=== PATIENT | female | born 2000 | race Caucasian/White ===

== ENCOUNTER 2024-09-11 13:36 | Inpatient (IN) | payer BC, SELFPAY ==
[2024-09-11] VITALS (9 sets, daily range): BP systolic 112–144; BP diastolic 58–81; PULSE 74–96; RESP 15–18; TEMP 36.4–36.9; O2SAT 92–100; BMI 39.4
--- OUTSIDE RECORDS SUMMARY | 2024-09-11 07:13 | XMS RPT_ITS | CCD ---
Author Organization [facility] Care Team Providers Care Sterile Processing Technologist Name Role Phone COLEMAN, FARA L Unavailable Unavailable REFERRED, SELF Unavailable Unavailable COLEMAN, FARA L Unavailable Unavailable COLEMAN, FARA L Unavailable Unavailable REFERRED, SELF Unavailable Unavailable COLEMAN, FARA L Unavailable Unavailable YADAV, IRIS K Unavailable Unavailable REFERRED, SELF Unavailable Unavailable COLEMAN, FARA L Unavailable Unavailable None, No PCP Unavailable Unavailable Unavailable Unavailable Required, No Pcp Unavailable Unavailable Isabel Arroyo Unavailable Unavailable Liliam Brantley Unavailable Unavailable Primary Care Provider Unavailabl e Hudec, Candy Unavailable Unavailable Unavailable Primary Care Provider Unavailabl e HUDEC, CANDY PHUONG Attending Unavailable Unavailable Primary Care Provider Unavailabl e HAURY, DEBO Referring Unavailable MONIKA JOEL Attending Unavailable ADELITA, JAYLON L Attending Unavailable WISWELL, ABILIO Attending Unavailable HAURY, DEBO Attending Unavailable TIZZANO, MINGO P Attending Unavailable WISWELL, ABILIO Attending Unavailable TARI BOGGS Attending Unavailable HAURY, DEBO Referring Unavailable HAURY, DEBO Attending Unavailable HAURY, DEBO Attending Unavailable HAURY, DEBO Referring Unavailable AMBROSETARI GARCIA Attending Unavailable ADELITA, JAYLON L Attending Unavailable HAURY, DEBO Referring Unavailable ADELITA, JAYLON L Attending Unavailable WISWELL, ABILIO Attending Unavailable ADELITA, JAYLON L Referring Unavailable TIZZANO, MINGO P Referring Unavailable MONIKA JOEL Attending Unavailable NAZ KERN Attending Unavailable SHAYYWELL, ABILIO Attending Unavailable Allergies Allergy Classification Reported Allergen(s) Allergy Type Date of Onset Reaction(s) Facility (1 source) ALLERGIES NOT ON FILE; Translations: [ALLERGIES NOT ON FILE] Propensity to adverse reactions (disorder) [facility] Medications Current Medications Medication Drug Class(es) Dates Sig (Normalized) Sig (Original) [id number] 200 actuat albuterol 0.09 mg/actuat metered dose inhaler (20 sources) beta2-Adrenergic Agonist Start: 02-24-2024 take 2 puff(s) by inhalation every six hours as needed for wheezing albuterol HFA (PROVENTIL HFA, VENTOLIN HFA) 90 mcg/actuation inhaler Indications: acute asthma attack Inhale 2 Puffs as instructed every 6 hours as needed for wheezing/shortnes s of breath. 18 g 1 02/24/2024 Active Comment on above: Inhale 2 Puffs as in structed every 6 hours as needed for wheezing/shortness of breath. aspirin 81 mg oral tablet (17 sources) Platelet Aggregation Inhibitor, Nonsteroidal Anti-inflammatory Drug take 1 capsule by mouth once daily aspirin 81 mg cap Take 81 mg by mouth once daily. Active Loratadine (20 sources) loratadine (CLARITIN ORAL) Take 1 tablet by mouth as needed (allergic to her cats). Active loratadine (CLAR ITIN ORAL) Take 1 tablet by mouth as needed (allergic to her cats). 0 Active take 1 tablet by mouth once chicho y Claritin 10 mg oral tablet ; 1 tab(s) orally once a day Quantity: 0 Refills: 0 Ordered: 07-Mar-2021 Mikala Abraham Generic Substitution Allowed loratadine (CLAR ITIN ORAL) Take by mouth. 0 Active Claritin TABS Qu antity: 0 Refills: 0 Ordered: 25-Jan-2021 DO Active Comment on above: Take by mouth. Take 1 tablet by minnie th as needed (allergic to her cats). PNV no.95/ferrous fum/folic ac ( ORAL) (20 sources) PNV no.95/ferrou s fum/folic ac ( ORAL) Take by mouth. Active PNV no.95/ferrou s fum/folic ac ( ORAL) Take by mouth. 0 Active Comment on above: Take by mouth. Completed/Discontinued Medications Medication Drug Class(es) Dates Sig (Normalized) Sig (Original) ibuprofen 800 mg oral tablet (2 sources) Nonsteroidal Anti-inflammatory Drug Start: 11-02-2022 take 1 tablet by mouth three times daily at mealtime ibuprofen 800 mg oral tablet ; 1 tab(s) orally 3 times a day Quantity: 20 Refills: 0 Ordered: 02-Nov-2022 Candy Villa Start: 02-Nov-2022 Generic Substitution Allowed Comments: Do not take this drug if you are .It is very important that you take or use this exactly as directed. Do not skip doses or discontinue unless directed by your doctor.May cause drowsiness or dizziness.Obtain medical advice before taking any non-prescription drugs as some may affect the action of this medication.Take with food or milk. Start: 06-09-2021 take 1 tablet by minnie th every six hours IBU 600 mg oral tablet ; 1 tab(s) orally every 6 hours as needed for cramping Quantity: 40 Refills: 0 Ordered: 16-Jun-2021 DavidEloina chance Start: 09-Jun-2021 Generic Substitution Allowed Comments: Do not take this drug if you are .It is very important that you take or use this exactly as directed. Do not skip doses or discontinue unless directed by your doctor.May cause drowsiness or dizziness.Obtain medical advice before taking any non-prescription drugs as some may affect the action of this medication.Take with food or milk. Comment on above: Do not take this tristian g if you are .It is very important that you take or use this exactly as directed. Do not skip doses or discontinue unless directed by your doctor.May cause drowsiness or dizziness.Obtain medical advice before taking any non-prescription drugs as some may affect the action of this medication.Take with food or milk. magnesium oxide 400 mg oral tablet (9 sources) Start: End: take 1 tablet by mouth once daily magnesium oxide (MAG-OX) 400 mg (241.3 mg magnesium) tablet Indications: 16 weeks gestation of , Encounter for supervision of other normal in first trimester , Migraine headaches Take 1 tablet by mouth once daily. 60 tablet 03/23/2024 07/13/2024 Discontinued (Course of therapy completed) metoclopramide 5 mg oral tablet (3 sources) Dopamine-2 Receptor Antagonist Start: End: take 1 tablet by mouth four times daily metoclopramide HCl (REGLAN) 5 mg tablet Take 1 tablet by mouth four times daily. 30 tablet 0 03/19/2024 04/20/2024 Discontinued PNV Plus Multivitamin TABS (3 sources) PNV Plu s Multivitamin TABS Quantity: 0 Refills: 0 Ordered: 25-Jan-2021 DO Active NEGATED: Highlighted row has not occurred!No Current Medications (1 source) No Current Medications Problems Active Problems Problem Classification Problem Date Documented Date Episodic/Chronic Bacterial infection; unspecified site (6 sources) Bacteria present; Translations: [Streptococcus, group B, as the cause of diseases classified elsewhere] Onset: 08-12-2024 08-12-2024 Episodic Cardiac and circulatory congenital anomalies (1 source) Uterine arteriovenous malformation; Translations: [Anomalies of other specified sites of peripheral vascular system] 06-09-2021 Chronic Headache; including migraine (2 sources) Tension-type headache; Translations: [Tension-type headache, unspecified, not intractable] 03-19-2024 Chronic Headache; including migraine (2 sources) Headache; including migraine; Translations: [Headache, unspecified] Onset: 11-02-2022 Hemorrhage during ; abruptio placenta; placenta previa (1 source) Antepartum hemorrhage; Translations: [Hemorrhage in early , unspecified] Episodic Immunizations and screening for infectious disease (5 sources) Patient encounter status; Translations: [Encounter for screening for infections with a predominantly sexual mode of transmission] Onset: 11-02-2022 Episodic Menstrual disorders (3 sources) Amenorrhea; Translations: [Absence of menstruation] Chronic Other aftercare (3 sources) Surgical follow-up; Translations: [Follow-up examination, following surgery, unspecified] Episodic Other complications of (20 sources) Maternal obesity complicating , childbirth and the puerperium, antepartum; Translations: [Obesity complicating , first trimester] Onset: 01-27-2024 01-27-2024 Chronic Other complications of (1 source) Obesity complicating , second trimester; Translations: [Obesity affecting in second trimester, unspecified obesity type] Onset: 04-20-2024 Chronic Other complications of (3 sources) Blighted ovum; Translations: [Other abnormal products of conception] Episodic Other complications of (20 sources) High risk ; Translations: [Supervision of high risk , unspecified, second trimester] Onset: 01-27-2024 04-20-2024 Episodic Other female genital disorders (2 sources) History of with abortive outcome; Translations: [Recurrent loss] Episodic Other female genital disorders (1 source) 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 ; Translations: [Recurrent loss] Episodic Residual codes; unclassified (3 sources) H/O: miscarriage; Translations: [Personal history of other genital system and obstetric disorders] Episodic Comment on above: 06/2019; Residual codes; unclassified (1 source) Influenza-like symptoms; Translations: [Other general symptoms] 11-02-2022 Episodic Residual codes; unclassified (1 source) Gestation period, 8 weeks; Translations: [8 weeks gestation of ] 01-27-2024 Episodic Residual codes; unclassified (2 sources) Gestation period, 12 weeks; Translations: [12 weeks gestation of ] 02-24-2024 Episodic Residual codes; unclassified (1 source) Gestation period, 16 weeks; Translations: [16 weeks gestation of ] 03-23-2024 Episodic Residual codes; unclassified (2 sources) Gestation period, 20 weeks; Translations: [20 weeks gestation of ] 04-20-2024 Episodic Residual codes; unclassified (1 source) Gestation period, 24 weeks; Translations: [24 weeks gestation of ] 05-18-2024 Episodic Residual codes; unclassified (1 source) Gestation period, 26 weeks; Translations: [26 weeks gestation of ] 06-04-2024 Episodic Residual codes; unclassified (1 source) Gestation period, 28 weeks; Translations: [28 weeks gestation of ] 06-15-2024 Episodic Residual codes; unclassified (1 source) Gestation period, 30 weeks; Translations: [30 weeks gestation of ] 06-29-2024 Episodic Residual codes; unclassified (1 source) Gestation period, 32 weeks; Translations: [32 weeks gestation of ] 07-13-2024 Episodic Residual codes; unclassified (1 source) Gestation period, 34 weeks; Translations: [34 weeks gestation of ] 07-27-2024 Episodic Residual codes; unclassified (1 source) Gestation period, 36 weeks; Translations: [36 weeks gestation of ] 08-10-2024 Episodic Residual codes; unclassified (1 source) Gestation period, 37 weeks; Translations: [37 weeks gestation of ] 08-17-2024 Episodic Residual codes; unclassified (1 source) Gestation period, 38 weeks; Translations: [38 weeks gestation of ] 08-24-2024 Episodic Residual codes; unclassified (1 source) Gestation period, 39 weeks; Translations: [39 weeks gestation of ] 08-31-2024 Episodic Residual codes; unclassified (1 source) Gestation period, 40 weeks; Translations: [40 weeks gestation of ] 09-07-2024 Episodic Residual codes; unclassified (1 source) 24 weeks gestation of ; Translations: [24 weeks gestation of ] Onset: 06-15-2024 Episodic Unclassified (2 sources) 06-09-2021 Comment on above: Unclassified (1 source) Arteriovenous malformation of uterus 06-09-2021 Unclassified (2 sources) BODY ACHES 11-02-2022 Comment on above: BODY ACHES Unclassified (1 source) Flu-like symptoms 11-02-2022 Unclassified (1 source) Contact with and (suspected) exposure to COVID-19; Translations: [Contact with and (suspected) exposure to COVID-19] Onset: 11-02-2022 Unclassified (18 sources) [facility] Education - COMMON Onset: 01-27-2024 01-27-2024 Unclassified (18 sources) Education - [place] Onset: 01-27-2024 01-27-2024 Past or Other Problems Problem Classification Problem Date Documented Da te Episodic/Chronic Nonspecific chest pain (2 sources) Other chest pain; Translations: [Other chest pain] Onset: 11-02-2022 Episodic Other complications of (12 sources) Nausea and vomiting; Translations: [Vomiting of , unspecified] Onset: 01-27-2024 01-27-2024 Episodic Other complications of (12 sources) Vomiting of , unspecified; Translations: [Unspecified vomiting of , unspecified as to episode of care or not applicable] Onset: 01-27-2024 01-27-2024 Episodic Other complications of (1 source) Supervision of high risk , unspecified, second trimester; Translations: [Supervision of high risk in second trimester] Onset: 04-20-2024 Episodic Other female genital disorders (20 sources) Recurrent miscarriage; Translations: [Recurrent loss] Onset: 01-27-2024 01-27-2024 Episodic Other and delivery including normal (16 sources) test positive; Translations: [Encounter for test, result positive] Onset: 01-07-2024 Episodic Other screening for suspected conditions (not mental disorders or infectious disease) (9 sources) Karyotype evaluation abnormal; Translations: [Nonspecific abnormal findings on chromosomal analysis] Onset: 02-24-2024 Episodic Residual codes; unclassified (2 sources) Pain, unspecified; Translations: [Pain, unspecified] Onset: 11-02-2022 Episodic Residual codes; unclassified (20 sources) Electronic cigarette user; Translations: [Other problems related to lifestyle] Onset: 01-27-2024 01-27-2024 Episodic Residual codes; unclassified (1 source) 8 weeks gestation of ; Translations: [8 weeks gestation of ] Onset: 03-23-2024 Episodic Residual codes; unclassified (1 source) 16 weeks gestation of ; Translations: [16 weeks gestation of ] Onset: 03-23-2024 Episodic Residual codes; unclassified (1 source) 12 weeks gestation of ; Translations: [12 weeks gestation of ] Onset: 02-24-2024 Episodic Screening and history of mental health and substance abuse codes (20 sources) H/O: anxiety state; Translations: [Personal history of other mental and behavioral disorders] Onset: 01-27-2024 01-27-2024 Episodic Unclassified (3 sources) Finding of menstrual bleeding; Translations: [Menstruation] Comment on above: AGE 10; Results Test Name Value Interpretation Reference Range Facil ity URINE OB DIP B/Oon 4 Glucose Ql (U) Negative Neg mg/dL [facility] Interpretation and review of laboratory results Normal [facility] Protein.monoclonal (U) [Mass/Vol] Negative Neg mg/dL [facility] URINE OB DIP B/Oon 4 Glucose Ql (U) Negative Neg mg/dL [facility] Interpretation and review of laboratory results Normal [facility] Protein.monoclonal (U) [Mass/Vol] Negative Neg mg/dL [facility] URINE OB DIP B/OOrdered By: Yen Richards on 08-17-2024 Glucose Ql (U) Negative Neg mg/dL [facility] Interpretation and review of laboratory results Normal [facility] Protein.monoclonal (U) [Mass/Vol] Negative Neg mg/dL [facility] ROUTINE, GROUP B ST REP PCRon 08-10-2024 ROUTINE, GROUP B STREP PCR GROUP B STREP PCR: Positive for Group B Streptococcus by PCR. Abnormal [facility] Comment on above: Performed By: #### G BPCR ####[facility] LABCLIA [id number] [facility] [place] [address] [place] CBC W Auto Differential pane l (Bld)on 06-15-2024 Basophils (Bld) [#/Vol] 0.04 10*3/uL Normal <0.11 [facility] Comment on above: Order Comment: Speci men Type: BLOOD SPECIMENOrdering Facility: [facility] Address: [address] [place] [address] Performed By: #### 5 7021-8 ####[facility] [id number] [place] [address] [place] Basophils/100 WBC (Bld) 0.4 % Normal [facility] Comment on above: Order Comment: Speci men Type: BLOOD SPECIMENOrdering Facility: [facility] Address: [address] [place] [address] Performed By: #### 5 7021-8 ####[facility] [id number] [place] [address] [place] Differential cell count method Nom (Bld) Auto Normal [facility] Comment on above: Order Comment: Speci men Type: BLOOD SPECIMENOrdering Facility: [facility] Address: [address] [place] [address] Performed By: #### 5 7021-8 ####[facility] [id number] [place] [address] [place] Eosinophils (Bld) [#/Vol] 0.13 10*3/uL Normal <0.46 [facility] Comment on above: Order Comment: Speci men Type: BLOOD SPECIMENOrdering Facility: [facility] Address: [address] [place] [address] Performed By: #### 5 7021-8 ####[facility] MADDYPeterNCLIA [id number] [place] [address] [place] Eosinophils/100 WBC (Bld) 1.5 % Normal [facility] Comment on above: Order Comment: Speci men Type: BLOOD SPECIMENOrdering Facility: [facility] Address: [address] [place] [address] Performed By: #### 5 7021-8 ####[facility] [id number] [place] [address] [place] Erythrocyte distribution width (RBC) [Ratio] 13.0 % Normal 11.5-15.0 [facility] Comment on above: Order Comment: Speci men Type: BLOOD SPECIMENOrdering Facility: [facility] Address: [address] [place] [address] Performed By: #### 5 7021-8 ####[facility] [id number] [place] [address] [place] Hematocrit (Bld) [Volume fraction] 32.1 % Low 36.0-46.0 [facility] Comment on above: Order Comment: Speci men Type: BLOOD SPECIMENOrdering Facility: [facility] Address: [address] [place] [address] Performed By: #### 5 7021-8 ####[facility]CL[facility] [id number] [place] [address] [place] Hemoglobin (Bld) [Mass/Vol] 11.0 g/dL Low 11.5-15.5 [facility] Comment on above: Order Comment: Speci men Type: BLOOD SPECIMENOrdering Facility: [facility] Address: [address] [place] [address] Performed By: #### 5 7021-8 ####[facility]ITAL[facility]CL[facility] [id number] [place] [address] [place] Immature granulocytes (Bld) [#/Vol] 0.06 10*3/uL Normal <0.10 [facility] Comment on above: Order Comment: Speci men Type: BLOOD SPECIMENOrdering Facility: [facility] Address: [address] [place] [address] Performed By: #### 5 7021-8 ####[facility] [id number] [place] [address] [place] Immature granulocytes/100 WBC (Bld) 0.7 % Normal [facility] Comment on above: Order Comment: Speci men Type: BLOOD SPECIMENOrdering Facility: [facility] Address: [address] [place] [address] Performed By: #### 5 7021-8 ####[facility] [id number] [place] [address] [place] Lymphocytes (Bld) [#/Vol] 1.42 10*3/uL Normal 1.00-4.00 [facility] Comment on above: Order Comment: Speci men Type: BLOOD SPECIMENOrdering Facility: [facility] Address: [address] [place] [address] Performed By: #### 5 7021-8 ####[facility] [id number] [place] [address] [place] Lymphocytes/100 WBC (Bld) 16.0 % Normal [facility] Comment on above: Order Comment: Speci men Type: BLOOD SPECIMENOrdering Facility: [facility] Address: [address] [place] [address] Performed By: #### 5 7021-8 ####[facility] [id number] [place] [address] [place] MCH (RBC) [Entitic mass] 31.9 pg Normal 26.0-34.0 [facility] Comment on above: Order Comment: Speci men Type: BLOOD SPECIMENOrdering Facility: [facility] Address: [address] [place] [address] Performed By: #### 5 7021-8 ####[facility]ITALMADELINE [id number] [place] [address] [place] MCHC (RBC) [Mass/Vol] 34.3 g/dL Normal 30.5-36.0 [facility] Comment on above: Order Comment: Speci men Type: BLOOD SPECIMENOrdering Facility: [facility] Address: [address] [place] [address] Performed By: #### 5 7021-8 ####[facility] [id number] [place] [address] [place] MCV (RBC) [Entitic vol] 93.0 fL Normal 80.0-100.0 [facility] Comment on above: Order Comment: Speci men Type: BLOOD SPECIMENOrdering Facility: [facility] Address: [address] [place] [address] Performed By: #### 5 7021-8 ####[facility] [id number] [place] [address] [place] Monocytes (Bld) [#/Vol] 0.53 10*3/uL Normal <0.87 [facility] Comment on above: Order Comment: Speci men Type: BLOOD SPECIMENOrdering Facility: [facility] Address: [address] [place] [address] Performed By: #### 5 7021-8 ####[facility] [id number] [address] [place] Monocytes/100 WBC (Bld) 6.0 % Normal [facility] Comment on above: Order Comment: Speci men Type: BLOOD SPECIMENOrdering Facility: [facility] Address: [address] [place], [place] [address] Performed By: #### 5 7021-8 ####[facility] MILLTOWNCLIA [id number] [place] [address] [place] Neutrophils (Bld) [#/Vol] 6.72 10*3/uL Normal 1.45-7.50 [facility] Comment on above: Order Comment: Speci men Type: BLOOD SPECIMENOrdering Facility: [facility] Address: [address] [place] [address] Performed By: #### 5 7021-8 ####[facility]ITALWNCLIA [id number] [place] [address] [place] Neutrophils/100 WBC (Bld) 75.4 % Normal [facility] Comment on above: Order Comment: Speci men Type: BLOOD SPECIMENOrdering Facility: [facility] Address: [address] [place] [address] Performed By: #### 5 7021-8 ####[facility]PITALL[facility] [id number] [place] [address] [place] Nucleated RBC (Bld) [#/Vol] 10*3/uL Normal <0.01 [facility] Comment on above: Order Comment: Speci men Type: BLOOD SPECIMENOrdering Facility: [facility] Address: [address] [place] [address] Performed By: #### 5 7021-8 ####[facility] MILLWNCLIA [id number] [place] [address] [place] Nucleated RBC/100 WBC (Bld) [Ratio] 0.0 /100 WBC Normal [facility] Comment on above: Order Comment: Speci men Type: BLOOD SPECIMENOrdering Facility: [facility] Address: [address] [place] [address] Performed By: #### 5 7021-8 ####[facility] MILLDOVERNCLIA [id number] [place] [address] [place] Platelet mean volume (Bld) [Entitic vol] 10.1 fL Normal 9.0-12.7 [facility] Comment on above: Order Comment: Speci men Type: BLOOD SPECIMENOrdering Facility: [facility] Address: [address] [place] [address] Performed By: #### 5 7021-8 ####[facility]ITALELIEZERMIHIR [id number] [place] [address] [place] Platelets (Bld) [#/Vol] 236 10*3/uL Normal 150-400 [facility] Comment on above: Order Comment: Speci men Type: BLOOD SPECIMENOrdering Facility: [facility] Address: [address] [place] [address] Performed By: #### 5 7021-8 ####[facility]ITALNCLIA [id number] [place] [address] [place] RBC (Bld) [#/Vol] 3.45 10*6/uL Low 3.90-5.20 [facility] Comment on above: Order Comment: Speci men Type: BLOOD SPECIMENOrdering Facility: [facility] Address: [address] [place] [address] Performed By: #### 5 7021-8 ####[facility]ITALNCLIA [id number] [place] [address] [place] WBC (Bld) [#/Vol] 8.90 10*3/uL Normal 3.70-11.00 [facility] Comment on above: Order Comment: Speci men Type: BLOOD SPECIMENOrdering Facility: [facility] Address: [address] [place] [address] Performed By: #### 5 7021-8 ####[facility]ITALNCLIA [id number] [place] [address] [place] GESTATIONAL GLUCOSE SCREEN, 1-HOUR, 50 GRAM, NON-FASTINGon 06-15-2024 Glucose [Mass/Vol] 130 mg/dL Normal 74-134 [facility] Comment on above: Order Comment: Speci men Type: BLOOD SPECIMENOrdering Facility: [facility] Address: [address] [place] [address] Result Comment: [facility] Congress of Obstetricians and Gynecologists (Jameson/Germán) guidelines state a gestational diabetes mellitus positive screen is made, in women not previously diagnosed with overt diabetes, when the 1 hr plasma glucose level is equal to or above 140 mg/dL. The [facility] Cmm Programmer and [facility] [place] recommends a 135 mg/dL cutoff. Performed By: #### G LTGST ####[facility] [id number] [place] [address] [place] Reagin and Treponema pallidu m IgG and IgM [Interp]on 06-15-2024 T. pallidum IgG+IgM IA Ql (S) Non-Reactive Normal Nonreactive [facility] Comment on above: Order Comment: Speci men Type: BLOOD SPECIMENOrdering Facility: [facility] Address: [address] [place] [address] Performed By: #### 7 3752-8 ####[facility] LABCLIA [id number] [place] [id number] [place] Reagin+T pallidum IgG+IgM Se rPl-Impon 06-15-2024 Reagin and Treponema pallidum IgG and IgM [Interp] Cannot exclude recent Treponemal infection if specimen collected within 7-10 days after appearance of suspect lesions or 2-3 weeks after an exposure. Clinical correlation is required. Normal [facility] Comment on above: Order Comment: Speci men Type: BLOOD SPECIMENOrdering Facility: [facility] Address: [address] [place], [place] [address] Performed By: #### 7 3752-8 ####[facility] LABCLIA [id number] [place] [address] [place] CNPNon 06-01-2024 CNPN Telephone (OBGYWM) ----- TISH MILLER ([id number]) 2000 F Date Time Provider Department 06/01/24 IMELDA RICKETTS OBGYWM During your visit today, we recorded the following information about you: Azalia Melgar, SHELL 06/01/2024 9:57 AM Signed Breast pump received from [employer]. Given to to sign. Azalia Melgar RN Tari Toledo RN 06/02/2024 3:04 PM Signed Faxed Allergies As of Date: 06/01/2024 (No Known Allergies) Date Reviewed: 04/20/2024 Reviewed by: Debo Alicea APRN.PROTOTYPE MODEL MAKER - Fully Assessed Reason for Visit: Breast pump [Other] Prescriptions as of 06/02/2024 - aspirin 81 mg cap Take 81 mg by mouth once daily. - magnesium oxide (MAG-OX) 400 mg (241.3 mg magnesium) tablet Take 1 tablet by mouth once daily. - albuterol HFA (PROVENTIL HFA, VENTOLIN HFA) 90 mcg/actuation inhaler Inhale 2 Puffs as instructed every 6 hours as needed for wheezing/shortness of breath. - PNV no.95/ferrous fum/folic ac ( ORAL) Take by mouth. - loratadine (CLARITIN ORAL) Take 1 tablet by mouth as needed (allergic to her cats). 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 Single, live, intrauterine . 2. biometry is consistent with the established gestational age. 3. Unremarkable anatomic survey. No markers for aneuploidy are noted. 4. Amniotic fluid normal amount. 5. The placenta is anterior, fundal. 6. Normal transabdominal cervical length without evidence of funneling or dynamic changes. Recommendations Follow up as clinically indicated. Maternal Assessment Height 157 cm Height (ft) 5 ft Height (in) 2 in Physical Exam Initial weight (lb) 174 lb Initial BMI 31.83 kg/m Maternal assessment other: 4 Para 0 Method Transabdominal ultrasound examination. View: Suboptimal view: limited by position Jay . Number of fetuses: 1 Dating LMP on: 11/29/2023 GA by LMP 20 w + 3 d MIKE by LMP: 09/04/2024 GA by prior assessment 20 w + 3 d MIKE by prior assessment: 09/04/2024 Ultrasound examination on: 04/20/2024 GA by U/S based upon: AC, BPD, Femur, HC GA by U/S 20 w + 4 d MIKE by U/S: 09/03/2024 Assigned: based on stated MIKE, selected on 04/20/2024 Assigned GA 20 w + 3 d Assigned MIKE: 09/04/2024 General Evaluation Cardiac activity present. FHR 149 bpm. movements: present. Presentation: transverse head left Placenta: Placental site: anterior, fundal Umbilical cord: normal insertion, 3 vessel cord Amniotic fluid: Amount of AF: normal amount. MVP 3.9 cm Growth Overview Exam date GA BPD (mm) HC (mm) AC (mm) FL (mm) HL (mm) EFW (g) 04/20/2024 20w 3d 48.3 57% 178.8 46% 160.4 68% 32.4 52% 32.4 68% 365 54% Biometry Standard BPD 48.3 mm 20w 4d 57% Hadlock OFD 63.4 mm 20w 2d 66% Nicolaides HC 178.8 mm 20w 2d 46% Meliza Cerebellum tr 20.2 mm 19w 3d 33% Hill Nuchal fold 3.4 mm AC 160.4 mm 21w 1d 68% Hadlock Femur 32.4 mm 20w 2d 52% Meliza Humerus 32.4 mm 20w 6d 68% Meliza EFW 365 g 20w 4d 54% Hadlock EFW (lb) 0 lb EFW (oz) 13 oz EFW by: Hadlock (HC-AC-FL) Extended Glass Furnace Operator 6.4 mm CM 4.8 mm 41% Nicolaides Extremities / Bony Struc FL / HC 0.18 19% Hadlock Other Structures FHR 149 bpm Anatomy Cranium: normal Lateral ventricles: normal Choroid plexus: normal Midline falx: normal Cavum septi pellucidi: normal Cerebellum: normal Cisterna magna: normal Head / Neck Vermis: normal Neck: normal Nuchal fold: normal Lips: normal Profile: normal Nose: normal Face Maxilla: normal Mandible: normal Orbits: normal Lens: normal 4-chamber view: normal RVOT view: normal LVOT view: normal 3-vessel view: normal 5-[id number]-[id number] view: normal Heart / Thorax Situs: situs solitus (normal) Aortic arch view: normal Ductal arch view: normal SVC: normal IVC: normal Cardiac axis: normal Rt lung: normal Lt lung: normal Diaphragm: normal Cord insertion: normal Stomach: normal Kidneys: normal Bladder: normal Genitals: normal Abdomen Abdom. wall: normal Cervical spine: normal Thoracic spine: normal Lumbar spine: normal Sacral spine: normal Arms: normal Legs: normal Rt upper arm: normal Rt forearm: normal Rt hand: normal Rt fingers: normal Lt upper arm: normal Lt forearm: normal Lt hand: normal Lt fingers: normal Rt upper leg: normal Rt lower leg: normal Rt foot: normal Lt upper leg: normal Lt lower leg: normal Lt foot: normal sex: male Wants to know sex: yes Maternal Structures Uterus / Cervix Uterus: Visualized Cervix: Visualized Approach: Transabdominal Cervical length 33.5 mm Ovaries / Tubes / Adnexa Rt ovary: Not visualized Lt ovary: Visualized Performed By: Claudia Velazquez RDMS, RVT Read By: Skylar Raza M.D. MATERNAL MEDICINE [facility] Radiology Study observation (narrative) [facility] CBC panel Auto (Bld)on 03-23 Erythrocyte distribution width (RBC) [Ratio] 12.3 % Normal 11.5-15.0 [facility] Comment on above: Order Comment: Speci men Type: BLOOD SPECIMENOrdering Facility: [facility] Address: [address] [place] [address] Performed By: #### 5 8410-2 ####[facility] [id number] [place] [address] [place] Hematocrit (Bld) [Volume fraction] 35.2 % Low 36.0-46.0 [facility] Comment on above: Order Comment: Speci men Type: BLOOD SPECIMENOrdering Facility: [facility] Address: [address] [place] [address] Performed By: #### 5 8410-2 ####[facility] [id number] [place] [address] [place] Hemoglobin (Bld) [Mass/Vol] 12.1 g/dL Normal 11.5-15.5 [facility] Comment on above: Order Comment: Speci men Type: BLOOD SPECIMENOrdering Facility: [facility] Address: [address] [place] [address] Performed By: #### 5 8410-2 ####[facility] [id number] [place] [address] [place] MCH (RBC) [Entitic mass] 31.1 pg Normal 26.0-34.0 [facility] Comment on above: Order Comment: Speci men Type: BLOOD SPECIMENOrdering Facility: [facility] Address: [address] [place] [address] Performed By: #### 5 8410-2 ####[facility] [id number] [place] [address] [place] MCHC (RBC) [Mass/Vol] 34.4 g/dL Normal 30.5-36.0 [facility] Comment on above: Order Comment: Speci men Type: BLOOD SPECIMENOrdering Facility: [facility] Address: [address] [place] [address] Performed By: #### 5 8410-2 ####[facility] [id number] [address] MCV (RBC) [Entitic vol] 90.5 fL Normal 80.0-100.0 [facility] Comment on above: Order Comment: Speci men Type: BLOOD SPECIMENOrdering Facility: [facility] Address: [address] [place] [address] Performed By: #### 5 8410-2 ####[facility]ITALELIEZERAshwini [id number] [place] [address] [place] Nucleated RBC (Bld) [#/Vol] 10*3/uL Normal <0.01 [facility] Comment on above: Order Comment: Speci men Type: BLOOD SPECIMENOrdering Facility: [facility] Address: [address] [place] [address] Performed By: #### 5 8410-2 ####[facility]ITALNCGEMMAA [id number] [place] [address] [place] Platelet mean volume (Bld) [Entitic vol] 10.1 fL Normal 9.0-12.7 [facility] Comment on above: Order Comment: Speci men Type: BLOOD SPECIMENOrdering Facility: [facility] Address: [address] [place] [address] Performed By: #### 5 8410-2 ####[facility]NCL[facility] [id number] [place] [address] [place] Platelets (Bld) [#/Vol] 244 10*3/uL Normal 150-400 [facility] Comment on above: Order Comment: Speci men Type: BLOOD SPECIMENOrdering Facility: [facility] Address: [address] [place] [address] Performed By: #### 5 8410-2 ####[facility] HOSPITALNCA [id number] [place] [address] [place] RBC (Bld) [#/Vol] 3.89 10*6/uL Low 3.90-5.20 [facility] Comment on above: Order Comment: Speci men Type: BLOOD SPECIMENOrdering Facility: [facility] Address: [address] [place] [address] Performed By: #### 5 8410-2 ####[facility] [id number] [place] [address] [place] WBC (Bld) [#/Vol] 7.50 10*3/uL Normal 3.70-11.00 [facility] Comment on above: Order Comment: Speci men Type: BLOOD SPECIMENOrdering Facility: [facility] Address: [address] [place] [address] Performed By: #### 5 8410-2 ####[facility]ITAL[facility] [id number] [place] [address] [place] HBV surface Ag Ser Qlon - HBV surface Ag Ql (S) Negative Normal Negative [facility] Comment on above: Order Comment: Speci men Type: BLOOD SPECIMENOrdering Facility: [facility] Address: [address] [place] [address] Performed By: #### 7 3752-8, 5195-3, 39000-2 ####[facility] LABCLIA [id number] [place] [address] [place] HCV Ab Ser Qlon 03-23-2024 HCV Ab Ql (S) Negative Normal Negative [facility] Comment on above: Order Comment: Speci men Type: BLOOD SPECIMENOrdering Facility: [facility] Address: [address] [place] [address] Result Comment: The result suggests no evidence of active infection with Hepatitis C virus. Should recent infection be suspected, repeat testing may be considered 4-6 weeks after this draw. Performed By: #### 1 6128-1 ####[facility] LABCLIA [id number] [place] [address] [place] HIV 1+2 Ab IA Qlon 4 HIV 1 and 2 Ab IA.rapid Nom (S/P/Bld) Normal [facility] Comment on above: Order Comment: Speci men Type: BLOOD SPECIMENOrdering Facility: [facility] Address: [address] [place] [address] Result Comment: Test not indicated. Performed By: #### 7 3752-8, 5195-3, 24917-9 ####[facility] LABIA [id number] [address] [place] HIV 1+2 Ab+HIV1 p24 Ag IA Ql Non-Reactive Normal Nonreactive [facility] Comment on above: Order Comment: Speci men Type: BLOOD SPECIMENOrdering Facility: [facility] Address: [address] [place] [address] Performed By: #### 7 3752-8, 5195-3, 91040-1 ####[facility] LABIA [id number] [address] [place] HIV immunoassay testing algorithm interpretation (S/P/Bld) [Interp] Normal [facility] Comment on above: Order Comment: Speci men Type: BLOOD SPECIMENOrdering Facility: [facility] Address: [address] [place] [address] Result Comment: No e vidence of HIV-1 or HIV-2 infection. Should recent infection be suspected, repeat testing may be considered 2-3 weeks after this draw. [place] Rev. Code 3701.243(E): This information has been disclosed to you from confidential records protected from disclosure by state law. ???You shall make no further disclosure of this information without the specific, written, and informed release of the individual to whom it pertains or as otherwise permitted by state law. A general authorization for the release of medical or other information is not sufficient for the purpose of the release of HIV test results or diagnoses. Performed By: #### 7 3752-8, 5195-3, 88999-2 ####[facility] LABCLIA [id number] [address] OF [facility] HbA1c (Bld)on 03-23-2024 Average glucose Estimated from glycated hemoglobin (Bld) [Mass/Vol] 91 mg/dL Normal [facility] Comment on above: Order Comment: Speci men Type: BLOOD SPECIMENOrdering Facility: [facility] Address: [address] [place] [address] Result Comment: eAG: (Estimated average glucose) is a calculated value from HgbA1c and is insurance verification representative of the average blood glucose level in the last 2-3 month period. Performed By: #### 5 5454-3 ####[facility] LABIA [id number] [address] STATES OF [facility] HbA1c (Bld) [Mass fraction] 4.8 % Normal 4.3-5.6 [facility] Comment on above: Order Comment: [facility]i [facility] Type: BLOOD SPECIMENOrdering Facility: [facility] Address: [address] [place] [address] Result Comment: Amer [place] Diabetes Association guidelines indicate that patients with HgbA1c in the range 5.7-6.4% are at increased risk for development of diabetes, and intervention by lifestyle modification may be beneficial. HgbA1c greater or equal to 6.5% is considered diagnostic of diabetes. Performed By: #### 5 5454-3 ####[facility] LABIA [id number] [address] OF [place] RUBELLA IGG ANTIBODYon 03-23 RUBELLA IGG AB, QUAL Positive Normal Positive [facility] Comment on above: Order Comment: Speci men Type: BLOOD SPECIMENOrdering Facility: [facility] Address: [address] [place] [address] Result Comment: The result suggests recent or past exposure to Rubella virus or history of Rubella vaccination. Positive result may also be seen due to presence of passively-transferred antibodies. Please correlate with patient's history. Performed By: #### R UBIGG ####[facility] LABCLIA [id number] [place] [address] [place] Reagin and Treponema pallidu m IgG and IgM [Interp]on 03-23-2024 T. pallidum IgG+IgM IA Ql (S) Non-Reactive Normal Nonreactive [facility] Comment on above: Order Comment: Speci men Type: BLOOD SPECIMENOrdering Facility: [facility] Address: [address] [place] [address] Performed By: #### 7 3752-8, 5195-3, 25863-9 ####[facility] LABCLIA [id number] [place] [address] [place] Reagin+T pallidum IgG+IgM Se rPl-Impon 03-23-2024 Reagin and Treponema pallidum IgG and IgM [Interp] Cannot exclude recent Treponemal infection if specimen collected within 7-10 days after appearance of suspect lesions or 2-3 weeks after an exposure. Clinical correlation is required. Normal [facility] Comment on above: Order Comment: Speci men Type: BLOOD SPECIMENOrdering Facility: [facility] Address: [address] [place] [address] Performed By: #### 7 3752-8, 5195-3, 01616-8 ####[facility] LABCLIA [id number] [place] [address] [place] SEQUENTIAL SCN SECOND TRIMon 03-23-2024 AFP [Mass/Vol] 45.4 ng/mL Normal [facility] Comment on above: Order Comment: Speci men Type: BLOOD SPECIMENOrdering Facility: [facility] Address: [address] [place] [address] Performed By: #### S EQ2 ####[facility] LABCLIA [id number] [facility] [place] [address] AFP adjusted [MoM] 1.47 Normal [facility] Comment on above: Order Comment: Speci men Type: BLOOD SPECIMENOrdering Facility: [facility] Address: [address] [place] [address] Performed By: #### S EQ2 ####[facility] LABCLIA [id number] [place] [address] [age] Normal [facility] Comment on above: Order Comment: Speci men Type: BLOOD SPECIMENOrdering Facility: [facility] Address: [address] [place] [address] Performed By: #### S EQ2 ####[facility] LABCLIA [id number] [place] [address] Collection date (Specimen) Date: Normal [facility] Comment on above: Order Comment: Speci men Type: BLOOD SPECIMENOrdering Facility: [facility] Address: [address] [place] [address] Result Comment: 04/2024 Performed By: #### S EQ2 ####[facility] LABCLIA [id number] [place] [address] E3.unconjugated [Mass/Vol] 0.98 ng/mL Normal [facility] Comment on above: Order Comment: Speci men Type: BLOOD SPECIMENOrdering Facility: [facility] Address: [address] [place] [address] Performed By: #### S EQ2 ####[facility] LABCLIA [id number] [place] [address] E3.unconjugated adjusted [MoM] 0.95 Normal [facility] Comment on above: Order Comment: Speci men Type: BLOOD SPECIMENOrdering Facility: [facility] Address: [address] [place] [address] Performed By: #### S EQ2 ####[facility] LABCLIA [id number] [place] [address] Halfway Rump length US 63.4 mm Normal [facility] Comment on above: Order Comment: Speci men Type: BLOOD SPECIMENOrdering Facility: [facility] Address: [address] [place] [address] Performed By: #### S EQ2 ####[facility] LABCLIA [id number] [place] [address] Nuchal fold [Multiple of the median] Thickness US 1.39 Normal [facility] Comment on above: Order Comment: Speci men Type: BLOOD SPECIMENOrdering Facility: [facility] Address: [address] [place] [address] Performed By: #### S EQ2 ####[facility] LABCLIA [id number] [place] [address] Nuchal fold Thickness US 2.0 mm Normal [facility] Comment on above: Order Comment: Speci men Type: BLOOD SPECIMENOrdering Facility: [facility] Address: [address] [place] [address] Performed By: #### S EQ2 ####[facility] LABCLIA [id number] [place] [address] First and Second trimester integrated maternal screen [Interp] Comment Normal [facility] Comment on above: Order Comment: Speci men Type: BLOOD SPECIMENOrdering Facility: [facility] Address: [address] [place] [address] Result Comment: Scre en Negative for Open Spina Bifida. Comment Screen Negative for Down syndrome Comment Screen Negative for Trisomy 18 Performed By: #### S EQ2 ####[facility] LABCLIA [id number] [place] [address] FIRST TRIMESTER SAMPLE Comment Normal [facility] Comment on above: Order Comment: Speci men Type: BLOOD SPECIMENOrdering Facility: [facility] Address: [address] [place] [address] Performed By: #### S EQ2 ####[facility] LABCLIA [id number] [place] [address] Gestational age 16.6 weeks Normal [facility] Comment on above: Order Comment: Speci men Type: BLOOD SPECIMENOrdering Facility: [facility] Address: [address] [place] [address] Performed By: #### S EQ2 ####[facility] LABCLIA [id number] [place] [address] HCG adjusted [MoM] 1.03 Normal [facility] Comment on above: Order Comment: Speci men Type: BLOOD SPECIMENOrdering Facility: [facility] Address: [address] [place] [address] Performed By: #### S EQ2 ####[facility] LABCLIA [id number] [place] [address] HCG Qn 31.1 IU/mL Normal [facility] Comment on above: Order Comment: Speci men Type: BLOOD SPECIMENOrdering Facility: [facility] Address: [address] [place] [address] Performed By: #### S EQ2 ####[facility] LABCLIA [id number] [place] [address] Inhibin A [Mass/Vol] 152.6 pg/mL Normal [facility] Comment on above: Order Comment: Speci men Type: BLOOD SPECIMENOrdering Facility: [facility] Address: [address] [place] [address] Performed By: #### S EQ2 ####[facility] LABCLIA [id number] [place] [address] Inhibin A adjusted [MoM] 1.09 Normal [facility] Comment on above: Order Comment: Speci men Type: BLOOD SPECIMENOrdering Facility: [facility] Address: [address] [place] [address] Performed By: #### S EQ2 ####[facility] LABCLIA [id number] [place] [address] Insulin dependent diabetes mellitus Ql No Normal [facility] Comment on above: Order Comment: Speci men Type: BLOOD SPECIMENOrdering Facility: [facility] Address: [address] [place] [address] Performed By: #### S EQ2 ####[facility] LABCLIA [id number] [place] [address] Laboratory comment Frantz (Report) Comment Normal [facility] Comment on above: Order Comment: Speci men Type: BLOOD SPECIMENOrdering Facility: [facility] Address: [address] [place] [address] Result Comment: The [place] [employer] recommends that all women be counseled regarding the differences between screening and invasive diagnostic testing. Performed By: #### S EQ2 ####[facility] LABCLIA [id number] [place] [address] Mother's race Normal [facility] Comment on above: Order Comment: Speci men Type: BLOOD SPECIMENOrdering Facility: [facility] Address: [address] [place] [address] Performed By: #### S EQ2 ####[facility] LABCLIA [id number] [place] [address] Neural tube defect risk Qn (fetus) Screening Risk: Normal [facility] Comment on above: Order Comment: Speci men Type: BLOOD SPECIMENOrdering Facility: [facility] Address: [address] [place] [address] Result Comment: 1 in 3100 Performed By: #### S EQ2 ####[facility] LABCLIA [id number] [place] [address] NOTE: Comment Normal [facility] Comment on above: Order Comment: Speci men Type: BLOOD SPECIMENOrdering Facility: [facility] Address: [address] [place] [address] Result Comment: Pauline diaz verify all clinical data used in this risk assessment and call [phone] with any corrections. Candi Arnold, Ph.D., [facility] Director References: Available upon request Open Spina Bifida (OSB) MoM Cutoffs Jay 2.5 Black 2.8 IDD 2.0 Twins 4.5 Risk Cutoffs Down Syndrome (DS) cutoff 1:270 Trisomy 18 (T18) cutoff 1:100 For further inquiries contact [employer] Customer Service at [phone]. This test was developed and its performance characteristics determined by [employer]. It has not been cleared or approved by the Food and Drug Administration. Performed By: #### S EQ2 ####[facility] LABCLIA [id number] [place] [address] Number of fetuses by US 1 Normal [facility] Comment on above: Order Comment: Speci men Type: BLOOD SPECIMENOrdering Facility: [facility] Address: [address] [place] [address] Performed By: #### S EQ2 ####[facility] LABCLIA [id number] [place] [address] associated plasma protein A [Mass/Vol] 814.7 ng/mL Normal [facility] Comment on above: Order Comment: Speci men Type: BLOOD SPECIMENOrdering Facility: [facility] Address: [address] [place] [address] Performed By: #### S EQ2 ####[facility] LABCLIA [id number] [place] [address] associated plasma protein A adjusted [MoM] 0.95 Normal [facility] Comment on above: Order Comment: Speci men Type: BLOOD SPECIMENOrdering Facility: [facility] Address: [address] [place] [address] Performed By: #### S EQ2 ####[facility] LABCLIA [id number] [place] [address] RESULTS Report Normal [facility] Comment on above: Order Comment: Speci men Type: BLOOD SPECIMENOrdering Facility: [facility] Address: [address] [place] [address] Performed By: #### S EQ2 ####[facility] LABCLIA [id number] [place] [address] SECOND TRIMESTER SAMPLE Comment Normal [facility] Comment on above: Order Comment: Speci men Type: BLOOD SPECIMENOrdering Facility: [facility] Address: [address] [place] [address] Performed By: #### S EQ2 ####[facility] LABCLIA [id number] [place] [address] Manager Transmission [Identifier] [id number] Normal [facility] Comment on above: Order Comment: Speci men Type: BLOOD SPECIMENOrdering Facility: [facility] Address: [address] [place] [address] Performed By: #### S EQ2 ####[facility] LABCLIA [id number] [place] [address] Trisomy 18 risk Based on maternal age Qn (fetus) Age Risk: Normal [facility] Comment on above: Order Comment: Speci men Type: BLOOD SPECIMENOrdering Facility: [facility] Address: [address] [place] [address] Result Comment: in 4043 Performed By: #### S EQ2 ####[facility] LABCLIA [id number] [place] [address] Trisomy 18 risk Qn (fetus) Screening Risk: Normal [facility] Comment on above: Order Comment: Speci men Type: BLOOD SPECIMENOrdering Facility: [facility] Address: [address] [place] [address] Result Comment: <1 i n [id number] Performed By: #### S EQ2 ####[facility] LABCLIA [id number] [place] [address] Trisomy 21 risk Based on maternal age Qn (fetus) Age Risk: Normal [facility] Comment on above: Order Comment: Speci men Type: BLOOD SPECIMENOrdering Facility: [facility] Address: [address] [place] [address] Result Comment: 1 in 1037 Performed By: #### S EQ2 ####[facility] LABCLIA [id number] [place] [address] Trisomy 21 risk Qn (fetus) Screening Risk: Normal [facility] Comment on above: Order Comment: Speci men Type: BLOOD SPECIMENOrdering Facility: [facility] Address: [address] [place] [address] Result Comment: <1 i n 11189 Performed By: #### S EQ2 ####[facility] LABCLIA [id number] [place] [address] Ultrasound date Date: Normal [facility] Comment on above: Order Comment: Speci men Type: BLOOD SPECIMENOrdering Facility: [facility] Address: [address] [place] [address] Result Comment: 06/2024 Performed By: #### S EQ2 ####[facility] LABCLIA [id number] [place] [address] TYPE + SCREEN PRENATALon ABO A Normal [facility] Comment on above: Order Comment: Speci men Type: BLOOD SPECIMEN [facility] Address: [address] [place] [address] Performed By: #### T SPN #### [facility] CLIA [id number] [address] [place] [address] [place] HISTORICAL AB SCR STATUS Negative Normal [facility] Comment on above: Order Comment: Speci men Type: BLOOD SPECIMEN [facility]: [facility] Address: [address] [place] [address] Performed By: #### T SPN #### [facility] CLIA [id number] [address] [place] [address] [place] Rh Nom (Bld) Positive Normal [facility] Comment on above: Order Comment: Speci men Type: BLOOD SPECIMEN [facility] Address: [address] [place] [address] Performed By: #### T SPN #### [facility] CLIA [id number] [address] [place] [address] [place] TYPE AND SCREEN EXPIRATION 03/26/2024 23:59 Normal [facility] Comment on above: Order Comment: Speci men Type: BLOOD SPECIMEN [facility]: [facility] Address: [address] [place] [address] Performed By: #### T SPN #### [facility] CLIA [id number] [id number] [facility] Allan 03-19-2024 CNPN Telephone (OBGYWM) ----- TISH MILLER ([id number]) 2000 F Date Time Provider Department 03/19/24 TARI BOGGS During your visit today, we recorded the following information about you: Tari Toledo RN 03/19/2024 9:21 AM Signed 15w6d Patient called with c/o HOYOS for 3 days without relief from Tylenol. Pain rate of 7-8 out of 10. Today, she vomited 4 times and she thinks it's from the HOYOS. Denies vision changes or hx of migraines. Encouraged to push fluids. Trying to drink water, but vomited the Tylenol shortly after taking this morning. Encouraged to try drinks with electrolytes if plain water isn't agreeing with her today. Normally drinks a cup of a coffee a day. Has not had any coffee this morning. Please advise. SHELL Robles Jennifer, MD 03/19/2024 1:29 PM Signed Try taking benadryl for both the nausea and headache. I will also send reglan to the pharmacy for the headache Mulu Mcleod RN 03/19/2024 1:50 PM Signed Patient notified. Mulu Mcleod RN Allergies As of Date: 03/19/2024 (No Known Allergies) Date Reviewed: 02/24/2024 Reviewed by: Jaylon Ureña MD - Fully Assessed Reason for Visit: OB HOYOS [Other] Primary Visit Diagnosis:Tension headache [G44.209] Order(s):metoclopramide HCl (REGLAN) 5 mg tabletTake 1 tablet by mouth four times daily.Disp: 30 tabletRfl: 0 Prescriptions as of 03/19/2024 - metoclopramide HCl (REGLAN) 5 mg tablet Take 1 tablet by mouth four times daily. - albuterol HFA (PROVENTIL HFA, VENTOLIN HFA) 90 mcg/actuation inhaler Inhale 2 Puffs as instructed every 6 hours as needed for wheezing/shortness of breath. - PNV no.95/ferrous fum/folic ac ( ORAL) Take by mouth. - loratadine (CLARITIN ORAL) Take 1 tablet by mouth as needed (allergic to her cats). 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 Encounter Status:Closed by MULU MCLEOD on 03/19/24 Normal [facility] CARRIER SCREEN, STANDARDon 0 02-24-2024 CARRIER SCREEN RESULTS View results in Scanned Documents link when available. Normal [facility] Comment on above: Order Comment: Speci men Type: BLOOD SPECIMENOrdering Facility: [facility] Address: [address] [place] [address] Performed By: #### C RRSCN ####[facility] [id number] [place] [address] nuchal translucency me asured by USon 02-24-2024 [facility] HGB ELECTROPHORESIS FOR EVAL (LAB ORDER)on 02-24-2024 Hemoglobin A (Bld) [Mass fraction] 97.2 % Normal 96.2-98.0 [facility] Comment on above: Order Comment: Speci men Type: BLOOD SPECIMENOrdering Facility: [facility] Address: [address] [place] [address] Performed By: #### H GBELEV ####[facility] LABCLIA [id number] [place] [address] [place] Hemoglobin A2 (Bld) [Mass fraction] 2.8 % Normal 2.0-3.1 [facility] Comment on above: Order Comment: Speci men Type: BLOOD SPECIMENOrdering Facility: [facility] Address: [address] [place] [address] Performed By: #### H GBELEV ####[facility] LABIA [id number] [place] [address] [place] Hemoglobin Unsp Elph (Bld) [Mass fraction] No abnormal hemoglobin identified. Normal No abnormal hemoglobin identified. [facility] Comment on above: Order Comment: Speci men Type: BLOOD SPECIMENOrdering Facility: [facility] Address: [address] [place] [address] Performed By: #### H GBELEV ####[facility] [id number] [place] [address] [place] RBC PARAMETERS FOR HB IDon 0 02-24-2024 Erythrocyte distribution width (RBC) [Ratio] 12.6 % Normal 11.5-15.0 [facility] Comment on above: Order Comment: Speci men Type: BLOOD SPECIMENOrdering Facility: [facility] Address: [address] [place] [address] Performed By: #### L [id number] ####[facility] LABIA [id number] [place] [address] [place] Hematocrit (Bld) [Volume fraction] 36.7 % Normal 36.0-46.0 [facility] Comment on above: Order Comment: Speci men Type: BLOOD SPECIMENOrdering Facility: [facility] Address: [address] [place] [address] Performed By: #### L [id number] ####[facility] LABIA [id number] [place] [address] [place] Hemoglobin (Bld) [Mass/Vol] 12.6 g/dL Normal 11.5-15.5 [facility] Comment on above: Order Comment: Speci men Type: BLOOD SPECIMENOrdering Facility: [facility] Address: [address] [place] [address] Performed By: #### L [id number] ####[facility] LABCLIA [id number] [place] [address] [place] MCH (RBC) [Entitic mass] 31.5 pg Normal 26.0-34.0 [facility] Comment on above: Order Comment: Speci men Type: BLOOD SPECIMENOrdering Facility: [facility] Address: [address] [place] [address] Performed By: #### L [id number] ####[facility] LABCLIA [id number] [place] [address] [place] MCHC (RBC) [Mass/Vol] 34.3 g/dL Normal 30.5-36.0 [facility] Comment on above: Order Comment: Speci men Type: BLOOD SPECIMENOrdering Facility: [facility] Address: [address] [place] [address] Performed By: #### L [id number] ####[facility] LABCLIA [id number] [place] [address] [place] MCV (RBC) [Entitic vol] 91.8 fL Normal 80.0-100.0 [facility] Comment on above: Order Comment: Speci men Type: BLOOD SPECIMENOrdering Facility: [facility] Address: [address] [place] [address] Performed By: #### L [id number] ####[facility] LABCLIA [id number] [place] [address] [place] RBC (Bld) [#/Vol] 4.00 10*6/uL Normal 3.90-5.20 [facility] Comment on above: Order Comment: Speci men Type: BLOOD SPECIMENOrdering Facility: [facility] Address: [address] [place] [address] Performed By: #### L [id number] ####[facility] LABCLIA [id number] [place] [address] [address] [place] SEQUENTIAL SCN FIRST TRIMEST Luan [birth year]24 [age] Normal [facility] Comment on above: Order Comment: Speci men Type: BLOOD SPECIMENOrdering Facility: [facility] Address: [address] [place] [address] Performed By: #### S EQ1 ####[facility] LABCLIA [id number] [place] [address] Halfway Rump length US 63.4 mm Normal [facility] Comment on above: Order Comment: Speci men Type: BLOOD SPECIMENOrdering Facility: [facility] Address: [address] [place] [address] Performed By: #### S EQ1 ####[facility] LABCLIA [id number] [facility] [address] Nuchal fold [Multiple of the median] Thickness US 1.39 Normal [facility] Comment on above: Order Comment: Speci men Type: BLOOD SPECIMENOrdering Facility: [facility] Address: [address] [place] [address] Performed By: #### S EQ1 ####[facility] LABCLIA [id number] [facility] [address] Nuchal fold Thickness US 2.0 mm Normal [facility] Comment on above: Order Comment: Speci men Type: BLOOD SPECIMENOrdering Facility: [facility] Address: [address] [place] [address] Performed By: #### S EQ1 ####[facility] LABCLIA [id number] [facility] [address] First and Second trimester integrated maternal screen [Interp] Comment Normal [facility] Comment on above: Order Comment: Speci men Type: BLOOD SPECIMENOrdering Facility: [facility] Address: [address] [place] [address] Result Comment: The risk for Down syndrome is less than the 1:45 cutoff. Comment The risk for trisomy 18 is less than the 1:100 cutoff. Performed By: #### S EQ1 ####[facility] LABCLIA [id number] [place] [address] Gestational age 12.6 weeks Normal [facility] Comment on above: Order Comment: Speci men Type: BLOOD SPECIMENOrdering Facility: [facility] Address: [address] [place] [address] Performed By: #### S EQ1 ####[facility] LABCLIA [id number] [place] [address] HCG adjusted [MoM] 0.81 Normal [facility] Comment on above: Order Comment: Speci men Type: BLOOD SPECIMENOrdering Facility: [facility] Address: [address] [place] [address] Performed By: #### S EQ1 ####[facility] LABCLIA [id number] [place] [address] HCG Qn 67.4 IU/mL Normal [facility] Comment on above: Order Comment: Speci men Type: BLOOD SPECIMENOrdering Facility: [facility] Address: [address] [place] [address] Performed By: #### S EQ1 ####[facility] LABCLIA [id number] [place] [address] Laboratory comment Frantz (Report) Comment Normal [facility] Comment on above: Order Comment: Speci men Type: BLOOD SPECIMENOrdering Facility: [facility] Address: [address] [place] [address] Result Comment: Pauline diaz submit a second trimester sample between 15.0 - 21.9 weeks gestation to complete risk assessment for Down syndrome, trisomy 18 and open spina bifida. The [employer] recommends that all women be counseled regarding the differences between screening and invasive diagnostic testing. Performed By: #### S EQ1 ####[facility] LABCLIA [id number] [place] [address] Mother's race Normal [facility] Comment on above: Order Comment: Speci men Type: BLOOD SPECIMENOrdering Facility: [facility] Address: [address] [place] [address] Performed By: #### S EQ1 ####[facility] LABCLIA [id number] [place] [address] NOTE: Comment Normal [facility] Comment on above: Order Comment: Speci men Type: BLOOD SPECIMENOrdering Facility: [facility] Address: [address] [place] [address] Result Comment: Pauline diaz verify all clinical data used in this risk assessment and call [phone] with any corrections. Candi Arnold, Ph.D., [facility] Director References: Available upon request Open Spina Bifida (OSB) MoM Cutoffs Jay 2.5 Black 2.8 IDD 2.0 Twins 4.5 Risk Cutoffs Down Syndrome (DS) cutoff 1:270 Trisomy 18 (T18) cutoff 1:100 For further inquiries contact [employer] Customer Service at [phone]. This test was developed and its performance characteristics determined by [employer]. It has not been cleared or approved by the Food and Drug Administration. Performed By: #### S EQ1 ####[facility] LABCLIA [id number] [place] [address] Number of fetuses by US 1 Normal [facility] Comment on above: Order Comment: Speci men Type: BLOOD SPECIMENOrdering Facility: [facility] Address: [address] [place] [address] Performed By: #### S EQ1 ####[facility] LABCLIA [id number] [place] [address] associated plasma protein A [Mass/Vol] 814.7 ng/mL Normal [facility] Comment on above: Order Comment: Speci men Type: BLOOD SPECIMENOrdering Facility: [facility] Address: [address] [place] [address] Performed By: #### S EQ1 ####[facility] LABCLIA [id number] [place] [address] associated plasma protein A adjusted [MoM] 0.95 Normal [facility] Comment on above: Order Comment: Speci men Type: BLOOD SPECIMENOrdering Facility: [facility] Address: [address] [place] [address] Performed By: #### S EQ1 ####[facility] LABCLIA [id number] [place] [address] RESULTS Report Normal [facility] Comment on above: Order Comment: Speci men Type: BLOOD SPECIMENOrdering Facility: [facility] Address: [address] [place] [address] Performed By: #### S EQ1 ####[facility] LABCLIA [id number] [place] [address] Manager Transmission [Identifier] [id number] Normal [facility] Comment on above: Order Comment: Speci men Type: BLOOD SPECIMENOrdering Facility: [facility] Address: [address] [place] [address] Performed By: #### S EQ1 ####[facility] LABCLIA [id number] [place] [address] SUBMIT PART 2 SAMPLE USING Date: Normal [facility] Comment on above: Order Comment: Speci men Type: BLOOD SPECIMENOrdering Facility: [facility] Address: [address] [place] [address] Result Comment: Sequ ential 2 Test Code [id number] Based on gest age provided, draw sample after: 03/12/2024 Performed By: #### S EQ1 ####[facility] LABCLIA [id number] [place] [address] Trisomy 18 risk Based on maternal age Qn (fetus) Age Risk: Normal [facility] Comment on above: Order Comment: Speci men Type: BLOOD SPECIMENOrdering Facility: [facility] Address: [address] [place] [address] Result Comment: 4043 Performed By: #### S EQ1 ####[facility] LABCLIA [id number] [place] [address] Trisomy 18 risk Qn (fetus) Screening Risk: Normal [facility] Comment on above: Order Comment: Speci men Type: BLOOD SPECIMENOrdering Facility: [facility] Address: [address] [place] [address] Result Comment: <1 i n [id number] Performed By: #### S EQ1 ####[facility] LABCLIA [id number] [place] [address] Trisomy 21 risk Based on maternal age Qn (fetus) Age Risk: Normal [facility] Comment on above: Order Comment: Speci men Type: BLOOD SPECIMENOrdering Facility: [facility] Address: [address] [place] [address] Result Comment: 1 in 1037 Performed By: #### S EQ1 ####[facility] LABCLIA [id number] [place] [id number] Trisomy 21 risk Qn (fetus) Screening Risk: Normal [facility] Comment on above: Order Comment: Speci men Type: BLOOD SPECIMENOrdering Facility: [facility] Address: [address] [place] [address] Result Comment: 1 in 7199 Performed By: #### S EQ1 ####[facility] LABCLIA [id number] [place] [address] Ultrasound date Date: Normal [facility] Comment on above: Order Comment: Speci men Type: BLOOD SPECIMENOrdering Facility: [facility] Address: [address] [place] [address] Result Comment: 06/2024 Performed By: #### S EQ1 ####[facility] LABCLIA [id number] [place] [address] Bacteria Ur Culton 4 Bacteria identified Cx Nom (U) CULTURE, URINE: No growth (<1,000 CFU/ml) Normal [facility] Comment on above: Performed By: #### 6 30-4 ####[facility] LABCLIA [id number] [place] [address] [place] C. trachomatis+N. gonorrhoea e DNA CATA+probe Ql (Unsp spec)on 01-27-2024 C. trachomatis rRNA CATA+probe Ql (Unsp spec) Negative Normal Negative for Chlamydia trachomatis by amplificaton [facility] Comment on above: Order Comment: Speci men Type: SWABOrdering Facility: [facility] Address: [address] [place] [address] Performed By: #### 3 6902-5 ####[facility] LABCLIA [id number] [place] [address] [place] N. gonorrhoeae rRNA CATA+probe Ql (Unsp spec) Negative Normal Negative for Neisseria gonorrhoeae by amplification [facility] Comment on above: Order Comment: Speci men Type: SWABOrdering Facility: [facility] Address: [address] [place] [address] Performed By: #### 3 6902-5 ####[facility] LABCLIA [id number] [place] [address] [place] No Panel Informationon 01-26 [facility] Choriogonadotropin.beta subu niton 01-09-2024 [place] [address] m[IU]/mL High <5 [facility] Comment on above: Order Comment: Total HCG measurement is performed using the [employer] [place] Access Immunoassay which detects intact HCG and free beta HCG subunit. This test is not indicated for use as a tumor marker. HCG testing is performed using a different test methodology at [facility] than other legacy [facility]. Direct result comparison should only be made within the same method. Result Comment: Low- level positive HCG results can be seen in early , in janene- or post-menopausal females due to normal pituitary HCG production, or with analytic interference. Repeat testing in 48-72 hours can aid in assessing for as results should double in this time period. FSH measurement is recommended in janene- or post-menopausal females as concurrent elevation of FSH can support pituitary production as the source of the HCG elevation. Performed By: #### 2 1198-7 #### ARNULFO CHRISTENSEN ([id number]) [facility] ([facility]) [address] [place], [place] [id number] Choriogonadotropin.beta khurramu ritulouann 01-07-2024 [place] [address] m[IU]/mL High <5 [facility] Comment on above: Order Comment: Total HCG measurement is performed using the [employer] [place] Access Immunoassay which detects intact HCG and free beta HCG subunit. This test is not indicated for use as a tumor marker. HCG testing is performed using a different test methodology at [facility] than other [facility]. Direct result comparison should only be made within the same method. Result Comment: Low- level positive HCG results can be seen in early , in janene- or post-menopausal females due to normal pituitary HCG production, or with analytic interference. Repeat testing in 48-72 hours can aid in assessing for as results should double in this time period. FSH measurement is recommended in janene- or post-menopausal females as concurrent elevation of FSH can support pituitary production as the source of the HCG elevation. Performed By: #### 2 [id number] #### ARREDONDO FERMIN ([id number]) [facility] ([facility]) [facility] [place] [address] Allan 01-06-2024 KEISHAN Telephone (OBGYWM) ----- TISH MILLER ([id number]) 2000 F Date Time Provider Department 01/06/24 ABILIO OJHNSON OBERICWKyle During your visit today, we recorded the following information about you: Sophia Perez LPN 01/06/2024 10:32 AM Addendum Patient is . Lmp was 11/29/2023 and has new ob appointment on 01/27/2024. Patient has a h/o of 3 previous miscarriages and would like to have hcg quants drawn at in [place]. Patient is not having any vaginal bleeding or cramping currently. If ok, patient will need a lab order to faxed to outpatient lab in [place] Abilio Johnson MD 01/06/2024 11:39 AM Signed Ok for serial HCG quants Tari Toledo RN 01/06/2024 11:53 AM Signed Order form to to sign. Will then fax and notify patient. SHELL Robles Jennifer, RN 01/06/2024 5:03 PM Signed Patient notified. Order faxed to [facility]. Please leave open for 01/07 and 01/09 hCG quants. SHELL Robles Jennifer, RN 01/09/2024 9:37 AM Signed 01/07 HCG, Beta-Quantitative <5 mIU/mL 14,274 High Leave open for 01/09 hCG result Mulu Mcleod RN 01/10/2024 9:17 AM Signed 01/07/2024 HCG, Beta-Quantitative <5 mIU/mL 14,274 High 01/09/2024 HCG, Beta-Quantitative <5 mIU/mL 21,790 High Please review. SHELL Menchaca Sara, MD 01/10/2024 10:57 AM Signed Quant increasing Give miscarriage and ectopic precautions Keep nob appointment Mulu Mcleod RN 01/10/2024 11:38 AM Signed Patient notified. Mulu Mcleod RN Allergies As of Date: 01/06/2024 (No Known Allergies) Date Reviewed: 09/11/2022 Reviewed by: Carmen Avalos Ma - Fully Assessed Reason for Visit: Care [86] Prescriptions as of 01/10/2024 - PNV no.95/ferrous fum/folic ac ( ORAL) Take by mouth. - loratadine (CLARITIN ORAL) Take by mouth. Problem List As Of Date: 01/06/2024 (None) Encounter Status:Closed by MULU MCLEOD on 01/10/24 Normal [facility] T-SPOT TBon 05-17-2023 NIL[NEG]CONTROL SPOT COUNT Passed Normal [facility] Comment on above: Performed By: #### T SPOT #### [facility] [address] [place] [address] PANEL A SPOT COUNT 1 Normal [facility] Comment on above: Performed By: #### T SPOT #### [facility] [address] [place] [address] PANEL B SPOT COUNT 2 Normal [facility] Comment on above: Performed By: #### T SPOT #### [facility] [address] [place] [address] POS CONTROL SPOT COUNT Passed Normal [facility] Comment on above: Performed By: #### T SPOT #### [facility] [address] [place] [address] T-SPOT.TB INTERP Negative Normal Normal Valu e: Negative [facility] Comment on above: Result Comment: A ne gative test result does not exclude the possibility of exposure to or infection with Mycobacterium tuberculosis (M. tuberculosis). Patients with recent exposure to TB infected individuals exhibiting a negative T-SPOT.TB result should be considered for retesting within 6 weeks or if other relevant clinical symptoms indicate. Results from T-SPOT.TB testing must be used in conjunction with each individual's epidemiological history, current medical status, and results of other diagnostic evaluations. The T-SPOT.TB test is qualitative and results are reported as positive, borderline or negative, given that the test controls perform as expected. In line with the Centers for Disease Control and Prevention's 2010 recommendation to report quantitative measurements alongside the qualitative result, the laboratory provides spot counts for informational purposes only. The T-SPOT.TB test should not be interpreted as a quantitative test. Performed By: #### T SPOT #### [facility] [address] [place] [address] CHEST 2 VIEW PA AND LATon CHEST 2 VIEW PA AND LAT STUDY: Chest Radiographs; 11/01/2022 11:29PM INDICATION: Chest pain, unspecified. COMPARISON: None available ACCESSION NUMBER(S): [id number] ORDERING CLINICIAN: CANDY VILLA MD TECHNIQUE: Frontal and lateral chest. FINDINGS: CARDIOMEDIASTINAL SILHOUETTE: Cardiomediastinal silhouette is normal in size and configuration. LUNGS: Lungs are clear. ABDOMEN: No remarkable upper abdominal findings. BONES: No acute osseous changes. IMPRESSION: No acute thoracic findings. Signed by Liliam Torres II, MD Electronically signed by: LILIAM TORRES MD, PHD [facility] Covid 19 Resultson 2 SARS-CoV-2 (COVID-19) RNA CATA+probe Ql (Unsp spec) NEGATIVE COVID-19 Test Coronaviruses are common world-wide and are the cause of many common colds. SARS-COV2 is a new coronavirus that began circulating worldwide in 2019 so we are calling it COVID-19. It has been estimated that four out of five patients with COVID-19 will recover at home without the need for medical attention. Symptoms of COVID-19 may include cough, fever, shortness of breath, loss of taste or smell and other flu-like symptoms including chills, sore muscles, sore throat, and headache. Severe illness is more common in older people and people with other health problems such as high blood pressure, obesity, and immune system problems. If the test is positive, you have COVID-19. You will be contacted by the ordering physicians office and instructed to remain on home isolation, in accordance with CDC guidelines. You may also be contacted by the [facility] to see if any of your close contacts may have been exposed to the virus and need to quarantine. If the test is negative, you likely do not have COVID-19 at this time, but you still may have a different illness that can spread to other people (like Influenza, or the Flu) and could still be at risk for getting COVID-19. We recommend that you stay away from other people to limit the spread of illness until your symptoms are improving and you are fever-free for 24 hours without the use of fever lowering medications such as acetaminophen or ibuprofen. No test is 100% accurate so if you are still concerned you may have COVID-19, talk to your doctor about the need to continue to stay away from others. Medicines Unless your provider told you not to use the following: Acetaminophen (Tylenol and others) is generally safe. Anti-inflammatory medications, such as Ibuprofen (Advil or Motrin) or Naproxen (Aleve) can also be used. Injv-imf-cxiyier cough and cold medicines can be used according to the instructions on the package. Some nnsb-dyr-iszyijt medicines also contain acetaminophen. Make sure you are not taking more than your recommended dose. For those not hospitalized, there is no specific treatment available for this illness. Antibiotics do not treat Coronaviruses. Follow-Up Follow up with your doctor by scheduling a virtual visit or consider follow-up at one of our urgent care fever clinics. If you are having difficulty breathing, or are very weak and having difficulty standing, this is a medical emergency. Call 911 or have someone take you to the nearest emergency room immediately. If possible, wear a facemask. Additional guidance from the CDC for patients who tested POSITIVE for COVID-19 How to isolate: Isolate yourself in a specific room at home and limit your contact with others. Use a separate bathroom from other members of the household, when possible. Leave home only to get essential medical care. Do not go to work, school or public areas. Avoid using public transportation, ride-sharing, or taxis. Restrict contact with pets and other animals. If you must care for your pet or be around animals while you are sick, wash your hands before and after your interaction and wear a facemask. Make sure that shared spaces in the home have good airflow, such as by an air conditioner or an opened window, weather permitting. Personal Hygiene Procedures: Wear a face mask when in the same room as other people or pets. If a face mask interferes with your breathing, others should wear a mask when sharing space with you. Frequent hand-washing: wash your hands with soap and water for at least 20 seconds. If soap and water are not available, use alcohol-based hand financial operations clerk. Avoid touching your eyes, nose, and mouth with unwashed hands. Household Hygiene Procedures: Avoid sharing personal household items such as dishes, glassware, cups, eating utensils, towels or bedding with other people or pets in your home. After use, these items should be washed with soap and hot water. Disinfect all high-touch surfaces every day with antibacterial cleaning solutions such as Lysol wipes, bleach, cleansers, etc. High-touch surfaces include tabletops, doorknobs, bathroom fixtures, toilets, phones, keyboards, tablets and bedside tables. Immediately clean any surfaces that may have blood, poop or body fluids on them, using antibacterial cleaning solutions such as Lysol wipes, bleach, cleansers, etc. If clothing or bedding come into contact with blood, poop or body fluids, they should be washed immediately. Follow the directions on the laundry detergent and clothing labels but hot water is recommended when possible. Stopping home isolation precautions: If possible, consult your doctor before stopping home isolation precautions. According to the CDC, you can discontinue home isolation precautions when you have met both of these criteria: Your fever and respiratory symptoms have been gone for 24 reggie (more content not included)... Normal [facility] INFLUENZA A/B, COVID 2019 PC R,SYMPTOMATICon 11-02-2022 INFLUENZA A, PCR Not detected Normal Not Detected [facility] Comment on above: Result Comment: Resp iratory virus testing is performed routinely by PCR for Influenza A/B and RSV. Not Detected results do not preclude Influenza A/B or RSV infections since the adequacy of sample collection or low viral burden may impact the clinical sensitivity of this test method. Performed By: #### C OINP #### [place] [address] INFLUENZA B, PCR Not detected Normal Not Detected [facility] Comment on above: Result Comment: Resp iratory virus testing is performed routinely by PCR for Influenza A/B and RSV. Not Detected results do not preclude Influenza A/B or RSV infections since the adequacy of sample collection or low viral burden may impact the clinical sensitivity of this test method. Performed By: #### C OINP #### [place] [address] SARS-CoV-2 (COVID-19) RNA CATA+probe Ql (Unsp spec) Not detected Normal Not Detected [facility] Comment on above: Result Comment: . This test has received FDA Emergency Use Authorization (EUA) and has been verified by [facility]. This test is only authorized for the duration of time that circumstances exist to justify the authorization of the emergency use of in vitro diagnostic tests for the detection of SARS-CoV-2 virus and/or diagnosis of COVID-19 infection under section 564(b)(1) of the Act, 21 U.S.C. 360bbb-3(b)(1), unless the authorization is terminated or revoked sooner. [facility] is certified under CLIA-88 as qualified to perform high complexity testing. Testing is performed in the [facility] laboratory located at [address] [place] [address]. SARS-CoV-2/Flu/RSV Multiplex Test: Fact sheet for providers: https://www.fda.gov/media/152969/download Fact sheet for patients: https://www.fda.gov/media/847940/download Performed By: #### C OINP #### [place] [address] Lab Specimen Source Nasal, Nasopharyngeal Normal [facility] Comment on above: Performed By: #### C OINP #### [place] [address] Provider Note - ED v3on 10-18 Provider Note - ED v3 Provider Note: Chart Review: ED NOTES ED NOTES: History of Present Illness: 22-year-old female presenting with myalgias for the past day. Patient states she was exposed to influenza. States she also has a dull tightness in her chest. She denies any fevers. She states she does not feel short of breath. She denies any coughing or hemoptysis. Patient has no other complaints at this time. Past Medical History: Denies Past surgical History: Denies Family history: Reviewed and not pertinent to complaint Social history: Denies EtOH or drug use REVIEW OF SYSTEMS: Pertinent negatives and positives noted in the HPI. Otherwise, a complete review of system was negative. PHYSICAL EXAM: Appearance: Alert, oriented , cooperative, in no acute distress. Skin: Intact, dry skin, no lesions, rash, petechiae or purpura. Eyes: PERRLA, EOMs intact, Conjunctiva pink with no redness or exudates. HENT: Normocephalic, atraumatic. Nares patent. No intraoral lesions. Neck: Supple, without meningismus. Trachea at midline. No lymphadenopathy. Pulmonary: Clear bilaterally with good chest wall excursion. No rales, rhonchi or wheezing. No accessory muscle use or stridor. Cardiac: Regular rate and rhythm, no rubs, murmurs, or gallops Abdomen: Abdomen is soft, nontender, and nondistended. Genitourinary: Exam deferred. Musculoskeletal: Full range of motion. Pulses full and equal. No cyanosis, clubbing, or edema. Neurological: Cranial nerves are grossly intact, grossly normal sensation, no weakness, no focal findings identified. Psychiatric: Appropriate mood and affect. HISTORY OF PRESENTING ILLNESS TISH is a 22 year old Female and was seen by me at 01-Nov-2022 22:42 for a chief complaint of flu-like symptoms (pt states she was recently exposed to someone with the flu, developed headache, body aches, chest discomfort today. VSS ekg on arrival. pt took 800mg of ibuprofen at 6pm)(1). Triage Information: Most recent Vital Sign Value Date Temp (F): 97.3 11-01-2022 22:56 Temp (C): 36.2 11-01-2022 22:56 Heart Rate (beats/min): 79 11-01-2022 22:56 Respirations (breaths/min): 20 11-01-2022 22:56 SpO2 (%): 100 11-01-2022 22:56 BP Systolic (mm Hg): 139 11-01-2022 22:56 BP Diastolic (mm Hg): 75 11-01-2022 22:56 PAST MEDICAL HISTORY ALLERGIES/INTOLERANCES: No Known Allergies HEALTH HISTORY: Medical History Name:Asthma Code:J45.909 OUTPATIENT MEDICATIONS: Home Medications Review Status for Reconciliation: Complete Med Status: Patient Currently Takes Medications Drug Name: Claritin 10 mg oral tablet Instructions: 1 tab(s) orally once a day Drug Name: IBU 600 mg oral tablet Instructions: 1 tab(s) orally every 6 hours as needed for cramping Drug Name: ibuprofen 800 mg oral tablet Instructions: 1 tab(s) orally 3 times a day SIGNIFICANT EVENTS: Clinical Events Description:Surgical Procedure Additional Notes:1. SUCTION D&C; Description:Surgical Procedure Additional Notes:1. Operative hysteroscopy for retained products of conception;2. ;3. ;4. ;5. Past Medical History Description:Asthma Past Surgical History Description:DNC CRITICAL CARE RESULTS: Recent Lab Results: I have reviewed these laboratory results: Influenza A/B,Covid 2019 PCR,Symptomatic 01-Nov-2022 23:10:00 ResultValue Fluid Source Nasal, Nasopharyngeal Influenza A PCR NOT DETECTED Reference Range: Not Detected Respiratory virus testing is performed routinely by PCR for Influenza A/B and RSV. Not Detected results do not preclude Influenza A/B or RSV infections since the adequacy of sample collection or lo Influenza B PCR NOT DETECTED Reference Range: Not Detected Respiratory virus testing is performed routinely by PCR for Influenza A/B and RSV. Not Detected results do not preclude Influenza A/B or RSV infections since the adequacy of sample collection or lo Coronavirus 2019,PCR NOT DETECTED Reference Range: Not Detected .This test has received FDA Emergency Use Authorization (EUA) and has been verified by [facility]. This test is only authorized for the duration of time that circum Radiology Results: Impression: No acute thoracic findings. Signed by Liliam Torres II, MD Xray Chest 2 View PA + Lateral [Nov 01 2022 11:33PM] [facility] MDM/ED COURSE: 22-year-old female presenting with myalgias and chest tightness. She states she was exposed to someone with influenza developed the symptoms yesterday. Patient denies any shortness of breath. Patient is nontoxic-appearing and hemodynamically stable. Labs are feel negative COVID and negative influenza. Chest x-ray negative. I explained findings to patient. Patient to be discharged with symptomatic care and (more content not included)... Normal [facility] Triage - EDon 11-02-2022 Triage - ED Quick Triage: Are You no Have You Given In The Last 6 Weeksno Are You Currently Breastfeedingno Chart Review: ARRIVAL INFORMATION Mode of Arrival: private vehicle CHIEF COMPLAINT TISH MILLER is a Female patient with a chief complaint of flu-like symptoms (pt states she was recently exposed to someone with the flu, developed headache, body aches, chest discomfort today. VSS ekg on arrival. pt took 800mg of ibuprofen at 6pm). Triage Date/Time: 01-Nov-2022 22:57 CAMILLA: 3 Pain Rating (0-10): 6 = Moderate Pain location: head Vital Signs: Temperature: 97.3F ( 36.2C) taken noncontact, forehead Blood Pressure: 139/75 Mean: Heart Rate: 79 Respiratory Rate: 20 Pulse Oximetry: 100% on room air, no respiratory support. Height: 5 feet 2.00 inches. 157.4 CM Weight: 160.2 pounds. Calculated 72.7 kg. (stated) Calculated BMI (kg/m2): 29.344 Calculated BSA (m2) 1.78 Ayana Coma Scale: Best Eye Response: (E4) spontaneous Best Motor Response: (M6) obeys commands Best Verbal Response: (V5) oriented Ayana Score: 15 Last menstrual period: 01-Nov-2022 Patient has homicidal thoughts: no Risk Screens Suicide Risk Screen In the Past Month: Have you wished you were or wished you could go to sleep and not wake up no In the Past Month: Have you had any actual thoughts of killing yourself no In Your Lifetime: Have you ever done anything, started to do anything, or prepared to do anything to end your life no Melendez Fall Scale Screening Has the patient fallen before (or is the patient in the ED as a result of a fall) has not had a fall Does the patient have an impaired gait does not have impaired gait Is the patient cognitively impaired not cognitively impaired Interventions: Melendez Fall Interventions: LOW INTERVENTIONS: *patient oriented to surroundings and call system, * patient/family falls education completed and documented, *patients fall status communicated during bedside handoff, *whiteboard updated, *mode of toileting discussed with patient, *bed in low position with brakes locked, *call light in reach, * non-skid footwear TRAVEL HISTORY Travel History Coronavirus Screening: no exposure or symptoms Travel Exposure History: NO travel to International locations in the past 30 days PAIN Pain Scale Used: SKYAL Pain Rating (0-10): 6 = Moderate Past Medical History: Past Medical History Reviewedyes Electronic Signatures: Nu Alcocer (SHELL) (Signed 01-Nov-2022 23:02) Authored: Quick Triage, Risk Screens, Pain, Travel History, Chart Review, Scores, Past Medical History Last Updated: 01-Nov-2022 23:02 by Nu Alcocer (RN) Normal [facility] RUBELLA IGG ABon 09-12-2022 Rubella IgG, Qual Positive Positive [facility] TSH BLDon 09-11-2022 TSH Qn 2.520 m[IU]/L 0.270 - 4.200 mIU/L [facility] HCG QUANTITATIVEon HCG.beta subunit Qn 2.5 m[IU]/mL <5.0 mIU/mL [facility] Homegoing Instructionson Homegoing Instructions Additional Instructions: Handouts Given: Topic 1ANESTHESIA HOME GOING INSTRUCTIONS Topic 2SURGICAL SITE INFECTION INSTRUCTIONS Topic 3SURGEON INSTRUCTIONS Topic 4MEDICATION EDUCATION Topic 5ESTRACE INSTRUCTIONS Electronic Signatures: Arias Chau (RN) (Signed 16-Jun-2021 15:27) Authored: Additional Instructions Last Updated: 16-Jun-2021 15:27 by Arias Chau (RN) Normal [facility] No Panel Informationon 06-16 MG-OBGYN-Ri sman 310 IVF Work Phone: Order Reconciliationon 06-16 Order Reconciliation Page 1 Discharge Reconciliation Document Reconciliation Type: Discharge requested on behalf of Eloina Chowdhury (Physician) done by Eloina Chowdhury ( (Fellow)) Discharge - Reconciliation: 16-Jun-2021 14:59 by: Eloina Chowdhury ( (Fellow)) Home Medications EnteredHOME MEDICATIONS AT DISCHARGE DateReconciliation Comment/ Additional Information Claritin 10 mg oral tablet 1 tab(s) orally once a day 07-Mar-2021 12:07 Claritin 10 mg oral tablet 1 tab(s) orally once a day 07-Mar-2021 12:07 Claritin 10 mg oral tablet is continued as Claritin 10 mg oral tablet Estrace 2 mg oral tablet 1 tab(s) orally 2 times a day 16-Jun-2021 14:55 Estrace 2 mg oral tablet 1 tab(s) orally 2 times a day 16-Jun-2021 14:55 Estrace 2 mg oral tablet is continued as Estrace 2 mg oral tablet IBU 600 mg oral tablet 1 tab(s) orally every 6 hours as needed for cramping 09-Jun-2021 16:16 IBU 600 mg oral tablet 1 tab(s) orally every 6 hours as needed for cramping 09-Jun-2021 16:16 IBU 600 mg oral tablet is continued as IBU 600 mg oral tablet Lysteda 650 mg oral tablet 2 tab(s) orally 2 times a day as needed for heavy bleeding 09-Jun-2021 16:17 Discontinued; Discontinue from ORM Lysteda 650 mg oral tablet is not required medroxyPROGESTERone 10 mg oral tablet 1 tab(s) orally once a day, take with last 7 days of estrace tablets. 16-Jun-2021 14:53 medroxyPROGESTERone 10 mg oral tablet 1 tab(s) orally once a day, take with last 7 days of estrace tablets. 16-Jun-2021 14:53 medroxyPROGESTERone 10 mg oral tablet is continued as medroxyPROGESTERone 10 mg oral tablet Current OrdersDateHOME MEDICATIONS AT DISCHARGE DateReconciliation Comment/ Additional Information HYDROmorphone Injectable (DILAUDID)DOSE = 0.5 mg IntraVenous Push Every 5 Minutes, PRN Pain - Mod (4-6) (PACU)Clinician Notes: Janene-operative order ONLYMax total of 4 mg regardless of dose. 15-Jun-2021 15:40 HYDROmorphone Injectable is not required HYDROmorphone Injectable (DILAUDID)DOSE = 0.5 mg IntraVenous Push Every 5 Minutes, PRN Pain - Severe (7-10) (PACU)Clinician Notes: Janene-operative order ONLYMax total of 4 mg regardless of dose. 15-Jun-2021 15:40 HYDROmorphone Injectable is not required Lactated Ringers Infusion IV Bag Volume = 1,000 mL Run at: 100 mL/hr IntraVenous Clinician Notes: Janene-operative order ONLY 15-Jun-2021 15:40 Lactated Ringers Infusion is not required Ondansetron Injectable (ZOFRAN)DOSE = 4 mg IntraVenous Push Once, PRN PONV, first lineClinician Notes: Janene-operative order ONLY 15-Jun-2021 15:40 Ondansetron Injectable is not required oxyCODONE Immediate Release Tablet (OXYIR, ROXICODONE)DOSE = 10 mg Oral Every 4 Hours, PRN Pain - Severe (7-10) (PACU) when able to take oralClinician Notes: Janene-operative order ONLY 15-Jun-2021 15:40 oxyCODONE Immediate Release is not required oxyCODONE Immediate Release Tablet (OXYIR, ROXICODONE)DOSE = 5 mg Oral Every 4 Hours, PRN Pain - Mild (1-3) (PACU) when able to take OralClinician Notes: Janene-operative order ONLY 15-Jun-2021 15:40 oxyCODONE Immediate Release is not required Promethazine IV Piggy Back in Sodium Chloride 0.9% 50 mL (PHENERGAN)DOSE = 6.25 mg Once, PRN persistent PONV if first line ineffectiveRecommended Infusion Time: 15 minute(s)Clinician Notes: Janene-operative order ONLY 15-Jun-2021 15:40 Promethazine IV Piggy Back is not required Home Medications Added During Discharge Reconciliation Call Physician For: excessive bleeding (slow general oozing that completely soaks dressing or fresh bright red bleeding) or bleeding that will not stop. Apply pressure to the area and elevate. Call Physician For: inability to urinate every 8-12 hours and your bladder becomes too full or painful. Call Physician For: persistant nausea and/or vomiting Over 24 hours Call Physician For: signs and sypmtoms of infection Increased redness or swelling at incision site, increased pain/tenderness at surgical site, increased temperature greater than 100 degress, increasing and/or progressive drainage from surgical site, and/or unusual odor from surgical site. Diet Regular Discharge Discharge Diagnosis< O03.4 Retained products of conception after miscarriage Discharge Provider, Karina Wood Instructions for Staff Only: must void prior to discharge Discharge Disposition : .Home Condition at Discharge: Satisfactory Discharge Communication Instructions for Nursing Only: Remove IV prior to discharge from hospital. Do not remove any midline, if present, without an order from the provider. Discharge Instructions - PHR After your discharge from the hospital, two Summary of Care Documents will be available online in your Personal Health Record (PHR). 1.Consolidated-Clinical Document Architecture (C-CDA) Patient Discharge Summary This document is a summary of your hospital stay to be kept for your reference.2.C-CDA Visi (more content not included)... Normal [facility] Patient Profile - Preop v2on 06-16-2021 Patient Profile - Preop v2 Profile: Initial Info: How to be AddressedShayna(1) Spoken Language PreferredEnglish (1) Stated Reason for AdmissionOPERATIVE HYSTEROSCOPY Primary Contact Name and NumberMARINO [phone] Patient Belongingspatient educated regarding responsibility for personal items Medications Brought to Hospitalno General Health: Weight in kg72.9 kilogram(s) Weight in mtn217.7 pound(s) Weight Methodactual (measured) Scale Typestanding Height in feet5 feet Height in inches2 inch(es) Height in cm157.4 centimeter(s) Height Methodstated BMI (kg/m2)29.425 square meter Patient or Family Member Reaction to Anesthesiano previous reaction Health Mgmt: Symptoms/Conditions Managed at HomeAV MALFORMATION OF UTERUS ASTHMA DAILY TOBACCO USE Are You no Are You Currently Breastfeedingno (2) Barriers to Managing Healthnone Relationship/Environ: Resource/Environmental Concernsnone Substance: Smoking Statusmoderate user (uses 11-30 cig/day, OR 0.5-1.5 ppd, OR 2-3 cans/pouches loose leaf tobacco per week, OR 0.5-1.5 vape pods per day) Tobacco Cessation Education (provide if tobacco use within the last 12 mos) patient declined Alcohol Useoccasionally Drug Usedenies Risk Screens: COVID-19 Screening Completedno exposure or symptoms Travel or ExposureNO travel to International locations in the past 30 days Advance Directive/DNRno Advance Directive Information Givenpatient/family declined During the past month, have you often been bothered by feeling down, depressed or hopelessno During the past month, have you often had little interest or pleasure in doing thingsno Have you had any thoughts of harming anyone elseno Risk Screen Not Applicable/Able to Answerable to be screened In the Past Month: Have you wished you were or could go to sleep and not wake upno In the Past Month: Have you had any actual thoughts of killing yourselfno Lifetime: Have you ever done, started to do, or prepared to do anything to end your lifeno Are you or have you been threatened or abused physically,emotionally or sexually abused by anyoneno Do you feel UNSAFE going back to the place you are livingno Patient is Able to be Assessed for Learningyes Factors Influencing Readiness to Learnanxiety Factors that Impact Ability to Learnnone Devices/Methods Used to Communicatenone Learning Preferencesindividual instruction; written material Cultural Considerationsnone Developmental Considerationsnone Alevism Considerationsnone Other learner availableno [place] RiskPatient location auto qualifies him/her for HIGH RISK. Are there any cultural, spiritual, synagogue practices/values/needs that are important for us to knowno Pain Scalenumerical 0-10 Pain Scale Educationteaching provided Current Pain Level0 = None Acceptable Pain Level5 = Moderate Chronic Painno Information Review: Allergies, Home Meds and Significant Events have been Reviewed and Verified with Patient/Familyyes Allergy, Intolerance, Adverse Event: Allergies: No Known Allergies: Active Electronic Signatures: Misa Sotelo) (Signed 16-Jun-2021 12:02) Authored: Initial Info, General Health, Health Mgmt, Relationship/Environ, Substance, Risk Screens, Additional Information Last Updated: 16-Jun-2021 12:02 by Misa Sotelo (JAQUELINE) References: 1. Data Referenced From Patient Profile - Adult v2 09-Jun-2021 03:08 2. Data Referenced From History and Physical - Surgery > 30 days 16-Jun-2021 02:07 Normal [facility] Preop Checkliston 06-16-2021 Preop Checklist Preop Checklist: Preop Checklist: Arrival [id number] Arrival Time11:50 Procedure Typeoperative hysteroscopy, arteriovenous malformation resection NPO [id number] 00:00 ID Band Onyes Allergy Bandno known allergies Consent Signedpending H&P Completepending Anesthesia Assessment Completedyes EKG Performednot ordered Chest X-Ray Performednot ordered HCG Urine TestComplete Chlorhexadine Bath Givennot applicable Nasal Antiseptic Appliednot applicable Hair Washedyes Soap and water bath with hair shampoo the night before surgeryyes Hat placed on infant prior to transportnot applicable SCD's Appliedsent to OR LYDIA Hose Appliedyes Denturesnot applicable Prostheticsnot applicable Hearing Aidsnot applicable Valuables Securedplaced in locker Glasses / Contactsnot applicable Bowel Prepno Cardiovascular Assessment: Apicalregular Radial Pulsespalpable Pedal Pulsespalpable Extremitieswarm Respiratory Assessment: Respirationsunlabored regular Air Exchangeequal, good Breath Soundsclear Neurological Assessment: Level of Consciousnessalert, oriented Mobilitymoves all extremities Able to Express Selfyes Age Appropriateyes Emotional Statuscalm Skin Assessment: Skin Site(s) with Current Compromisenone Preop Education: Surgical Site Infection Preventionyes Pain Scales and Managementyes Language / Communication: Language / CommunicationEnglish Electronic Signatures: Misa Sotelo) (Signed 16-Jun-2021 11:58) Authored: Preop Checklist Last Updated: 16-Jun-2021 11:58 by Misa Sotelo (JAQUELINE) Normal [facility] Coronavirus 2019 RNA by PCR, Screening Asymptomticon 06-15-2021 Coronavirus 2019 RNA by PCR, Screening Asymptomtic Not detected Normal See Below [facility] Work Phone: Comment on above: SOURCE: Nasal, Nasop haryngealReference Range: Not Detected.This assay is designed to detect the N, ORF1ab and/or S genes of SARS-CoV-2 via nucleic acid amplification. A Negative (NOT DETECTED) result does not preclude 2019-nCoV infection since the adequacy of sample collection and/or low viral burden may result in presence of viral nucleic acids below the clinical sensitivity of this test method. Negative (NOT DETECTED) result should not be used as the sole basis for treatment or other patient management decisions. Rather negative results should be combined with clinical observations, patient history, and epidemiological information to make patient management decisions.Fact sheet for providers: https://www.fda.gov/media/849210/downloadFact sheet for patients: https://www.fda.gov/media/698754/downloadThis test has received FDA Emergency Use Authorization (EUA) and has been verified by [facility] ([facility]). This test is only authorized for the duration of time that circumstances exist to justify the authorization of the emergency use of in vitro diagnostic tests for the detection of SARS-CoV-2 virus and/or diagnosis of COVID-19 infection under section 564(b)(1) of the Act, 21 U.S.C. 360bbb-3(b)(1), unless the authorization is terminated or revoked sooner. [facility] is certified under CLIA-88 as qualified to perform high complexity testing. Testing is performed in the [facility] laboratories located at [address] [place] [address]. CT Abdomen and Pelvis with I V Contraston 06-08-2021 CT Abdomen and Pelvis W contrast IV Normal [facility] Work Phone: [phone] Complete Blood Count + Diffe rentialon 06-08-2021 Basophils/100 WBC (Bld) 0.7 % 0.0 - 2.0 [facility] Work Phone: [phone] Erythrocyte distribution width (RBC) [Ratio] 12.5 % See Below [facility] Work Phone: [phone] Comment on above: Reference Range: 11. 5 - 14.5 Hematocrit (Bld) [Volume fraction] 39.0 % See Below [facility] Work Phone: [phone] Comment on above: Reference Range: 36. 0 - 46.0 Hemoglobin (Bld) [Mass/Vol] 13.0 g/dL See Below [facility] Work Phone: [phone] Comment on above: Reference Range: 12. 0 - 16.0 Lymphocytes/100 WBC (Bld) 20.6 % See Below [facility] Work Phone: [phone] Comment on above: Reference Range: 13. 0 - 44.0 MCHC (RBC) [Mass/Vol] 33.4 g/dL See Below [facility] Work Phone: [phone] Comment on above: Reference Range: 32. 0 - 36.0 MCV (RBC) [Entitic vol] 97 fL 80 - 100 [facility] Work Phone: [phone] Monocytes/100 WBC (Bld) 4.9 % 2.0 - 10.0 [facility] Work Phone: [phone] Neutrophils/100 WBC (Bld) 72.8 % See Below [facility] Work Phone: [phone] Comment on above: Reference Range: 40. 0 - 80.0 Platelets (Bld) [#/Vol] 287 10*3/uL 150 - 450 [facility] Work Phone: [phone] RBC (Bld) [#/Vol] 4.03 {x10E12/L} See Below [facility] Work Phone: [phone] Comment on above: Reference Range: 4.0 0 - 5.20 WBC (Bld) [#/Vol] 11.6 10*3/uL above high threshold 4.4 - 11.3 [facility] Work Phone: [phone] Complete Blood Count + Differential 1.0 % 0.0 - 6.0 [facility] Work Phone: [phone] Complete Blood Count + Differential 0.10 {x10E9/L} See Below [facility] Work Phone: [phone] Comment on above: Reference Range: 0.0 0 - 0.10 Reference Range: 0.0 0 - 0.70 Complete Blood Count + Differential 0.60 {x10E9/L} See Below [facility] Work Phone: [phone] Comment on above: Reference Range: 0.1 0 - 1.00 Complete Blood Count + Differential 2.40 {x10E9/L} See Below [facility] Work Phone: [phone] Comment on above: Reference Range: 1.2 0 - 4.80 Complete Blood Count + Differential 8.50 {x10E9/L} above high threshold See Below [facility] Work Phone: Comment on above: Reference Range: 1.2 0 - 7.70 Percent differential counts (%) should be interpreted in the context of the absolute cell counts (cells/L). Coronavirus 2019 RNA by PCR, Symptomaticon 06-08-2021 Coronavirus 2019 RNA by PCR, Symptomatic Not detected Normal See Below [facility] Work Phone: Comment on above: SOURCE: Nasal, Nasop haryngealReference Range: Not Detected.This test has received FDA Emergency Use Authorization (EUA) and has been verified by [facility]. This test is only authorized for the duration of time that circumstances exist to justify the authorization of the emergency use of in vitro diagnostic tests for the detection of SARS-CoV-2 virus and/or diagnosis of COVID-19 infection under section 564(b)(1) of the Act, 21 U.S.C. 360bbb-3(b)(1), unless the authorization is terminated or revoked sooner. [facility] is certified under CLIA-88 as qualified to perform high complexity testing. Testing is performed in the [facility] laboratory located at [address] [place] [address].SARS-CoV-2/Flu/RSV Multiplex Test: Fact sheet for providers: https://www.fda.gov/media/348108/downloadFact sheet for patients: https://www.fda.gov/media/370783/download HCG, Beta Quantitativeon HCG.beta subunit Qn 16 m[IU]/mL Abnormal [facility] Work Phone: Comment on above: Low-level positive H CG results can be seen in early , in janene- or post-menopausal females due to normal pituitary HCG production, or with analytic interference. Repeat testing in 48-72 hours can aid in assessing for as results should double in this time period. FSH measurement is recommended in janene- or post-menopausal females as concurrent elevation of FSH can support pituitary production as the source of the HCG elevation.. Total HCG measurement is performed using the Sej[employer] [place] Access Immunoassay which detects intact HCG and free beta HCG subunit. This test is not indicated for use as a tumor marker. HCG testing is performed using a different test methodology at [facility] than other [facility]. Direct result comparison should only be made within the same method. REF VALUESNON FEMALE <5MALES <5 HCG, Serum - Qualitativeon 0 06-08-2021 HCG ( test) Ql Negative Negative [facility] Work Phone: Laboratory - Blood bankon ABO group Nom (Bld) A [facility] Work Phone: [phone] Blood group antibody screen Ql Negative [facility] Work Phone: [phone] Rh immune globulin screen (Bld) [Interp] Positive [facility] Work Phone: [phone] Laboratory - Chemistry and C hemistry - challengeon 06-08-2021 Anion gap [Moles/Vol] 11 mmol/L 10 - 20 [facility] Work Phone: [phone] Calcium [Mass/Vol] 9.3 mg/dL 8.6 - 10.3 [facility] Work Phone: [phone] Chloride [Moles/Vol] 106 mmol/L 98 - 107 [facility] Work Phone: [phone] CO2 [Moles/Vol] 24 mmol/L 21 - 32 [facility] Work Phone: [phone] Creatinine [Mass/Vol] 0.67 mg/dL See Below [facility] Work Phone: [phone] Comment on above: Reference Range: 0.5 0 - 1.05 Glucose [Mass/Vol] 89 mg/dL 74 - 99 [facility] Work Phone: [phone] Potassium [Moles/Vol] 3.4 mmol/L below low threshold 3.5 - 5.3 [facility] Work Phone: [phone] Sodium [Moles/Vol] 138 mmol/L 136 - 145 [facility] Work Phone: [phone] Urea nitrogen [Mass/Vol] 7 mg/dL 6 - 23 [facility] Work Phone: [phone] No Panel Informationon 06-08 Normal [facility] Work Phone: [phone] >60 >60 [facility] Work Phone: [phone] Comment on above: CALCULATIONS OF VANESA MATED GFR ARE PERFORMED USING THE MDRD STUDY EQUATION FOR THE IDMS-TRACEABLE CREATININE METHODS. CLIN CHEM 2007;53:766-72 Urinalysison 06-08-2021 Color (U) Straw See Below [facility] Work Phone: [phone] Comment on above: Reference Range: STR AW,YELLOW Glucose Ql (U) Negative NEGATIVE [facility] Work Phone: [phone] Ketones Ql (U) 5(TRACE) Abnormal NEGATIVE [facility] Work Phone: [phone] Leukocyte esterase Test strip Ql (U) Negative NEGATIVE [facility] Work Phone: [phone] pH (U) 5.0 [pH] 5.0 - 8.0 [facility] Work Phone: [phone] Protein (U) [Mass/Vol] Negative NEGATIVE [facility] Work Phone: [phone] RBC (U) [#/Vol] MODERATE(2+) Abnormal NEGATIVE [facility] Work Phone: [phone] Specific gravity (U) [Rel density] 1.011 1 See Below [facility] Work Phone: [phone] Comment on above: Reference Range: 1.0 05 - 1.035 Urinalysis Negative NEGATIVE [facility] Work Phone: [phone] Urinalysis <2.0 0.0 - 1.9 [facility] Work Phone: [phone] Urinalysis CLEAR CLEAR [facility] Work Phone: [phone] Urinalysis, Microscopicon Urinalysis, Microscopic 1 {/HPF} [facility] Work Phone: [phone] Urinalysis, Microscopic 20 {/HPF} Abnormal 0-5 [facility] Work Phone: Urinalysis, Microscopic None 0-5 [facility] Work Phone: HCG, Beta Quantitativeon HCG.beta subunit Qn 70 m[IU]/mL Abnormal [facility] Work Phone: Comment on above: Low-level positive H CG results can be seen in early , in janene- or post-menopausal females due to normal pituitary HCG production, or with analytic interference. Repeat testing in 48-72 hours can aid in assessing for as results should double in this time period. FSH measurement is recommended in janene- or post-menopausal females as concurrent elevation of FSH can support pituitary production as the source of the HCG elevation.. Total HCG measurement is performed using the Sejal [employer] Access Immunoassay which detects intact HCG and free beta HCG subunit. This test is not indicated for use as a tumor marker. HCG testing is performed using a different test methodology at [facility] than other [facility]. Direct result comparison should only be made within the same method. REF VALUESNON FEMALE <5MALES <5 HCG, Beta Quantitativeon HCG.beta subunit Qn 193 m[IU]/mL Abnormal [address] Work Phone: Comment on above: Low-level positive H CG results can be seen in early , in janene- or post-menopausal females due to normal pituitary HCG production, or with analytic interference. Repeat testing in 48-72 hours can aid in assessing for as results should double in this time period. FSH measurement is recommended in janene- or post-menopausal females as concurrent elevation of FSH can support pituitary production as the source of the HCG elevation.. Total HCG measurement is performed using the Sejal [place] Access Immunoassay which detects intact HCG and free beta HCG subunit. This test is not indicated for use as a tumor marker. HCG testing is performed using a different test methodology at [facility] than other [facility]. Direct result comparison should only be made within the same method. REF VALUESNON FEMALE <5MALES <5 HCG, Beta Quantitativeon HCG.beta subunit Qn 234 m[IU]/mL Abnormal [facility] [employer] Work Phone: Comment on above: Low-level positive H CG results can be seen in early , in janene- or post-menopausal females due to normal pituitary HCG production, or with analytic interference. Repeat testing in 48-72 hours can aid in assessing for as results should double in this time period. FSH measurement is recommended in janene- or post-menopausal females as concurrent elevation of FSH can support pituitary production as the source of the HCG elevation.. Total HCG measurement is performed using the Sejal [employer] Access Immunoassay which detects intact HCG and free beta HCG subunit. This test is not indicated for use as a tumor marker. HCG testing is performed using a different test methodology at [facility] than other [facility]. Direct result comparison should only be made within the same method. REF VALUESNON FEMALE <5MALES <5 SPRING COVERER - Post Opon 1 SPRING COVERER - Post Op Diagnoses/Problems Assessed Postoperative follow-up (V67.00) (Z09) Provider Impressions 1. Postop checkup Follow-up in 1 year or as needed. Chief Complaint Patient is here for her post op visit. Patient stated she is doing alright and her bleeding stopped 2 days ago. History of Present IllnessPatient presents for postop checkup following suction curettage for miscarriage. She voices complaints and is doing well. She will be using condoms for contraception. 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) Blighted ovum (631.8) (O02.0) Past Medical History History of spontaneous (V13.29) (Z87.59) 06/2019 History of Menstruation AGE 10 Surgical History No history of surgery Family History Family history of Anxiety Family history of cardiac disorder (V17.49) (Z82.49) Family history of depression (V17.0) (Z81.8) Family history of cardiac disorder (V17.49) (Z82.49) Social History Current every day smoker (305.1) (F17.200) Does not use illicit drugs (V49.89) (Z78.9) Occasional alcohol use Sexually active Allergies No Known Drug Allergies Recorded By: Irma Werner; 01/25/2021 2:57:12 PM Current Meds Medication NameInstruction Claritin TABS PNV Plus Multivitamin TABS Vitals Vital Signs Recorded: 24Mar2021 02:26PM Oslvcrbnwhq55.7 F Saiapcib155 Pxxpehaet99 Height5 ft 2 in Bohdxv04.6 kg BMI Mmsfxsbugq60.27 BSA Calculated1.74 Tobacco Usea) Yes Patient encouraged to stop using tobacco productsYes Results/Data Surgical [id number] 12:12PLiliam Strong NameResultFlagReference Case Surgical Pathology(Report) Name JOCELYNESAMUELTISH Pathologist: AYE HYDE MD Date of Procedure: 03/09/2021 Date Received: 03/09/2021 Date Reported 03/10/2021 Submitting Physician: LILIAM BRANTLEY MD Location: [facility] Other External # FINAL DIAGNOSIS A. PRODUCTS OF CONCEPTION: -- IMMATURE CHORIONIC VILLI. -- GESTATIONAL ENDOMETRIUM AND IMPLANTATION SITE. Electronically Signed Out By AYE HYDE MD/SXR By the signature on this report, the individual or group listed as making the Final Interpretation/Diagnosis certifies that they have reviewed this case. Clinical History: Physician Contact Number: [phone] Fixative (A): [place] Clinical Diagnosis History MISSED Specimens Submitted As: A: PRODUCTS OF CONCEPTION Gross Description: Received fresh, labeled with the patients name and hospital number and products of conception , are multiple fragments of pale red soft tissue and clotted blood, aggregating to 7.0 x 7.0 x 1.5 cm. Villous tissue is identified, measuring 5.0 x 2.5 x 1.0 cm. [employer] W[employer] Etch Operator sections are submitted in 3 cassettes. [facility] Summary of Cassettes: Specimen Label Site A 1 possible villous tissue 2 non-villous tissue 3 additional villous and non-villous tissue [facility]/03/09/2021 [facility] Department of Pathology [id number] [place] [address] Signatures Electronically signed by : Liliam Brantley MD; Mar 24 2021 2:36PM EST (Author) Normal [employer] SPRING COVERER - Office Visiton 02-16 SPRING COVERER - Office Visit Diagnoses/Problems Assessed Blighted ovum (631.8) (O02.0) Orders Complete Blood Count; Status:Active; Requested for:[id number]; HCG, Beta Quantitative; Status:Active; Requested for:[id number]; Provider Impressions 1. Missed miscarriage 2. Blighted ovum Patient wishes to proceed with dilatation and curettage. She was explained the technique of suction curettage. Patient informed of risks of surgery including risk of anesthesia, infection, bleeding, injury to internal organs including bowel, bladder or ureter, uterine perforation or fistula formation. Her questions were answered to her satisfaction and she agrees to undergo the procedure. Plan for surgery later this week. Chief Complaint Presents for repeat pelvic ultrasound. Denies any vaginal bleeding. She is interested in [employer]. History of Present IllnessPatient presents for follow-up pelvic ultrasound regarding missed miscarriage. She denies any bleeding or cramps. She wishes to proceed with a suction dilatation and curettage. 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) Amenorrhea (626.0) (N91.2) Blighted ovum (631.8) (O02.0) Positive urine test (V72.42) (Z32.01) Past Medical History Problems History of spontaneous (V13.29) (Z87.59) 06/2019 History of Menstruation AGE 10 Surgical History Problems No history of surgery Family History Mother Family history of Anxiety Family history of cardiac disorder (V17.49) (Z82.49) Family history of depression (V17.0) (Z81.8) Father Family history of cardiac disorder (V17.49) (Z82.49) Social History Problems Current every day smoker (305.1) (F17.200) Does not use illicit drugs (V49.89) (Z78.9) Occasional alcohol use Sexually active Allergies Medication No Known Drug Allergies Recorded By: Irma Werner; 01/25/2021 2:57:12 PM Current Meds Medication NameInstruction Claritin TABS PNV Plus Multivitamin TABS Vitals Vital Signs Recorded: 06Mar2021 11:23AM Jiftwchvcfj91.1 F Wvoonjqn447 Ldyouwovw75 Height5 ft 2 in Yxsutp19.3 kg BMI Lenvizvcql62.75 BSA Calculated1.73 Physical Exam PHYSICAL EXAMINATION: Well-developed, well nourished, in no acute distress, alert and oriented x three, is pleasant and cooperative. HEENT: Clear. Pupils equal, round and reactive to light and accommodation. Extraocular muscles are intact. Oral mucosa pink without exudate. NECK: No lymphadenopathy, no thyromegaly. LUNGS: Clear bilaterally. HEART: Regular rate and rhythm without murmurs. ABDOMEN: Normoactive bowel sounds, soft and nontender, no guarding or rebound tenderness, no CVA tenderness. EXTREMITIES: No clubbing, cyanosis or edema. NEUROLOGIC: Cranial nerves II-XII grossly intact. : Normal external female genitalia, normal vulva, normal vagina. Normal urethral meatus, urethra and bladder. Vaginal ultrasound shows an intrauterine gestational sac with irregular borders. No evidence of yolk sac or pole. Gestational sac measures 6 weeks 5 days. No fluid in the cul-de-sac. Results/Data HCG, Beta Hbceaaxpbnqn48Nes9004 02:10PMLiliam Brantley Test NameResultFlagReference HCG, Beta Iesklfbnvuzy573912 mIU/mLA Low-level positive HCG results can be seen in early , in janene- or post-menopausal females due to normal pituitary HCG production, or with analytic interference. Repeat testing in 48-72 hours can aid in assessing for as results should double in this time period. FSH measurement is recommended in janene- or post-menopausal females as concurrent elevation of FSH can support pituitary production as the source of the HCG elevation. . Total HCG measurement is performed using the Proxible Access Immunoassay which detects intact HCG and free beta HCG subunit. This test is not indicated for use as a tumor marker. HCG testing is performed using a different test methodology at [facility] than other [facility]. Direct result comparison should only be made within the same method. REF VALUES NON FEMALE <5 MALES <5 HCG, Beta Xnlegimesfsx82Gzt6786 03:45PMLiliam Brantley Test NameResultFlagReference HCG, Beta Juhpbuvjcqnt388174 mIU/mLA Low-level positive HCG results can be seen in early , in janene- or post-menopausal females due to normal pituitary HCG production, or with analytic interference. Repeat testing in 48-72 hours can aid in assessing for as results should double in this time period. FSH measurement (more content not included)... Normal LxDATA Office Visit Presurgicalon 0 03-06-2021 Office Visit Presurgical Diagnoses/Problems Assessed Blighted ovum (631.8) (O02.0) Orders Blighted ovum Complete Blood Count; Status:Active; Requested for:21Gsf1402; HCG, Beta Quantitative; Status:Active; Requested for:50Sfv6893; Provider Impressions 1. Missed miscarriage 2. Blighted ovum Patient wishes to proceed with dilatation and curettage. She was explained the technique of suction curettage. Patient informed of risks of surgery including risk of anesthesia, infection, bleeding, injury to internal organs including bowel, bladder or ureter, uterine perforation or fistula formation. Her questions were answered to her satisfaction and she agrees to undergo the procedure. Plan for surgery later this week. Chief Complaint Presents for repeat pelvic ultrasound. Denies any vaginal bleeding. She is interested in [employer]. History of Present IllnessPatient presents for follow-up pelvic ultrasound regarding missed miscarriage. She denies any bleeding or cramps. She wishes to proceed with a suction dilatation and curettage. 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) Amenorrhea (626.0) (N91.2) Blighted ovum (631.8) (O02.0) Positive urine test (V72.42) (Z32.01) Past Medical History Problems History of spontaneous (V13.29) (Z87.59) 06/2019 History of Menstruation AGE 10 Surgical History Problems No history of surgery Family History Mother Family history of Anxiety Family history of cardiac disorder (V17.49) (Z82.49) Family history of depression (V17.0) (Z81.8) Father Family history of cardiac disorder (V17.49) (Z82.49) Social History Problems Current every day smoker (305.1) (F17.200) Does not use illicit drugs (V49.89) (Z78.9) Occasional alcohol use Sexually active Allergies Medication No Known Drug Allergies Recorded By: Irma Werner; 01/25/2021 2:57:12 PM Current Meds Medication NameInstruction Claritin TABS PNV Plus Multivitamin TABS Vitals Vital Signs Recorded: 06Mar2021 11:23AM Wvyflobdoul24.1 F Hdwsarpz003 Gvkvufwra84 Height5 ft 2 in Sznoev80.3 kg BMI Cferuqrlcg85.75 BSA Calculated1.73 Physical Exam PHYSICAL EXAMINATION: Well-developed, well nourished, in no acute distress, alert and oriented x three, is pleasant and cooperative. HEENT: Clear. Pupils equal, round and reactive to light and accommodation. Extraocular muscles are intact. Oral mucosa pink without exudate. NECK: No lymphadenopathy, no thyromegaly. LUNGS: Clear bilaterally. HEART: Regular rate and rhythm without murmurs. ABDOMEN: Normoactive bowel sounds, soft and nontender, no guarding or rebound tenderness, no CVA tenderness. EXTREMITIES: No clubbing, cyanosis or edema. NEUROLOGIC: Cranial nerves II-XII grossly intact. : Normal external female genitalia, normal vulva, normal vagina. Normal urethral meatus, urethra and bladder. Vaginal ultrasound shows an intrauterine gestational sac with irregular borders. No evidence of yolk sac or pole. Gestational sac measures 6 weeks 5 days. No fluid in the cul-de-sac. Results/Data HCG, Beta Udjhvbwdokoc84Zhj2918 02:10PMLiliam Brantley Test NameResultFlagReference HCG, Beta Mhlpiidpwhhh694934 mIU/mLA Low-level positive HCG results can be seen in early , in janene- or post-menopausal females due to normal pituitary HCG production, or with analytic interference. Repeat testing in 48-72 hours can aid in assessing for as results should double in this time period. FSH measurement is recommended in janene- or post-menopausal females as concurrent elevation of FSH can support pituitary production as the source of the HCG elevation. . Total HCG measurement is performed using the Sejal Denilson Access Immunoassay which detects intact HCG and free beta HCG subunit. This test is not indicated for use as a tumor marker. HCG testing is performed using a different test methodology at [facility] than other [facility]. Direct result comparison should only be made within the same method. REF VALUES NON FEMALE <5 MALES <5 HCG, Beta Lyfhbulkvych86Guz7546 03:45PMLiliam Brantley Test NameResultFlagReference HCG, Beta Mawjbyceizwc645020 mIU/mLA Low-level positive HCG results can be seen in early , in janene- or post-menopausal females due to normal pituitary HCG production, or with analytic interference. Repeat testing in 48-72 hours can aid in assessing for as results should double in this time period. (more content not included)... Normal LxDATA SPRING COVERER - Office Visiton 02-16 SPRING COVERER - Office Visit Diagnoses/Problems Assessed Blighted ovum (631.8) (O02.0) Orders HCG, Beta Quantitative; Status:Active; Requested for:11Mar2021; Provider Impressions 1. Missed miscarriage 2. Blighted ovum Personally reviewed the hCG values which are progressively decreasing. Follow-up hCG in 2 weeks. Follow-up in the office in 2 weeks. Chief Complaint Patient presents today for 2 week miscarriage follow up. Patient denies any bleeding or cramping and has no concerns/questions. History of Present IllnessPatient presents for follow-up regarding missed miscarriage/blighted ovum. She denies any vaginal bleeding or cramps at this time. 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) Amenorrhea (626.0) (N91.2) Blighted ovum (631.8) (O02.0) Positive urine test (V72.42) (Z32.01) Past Medical History Problems History of spontaneous (V13.29) (Z87.59) 06/2019 History of Menstruation AGE 10 Surgical History Problems No history of surgery Family History Mother Family history of Anxiety Family history of cardiac disorder (V17.49) (Z82.49) Family history of depression (V17.0) (Z81.8) Father Family history of cardiac disorder (V17.49) (Z82.49) Social History Problems Current every day smoker (305.1) (F17.200) Does not use illicit drugs (V49.89) (Z78.9) Occasional alcohol use Sexually active Allergies Medication No Known Drug Allergies Recorded By: Irma Werner; 01/25/2021 2:57:12 PM Current Meds Medication NameInstruction Claritin TABS PNV Plus Multivitamin TABS Vitals Vital Signs Recorded: 27Feb2021 02:13PM Aygbuekbysg52.8 F Qyqttepz527 Oeoaeqiit20 Height5 ft 2 in Vxsopr60.7 kg BMI Zuzwwzfrbb54.91 BSA Calculated1.73 Physical Exam General: No acute distress Eye: Intraocular movements are intact HEENT: Normocephalic Respiratory: Respirations are nonlabored Gastrointestinal: Nondistended Musculoskeletal: Normal range of motion Neurologic: Alert and oriented x3 Psychiatric: Cooperative, appropriate mood and affect. Results/Data HCG, Beta Cegchvffcvpp85Vna5934 02:10PMLiliam Brantley Test NameResultFlagReference HCG, Beta Upnugocknroh249090 mIU/mLA Low-level positive HCG results can be seen in early , in janene- or post-menopausal females due to normal pituitary HCG production, or with analytic interference. Repeat testing in 48-72 hours can aid in assessing for as results should double in this time period. FSH measurement is recommended in janene- or post-menopausal females as concurrent elevation of FSH can support pituitary production as the source of the HCG elevation. . Total HCG measurement is performed using the Proxible Access Immunoassay which detects intact HCG and free beta HCG subunit. This test is not indicated for use as a tumor marker. HCG testing is performed using a different test methodology at [facility] than other [facility]. Direct result comparison should only be made within the same method. REF VALUES NON FEMALE <5 MALES <5 HCG, Beta Xyqgkesuwkwr95Xzv0392 03:45PMLiliam Brantley Test NameResultFlagReference HCG, Beta Ctzqpurrsgmg116411 mIU/mLA Low-level positive HCG results can be seen in early , in janene- or post-menopausal females due to normal pituitary HCG production, or with analytic interference. Repeat testing in 48-72 hours can aid in assessing for as results should double in this time period. FSH measurement is recommended in janene- or post-menopausal females as concurrent elevation of FSH can support pituitary production as the source of the HCG elevation. . Total HCG measurement is performed using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 08-31-2024 10:00-0400 Body mass index (BMI) [Ratio] 38.78 kg/m2 Jaylon Ureña MD Work Phone: [facility] 08-31-2024 10:00-0400 Body weight 96.16 kg Jaylon Ureña MD Work Phone: [facility] 08-31-2024 10:00-0400 Diastolic blood pressure 68 mm[Hg] Jaylon Ureña MD Work Phone: [facility] 08-31-2024 10:00-0400 Systolic blood pressure 118 mm[Hg] Jaylon Ureña MD Work Phone: [facility] 08-24-2024 10:08-0400 Body mass index (BMI) [Ratio] 38.78 kg/m2 Tari Boggs MD Work Phone: [facility] 08-24-2024 10:08-0400 Body weight 96.16 kg Tari Boggs MD Work Phone: [facility] 08-24-2024 10:08-0400 Diastolic blood pressure 76 mm[Hg] Tari Boggs MD Work Phone: [facility] 08-24-2024 10:08-0400 Systolic blood pressure 120 mm[Hg] Tari Boggs MD Work Phone: [facility] 08-17-2024 15:16-0400 Body mass index (BMI) [Ratio] 38.78 kg/m2 Abilio Johnson MD Work Phone: [facility] 08-17-2024 15:16-0400 Body weight 96.16 kg Abilio Johnson MD Work Phone: [facility] 08-17-2024 15:16-0400 Diastolic blood pressure 78 mm[Hg] Abilio Johnson MD Work Phone: [facility] 08-17-2024 15:16-0400 Systolic blood pressure 110 mm[Hg] Abilio Johnson MD Work Phone: [facility] 08-10-2024 11:19-0400 Body mass index (BMI) [Ratio] 38.04 kg/m2 Jaylon Ureña MD Work Phone: [facility] 08-10-2024 11:19-0400 Body weight 94.35 kg Jaylon Ureña MD Work Phone: [facility] 08-10-2024 11:19-0400 Diastolic blood pressure 72 mm[Hg] Jaylon Ureña MD Work Phone: [facility] 08-10-2024 11:19-0400 Systolic blood pressure 108 mm[Hg] Jaylon Ureña MD Work Phone: [facility] 07-27-2024 11:05-0400 Body mass index (BMI) [Ratio] 38.34 kg/m2 Monikaatuumn Joel CYLINDER PRESS OPERATOR HELPER.CNM Work Phone: [facility] 07-27-2024 11:05-0400 Body weight 95.07 kg Monika Plotrosetta CYLINDER PRESS OPERATOR HELPER.CNM Work Phone: [facility] 07-27-2024 11:05-0400 Diastolic blood pressure 64 mm[Hg] Monika Plotrosetta CYLINDER PRESS OPERATOR HELPER.CNM Work Phone: [facility] 07-27-2024 11:05-0400 Systolic blood pressure 118 mm[Hg] Monika Plotrosetta CYLINDER PRESS OPERATOR HELPER.CNM Work Phone: [facility] 07-13-2024 11:03-0400 Body mass index (BMI) [Ratio] 37.49 kg/m2 Naz Kern CYLINDER PRESS OPERATOR HELPER.CNM Work Phone: [facility] 07-13-2024 11:03-0400 Body weight 92.99 kg Naz Kern CYLINDER PRESS OPERATOR HELPER.CNM Work Phone: [facility] 07-13-2024 11:03-0400 Diastolic blood pressure 64 mm[Hg] Naz Kern CYLINDER PRESS OPERATOR HELPER.CNM Work Phone: [facility] 07-13-2024 11:03-0400 Systolic blood pressure 112 mm[Hg] Naz Kern CYLINDER PRESS OPERATOR HELPER.CNM Work Phone: [facility] 06-29-2024 11:19-0400 Body mass index (BMI) [Ratio] 37.13 kg/m2 Monika Joel CYLINDER PRESS OPERATOR HELPER.CNM Work Phone: [facility] 06-29-2024 11:19-0400 Body weight 92.08 kg Monika Joel CYLINDER PRESS OPERATOR HELPER.CNM Work Phone: [facility] 06-29-2024 11:19-0400 Diastolic blood pressure 62 mm[Hg] Monika Joel CYLINDER PRESS OPERATOR HELPER.CNM Work Phone: [facility] 06-29-2024 11:19-0400 Systolic blood pressure 120 mm[Hg] Monika Joel CYLINDER PRESS OPERATOR HELPER.CNM Work Phone: [facility] 06-15-2024 10:29-0400 Body mass index (BMI) [Ratio] 36.4 kg/m2 Tari Boggs MD Work Phone: [facility] 06-15-2024 10:29-0400 Body weight 90.27 kg Tari Boggs MD Work Phone: [facility] 06-15-2024 10:29-0400 Diastolic blood pressure 66 mm[Hg] Tari Boggs MD Work Phone: [facility] 06-15-2024 10:29-0400 Systolic blood pressure 110 mm[Hg] Tari Boggs MD Work Phone: [facility] 06-04-2024 11:11-0400 Body mass index (BMI) [Ratio] 36.54 kg/m2 Abilio Johnson MD Work Phone: [facility] 06-04-2024 11:11-0400 Body weight 90.63 kg Abilio Johnson MD Work Phone: [facility] 06-04-2024 11:11-0400 Diastolic blood pressure 70 mm[Hg] Abilio Johnson MD Work Phone: [facility] 06-04-2024 11:11-0400 Systolic blood pressure 110 mm[Hg] Abilio Johnson MD Work Phone: [facility] 05-18-2024 10:15-0400 Body mass index (BMI) [Ratio] 35.81 kg/m2 Mingo Tate MD Work Phone: [facility] 05-18-2024 10:15-0400 Body weight 88.81 kg Mingo Tate MD Work Phone: [facility] 05-18-2024 10:15-0400 Diastolic blood pressure 58 mm[Hg] Mingo Tate MD Work Phone: [facility] 05-18-2024 10:15-0400 Systolic blood pressure 124 mm[Hg] Mingo Tate MD Work Phone: [facility] 04-20-2024 13:56-0400 Body mass index (BMI) [Ratio] 34.75 kg/m2 Debo Alicea CYLINDER PRESS OPERATOR HELPER.PROTOTYPE MODEL MAKER Work Phone: [facility] 04-20-2024 13:56-0400 Body weight 86.18 kg Debo Hoyosstephanie CYLINDER PRESS OPERATOR HELPER.PROTOTYPE MODEL MAKER Work Phone: [facility] 04-20-2024 13:56-0400 Diastolic blood pressure 62 mm[Hg] Deboisak Hoyosstephanie CYLINDER PRESS OPERATOR HELPER.PROTOTYPE MODEL MAKER Work Phone: [facility] 04-20-2024 13:56-0400 Systolic blood pressure 110 mm[Hg] Debo Alicea CYLINDER PRESS OPERATOR HELPER.PROTOTYPE MODEL MAKER Work Phone: [facility] 03-23-2024 10:53-0400 Body weight 78.9264 kg DEBO HOYOSSTEPHANIE [facility] Comment on above: Order Comment: Specimen Type: BLOOD SPEC IMENOrdering Facility: [facility] Address: [address] [place] [address] Performed By: #### S EQ2 ####[facility] LABCLIA [id number] [place] [address] 03-23-2024 10:32-0400 Body mass index (BMI) [Ratio] 33.25 kg/m2 Abilio Johnson MD Work Phone: [facility] 03-23-2024 10:32-0400 Body weight 82.46 kg Abilio Johnson MD Work Phone: [facility] 03-23-2024 10:32-0400 Diastolic blood pressure 68 mm[Hg] Abilio Johnson MD Work Phone: [facility] 03-23-2024 10:32-0400 Systolic blood pressure 110 mm[Hg] Abilio Johnson MD Work Phone: [facility] 02-24-2024 16:18-0400 Body weight 78.9264 kg DEBO ALICEA [facility] Comment on above: Order Comment: Specimen Type: BLOOD SPEC IMENOrdering Facility: [facility] Address: [address] [place], [place] [address] [address] Performed By: #### S EQ1 ####[facility] LABCLIA [id number] [place] [address] 02-24-2024 15:50-0400 Body weight 79.83 kg Jaylon Ureña MD Work Phone: [facility] 02-24-2024 15:50-0400 Diastolic blood pressure 62 mm[Hg] Jaylon Ureña MD Work Phone: [facility] 02-24-2024 15:50-0400 Systolic blood pressure 114 mm[Hg] Jaylon Ureña MD Work Phone: [facility] 01-27-2024 14:25-0400 Body height 157.5 cm Debo lAicea CYLINDER PRESS OPERATOR HELPER.PROTOTYPE MODEL MAKER Work Phone: [facility] 01-27-2024 14:25-0400 Body weight 79.11 kg Debo Deanne CYLINDER PRESS OPERATOR HELPER.PROTOTYPE MODEL MAKER Work Phone: [facility] 01-27-2024 14:25-0400 Diastolic blood pressure 58 mm[Hg] Debo Haury CYLINDER PRESS OPERATOR HELPER.PROTOTYPE MODEL MAKER Work Phone: [facility] 01-27-2024 14:25-0400 Systolic blood pressure 116 mm[Hg] Debo Haury CYLINDER PRESS OPERATOR HELPER.PROTOTYPE MODEL MAKER Work Phone: [facility] 11-02-2022 02:17-0500 Diastolic blood pressure 68 mm[Hg] No Pcp Required [facility] 11-02-2022 02:17-0500 Heart rate 74 /min No Pcp Required [facility] 11-02-2022 02:17-0500 Respiratory rate 16 /min No Pcp Required [facility] 11-02-2022 02:17-0500 SaO2% (BldA) [Mass fraction] 100 % No Pcp Required [facility] 11-02-2022 02:17-0500 Systolic blood pressure 137 mm[Hg] No Pcp Required [facility] 09-11-2022 09:03-0400 Body weight 71.49 kg Jaylon Ureña MD Work Phone: [facility] 09-11-2022 09:03-0400 Diastolic blood pressure 66 mm[Hg] Jaylon Ureña MD Work Phone: [facility] 09-11-2022 09:03-0400 Systolic blood pressure 114 mm[Hg] Jaylon Ureña MD Work Phone: [facility] 08-24-2022 15:31-0400 Body height 159.5 cm Imelda Ricketts MD Work Phone: [facility] 08-24-2022 15:31-0400 Body weight 70.76 kg Imelda Ricketts MD Work Phone: [facility] 08-24-2022 15:31-0400 Diastolic blood pressure 68 mm[Hg] Imelda Ricketts MD Work Phone: [facility] 08-24-2022 15:31-0400 Systolic blood pressure 98 mm[Hg] Imelda Ricketts MD Work Phone: [facility] 06-09-2021 17:27-0400 Body temperature 97.16 [degF] No Pcp Required [facility] 06-09-2021 17:27-0400 Diastolic blood pressure 64 mm[Hg] No Pcp Required [facility] 06-09-2021 17:27-0400 Heart rate 54 /min No Pcp Required [facility] 06-09-2021 17:27-0400 Respiratory rate 18 /min No Pcp Required [facility] 06-09-2021 17:27-0400 SaO2% (BldA) [Mass fraction] 99 % No Pcp Required [facility] 06-09-2021 17:27-0400 Systolic blood pressure 99 mm[Hg] No Pcp Required [facility] [place] 06-09-2021 05:08-0400 Body height 157.4 cm No Pcp Required [facility] 06-09-2021 05:080400 Body weight 72 kg No Pcp Required [facility] Encounters Encounter Date Encounter Type Care Provider Facility Start: 09-07-2024 End: 09-07-2024 E-mail encounter from caregiver Abilio Johnson MD Work Phone: OB/Gynecology Start: 09-07-2024 End: 09-07-2024 ambulatory Abilio Johnson MD Work Phone: OB/Gynecology Comment on above: Induction of Labor Start: 09-07-2024 End: 09-07-2024 Patient encounter procedure Abilio Johnson MD Work Phone: OB/Gynecology Comment on above: Obesity affecting pr egnancy in third trimester, unspecified obesity type (Primary Dx); 40 weeks gestation of ; Supervision of high risk in third trimester Start: 08-31-2024 End: 08-31-2024 ambulatory JAYLON UREÑA Facility:[facility] Start: 08-31-2024 End: 08-31-2024 Patient encounter procedure Jaylon Ureña MD Work Phone: OB/Gynecology Comment on above: Supervision of high risk in third trimester (Primary Dx); Obesity affecting in third trimester, unspecified obesity type; 39 weeks gestation of Start: 08-24-2024 End: 08-24-2024 ambulatory TARI BOGGS Facility:[facility] Start: 08-24-2024 End: 08-24-2024 Patient encounter procedure Tari Boggs MD Work Phone: OB/Gynecology Comment on above: 38 weeks gestation o f (Primary Dx); Supervision of high risk in third trimester Start: 08-21-2024 End: 08-21-2024 ambulatory [facility] Start: 08-21-2024 End: 08-21-2024 Patient encounter procedure [facility] Comment on above: Population Health Na vigation Outreach (Ob.peds/) Start: 08-17-2024 End: 08-17-2024 ambulatory ABILIO JOHNSON Facility:[facility] Start: 08-17-2024 End: 08-17-2024 Patient encounter procedure Abilio Johnson MD Work Phone: OB/Gynecology Comment on above: Supervision of high risk in third trimester (Primary Dx); 37 weeks gestation of Start: 08-10-2024 End: 08-10-2024 ambulatory JAYLON UREÑA Facility:[facility] Start: 08-10-2024 End: 08-10-2024 Patient encounter procedure Jaylon Ureña MD Work Phone: OB/Gynecology Comment on above: 36 weeks gestation o f (Primary Dx); Supervision of high risk in third trimester; Need for influenza vaccination Start: 07-27-2024 End: 07-27-2024 ambulatory [facility] Facility:[facility] Start: 07-27-2024 End: 07-27-2024 Patient encounter procedure Monika oJel CYLINDER PRESS OPERATOR HELPER.CNM Work Phone: OB/Gynecology Comment on above: 34 weeks gestation o f (Primary Dx); Supervision of high risk in third trimester; Obesity affecting in third trimester, unspecified obesity type; Current every day vaping; History of anxiety Start: 07-13-2024 End: 07-13-2024 ambulatory NAZ KERN Facility:[facility] Start: 07-13-2024 End: 07-13-2024 Patient encounter procedure Naz Kern APRN.CNM Work Phone: OB/Gynecology Comment on above: Supervision of high risk in third trimester (Primary Dx); 32 weeks gestation of ; Obesity affecting in third trimester, unspecified obesity type; Current every day vaping; History of anxiety Start: 06-29-2024 End: 06-29-2024 [facility] Start: 06-29-2024 End: 06-29-2024 Patient encounter procedure Monika Joel CYLINDER PRESS OPERATOR HELPER.CNM Work Phone: OB/Gynecology Comment on above: Supervision of high risk in third trimester (Primary Dx); Obesity affecting in third trimester, unspecified obesity type; 30 weeks gestation of ; Nausea/vomiting in ; Current every day vaping Start: 06-15-2024 End: 06-15-2024 ambulatory MINGO TATE Facility:[facility] Start: 06-15-2024 End: 06-15-2024 Patient encounter procedure Tari Boggs MD Work Phone: OB/Gynecology Comment on above: Supervision of high risk in second trimester (Primary Dx); Obesity affecting in second trimester, unspecified obesity type; 28 weeks gestation of ; Need for vaccination Start: 06-04-2024 End: 06-04-2024 ambulatory ABILIO JOHNSON Facility:[facility] Start: 06-04-2024 End: 06-04-2024 Patient encounter procedure Abilio Johnson MD Work Phone: OB/Gynecology Comment on above: 26 weeks gestation o f (Primary Dx); Supervision of high risk in second trimester; Obesity affecting in second trimester, unspecified obesity type Start: 06-01-2024 Telephone encounter Imelda rudolph MD Work Phone: OB/Gynecology Comment on above: Breast pump Start: 05-18-2024 End: 05-18-2024 ambulatory MINGO ATTE Facility:[facility] Start: 05-18-2024 End: 05-18-2024 Patient encounter procedure Mingo Tate MD Work Phone: OB/Gynecology Comment on above: Supervision of high risk in second trimester (Primary Dx); Obesity affecting in second trimester, unspecified obesity type; 24 weeks gestation of Start: 04-20-2024 End: 04-20-2024 ambulatory DEBO ALICEA Facility:[facility] Start: 04-20-2024 End: 04-20-2024 Patient encounter procedure Debo Alicea APRN.PROTOTYPE MODEL MAKER Work Phone: OB/Gynecology Comment on above: Supervision of high risk in second trimester (Primary Dx); 20 weeks gestation of ; Obesity affecting in second trimester, unspecified obesity type Encounter for anatomic survey (Primary Dx); Encounter for screening of mother; 20 weeks gestation of ; Obesity affecting in second trimester, unspecified obesity type Start: 03-23-2024 End: 03-23-2024 ambulatory DEBO ALICEA Facility:[facility] Start: 03-23-2024 End: 03-23-2024 Patient encounter procedure Abilio Johnson MD Work Phone: OB/Gynecology Comment on above: 16 weeks gestation o f (Primary Dx); Encounter for supervision of other normal in first trimester; Migraine headaches; Current every day vaping Start: 03-19-2024 Telephone encounter Tari acuna MD Work Phone: OB/Gynecology Comment on above: OB HOYOS Start: 02-24-2024 End: 02-24-2024 ambulatory JAYLON UREÑA Facility:[facility] Start: 02-24-2024 End: 02-24-2024 Patient encounter procedure Jaylon Ureña MD Work Phone: OB/Gynecology Comment on above: Encounter for superv ision of other normal in first trimester (Primary Dx); 12 weeks gestation of ; Encounter for screening of mother Encounter for (NT) n uchal translucency scan (Primary Dx); 12 weeks gestation of Start: 01-27-2024 End: 01-27-2024 Patient encounter procedure Debo Alicea APRN.PROTOTYPE MODEL MAKER Work Phone: OB/Gynecology Comment on above: with uncer tain dates in first trimester (Primary Dx) Start: 01-27-2024 End: 01-27-2024 ambulatory DEBO ALICEA Facility:[facility] Start: 01-27-2024 End: 01-27-2024 ambulatory DEBO ALICEA Facility:[facility] Start: 01-27-2024 End: 01-27-2024 Patient encounter procedure Debo Alicea APRN.PROTOTYPE MODEL MAKER Work Phone: OB/Gynecology Comment on above: Encounter for superv ision of other normal in first trimester (Primary Dx); 8 weeks gestation of ; with uncertain dates in first trimester; Nausea/vomiting in ; History of anxiety; Recurrent loss; Obesity affecting in first trimester, unspecified obesity type; Current every day vaping Start: 01-09-2024 End: 01-09-2024 [facility] Start: 01-07-2024 End: 01-07-2024 [facility] Start: 01-06-2024 Telephone encounter Abilio garber MD Work Phone: OB/Gynecology Comment on above: Care Start: 12-10-2022 ambulatory Jaylon fuentes MD Work Phone: OB/Gynecology Comment on above: SIS results Start: 12-07-2022 End: 12-07-2022 ambulatory Martha Dueñas MD Work Phone: OB/Gynecology Start: 12-07-2022 End: 12-07-2022 Patient encounter procedure Martha Dueñas MD Work Phone: [facility] Comment on above: Recurrent loss without current (Primary Dx) Start: 11-02-2022 End: 11-02-2022 Emergency department patient visit Candy Villa [facility] Emergency 07 Start: 09-11-2022 End: 09-11-2022 Patient encounter procedure Jaylon Ureña MD Work Phone: OB/Gynecology Comment on above: History of recurrent spontaneous , 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); Encounter for preconception consultation Start: 09-04-2022 Telephone encounter Naz Co sta CYLINDER PRESS OPERATOR HELPER.CNM Work Phone: OB/Gynecology Comment on above: Results (HCG) Start: 09-03-2022 Telephone encounter Naz Co sta CYLINDER PRESS OPERATOR HELPER.CNM Work Phone: OB/Gynecology Comment on above: Early OB Bleeding Start: 08-24-2022 End: 08-24-2022 Patient encounter procedure Imelda Ricketts MD Work Phone: OB/Gynecology Comment on above: Encounter for gyneco logical examination without abnormal finding (Primary Dx); Encounter for screening for malignant neoplasm of cervix; Screen for STD (sexually transmitted disease) Start: 08-24-2022 End: 08-24-2022 Patient encounter status Imelda Ricketts MD Work Phone: OB/Gynecology Start: 06-28-2021 Chart Update No PCP None [id number] isman [id number] IVF Work Phone: Start: 06-09-2021 End: 06-09-2021 Evaluation and management of inpatient Isabel Ruiz 4 Rm [id number] Start: 05-23-2021 Patient encounter procedure No PCP None [id number] Work Phone: Start: 05-10-2021 AUDIT No PCP None [address] Work Phone: Start: 08-24-2017 End: 08-24-2017 Ambulatory ELLIE YADAV [facility] Start: 08-20-2017 End: 08-20-2017 Ambulatory [facility] Start: 07-16-2017 End: 07-16-2017 Ambulatory [facility] Patient encounter status No PCP None [id number] Work Phone: Procedures Date Procedure Procedure Detail Performing Clinician Start: 09-07-2024 Urnls dip stick/tabl et rgnt non-auto w/o micrscp Abilio Johnson MD Work Phone: Start: 08-31-2024 Urnls dip stick/tabl et rgnt non-auto w/o micrscp Jaylon Ureña MD Work Phone: Start: 08-17-2024 Urnls dip stick/tabl et rgnt non-auto w/o micrscp Abilio Johnson MD Work Phone: Start: 04-20-2024 Us preg uterus after 1st trimest 1/ gestation Jaylon Ureña MD Work Phone: Start: 03-23-2024 Antibody screen DEBO CHANG Comment on above: Order Comment: Speci men Type: BLOOD SPECIMEN Ordering Facility: [facility] Address: [address] [place] [address] Performed By: #### T SPN #### [facility] CLIA [id number] [address] [place] [address] [place] [address] [place] Start: 02-24-2024 Us nuchal translucency 1st gestation Debo Alicea APRN.CNP Work Phone: Start: 01-27-2024 Us uterus l imited fetuses Debo Alicea LETICIA.PROTOTYPE MODEL MAKER Work Phone: Start: 01-09-2024 HUMAN CHORIONIC GONADOTROPIN, SERUM QUANTITATIVE Start: 01-07-2024 HUMAN CHORIONIC GONADOTROPIN, SERUM QUANTITATIVE Start: 11-02-2022 End: 11-02-2022 EKG impression Candy Villa No history of surgery No PCP None Plan of Treatment Date Care Activity Detail Author Start: 06-15-2034 Urine microalbumin profile DTaP,Tdap,Td Vaccine (8 - Td or Tdap) [facility] Start: 08-31-2025 Covid-19 Vaccine () Covid-19 Vaccine () [facility] Comment on above: Postponed from 07/19/2024 (Declined at t his time) Start: 08-24-2025 PAP TESTING PAP TESTING [facility] Start: 08-24-2025 Screening for malignant neoplasm of cervix [facility] Start: 09-07-2024 End: 09-07-2024 Patient encounter procedure 09/07/2024 10:50 AM EDT Routine Office Visit OB/Gynecology [address] [place] [address] Abilio Johnson MD [address] [place] [address] OB OB/Gynecology Comment on above: OB Start: 08-31-2024 End: 08-31-2024 Patient encounter procedure 08/31/2024 10:10 AM EDT Routine Office Visit OB/Gynecology [address] [place] [address] Jaylon Ureña MD [address] [place] [address] OB OB/Gynecology Comment on above: OB Start: 08-24-2024 End: 08-24-2024 Patient encounter procedure 08/24/2024 10:20 AM EDT Routine Office Visit OB/Gynecology [address] [place] [address] Tari Boggs MD [address] [place] [address] OB OB/Gynecology Comment on above: OB Start: 08-17-2024 End: 08-17-2024 Patient encounter procedure 08/17/2024 3:10 PM EDT Routine Office Visit OB/Gynecology [address] [place] [address] Abilio Johnson MD [address] [place] [address] OB Routine OB/Gynecology Comment on above: OB Routine Start: 08-10-2024 End: 08-10-2024 Patient encounter procedure 08/10/2024 11:10 AM EDT Routine Office Visit OB/Gynecology [address] [place] [address] Jaylon Ureña MD [address] [place] [address] [facility] OB/Gynecology Comment on above: SUZIE Start: 07-27-2024 End: 07-27-2024 Patient encounter procedure 07/27/2024 11:15 AM EDT Routine Office Visit OB/Gynecology [address] [place] [address] Monika Joel APRN.[facility] [address] [place] [address] 2 week follow up OB/Gynecology Comment on above: 2 week follow up Start: 07-19-2024 Covid-19 Vaccine () Covid-19 Vaccine ( season) [facility] Start: 07-19-2024 Covid-19 Vaccine ( season) Covid-19 Vaccine () [facility] Start: 07-19-2024 Influenza vaccination [facility] Start: 07-19-2024 RSV Vaccine (1 - Risk 1-dose series) RSV Vaccine (1 - Risk 1-dose series) [facility] Start: 07-13-2024 End: 07-13-2024 Patient encounter procedure 07/13/2024 11:15 AM EDT Routine Office Visit OB/Gynecology [address] [place] [address] Naz Kern APRN.CNM [address] [place] [address] OB OB/Gynecology Comment on above: OB Start: 06-29-2024 End: 06-29-2024 Patient encounter procedure 06/29/2024 11:15 AM EDT Routine Office Visit OB/Gynecology [address] [place] [address] Monika Joel APRN.CNM [address] [place] [address] OB OB/Gynecology Comment on above: OB Start: 06-15-2024 End: 06-15-2024 Patient encounter procedure 06/15/2024 10:30 AM EDT Routine Office Visit OB/Gynecology [address] [place] [address] Tari Boggs MD [address] [place] [address] OB OB/Gynecology Comment on above: OB Start: 05-27-2024 End: 08-26-2024 CBC W Auto Differential panel - Blood COMPLETE BLOOD COUNT AND DIFFERENTIAL Lab Routine Supervision of high risk in second trimester Obesity affecting in second trimester, unspecified obesity type 24 weeks gestation of Expected: 05/27/2024, Expires: 08/26/2024 [facility] Comment on above: Expected: 05/27/2024, Expires: Start: 05-27-2024 End: 08-26-2024 GESTATIONAL GLUCOSE SCREEN, 1-HOUR, 50 GRAM, NON-FASTING GESTATIONAL GLUCOSE SCREEN, 1-HOUR, 50 GRAM, NON-FASTING Lab Routine Supervision of high risk in second trimester Obesity affecting in second trimester, unspecified obesity type 24 weeks gestation of Expected: 05/27/2024, Expires: 08/26/2024 [facility] Work Phone: Comment on above: Expected: 05/27/2024, Expires: Start: 05-27-2024 End: 08-26-2024 SYPHILIS TOTAL W/REFLEX SYPHILIS TOTAL W/REFLEX Lab Routine Supervision of high risk in second trimester Obesity affecting in second trimester, unspecified obesity type 24 weeks gestation of Expected: 05/27/2024, Expires: 08/26/2024 [facility] Comment on above: Expected: 05/27/2024, Expires: Start: 05-18-2024 End: 05-18-2024 Patient encounter procedure 05/18/2024 10:30 AM EDT Routine Office Visit OB/Gynecology [address] [place] [id number] Mingo Tate MD [address] [place] [address] OB OB/Gynecology Comment on above: OB Start: 04-20-2024 End: 04-20-2024 Patient encounter procedure OB/Gynecology Comment on above: Anatomy OB Start: 03-23-2024 End: 06-22-2024 SEQUENTIAL SCN SECOND TRIM [facility] Work Phone: Comment on above: Expected: 03/23/2024, Expires: 4 Start: 03-23-2024 End: 03-23-2024 Patient encounter procedure 03/23/2024 10:40 AM EDT Routine Office Visit OB/Gynecology [address] [place] [address] Abilio Johnson MD [address] [place] [address] OB OB/Gynecology Comment on above: OB Start: 02-24-2024 End: 05-25-2024 CARRIER SCREEN, STANDARD [facility] Work Phone: Comment on above: Expected: 02/24/2024, Expires: 4 Start: 02-24-2024 End: 05-25-2024 HEMOGLOBIN EVALUATION CASCADE [facility] Work Phone: Comment on above: Expected: 02/24/2024, Expires: 4 Start: 02-24-2024 End: 02-23-2025 OBSTETRIC ULTRASOUND WHI OBSTETRIC ULTRASOUND WHI Anc Imaging Routine 12 weeks gestation of Encounter for screening of mother Encounter for supervision of other normal in first trimester Expected: 02/24/2024, Expires: 02/23/2025 [facility] Work Phone: Comment on above: Expected: 02/24/2024, Expires: 5 Start: 02-24-2024 End: 05-25-2024 SEQUENTIAL SCN FIRST TRIMESTER [facility] Work Phone: Comment on above: Expected: 02/24/2024, Expires: 4 Start: 01-27-2024 End: 04-27-2024 CBC panel - Blood by Automated count CBC Lab Routine Encounter for supervision of other normal in first trimester 8 weeks gestation of Expected: 01/27/2024, Expires: 04/27/2024 [facility] Work Phone: Comment on above: Expected: 01/27/2024, Expires: 4 Start: 01-27-2024 End: 04-27-2024 Hemoglobin A1c in Blood HGB A1C Lab Routine Encounter for supervision of other normal in first trimester 8 weeks gestation of Expected: 01/27/2024, Expires: 04/27/2024 [facility] Work Phone: Comment on above: Expected: 01/27/2024, Expires: 4 Start: 01-27-2024 End: 04-27-2024 Hepatitis B virus surface Ag [Presence] in Serum HEP B SURF AG SCRN Lab Routine Encounter for supervision of other normal in first trimester 8 weeks gestation of Expected: 01/27/2024, Expires: 04/27/2024 [facility] Work Phone: Comment on above: Expected: 01/27/2024, Expires: 4 Start: 01-27-2024 End: 04-27-2024 Hepatitis C virus Ab [Presence] in Serum HEPATITIS C ANTIBODY IA WITH CONFIRMATION Lab Routine Encounter for supervision of other normal in first trimester 8 weeks gestation of Expected: 01/27/2024, Expires: 04/27/2024 [facility] Work Phone: Comment on above: Expected: 01/27/2024, Expires: 4 Start: 01-27-2024 End: 04-27-2024 HIV 1+2 Ab [Presence] in Serum or Plasma by Immunoassay HIV 1 2 COMBO(AG/AB),WITH REFLEX TO DIFFERENTIATION Lab Routine Encounter for supervision of other normal in first trimester 8 weeks gestation of Expected: 01/27/2024, Expires: 04/27/2024 [facility] Work Phone: Comment on above: Expected: 01/27/2024, Expires: 4 Start: 01-27-2024 End: 01-26-2025 NUCHAL TRANSLUCENCY WHI NUCHAL TRANSLUCENCY WHI Anc Imaging Routine Encounter for supervision of other normal in first trimester 8 weeks gestation of Expected: 01/27/2024, Expires: 01/26/2025 [facility] Work Phone: Comment on above: Expected: 01/27/2024, Expires: 5 Start: 01-27-2024 End: 04-27-2024 RUBELLA IGG AB RUBELLA IGG AB Lab Routine Encounter for supervision of other normal in first trimester 8 weeks gestation of Expected: 01/27/2024, Expires: 04/27/2024 [facility] Work Phone: Comment on above: Expected: 01/27/2024, Expires: 4 Start: 01-27-2024 End: 04-27-2024 SYPHILIS TOTAL W/REFLEX SYPHILIS TOTAL W/REFLEX Lab Routine Encounter for supervision of other normal in first trimester 8 weeks gestation of Expected: 01/27/2024, Expires: 04/27/2024 [facility] Work Phone: Comment on above: Expected: 01/27/2024, Expires: 4 Start: 01-27-2024 End: 04-27-2024 TYPE + SCREEN TYPE + SCREEN Blood Bank Routine Encounter for supervision of other normal in first trimester 8 weeks gestation of Expected: 01/27/2024, Expires: 04/27/2024 [facility] Work Phone: Comment on above: Expected: 01/27/2024, Expires: 4 Start: 11-18-2023 Behavioral Health Screening Behavioral Health Screening [facility] Start: 11-18-2023 Depression Assessment Depression Assessment [facility] Start: 08-24-2023 CHLAMYDIA SCREENING (18-24) CHLAMYDIA SCREENING (18-24) [facility] Start: 08-24-2023 GC (GONORRHEA) SCREENING (18-24) GC (GONORRHEA) SCREENING (18-24) [facility] Start: 07-19-2023 Covid-19 Vaccine (2022- season) Covid-19 Vaccine ( season) [facility] Start: 07-19-2023 [facility]enza [facility] Start: 11-18-2022 DEPRESSION ASSESSMENT DEPRESSION ASSESSMENT [facility] Start: 09-11-2022 End: 11-11-2022 CHROM WILFREDO PERIPH [facility] Work Phone: Comment on above: Expected: 09/11/2022, Expires: 2 Start: 09-11-2022 End: 09-11-2023 SONOHYSTEROGRAPHY (SIS) US WHI SONOHYSTEROGRAPHY (SIS) US WHI Anc Imaging Routine History of recurrent spontaneous , not currently Expected: 09/11/2022, Expires: 09/11/2023 [facility] Work Phone: Comment on above: Expected: 09/11/2022, Expires: 3 Start: 09-03-2022 End: 11-03-2022 Choriogonadotropin.beta subunit [Units/volume] in Serum or Plasma [facility] Work Phone: Comment on above: Expected: 09/03/2022, Expires: 2 Start: 09-03-2022 End: 11-03-2022 TYPE + SCREEN [facility] Work Phone: Comment on above: Expected: 09/03/2022, Expires: 2 Start: 07-19-2022 Influenza vaccination INFLUENZA (#1) [facility] Start: 03-26-2022 Patient encounter procedure [facility] Start: 11-18-2021 DEPRESSION ASSESSMENT DEPRESSION ASSESSMENT [facility] Start: 06-16-2021 [facility] Liliam Wood, Status: Pen, Time: 11:30 AM [facility] Provider: Liliam Wood, Status: Pen, Time: 11:30 AM [id number] Work Phone: Start: 06-09-2021 End: 06-10-2022 [facility] Start: 05-23-2021 [facility], Provider: Liliam Brantley, Status: Pen, Time: 2:00 PM [facility], Provider: Liliam Brantley, Status: Pen, Time: 2:[address] Work Phone: Start: 03-09-2021 H/O: surgery Status post dilation and curettage Date: 09-Mar-2021 Comments: suction D&C [facility] Comment on above: suction D&C Start: 10-06-2020 Urine microalbumin profile [facility] Start: 2020 PAP TESTING PAP TESTING [facility] Start: 2018 Urine microalbumin profile DTAP,TDAP,TD (1 - Tdap) [facility] Start: 2017 Anxiety Screening Anxiety Screening [facility] Start: 2017 CHLAMYDIA SCREENING (18-24) CHLAMYDIA SCREENING (18-24) [facility] Start: 2017 Depression Screening Depression Screening [facility] Start: 2017 GC (GONORRHEA) SCREENING (18-24) GC (GONORRHEA) SCREENING (18-24) [facility] Start: 2017 HEPATITIS C SCREENING HEPATITIS C SCREENING [facility] Start: 2017 Hepatitis C screening Hepatitis C Screening [facility] Start: 2017 HIV SCREENING HIV SCREENING [facility] Start: 2017 HIV screening HIV Screening [facility] Start: 2015 Meningococcal B Vaccine: Consider Based On Risk (1 of 2 - Patient Seeks Protection) Meningococcal B Vaccine: Consider Based On Risk (1 of 2 - Patient Seeks Protection) [facility] Start: 2013 PEDS TO ADULT TRANSITION ANNUAL ASSESSMENT PEDS TO ADULT TRANSITION ANNUAL ASSESSMENT [facility] Start: 2011 PEDS TO ADULT TRANSITION INITIAL DISCUSSION PEDS TO ADULT TRANSITION INITIAL DISCUSSION [facility] Start: 2010 HPV VACCINE (1 - 2-dose series) HPV VACCINE (1 - 2-dose series) [facility] Start: 2009 MENINGOCOCCAL B: Consider based on risk (1 of 2 - Risk Bexsero 2-dose series) MENINGOCOCCAL B: Consider based on risk (1 of 2 - Risk Bexsero 2-dose series) [facility] Start: 2005 PNEUMOCOCCAL (1 - PCV) PNEUMOCOCCAL (1 - PCV) [facility] Start: 2005 Pneumococcal vaccination Pneumococcal Vaccine (1 of 2 - PCV) [facility] Start: 1999 COVID-19 VACCINE (#1) COVID-19 VACCINE (#1) [facility] Start: 1999 HEPATITIS B (1 of 3 - 3-dose series) HEPATITIS B (1 of 3 - 3-dose series) [facility] Bacteria identified in Urine by Culture URINE CULTURE Microbiology Routine Encounter for supervision of other normal in first trimester 8 weeks gestation of 01/27/2024 3:50 PM EDT [facility] Work Phone: Chlamydia trachomatis+Neisseria gonorrhoeae DNA [Presence] in Unspecified specimen by CATA with probe detection GC/CHLAMYDIA DNA DET Lab Routine Screen for STD (sexually transmitted disease) 08/24/2022 4:10 PM EDT [facility] Work Phone: Chlamydia trachomatis+Neisseria gonorrhoeae DNA [Presence] in Unspecified specimen by CATA with probe detection GONORRHEA/CHLAMYDIA NAAT Lab Routine Encounter for supervision of other normal in first trimester 8 weeks gestation of 01/27/2024 3:50 PM EDT [facility] Work Phone: PAP FLUID CERVICAL SCREENING PAP FLUID CERVICAL SCREENING Lab Routine Encounter for screening for malignant neoplasm of cervix 08/24/2022 4:10 PM EDT [facility] Work Phone: ROUTINE, GR OUP B STREP PCR ROUTINE, GROUP B STREP PCR Microbiology Routine 36 weeks gestation of 08/10/2024 11:45 AM EDT [facility] T VAGINALIS AMPLIFICATION T VAGI NALIS AMPLIFICATION Lab Routine Screen for STD (sexually transmitted disease) 08/24/2022 4:10 PM EDT [facility] Work Phone: URINE OB DIP B/O URINE OB DIP B/ O Lab Routine 36 weeks gestation of Supervision of high risk in third trimester Ordered: 08/10/2024 [facility] Work Phone: Comment on above: Ordered: 08/10/2024 [facility] Immunizations Immunization Date Immunization Notes Care Provider Fa [facility] 08-10-2024 influenza, seasonal, injectable, preservative free Jaylon Ureña MD Work Phone: [facility] 06-15-2024 tetanus toxoid, redu asia diphtheria toxoid, and acellular pertussis vaccine, adsorbed Tari Boggs MD Work Phone: [facility] 09-02-2019 tuberculin skin test ; purified protein derivative solution, intradermal Naz Kern APRN.CNM Work Phone: [facility] 07-10-2016 hepatitis A vaccine, pediatric/adolescent dosage, 2 dose schedule Naz Kern APRN.CNM Work Phone: [facility] Work Phone: 07-10-2016 meningococcal polysaccharide (groups A, C, Y and W-135) diphtheria toxoid conjugate vaccine (MCV4P) Naz Kern APRN.CNM Work Phone: [facility] Work Phone: 05-04-2013 human papilloma viru s vaccine, quadrivalent Naz Kern APRN.CNM Work Phone: [facility] Work Phone: 12-07-2010 human papilloma viru s vaccine, quadrivalent Naz Kern APRN.CNM Work Phone: [facility] Work Phone: 10-06-2010 hepatitis A vaccine, pediatric/adolescent dosage, 2 dose schedule Naz Kern APRN.CNM Work Phone: [facility] Work Phone: 10-06-2010 human papilloma viru s vaccine, quadrivalent Naz Kern APRN.CNM Work Phone: [facility] Work Phone: 10-06-2010 influenza virus vacc ine, live, attenuated, for intranasal use Naz Kern APRN.CNM Work Phone: [facility] Work Phone: 10-06-2010 meningococcal polysaccharide (groups A, C, Y and W-135) diphtheria toxoid conjugate vaccine (MCV4P) Naz Kern APRN.CNM Work Phone: [facility] Work Phone: 10-06-2010 tetanus toxoid, redu asia diphtheria toxoid, and acellular pertussis vaccine, adsorbed Naz Kern APRN.CNM Work Phone: [facility] Work Phone: 10-06-2010 varicella virus vaccine Melissa Kern APRN.CNM Work Phone: [facility] Work Phone: 10-06-2010 influenza virus vacc ine, unspecified formulation Abilio Johnson MD Work Phone: [facility] 03-16-2004 diphtheria, tetanus toxoids and acellular pertussis vaccine, unspecified formulation Naz Kern APRN.CNM Work Phone: [facility] Work Phone: 03-16-2004 measles, mumps and rubella virus vaccine Nazmark Kern APRN.CNM Work Phone: [facility] Work Phone: 03-16-2004 poliovirus vaccine, inactivated Nza Kern APRN.CNM Work Phone: [facility] Work Phone: 08-30-2000 diphtheria, tetanus toxoids and acellular pertussis vaccine, unspecified formulation Naz Kern APRN.CNM Work Phone: [facility] Work Phone: 08-30-2000 haemophilus influenz ae type b conjugate and Hepatitis B vaccine Naz Kern APRN.CNM Work Phone: [facility] Work Phone: 08-30-2000 measles, mumps and rubella virus vaccine Naz Kern APRN.CNM Work Phone: [facility] Work Phone: 08-30-2000 pneumococcal conjuga te vaccine, 7 valent Naz Kern APRN.CNM Work Phone: [facility] Work Phone: 08-30-2000 poliovirus vaccine, unspecified formulation Naz Kern APRN.CNM Work Phone: [facility] Work Phone: 08-30-2000 varicella virus vaccine Melissa Kern APRN.CNM Work Phone: [facility] Work Phone: 1999 diphtheria, tetanus toxoids and acellular pertussis vaccine, unspecified formulation Naz Kern APRN.CNM Work Phone: [facility] Work Phone: 1999 diphtheria, tetanus toxoids and acellular pertussis vaccine, unspecified formulation Naz Kern APRN.CNM Work Phone: [facility] Work Phone: 2000 haemophilus influenz ae type b conjugate and Hepatitis B vaccine Naz Erlin KELLY.CNM Work Phone: [facility] Work Phone: 1999 poliovirus vaccine, unspecified formulation Nazmark Kern APRN.CNM Work Phone: [facility] Work Phone: 1999 diphtheria, tetanus toxoids and acellular pertussis vaccine, unspecified formulation Naz Kern APRN.CNM Work Phone: [facility] Work Phone: 1999 haemophilus influenz ae type b conjugate and Hepatitis B vaccine Naz Erlin RUSSELLN.CNM Work Phone: [facility] Work Phone: 1999 poliovirus vaccine, unspecified formulation Nzamark Kern APRN.CNM Work Phone: [facility] Work Phone: Payers Date Payer Category Payer Unknown [id number] 2021 Unknown 2021 Unknown [id number] 1999 Unknown [id number] 1999 Unknown [id number] 1999 Unknown [id number] Unknown [id number] Social History Date Type Detail Facility Start: 09-11-2022 End: 01-27-2024 Occasional alcohol use Occasional alcohol use [facility] [address] Work Phone: Tobacco smoking consumption unknown [facility] Start: 08-24-2022 Tobacco smoking stat us NMIS Smokes tobacco daily [facility] End: 01-16-2023 History of tobacco use Cigarette Smoker [facility] Start: 08-24-2022 End: 07-13-2024 Tobacco use and exposure Smokeless tobacco non-user [facility] Start: 08-24-2022 End: 09-07-2024 Alcohol intake Current drinker of alcohol (finding) [facility] Start: 07-27-2021 History SDOH Alcohol Comment occasional [facility] Start: 2000 Sex Assigned At Female C [facility] Start: 08-14-2022 End: 09-11-2022 Exposure to SARS-CoV-2 (event) Not sure [facility] Start: 09-11-2022 End: 01-27-2024 Tobacco use panel [facility] National Score (1-10 0), lower number is lower risk 79 [facility] Start: 07-27-2021 Gender identity Identifies as female gender (finding) [facility] Start: 07-27-2021 Sexual orientation Heterosexual (fin ding) [facility] Start: 01-27-2024 End: 07-13-2024 Tobacco smoking status NHIS Ex-smoker [facility] End: 01-16-2023 History of tobacco use Current smoker [facility] Start: 12-13-2023 [facility] Goals Date Patient Goal Desired Activity /State Personal health goal Functional Status Date Assessment Result Facility Functional observable [facility] Mental Status Date Assessment Result Facility 06-09-2021 Cognitive functions 0213:13 [facility] Clinical Notes 06-16-2021 to 09-07-2024 Quick Notes - Abilio Johnson MD - 09/07/2024 1:18 PM EDTPrenatal Quick Notes - Abilio Johnson MD - 09/07/2024 1:18 PM EDTPatient InstructionsPatient InstructionsPatient Instructions<item> Note Date & Type Note Facility 09-07-2024 Progress note Formatting of t his note might be different from the original. SW- pt doing well. No ctx, vb, lof. Good FM PE: Gen- NAD, well appearing Abd- Soft, gravid, NT See flowsheet A/p 40 wk gestation - Discussed r/b/a IOL and consent signed. Patient desires to proceed with ~41 week induction of labor. Scheduled for cytotecangela 09/10/24 7 PM Abilio Johnson DO I spent 20 minutes in the visit, with more than 50% of the total [id number] time of the visit in counseling / coordination of care. [facility] 09-07-2024 Miscellaneous Notes SW- pt doing well. No ctx, vb, lof. Good FM PE: Gen- NAD, well appearing Abd- Soft, gravid, NT See flowsheet A/p 40 wk gestation - Discussed r/b/a IOL and consent signed. Patient desires to proceed with ~41 week induction of labor. Scheduled for cytoteangela echavarria 09/10/24 7 PM Abiloi Johnson DO I spent 20 minutes in the visit, with more than 50% of the total [id number]-[id number] time of the visit in counseling / coordination of care. documented in this encounter [facility] 09-07-2024 Instructions Abbi Allen MA - 09/07/2024 10:48 AM EDT SEQUENTIAL SCREENINGS The [facility] offers sequential screenings for women who are interested in screenings for chromosomal abnormalities and certain defects during a . The sequential screen combines ultrasound and blood tests to determine the risk of chromosomal abnormalities, including Down's Syndrome (Trisomy 21) and Trisomy 18, as well as open neural tube defects including spina bifida. Ultrasound examination is performed between 11 weeks and 13 weeks gestational age. Blood tests are drawn after the ultrasound and again later in the between 15 and 21 weeks gestational age. Please let your physician know if you are interested in this testing. It will require an appointment with our ski technician. This is not an ultrasound performed by a physician in our office during a routine visit. SIGNS AND SYMPTOMS OF LABOR 1. Contractions every 10 minutes or more often 2. Clear, pink, or brownish fluid (water) leaking from vagina 3. Feeling that baby is pushing down, pressure 4. Low, dull backache 5. Cramps that feel like a period 6. Cramps with or without diarrhea If you notice any of the above symptoms, contact our office at [phone] and ask to speak with a nurse. After hours, you can call doctors registry at [phone] OR call [facility] at [phone] and ask to have the doctor workday consultant paged. If you consider this an emergency, dial 7--8 or go to your nearest emergency department. NEED HELP? Are you dealing with a violent or abusive relationship? Are you a victim of rape or sexual assult? Call [facility] ([place]) 24 hour Crisis Hotline: 362.531.9097 or 474-987-6282. MANUAL Your Guide to a Healthy manual is now on-line. Visit [email or web address] ancyGuide to download your free copy documented in this encounter [facility] 08-31-2024 Progress note Formatting of t his note might be different from the original. RR- VB No. LOF No. CTXS No. Movement: present. Other c/o: No. Medication list reviewed. Physical Exam See Flow Sheet Abd: soft, nontender, gravid Ext: edema: Trace A/P 39w3d Estimated Date of Delivery: 09/04/24 kick counts f/u in 1 week if not delivered plans 41 week induction if not in labor by then declines covid vaccine had flu vaccine did not have RSV vaccine . Problem List Items Addressed This Visit The sensitive examination was discussed with the Patient or Patient's Authorized [employer]icon[employer] Wafers Etch Operator. As applicable, any other physician, advance practice provider, medical student, or other health professional student that will be observing or involved in the sensitive examination for educational or training purposes was discussed with the Patient or Authorized [employer]icon[employer] Wafers Etch Operator. The Patient or Authorized Semiconductor Wafers Etch Operator has agreed to proceed with the sensitive examination. (Sensitive examination includes inspection and/or palpation of the breasts, pelvis, prostate and anorectal regions) Jaylon Ureña M.D. [facility] 08-31-2024 Miscellaneous Notes RR- VB No. LOF No. CTXS No. Movement: present. Other c/o: No. Medication list reviewed. Physical Exam See Flow Sheet Abd: soft, nontender, gravid Ext: edema: Trace A/P 39w3d Estimated Date of Delivery: 09/04/24 kick counts f/u in 1 week if not delivered plans 41 week induction if not in labor by then declines covid vaccine had flu vaccine did not have RSV vaccine . Problem List Items Addressed This Visit The sensitive examination was discussed with the Patient or Patient's Authorized Semicon[employer] Wafers Etch Operator. As applicable, any other physician, advance practice provider, medical student, or other health professional student that will be observing or involved in the sensitive examination for educational or training purposes was discussed with the Patient or Authorized Semiconductor Wafers Etch Operator. The Patient or Authorized Semiconductor Wafers Etch Operator has agreed to proceed with the sensitive examination. (Sensitive examination includes inspection and/or palpation of the breasts, pelvis, prostate and anorectal regions) Jaylon Ureña M.D. documented in this encounter [facility] 08-31-2024 Instructions iMni Ashley MA - 08/31/2024 9:59 AM EDT SEQUENTIAL SCREENINGS The [facility] offers sequential screenings for women who are interested in screenings for chromosomal abnormalities and certain defects during a . The sequential screen combines ultrasound and blood tests to determine the risk of chromosomal abnormalities, including Down's Syndrome (Trisomy 21) and Trisomy 18, as well as open neural tube defects including spina bifida. Ultrasound examination is performed between 11 weeks and 13 weeks gestational age. Blood tests are drawn after the ultrasound and again later in the between 15 and 21 weeks gestational age. Please let your physician know if you are interested in this testing. It will require an appointment with our ski technician. This is not an ultrasound performed by a physician in our office during a routine visit. SIGNS AND SYMPTOMS OF LABOR 1. Contractions every 10 minutes or more often 2. Clear, pink, or brownish fluid (water) leaking from vagina 3. Feeling that baby is pushing down, pressure 4. Low, dull backache 5. Cramps that feel like a period 6. Cramps with or without diarrhea If you notice any of the above symptoms, contact our office at [phone] and ask to speak with a nurse. After hours, you can call [facility] at [phone] OR call [facility] at [phone] and ask to have the doctor workday consultant paged. If you consider this an emergency, dial 9--6 or go to your nearest emergency department. NEED HELP? Are you dealing with a violent or abusive relationship? Are you a victim of rape or sexual assult? Call [facility] ([place]) 24 hour Crisis Hotline: 541.445.3684 or 724-533-9427. MANUAL Your Guide to a Healthy manual is now on-line. Visit [email or web address] ancyGuide to download your free copy documented in this encounter [facility] 08-24-2024 Progress note Formatting of t his note might be different from the original. S: Tish Miller is a 24 year old female who presents at 09/04/2024, by Last Menstrual Period for a routine visit. Denies headache, visual changes, chest pain, shortness of breath, vaginal bleeding, leakage of fluid, or dysuria. Feeling well, no complaints. Good movement, No contractions O: See flow sheet Gen: No apparent distress Abd: Gravid, nontender ASSESSMENT/PLAN: 1. 38 weeks gestation of - ICD9: V22.2, ICD10: Z3A.38 (primary diagnosis) Labor precautions - URINE OB DIP B/O 2. Supervision of high risk in third trimester - ICD9: V23.9, ICD10: O09.93 - URINE OB DIP B/O Tari Boggs MD [facility] 08-24-2024 Miscellaneous Notes S: Tish Miller is a 24 year old female who presents at 09/04/2024, by Last Menstrual Period for a routine visit. Denies headache, visual changes, chest pain, shortness of breath, vaginal bleeding, leakage of fluid, or dysuria. Feeling well, no complaints. Good movement, No contractions O: See flow sheet Gen: No apparent distress Abd: Gravid, nontender ASSESSMENT/PLAN: 1. 38 weeks gestation of - ICD9: V22.2, ICD10: Z3A.38 (primary diagnosis) Labor precautions - URINE OB DIP B/O 2. Supervision of high risk in third trimester - ICD9: V23.9, ICD10: O09.93 - URINE OB DIP B/O Tari Boggs MD documented in this encounter [facility] 08-24-2024 Instructions Abbi Allen MA - 08/24/2024 10:06 AM EDT SEQUENTIAL SCREENINGS The [facility] offers sequential screenings for women who are interested in screenings for chromosomal abnormalities and certain defects during a . The sequential screen combines ultrasound and blood tests to determine the risk of chromosomal abnormalities, including Down's Syndrome (Trisomy 21) and Trisomy 18, as well as open neural tube defects including spina bifida. Ultrasound examination is performed between 11 weeks and 13 weeks gestational age. Blood tests are drawn after the ultrasound and again later in the between 15 and 21 weeks gestational age. Please let your physician know if you are interested in this testing. It will require an appointment with our ski technician. This is not an ultrasound performed by a physician in our office during a routine visit. SIGNS AND SYMPTOMS OF LABOR 1. Contractions every 10 minutes or more often 2. Clear, pink, or brownish fluid (water) leaking from vagina 3. Feeling that baby is pushing down, pressure 4. Low, dull backache 5. Cramps that feel like a period 6. Cramps with or without diarrhea If you notice any of the above symptoms, contact our office at [phone] and ask to speak with a nurse. After hours, you can call doctors registry at [phone] OR call [facility] at [phone] and ask to have the doctor workday consultant paged. If you consider this an emergency, dial 7--2 or go to your nearest emergency department. NEED HELP? Are you dealing with a violent or abusive relationship? Are you a victim of rape or sexual assult? Call [facility] ([place]) 24 hour Crisis Hotline: 578.694.2358 or 944-581-8892. MANUAL Your Guide to a Healthy manual is now on-line. Visit [email or web address] ancyGuide to download your free copy documented in this encounter [facility] 08-24-2024 Note HNO ID: [id number] Author: TOMASZ CLAYTON, ? Service: ? Author Type: Patient Planning Intern Type: Progress Notes Filed: 08/24/2024 07:36 Note Text: POPULATION HEALTH NAVIGATION OUTREACH Action/FYI Patient responded via my chart added frit mixer Morena Reason for Outreach Medicaid OB/Peds Care Gaps due: N/A Patient Contacted: Spoke to patient/parent/or legal guardian Patient identified by name and : Yes Medicaid OB/Peds actions taken: /Metal Stud Framer added Navigation Signature: Tomasz Clayton Population Health Navigator August 24, 2024 7:35 AM [facility] 08-21-2024 Note HNO ID: [id number] Author: TOMASZ CLAYTON, ? Service: ? Author Type: Patient Planning Intern Type: Progress Notes Filed: 08/21/2024 08:21 Note Text: POPULATION HEALTH NAVIGATION OUTREACH Action/FYI Left message to add frit mixer to OB provider field, verify/est pcp My chart sent Reason for Outreach Medicaid OB/Peds Care Gaps due: N/A Patient Contacted: Unable or unnecessary to reach patient: Unable to leave message Left message Decisionlinkhart message sent Navigation Signature: Tomasz Clayton Population Health Navigator August 21, 2024 8:20 AM [facility] 08-21-2024 History of Presen t illness Narrative POPULATION HEALTH NAVIGATION OUTREACH Action/FYI Left message to add frit mixer to OB provider field, verify/est pcp My chart sent Reason for Outreach Medicaid OB/Peds Care Gaps due: N/A Patient Contacted: Unable or unnecessary to reach patient: Unable to leave message Left message MyChart message sent Navigation Signature: Tomasz Clayton Population Health Navigator August 21, 2024 8:20 AM documented in this encounter [facility] 08-21-2024 Note Patient Outreach (NE TNAV) TISH MILLER ([id number]) 2000 F Date Time Provider Department 08/21/24 TOMASZ CLAYTON During your visit today, we recorded the following information about you: Tomasz Clayton 08/21/2024 8:21 AM Signed POPULATION HEALTH NAVIGATION OUTREACH Action/FYI Left message to add frit mixer to OB provider field, verify/est pcp My chart sent Reason for Outreach Medicaid OB/Peds Care Gaps due: N/A Patient Contacted: Unable or unnecessary to reach patient: Unable to leave message Left message MyChart message sent Navigation Signature: Tomasz Clayton [facility] Health Navigator August 21, 2024 8:20 AM Tomasz Clayton 08/24/2024 7:36 AM Signed POPULATION HEALTH NAVIGATION OUTREACH Action/FYI Patient responded via my chart added frit mixer Morena Reason for Outreach Medicaid OB/Peds Care Gaps due: N/A Patient Contacted: Spoke to patient/parent/or legal guardian Patient identified by name and : Yes Medicaid OB/Peds actions taken: /Metal Stud Framer added Navigation Signature: Tomasz Clayton [facility] Health Navigator August 24, 2024 7:35 AM Allergies As of Date: 08/21/2024 (No Known Allergies) Date Reviewed: 08/10/2024 Reviewed by: Jaylon Ureña MD - Fully Assessed Reason for Visit: Population Health Navigation Outreach [3910] Cmt: Ob.peds Prescriptions as of 08/24/2024 - aspirin 81 mg cap Take 81 mg by mouth once daily. - albuterol HFA (PROVENTIL HFA, VENTOLIN HFA) 90 mcg/actuation inhaler Inhale 2 Puffs as instructed every 6 hours as needed for wheezing/shortness of breath. - PNV no.95/ferrous fum/folic ac ( ORAL) Take by mouth. - loratadine (CLARITIN ORAL) Take 1 tablet by mouth as needed (allergic to her cats). 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 SW- pt doing well. No ctx, vb, lof. Good FM PE: Gen- NAD, well appearing Abd- Soft, gravid, NT See flowsheet A/p 37 wk gestation - GBS positive - Weekly visits Abilio Johnson DO [facility] Work Phone: 08-20-2024 Miscellaneous Notes SW- pt doing well. No ctx, vb, lof. Good FM PE: Gen- NAD, well appearing Abd- Soft, gravid, NT See flowsheet A/p 37 wk gestation - GBS positive - Weekly visits Abilio Johnson DO documented in this encounter [facility] 08-17-2024 Sophia Maguire LPN - 08/17/2024 3:13 PM EDT SEQUENTIAL SCREENINGS The [facility] offers sequential screenings for women who are interested in screenings for chromosomal abnormalities and certain defects during a . The sequential screen combines ultrasound and blood tests to determine the risk of chromosomal abnormalities, including Down's Syndrome (Trisomy 21) and Trisomy 18, as well as open neural tube defects including spina bifida. Ultrasound examination is performed between 11 weeks and 13 weeks gestational age. Blood tests are drawn after the ultrasound and again later in the between 15 and 21 weeks gestational age. Please let your physician know if you are interested in this testing. It will require an appointment with our ski technician. This is not an ultrasound performed by a physician in our office during a routine visit. SIGNS AND SYMPTOMS OF LABOR 1. Contractions every 10 minutes or more often 2. Clear, pink, or brownish fluid (water) leaking from vagina 3. Feeling that baby is pushing down, pressure 4. Low, dull backache 5. Cramps that feel like a period 6. Cramps with or without diarrhea If you notice any of the above symptoms, contact our office at [phone] and ask to speak with a nurse. After hours, you can call [facility] at [phone] OR call [facility] at [phone] and ask to have the doctor workday consultant paged. If you consider this an emergency, dial 9-8-2 or go to your nearest emergency department. NEED HELP? Are you dealing with a violent or abusive relationship? Are you a victim of rape or sexual assult? Call [facility] ([place]) 24 hour Crisis Hotline: 167.554.7540 or 148-829-6621. MANUAL Your Guide to a Healthy manual is now on-line. Visit [email or web address] ancyGuide to download your free copy documented in this encounter [facility] 08-10-2024 Progress note Formatting of t his note might be different from the original. RR- VB No. LOF No. CTXS No. Movement: present. Other c/o: some edema as day goes on, mild now. Denies HOYOS or visual changes Medication list reviewed. Physical Exam See Flow Sheet Abd: soft, nontender, gravid Ext: edema: Trace A/P 36w3d Estimated Date of Delivery: 09/04/24 Labs: GBS done. GBS done today kick counts labor precautions reviewed Brief US confirms vtx The sensitive examination was discussed with the Patient or Patient's Authorized Semiconductor Wafers Etch Operator. As applicable, any other physician, advance practice provider, medical student, or other health professional student that will be observing or involved in the sensitive examination for educational or training purposes was discussed with the Patient or Authorized Semiconductor Wafers Etch Operator. The Patient or Authorized Semiconductor Wafers Etch Operator has agreed to proceed with the sensitive examination. (Sensitive examination includes inspection and/or palpation of the breasts, pelvis, prostate and anorectal regions) Jaylon Ureña M.D. [facility] 08-10-2024 Miscellaneous Notes RR- VB No. LOF No. CTXS No. Movement: present. Other c/o: some edema as day goes on, mild now. Denies HOYOS or visual changes Medication list reviewed. Physical Exam See Flow Sheet Abd: soft, nontender, gravid Ext: edema: Trace A/P 36w3d Estimated Date of Delivery: 09/04/24 Labs: GBS done. GBS done today kick counts labor precautions reviewed Brief US confirms vtx The sensitive examination was discussed with the Patient or Patient's Authorized Semiconductor Wafers Etch Operator. As applicable, any other physician, advance practice provider, medical student, or other health professional student that will be observing or involved in the sensitive examination for educational or training purposes was discussed with the Patient or Authorized Semiconductor Wafers Etch Operator. The Patient or Authorized Semiconductor Wafers Etch Operator has agreed to proceed with the sensitive examination. (Sensitive examination includes inspection and/or palpation of the breasts, pelvis, prostate and anorectal regions) Jaylon Ureña M.D. documented in this encounter [facility] 08-10-2024 Instructions Mini Ashley MA - 08/10/2024 11:20 AM EDT SEQUENTIAL SCREENINGS The [facility] offers sequential screenings for women who are interested in screenings for chromosomal abnormalities and certain defects during a . The sequential screen combines ultrasound and blood tests to determine the risk of chromosomal abnormalities, including Down's Syndrome (Trisomy 21) and Trisomy 18, as well as open neural tube defects including spina bifida. Ultrasound examination is performed between 11 weeks and 13 weeks gestational age. Blood tests are drawn after the ultrasound and again later in the between 15 and 21 weeks gestational age. Please let your physician know if you are interested in this testing. It will require an appointment with our ski technician. This is not an ultrasound performed by a physician in our office during a routine visit. SIGNS AND SYMPTOMS OF LABOR 1. Contractions every 10 minutes or more often 2. Clear, pink, or brownish fluid (water) leaking from vagina 3. Feeling that baby is pushing down, pressure 4. Low, dull backache 5. Cramps that feel like a period 6. Cramps with or without diarrhea If you notice any of the above symptoms, contact our office at [phone] and ask to speak with a nurse. After hours, you can call doctors registry at [phone] OR call [facility] at [phone] and ask to have the doctor workday consultant paged. If you consider this an emergency, dial 4--5 or go to your nearest emergency department. NEED HELP? Are you dealing with a violent or abusive relationship? Are you a victim of rape or sexual assult? Call [facility] ([place]) 24 hour Crisis Hotline: 103.628.4143 or 836-396-3460. MANUAL Your Guide to a Healthy manual is now on-line. Visit [email or web address] to download your free copy documented in this encounter [facility] 07-27-2024 Progress note Formatting of t his note might be different from the original. S: Tish Miller is a 24 year old female who presents at 34 weeks gestation for a routine visit. Positive movement. C/O dizziness at times when standing on feet. Suggested wearing compression stockings while working and elevating feet when possible. Denies headache, visual changes, chest pain, shortness of breath, vaginal bleeding, leakage of fluid, or dysuria. O: See flow sheet Gen: No apparent distress Abd: Gravid, nontender ASSESSMENT/PLAN: 1. 34 weeks gestation of - ICD9: V22.2, ICD10: Z3A.34 (primary diagnosis) 2. Supervision of high risk in third trimester - ICD9: V23.9, ICD10: O09.93 3. Obesity affecting in third trimester, unspecified obesity type - ICD9: 649.13, ICD10: O99.213 4. Current every day vaping - ICD9: V69.8, ICD10: Z72.89 5. History of anxiety - ICD9: V11.8, ICD10: Z86.59 - Quit vaping 2 weeks ago- encouragement provided - Compression stockings - PTL precautions and kick counts reviewed - RTO 2 weeks for SUZIE with GBS Monika Joel APRN.CNM [facility] 07-27-2024 Miscellaneous Notes S: Tish Miller is a 24 year old female who presents at 34 weeks gestation for a routine visit. Positive movement. C/O dizziness at times when standing on feet. Suggested wearing compression stockings while working and elevating feet when possible. Denies headache, visual changes, chest pain, shortness of breath, vaginal bleeding, leakage of fluid, or dysuria. O: See flow sheet Gen: No apparent distress Abd: Gravid, nontender ASSESSMENT/PLAN: 1. 34 weeks gestation of - ICD9: V22.2, ICD10: Z3A.34 (primary diagnosis) 2. Supervision of high risk in third trimester - ICD9: V23.9, ICD10: O09.93 3. Obesity affecting in third trimester, unspecified obesity type - ICD9: 649.13, ICD10: O99.213 4. Current every day vaping - ICD9: V69.8, ICD10: Z72.89 5. History of anxiety - ICD9: V11.8, ICD10: Z86.59 - Quit vaping 2 weeks ago- encouragement provided - Compression stockings - PTL precautions and kick counts reviewed - RTO 2 weeks for SUZIE with GBS Monika Joel APRN.CNM documented in this encounter [facility] 07-27-2024 Instructions Yen Richards LPN - 07/27/2024 11:02 AM EDT SEQUENTIAL SCREENINGS The [facility] offers sequential screenings for women who are interested in screenings for chromosomal abnormalities and certain defects during a . The sequential screen combines ultrasound and blood tests to determine the risk of chromosomal abnormalities, including Down's Syndrome (Trisomy 21) and Trisomy 18, as well as open neural tube defects including spina bifida. Ultrasound examination is performed between 11 weeks and 13 weeks gestational age. Blood tests are drawn after the ultrasound and again later in the between 15 and 21 weeks gestational age. Please let your physician know if you are interested in this testing. It will require an appointment with our ski technician. This is not an ultrasound performed by a physician in our office during a routine visit. SIGNS AND SYMPTOMS OF LABOR 1. Contractions every 10 minutes or more often 2. Clear, pink, or brownish fluid (water) leaking from vagina 3. Feeling that baby is pushing down, pressure 4. Low, dull backache 5. Cramps that feel like a period 6. Cramps with or without diarrhea If you notice any of the above symptoms, contact our office at [phone] and ask to speak with a nurse. After hours, you can call doctors registry at [phone] OR call [facility] at [phone] and ask to have the doctor workday consultant paged. If you consider this an emergency, dial 2-4-9 or go to your nearest emergency department. NEED HELP? Are you dealing with a violent or abusive relationship? Are you a victim of rape or sexual assult? Call [facility] ([place]) 24 hour Crisis Hotline: 642.741.8186 or 325-815-2917. MANUAL Your Guide to a Healthy manual is now on-line. Visit [email or web address] [email or web address] to download your free copy documented in this encounter [facility] 07-13-2024 Progress note Formatting of t his note might be different from the original. GENO-S: Tish Miller is a 24 year old female who presents at 32w3d with MIKE:09/04/2024, by Last Menstrual Period for a routine visit. Denies headache, visual changes, chest pain, shortness of breath, vaginal bleeding, leakage of fluid, or dysuria. Feeling well, no complaints. O: See flow sheet Gen: No apparent distress Abd: Gravid, nontender S=D, 31lb TWG, cephalic ASSESSMENT/PLAN: 1. Supervision of high risk in third trimester -signed up for CBE, planning epidural and pumping -Handout given on perineal massage 2. 32 weeks gestation of 3. Obesity affecting in third trimester, unspecified obesity type -Pregravid BMI 31, no testing 4. Current every day vaping -No vaping in last 2 days, recommend continued cessation 5. History of anxiety -No medication, coping well -PTL precautions reviewed and when to call -RTO in 2 weeks Naz Kern APRN.CNM [facility] 07-13-2024 Miscellaneous Notes GENO-S: Tish Miller is a 24 year old female who presents at 32w3d with MIKE:09/04/2024, by Last Menstrual Period for a routine visit. Denies headache, visual changes, chest pain, shortness of breath, vaginal bleeding, leakage of fluid, or dysuria. Feeling well, no complaints. O: See flow sheet Gen: No apparent distress Abd: Gravid, nontender S=D, 31lb TWG, cephalic ASSESSMENT/PLAN: 1. Supervision of high risk in third trimester -signed up for CBE, planning epidural and pumping -Handout given on perineal massage 2. 32 weeks gestation of 3. Obesity affecting in third trimester, unspecified obesity type -Pregravid BMI 31, no testing 4. Current every day vaping -No vaping in last 2 days, recommend continued cessation 5. History of anxiety -No medication, coping well -PTL precautions reviewed and when to call -RTO in 2 weeks Naz Kern APRN.CNM documented in this encounter [facility] 07-13-2024 Instructions Naz Kern APRN.CNM - 07/13/2024 11:01 AM EDT Images from the original note were not included. What is my perineum? Your perineum is the area between your vaginal opening and your rectum. This area stretches when you give , and sometimes the perineum or vagina will tear as your baby is being born. If your health care provider cuts an episiotomy during your , it is this area that is cut. You may need stitches after your baby is born if you have a tear or have an episiotomy. How often do perineal tears occur? About 4 to 8 out of every 10 women who give vaginally will have some tear in their perineum. About two?thirds of these women will need some stitches. Is an episiotomy necessary? An episiotomy is not necessary for most women. Although they were common before the , they are rarely done today. However, sometimes your health care provider may recommend an episiotomy just as your baby is being born. For example, an episiotomy can help if your baby needs to be born very quickly. You can ask your health care provider to talk with you about episiotomy during a visit. Can my health care provider do anything to help me avoid a tear? There are many ways that your health care provider can help to reduce your chance of tearing. For example, your provider may: Apply a warm compress to the perineum just before the baby comes out Recommend specific positions for you to be in as you push Provide gentle downward pressure on the baby's head as your baby is coming out Ask that you push your baby out between contractions Avoid the use of forceps or a vacuum to help your baby be born Can I do anything before the to help me avoid a tear? Preventing a perineal tear that occurs during has been the subject of many research studies. Several studies have found that perineal massage during the last weeks of can reduce tearing at for women giving for the first time. This massage--using 2 fingers to stretch your perineal tissues--is performed by you, in your home, once or twice a week, for the last 4 to 6 weeks of your . The next page of this handout tells how to do this massage. For every 15 women who do perineal massage, one woman will avoid an episiotomy and perineal tearing that needs stitches. While you massage, you can practice relaxing the muscles in your perineum. This can help you prepare for the stretching, burning feeling you may have when your baby's head is born. Relaxing this area during can help prevent tearing. Does perineal massage in help all women? Massage seems to work better for some women than others. Women having their first baby, women who are 30 years or older, and women who have had episiotomies before have fewer tears and less severe tears when perineal massage is done during the last weeks of . Can my partner help? Yes! Many women find that it is easier to have their partners do this massage. See the instructions for perineal massage on the next page for more information. Are there any risks to perineal massage during ? Not that we know of. It is free. It doesn't hurt. It is easy to do. And most women don't mind doing it. However, you should not stretch the perineum until it hurts or massage too often, which can hurt the skin in that area. Do not do perineal massage more than once or twice a week. Women who do it more often do not have a lower risk of perineal tearing. Check with your health care provider before beginning perineal massage. And, if you believe your amniotic fluid (bag of wharton) is leaking, check with your health care provider before putting anything in your vagina. Instructions for Perineal Massage During Wash your hands well, and make sure your fingernails are short. Relax in a private place where you can rest with your legs open and your knees bent. Some women like to lean on pillows for back support. Lubricate your thumbs and the perineal tissues. Use a lubricant such as vitamin E oil, coconut oil, almond oil, or any vegetable oil used for cooking--like olive oil. You may also try a water?soluble jelly, such as K?Y jelly, or your body's natural vaginal lubricant. Do not use baby oil, mineral oil, or petroleum jelly (Vaseline). Place your thumbs about 1 to 1.5 inches inside your vagina (see Figure 1). Press down (toward the anus) and to the sides until you feel a slight burning, stretching sensation. Hold that stretched position for 1 or 2 minutes. With your thumbs, slowly massage the lower half of the vagina using a U?shaped movement for 2 to 3 minutes at most. Concentrate on relaxing your muscles. This is a good time to practice slow, deep breathing techniques. Partners: If your partner is doing the perineal massage, follow the same basic instructions above. However, your partner should use his or her index fingers to do the massage (instead of thumbs). The same side?to?side, U?shaped, downward pressure method should be used. Good communication is important--be sure to tell your partner if you have too much pain or burning! Figure 1 1 Perineal Massage Bridget Grade Level: 7.2 Approved November 2015. This handout replaces Perineal Massage in published in Volume 50, Issue 1, Nov/Dec 2004 SIGNS AND SYMPTOMS OF LABOR 1. Contractions every 10 minutes or more often 2. Clear, pink, or brownish fluid (water) leaking from vagina 3. Feeling that baby is pushing down, pressure 4. Low, dull backache 5. Cramps that feel like a period 6. Cramps with or without diarrhea If you notice any of the above symptoms, contact our office at [phone] and ask to speak with a nurse. After hours, you can call doctors registry at [phone] OR call [facility] at [phone] and ask to have the doctor workday consultant paged. If you consider this an emergency, dial 9-1-1 or go to your nearest emergency department. NEED HELP? Are you dealing with a violent or abusive relationship? Are you a victim of rape or sexual assult? Call [facility] [place] ([facility] 24 hour Crisis Hotline: 763.640.1066 or 589-760-7826. MANUAL Your Guide to a Healthy manual is now on-line. Visit [email or web address] to download your free copy documented in this encounter [facility] 06-29-2024 Progress note Formatting of t his note might be different from the original. S: Tish Miller is a 24 year old female who presents at 30 weeks gestation for a routine visit. Positive movement. Denies any cramps or contractions. Denies headache, visual changes, chest pain, shortness of breath, vaginal bleeding, leakage of fluid, or dysuria. Feeling well, no complaints. O: See flow sheet Gen: No apparent distress Abd: Gravid, nontender ASSESSMENT/PLAN: 1. Supervision of high risk in third trimester - ICD9: V23.9, ICD10: O09.93 (primary diagnosis) 2. Obesity affecting in third trimester, unspecified obesity type - ICD9: 649.13, ICD10: O99.213 3. 30 weeks gestation of - ICD9: V22.2, ICD10: Z3A.30 4. Vaping nicotine - Cessation encouraged - Voiced anxiety over labor and delivery - recommended attending classes/education - Desires epidural - PTL precautions reviewed and when to call office - RTO 2 weeks Monika Joel APRN.CNM [facility] 06-29-2024 Miscellaneous Notes S: Tish Miller is a 24 year old female who presents at 30 weeks gestation for a routine visit. Positive movement. Denies any cramps or contractions. Denies headache, visual changes, chest pain, shortness of breath, vaginal bleeding, leakage of fluid, or dysuria. Feeling well, no complaints. O: See flow sheet Gen: No apparent distress Abd: Gravid, nontender ASSESSMENT/PLAN: 1. Supervision of high risk in third trimester - ICD9: V23.9, ICD10: O09.93 (primary diagnosis) 2. Obesity affecting in third trimester, unspecified obesity type - ICD9: 649.13, ICD10: O99.213 3. 30 weeks gestation of - ICD9: V22.2, ICD10: Z3A.30 4. Vaping nicotine - Cessation encouraged - Voiced anxiety over labor and delivery - recommended attending classes/education - Desires epidural - PTL precautions reviewed and when to call office - RTO 2 weeks Monika Joel APRN.CNM documented in this encounter [facility] 06-29-2024 Instructions Sophia Perez LPN - 06/29/2024 11:22 AM EDT SEQUENTIAL SCREENINGS The [facility] offers sequential screenings for women who are interested in screenings for chromosomal abnormalities and certain defects during a . The sequential screen combines ultrasound and blood tests to determine the risk of chromosomal abnormalities, including Down's Syndrome (Trisomy 21) and Trisomy 18, as well as open neural tube defects including spina bifida. Ultrasound examination is performed between 11 weeks and 13 weeks gestational age. Blood tests are drawn after the ultrasound and again later in the between 15 and 21 weeks gestational age. Please let your physician know if you are interested in this testing. It will require an appointment with our ski technician. This is not an ultrasound performed by a physician in our office during a routine visit. SIGNS AND SYMPTOMS OF LABOR 1. Contractions every 10 minutes or more often 2. Clear, pink, or brownish fluid (water) leaking from vagina 3. Feeling that baby is pushing down, pressure 4. Low, dull backache 5. Cramps that feel like a period 6. Cramps with or without diarrhea If you notice any of the above symptoms, contact our office at [phone] and ask to speak with a nurse. After hours, you can call doctors registry at [phone] OR call [facility] at [phone] and ask to have the doctor workday consultant paged. If you consider this an emergency, dial 9-8-7 or go to your nearest emergency department. NEED HELP? Are you dealing with a violent or abusive relationship? Are you a victim of rape or sexual assult? Call [facility] ([place]) 24 hour Crisis Hotline: 619.394.5973 or 680-160-3504. MANUAL Your Guide to a Healthy manual is now on-line. Visit [email or web address] to download your free copy documented in this encounter [facility] 06-15-2024 Progress note Formatting of t his note might be different from the original. S: Tish Miller is a 24 year old female who presents at 09/04/2024, by Last Menstrual Period for a routine visit. Denies headache, visual changes, chest pain, shortness of breath, vaginal bleeding, leakage of fluid, or dysuria. Feeling well, no complaints. Good movement, No contractions O: See flow sheet Gen: No apparent distress Abd: Gravid, nontender Declines LARC TDAP today Discussed frit mixer. ASSESSMENT/PLAN: 1. Supervision of high risk in second trimester - ICD9: V23.9, ICD10: O09.92 (primary diagnosis) 2. Obesity affecting in second trimester, unspecified obesity type - ICD9: 649.13, ICD10: O99.212 3. 28 weeks gestation of - ICD9: V22.2, ICD10: Z3A.28 PTL precautions 4. Need for vaccination - ICD9: V05.9, ICD10: Z23 TDAP today Tari Boggs MD [facility] 06-15-2024 Miscellaneous Notes S: Tish Miller is a 24 year old female who presents at 09/04/2024, by Last Menstrual Period for a routine visit. Denies headache, visual changes, chest pain, shortness of breath, vaginal bleeding, leakage of fluid, or dysuria. Feeling well, no complaints. Good movement, No contractions O: See flow sheet Gen: No apparent distress Abd: Gravid, nontender Declines LARC TDAP today Discussed frit mixer. ASSESSMENT/PLAN: 1. Supervision of high risk in second trimester - ICD9: V23.9, ICD10: O09.92 (primary diagnosis) 2. Obesity affecting in second trimester, unspecified obesity type - ICD9: 649.13, ICD10: O99.212 3. 28 weeks gestation of - ICD9: V22.2, ICD10: Z3A.28 PTL precautions 4. Need for vaccination - ICD9: V05.9, ICD10: Z23 TDAP today Tari Boggs MD documented in this encounter [facility] 06-15-2024 Note HNO ID: [id number] Author: DAWIT DOAN MA Service: ? Author Type: Tie Cutter Type: Progress Notes Filed: 06/15/2024 10:45 Note Text: Patient identified by name and date of . Tish Miller presents today for a vaccination of Tdap. Patient denies an allergy to latex: yes Patient denies a severe (life-threatening) allergy to a previous dose of Tdap, DTP, DTaP, DT or Td vaccine. Yes Patient denies history of epilepsy or neurological problems: Yes Patient is afebrile and denies being moderately or severely ill: Yes Patient denies history of Guillain-[place] Syndrome (a severe paralytic illness): Yes Tdap Adacel injection was given without incident. See immunizations for details of immunizations administered today. VIS sheet provided: Yes Provider Ambrose was present in office at time of injection. Dawit Doan MA [facility] 06-15-2024 History of Presen t illness Narrative Patient identified by name and date of . Tish Miller presents today for a vaccination of Tdap. Patient denies an allergy to latex: yes Patient denies a severe (life-threatening) allergy to a previous dose of Tdap, DTP, DTaP, DT or Td vaccine. Yes Patient denies history of epilepsy or neurological problems: Yes Patient is afebrile and denies being moderately or severely ill: Yes Patient denies history of Guillain-[place] Syndrome (a severe paralytic illness): Yes Tdap Adacel injection was given without incident. See immunizations for details of immunizations administered today. VIS sheet provided: Yes Provider Ambrose was present in office at time of injection. Dawit Doan MA documented in this encounter [facility] 06-15-2024 Instructions Dawit Doan MA - 06/15/2024 10:28 AM EDT SEQUENTIAL SCREENINGS The [facility] offers sequential screenings for women who are interested in screenings for chromosomal abnormalities and certain defects during a . The sequential screen combines ultrasound and blood tests to determine the risk of chromosomal abnormalities, including Down's Syndrome (Trisomy 21) and Trisomy 18, as well as open neural tube defects including spina bifida. Ultrasound examination is performed between 11 weeks and 13 weeks gestational age. Blood tests are drawn after the ultrasound and again later in the between 15 and 21 weeks gestational age. Please let your physician know if you are interested in this testing. It will require an appointment with our ski technician. This is not an ultrasound performed by a physician in our office during a routine visit. SIGNS AND SYMPTOMS OF LABOR 1. Contractions every 10 minutes or more often 2. Clear, pink, or brownish fluid (water) leaking from vagina 3. Feeling that baby is pushing down, pressure 4. Low, dull backache 5. Cramps that feel like a period 6. Cramps with or without diarrhea If you notice any of the above symptoms, contact our office at [phone] and ask to speak with a nurse. After hours, you can call doctors registry at [phone] OR call [facility] at [phone] and ask to have the doctor workday consultant paged. If you consider this an emergency, dial 9-1-9 or go to your nearest emergency department. NEED HELP? Are you dealing with a violent or abusive relationship? Are you a victim of rape or sexual assult? Call [facility] ([place]) 24 hour Crisis Hotline: 592.427.9377 or 667-277-0754. MANUAL Your Guide to a Healthy manual is now on-line. Visit [email or web address] to download your free copy documented in this encounter [facility] 06-04-2024 Progress note Formatting of t his note might be different from the original. SW- Add on visit for bleeding. Had BM today that was more firm and then had bleeding with wiping. Unsure of source of blood. Small blood clot with wiping as well. No continued bleeding. Not needing a pad. No pain or cramping. +FM. No LOF. No recent intercourse or trauma PE: Gen- NAD, well appearing Abd- Soft, gravid, NT SSE- Cervix closed and long, no bleeding or abnormal discharge Cvx c/t/h on digital exam Bedside TAUS with normal MVP, +FHT 130 bpm, + movement, normal appearing placenta See flowsheet A/p 26 wk gestation - Add on visit for bleeding of unknown source. No evidence of vaginal bleeding on exam. No concern for abruption or PTL at this time. Discussed reasons to call. Recommend hydration, miralax and colace PRN, prune or pear juice - Rh positive - Keep scheduled visit Abilio Johnson DO [facility] 06-04-2024 Miscellaneous Notes SW- Add on visit for bleeding. Had BM today that was more firm and then had bleeding with wiping. Unsure of source of blood. Small blood clot with wiping as well. No continued bleeding. Not needing a pad. No pain or cramping. +FM. No LOF. No recent intercourse or trauma PE: Gen- NAD, well appearing Abd- Soft, gravid, NT SSE- Cervix closed and long, no bleeding or abnormal discharge Cvx c/t/h on digital exam Bedside TAUS with normal MVP, +FHT 130 bpm, + movement, normal appearing placenta See flowsheet A/p 26 wk gestation - Add on visit for bleeding of unknown source. No evidence of vaginal bleeding on exam. No concern for abruption or PTL at this time. Discussed reasons to call. Recommend hydration, miralax and colace PRN, prune or pear juice - Rh positive - Keep scheduled visit Abilio Johnson DO documented in this encounter [facility] 06-04-2024 Instructions Abbi Allen MA - 06/04/2024 11:09 AM EDT SEQUENTIAL SCREENINGS The [facility] offers sequential screenings for women who are interested in screenings for chromosomal abnormalities and certain defects during a . The sequential screen combines ultrasound and blood tests to determine the risk of chromosomal abnormalities, including Down's Syndrome (Trisomy 21) and Trisomy 18, as well as open neural tube defects including spina bifida. Ultrasound examination is performed between 11 weeks and 13 weeks gestational age. Blood tests are drawn after the ultrasound and again later in the between 15 and 21 weeks gestational age. Please let your physician know if you are interested in this testing. It will require an appointment with our ski technician. This is not an ultrasound performed by a physician in our office during a routine visit. SIGNS AND SYMPTOMS OF LABOR 1. Contractions every 10 minutes or more often 2. Clear, pink, or brownish fluid (water) leaking from vagina 3. Feeling that baby is pushing down, pressure 4. Low, dull backache 5. Cramps that feel like a period 6. Cramps with or without diarrhea If you notice any of the above symptoms, contact our office at [phone] and ask to speak with a nurse. After hours, you can call doctors registry at [phone] OR call [facility] at [phone] and ask to have the doctor workday consultant paged. If you consider this an emergency, dial 3-9-9 or go to your nearest emergency department. NEED HELP? Are you dealing with a violent or abusive relationship? Are you a victim of rape or sexual assult? Call [facility] ([place]) 24 hour Crisis Hotline: 704.189.4424 or 036-445-0247. MANUAL Your Guide to a Healthy manual is now on-line. Visit [email or web address] ancyGuide to download your free copy documented in this encounter [facility] 06-02-2024 Telephone encounter Note Faxed [facility] 06-02-2024 Miscellaneous Notes Faxed Breast pump received from [employer]. Given to KJ to sign. Azalia Melgra RN documented in this encounter [facility] 06-01-2024 Telephone encounter Note Breast pump received from [employer]. Given to KJ to sign. Azalia Melgar RN [facility] 05-18-2024 Progress note Formatting of t his note might be different from the original. Pt is a G4, p1, ab3 presenting at 24w3d w/o complaints. Denies bleeding or lof, rare use of inhaler ~2 x/mo. Reports ++FM Labs at next visit. RTO 4 weeks Mingo Tate MD [facility] Work Phone: 05-18-2024 Miscellaneous Notes Pt is a G4, p1, ab3 presenting at 24w3d w/o complaints. Denies bleeding or lof, rare use of inhaler ~2 x/mo. Reports ++FM Labs at next visit. RTO 4 weeks Mingo Tate MD documented in this encounter [facility] 05-18-2024 Maura Sanches LPN - 05/18/2024 10:14 AM EDT SEQUENTIAL SCREENINGS The [facility] offers sequential screenings for women who are interested in screenings for chromosomal abnormalities and certain defects during a . The sequential screen combines ultrasound and blood tests to determine the risk of chromosomal abnormalities, including Down's Syndrome (Trisomy 21) and Trisomy 18, as well as open neural tube defects including spina bifida. Ultrasound examination is performed between 11 weeks and 13 weeks gestational age. Blood tests are drawn after the ultrasound and again later in the between 15 and 21 weeks gestational age. Please let your physician know if you are interested in this testing. It will require an appointment with our ski technician. This is not an ultrasound performed by a physician in our office during a routine visit. SIGNS AND SYMPTOMS OF LABOR 1. Contractions every 10 minutes or more often 2. Clear, pink, or brownish fluid (water) leaking from vagina 3. Feeling that baby is pushing down, pressure 4. Low, dull backache 5. Cramps that feel like a period 6. Cramps with or without diarrhea If you notice any of the above symptoms, contact our office at [phone] and ask to speak with a nurse. After hours, you can call doctors registry at [phone] OR call [facility] at [phone] and ask to have the doctor workday consultant paged. If you consider this an emergency, dial -[phone] or go to your nearest emergency department. NEED HELP? Are you dealing with a violent or abusive relationship? Are you a victim of rape or sexual assult? Call [facility] ([place]) 24 hour Crisis Hotline: 774.855.6603 or 540-995-6008. MANUAL Your Guide to a Healthy manual is now on-line. Visit [email or web address] ancyGuide to download your free copy documented in this encounter [facility] 04-20-2024 Progress note Formatting of t his note might be different from the original. Anatomy ultrasound reviewed. No abnormalities identified. Follow up as clinically indicated. Please place copy in ob chart. Jaylon Ureña MD [facility] 04-20-2024 Miscellaneous Notes Anatomy ultrasound reviewed. No abnormalities identified. Follow up as clinically indicated. Please place copy in ob chart. Jaylon Ureña MD documented in this encounter [facility] 04-20-2024 Instructions Dawit Doan MA - 04/20/2024 1:09 PM EDT SEQUENTIAL SCREENINGS The [facility] offers sequential screenings for women who are interested in screenings for chromosomal abnormalities and certain defects during a . The sequential screen combines ultrasound and blood tests to determine the risk of chromosomal abnormalities, including Down's Syndrome (Trisomy 21) and Trisomy 18, as well as open neural tube defects including spina bifida. Ultrasound examination is performed between 11 weeks and 13 weeks gestational age. Blood tests are drawn after the ultrasound and again later in the between 15 and 21 weeks gestational age. Please let your physician know if you are interested in this testing. It will require an appointment with our ski technician. This is not an ultrasound performed by a physician in our office during a routine visit. SIGNS AND SYMPTOMS OF LABOR 1. Contractions every 10 minutes or more often 2. Clear, pink, or brownish fluid (water) leaking from vagina 3. Feeling that baby is pushing down, pressure 4. Low, dull backache 5. Cramps that feel like a period 6. Cramps with or without diarrhea If you notice any of the above symptoms, contact our office at [phone] and ask to speak with a nurse. After hours, you can call doctors registry at [phone] OR call [facility] at [phone] and ask to have the doctor workday consultant paged. If you consider this an emergency, dial 8-0-0 or go to your nearest emergency department. NEED HELP? Are you dealing with a violent or abusive relationship? Are you a victim of rape or sexual assult? Call [facility] [place] ([facility] 24 hour Crisis Hotline: 593.978.1829 or 545-622-7783. MANUAL Your Guide to a Healthy manual is now on-line. Visit [email or web address] ancyGuide to download your free copy documented in this encounter [facility] 04-20-2024 Progress note Formatting of t his note might be different from the original. EH - S: Tish is a 23 year old female who presents at 20w3d for a routine visit. Feeling movement. Denies headache, visual changes, chest pain, shortness of breath, vaginal bleeding, leakage of fluid, or dysuria. Feeling well, no complaints. O: See flow sheet Gen: No apparent distress Abd: Gravid, nontender, S=D ASSESSMENT/PLAN: 1. Supervision of high risk in second trimester - ICD9: V23.9, ICD10: O09.92 (primary diagnosis) - Sequential screen negative - Headaches and asthma controlled - Discussed birthing classes 2. 20 weeks gestation of - ICD9: V22.2, ICD10: Z3A.20 - Anatomy ultrasound today, report pending 3. Obesity affecting in second trimester, unspecified obesity type - ICD9: 649.13, ICD10: O99.212 - Pre BMI 31 - Continue LDA PTL precautions reviewed. RTO in 4 weeks or sooner as needed. Debo Alicea APRN.KEISHA [facility] 04-20-2024 Miscellaneous Notes EH - S: Tish is a 23 year old female who presents at 20w3d for a routine visit. Feeling movement. Denies headache, visual changes, chest pain, shortness of breath, vaginal bleeding, leakage of fluid, or dysuria. Feeling well, no complaints. O: See flow sheet Gen: No apparent distress Abd: Gravid, nontender, S=D ASSESSMENT/PLAN: 1. Supervision of high risk in second trimester - ICD9: V23.9, ICD10: O09.92 (primary diagnosis) - Sequential screen negative - Headaches and asthma controlled - Discussed birthing classes 2. 20 weeks gestation of - ICD9: V22.2, ICD10: Z3A.20 - Anatomy ultrasound today, report pending 3. Obesity affecting in second trimester, unspecified obesity type - ICD9: 649.13, ICD10: O99.212 - Pre BMI 31 - Continue LDA PTL precautions reviewed. RTO in 4 weeks or sooner as needed. Debo Alicea APRN.KEISHA documented in this encounter [facility] 03-23-2024 Progress note Formatting of t his note might be different from the original. SW- Migraine headaches. No pain, vb, lof. PE: Gen- NAD, well appearing Abd- Soft, gravid, NT Ext- No edema See flowsheet A/p 16 wk gestation - Magnesium daily for HOYOS's - NOB labs and sequential screen today - Cont baby ASA - Quit vaping! - RTO anatomy US and visit after Abilio Johnson DO [facility] 03-23-2024 Miscellaneous Notes SW- Migraine headaches. No pain, vb, lof. PE: Gen- NAD, well appearing Abd- Soft, gravid, NT Ext- No edema See flowsheet A/p 16 wk gestation - Magnesium daily for HOYOS's - NOB labs and sequential screen today - Cont baby ASA - Quit vaping! - RTO anatomy US and visit after Abilio Johnson DO documented in this encounter [facility] 03-23-2024 Instructions Abbi Allen MA - 03/23/2024 10:30 AM EDT SEQUENTIAL SCREENINGS The [facility] offers sequential screenings for women who are interested in screenings for chromosomal abnormalities and certain defects during a . The sequential screen combines ultrasound and blood tests to determine the risk of chromosomal abnormalities, including Down's Syndrome (Trisomy 21) and Trisomy 18, as well as open neural tube defects including spina bifida. Ultrasound examination is performed between 11 weeks and 13 weeks gestational age. Blood tests are drawn after the ultrasound and again later in the between 15 and 21 weeks gestational age. Please let your physician know if you are interested in this testing. It will require an appointment with our ski technician. This is not an ultrasound performed by a physician in our office during a routine visit. SIGNS AND SYMPTOMS OF LABOR 1. Contractions every 10 minutes or more often 2. Clear, pink, or brownish fluid (water) leaking from vagina 3. Feeling that baby is pushing down, pressure 4. Low, dull backache 5. Cramps that feel like a period 6. Cramps with or without diarrhea If you notice any of the above symptoms, contact our office at [phone] and ask to speak with a nurse. After hours, you can call doctors registry at [phone] OR call [facility] at [phone] and ask to have the doctor workday consultant paged. If you consider this an emergency, dial 9--1 or go to your nearest emergency department. NEED HELP? Are you dealing with a violent or abusive relationship? Are you a victim of rape or sexual assult? Call [facility] ([place]) 24 hour Crisis Hotline: 113.234.6234 or 073-234-6275. MANUAL Your Guide to a Healthy manual is now on-line. Visit [email or web address] ancyGuide to download your free copy documented in this encounter [facility] 03-19-2024 Telephone encounter Note Patient notified. Mulu Mcleod RN [facility] 03-19-2024 Miscellaneous Notes Patient notified. Mulu Mcleod RN Try taking benadryl for both the nausea and headache. I will also send reglan to the pharmacy for the headache 15w6d Patient called with c/o HOYOS for 3 days without relief from Tylenol. Pain rate of 7-8 out of 10. Today, she vomited 4 times and she thinks it's from the HOYOS. Denies vision changes or hx of migraines. Encouraged to push fluids. Trying to drink water, but vomited the Tylenol shortly after taking this morning. Encouraged to try drinks with electrolytes if plain water isn't agreeing with her today. Normally drinks a cup of a coffee a day. Has not had any coffee this morning. Please advise. Tari Toledo RN documented in this encounter [facility] 03-19-2024 Telephone encounter Note Try taking benadryl for both the nausea and headache. I will also send reglan to the pharmacy for the headache [facility] 03-19-2024 Telephone encounter Note 15w6d Patient called with c/o HOYOS for 3 days without relief from Tylenol. Pain rate of 7-8 out of 10. Today, she vomited 4 times and she thinks it's from the HOYOS. Denies vision changes or hx of migraines. Encouraged to push fluids. Trying to drink water, but vomited the Tylenol shortly after taking this morning. Encouraged to try drinks with electrolytes if plain water isn't agreeing with her today. Normally drinks a cup of a coffee a day. Has not had any coffee this morning. Please advise. Tari Toledo RN [facility] 02-24-2024 Miscellaneous Notes RR- VB No. LOF No. CTXS No. Movement: present. Other c/o: No. Medication list reviewed. Physical Exam See Flow Sheet A/P 12w3d Estimated Date of Delivery: 09/04/24 Labs: PN labs today, d/w her aneuploidy screening and desires sequential screen H/o asthma, has used albuterol PRN, refill given and will have her see pulmonology for eval anatomy US ordered and scheduled d/w her carrier screening, elects for this today ASA candidate- d/w her this for preeclampsia propohylaxis vaping- stopped 1 month ago, encouragement given Jaylon Ureña M.D. documented in this encounter [facility] 01-27-2024 Note HNO ID: [id number] Author: DEBO ALICEA APRN.CNP Service: ? Author Type: Nurse Practitioner Type: Progress Notes Filed: 01/27/2024 15:04 Note Text: OB point of care ultrasound was performed. See imaging tab for details. Debo Alicea APRN.CNP [facility] 01-27-2024 History of Presen t illness Narrative OB point of care ultrasound was performed. See imaging tab for details. Debo Alicea APRN.CNP documented in this encounter [facility] 01-27-2024 History of Presen t illness Narrative Left voicemail for patient to call back to complete the initial ob screening questions. Olga Zapata MA [place] offered: Patient declines. INITIAL OB ASSESSMENT HPI: Tish is a 23 year old White Female here to establish Obstetrical Care. Patient's last menstrual period was 11/29/2023 (exact date). from OB Dating Form. was planned Complaints: No OB History T0 L0 SAB2 IAB0 Ectopic0 Multiple0 Live Births0 Previous history: Prior : No History of 4th degree laceration: Perineal Laceration, 3rd or 4th degree no History of shoulder dystocia: no History of Hypertensive disorders including pre-eclampsia or gestational hypertension: no, no History of gestational diabetes: Diabetes in no Patient's Risk Screening for delivery: Have you had a prior jay between 20w and 36w6d? No How many pregnancies have you had before? 3 Did you have a previous baby with a GBS Infection? No Please select all that apply for any prior : N/A MEDICAL/PSYCHOSOCIAL HISTORY: Severe bleeding with delivery no Thyroid Disease no Gestation hypertension: no Diabetes in no No results found for: ABORHD BMI 31.90 kg/(m^2) Last Pap: 08/31/2022 History of abnormal pap: no Prior treatment for cervical dysplasia: none. History of STDs: N/A Partner History of STDs: None Did you have a partner with Herpes? No Tobacco use: No E-Cigarette/Vaping Use: No Caffeine use: Yes, one cup of coffee/day Drug use: No Alcohol use: No Multivitamin with Folic acid: Yes Would refuse blood transfusion if medically necessary: No Social Needs: How often does this describe you? I don't have enough money to pay my bills: Never Within the past 12 months, have you worried that your food would run out before you had money to buy more? Never In the past 12 months, has lack of reliable transportation kept you from going to medical appointments or work, or from getting things needed for daily living? Never In the past 12 months, have you had any concerns about having a place to live, or about the condition or quality of your housing? Never Would you like more information on any of the following (please check all that apply)? Not interested Social History: Do you have any history of depression, anxiety, PTSD, or other mood problems? Yes Do you have a history of abuse or trauma that may impact your experience? No Are you currently employed? Yes Depression/Anxiety Screening: denies symptoms of depression. OB Depression and Anxiety Screening- This Encounter (since 01/26/2024) Over the past 2 weeks have you felt down, depressed, or hopeless? Negative Over the past two weeks, have you felt little interest or pleasure in doing things? Negative Feeling nervous, anxious or on edge 2-More than half the days Not being able to stop or control worrying 0-Not al all Anxiety Pre-Screening Total (If >/= 3 additional questions will be reviewed) 2 Genetic Screening: Partner present: Yes Patient verbalized knowledge of partner family health history: Yes Do you or your partner have any personal or family history of defects not previously discussed: No Do you have history of a complicated by anomaly, genetic condition, or demise: No ACOG Recommended Screening: Screening for early gestational diabetes testing: Criteria for early testing requires elevated BMI plus one other risk factor: BMI 31.90 kg/(m^2) (risk factor if > than 25 or 23 in Americans) Additional risk factors: None She does not meet ACOG criteria for early gestational DM screening. Screening for low dose aspirin use for the prevention of pre-eclampsia: Low dose aspirin should be considered if the patient has one high or two moderate risk factors: High risk factors: None Moderate risk ractors: Nulliparity and Obesity (body mass index greater than 30) She does meet criteria for low dose ASA OB Risk Screening: Completed, no positive findings documented. Marital Status: Partner: Name: Marino Miller Age: 26 Occupation: [employer] Gender: Male PAST MEDICAL HISTORY Diagnosis Date Asthma PAST SURGICAL HISTORY Procedure Laterality Date DILATION & CURETTAGE 03/10/2021 HYSTEROSCOPY, DIAGNOSTIC (SEPARATE 06/16/2021 symphion resectoscope used to resect retained POC's - & Current Outpatient Medications Medication Sig Dispense Refill PNV no.95/ferrous fum/folic ac ( ORAL) Take by mouth. loratadine (CLARITIN ORAL) Take 1 tablet by mouth as needed (allergic to her cats). No current facility-administered medications for this visit. Allergies As of Date: 01/27/2024 (No Known Allergies) Fully Assessed 01/27/2024 Does patient have penicillin allergy: No REVIEW OF SYSTEMS: GENERAL: Negative for: Fever or Chills HEENT: Negative for: Headache, Impaired Vision, Ringing in Ears, Nosebleeds NECK: Negative for: Swelling, Pain, Stiffness RESPIRATORY: Negative for: Cough, Shortness of breath, Wheezing GASTROINTESTINAL: Negative for: Heartburn, Constipation, Diarrhea, Blood in stool + nausea MUSCULOSKELETAL: Negative for: Muscle or joint pain, stiffness, Joint swelling NEUROLOGIC/PSYCHIATRIC: Negative for: Weakness, Paralysis, Numbness, Tingling, Tremor, Depression, Memory loss + anxiety SKIN: Negative for: Rash, Itching GENITOURINARY: Negative for: vaginal itching, vaginal discharge, hematuria or dysuria PHYSICAL EXAM: BP 116/58 Ht 5' 2 (1.58m) Wt 174 lb 6.4 oz (79.1kg) LMP 11/29/2023 BMI 31.89 kg/(m^2). GENERAL: pleasant in no apparent distress DERMATOLOGY: Normal, without lesions, non-icteric, and non-hirsute NECK: Supple, full range of motion, no adenopathy, and thyroid normal CHEST: Normal inspiratory effort BREAST: soft, non-tender, symmetric, no dominant mass, normal nipple-areolar complex, no lymphadenopathy, and no nipple discharge ABDOMEN: soft, non-tender, and no masses NEURO: alert and oriented x3,exam grossly non-focal PELVIS: External genitalia normal without lesions. Perineal body intact. No vaginal or cervical lesions. Cervix closed. Uterus 8 week size. No adnexal masses or tenderness. Clinical Pelvimetry: Pelvimetry clinically assessed as adequate Limited OB ultrasound exam: single intrauterine and positive cardiac activity ASSESSMENT: 23 year old at 8w3d wks gestational age PLAN: 1) Patient oriented to practice. Patient given new OB orientation folder. Discussed nutrition, folic acid supplementation, dietary guidelines, exercise, smoking, alcohol, caffeine, and drug use. Discussed gestational weight gain guidelines. Discussed routine OB labs including STD/HIV. Discussed how to access Your guide to a health and the [employer]. Discussed aneuploidy screening, nuchal translucency/first trimester early anatomy ultrasound and NIPT. The risks/benefits and limitations of NIPT/aneuploidy screening were reviewed including the potential for false negative and false positive results. The availability of genetic counseling was reviewed. Information on aneuploidy screening was provided. The patient chooses to proceed with First trimester early anatomy ultrasound (12-13w6d) and If concerns with insurance coverage, patient to call back for sequential order. Discussed myriad carrier screening. We discussed the availability of professional-society guided carrier screening and reviewed the conditions screened and limitations of screening. The availability of genetic counseling was reviewed. Information on carrier screening was provided. The patient Previously ordered - normal per patient Discussed hemoglobin electrophoresis. Patient: Declines Reviewed midwifery and classified ad taker services that are available. 2) Patient offered option of Virtual Visits. Patient unsure. May consider in future. ACTIVE PROBLEM LIST Supervision of Normal - 01/27/2024 Comment: Care Checklist Vaccines: [ ] Flu vaccine [ ] declined [ ] RSV vaccine 32 0/7 - 36 04/24 (Jul - Dec) [ ] declined [ ] COVID vaccine [ ] declined [ ] TDaP 27-36 [ ] declined First trimester: [X] Dating US [ ] 1st tri labs [X] Pap smear UTD [ ] Carrier screening [X] declined [ ] NIPT screening - wants [ ] declined [X] First trimester anatomy scan [ ] declined [ ] ASA ppx indicated [ ] not indicated [ ] M Power Consult [ ] not indicated [ ] declined Second trimester: [ ] AFP [ ] declined [ ] Anatomy scan [ ] Mode of Delivery - [ ] Feeding - [ ] Pump ordered [ ] Diabetes screen [ ] CBC, RPR Third trimester (28-30 weeks): [ ] Consent [ ] Contraception - [ ] Metal Stud Framer Third trimester (36-40 weeks): [ ] GBS [ ] Presentation - [ ] Scheduled [ ] yes - Hibiclens, pre-op instructions, CBC, T&S ordered [ ] no [ ] H&P History of Anxiety - 01/27/2024 Comment: Was on medication in the past. Has been experiencing some anxiety related to new OB visit, but feeling better now that cardiac activity confirmed. Mental health resources provided. To update throughout . Nausea/Vomiting in - 01/27/2024 Comment: Vitamin B6 and Unisom doses reviewed. To notify if prescription is needed. Recurrent Loss - 01/27/2024 Comment: Obesity Affecting in First Trimester - 01/27/2024 Comment: Pre BMI 31. Recommend LDA. Current Every Day Vaping - 01/27/2024 Comment: Recommend cessation, currently trying to quit. Risks and cessation information included in patient instructions on MyChart. Follow up in 4 weeks for nuchal and OB visit. Debo Alicea APRN.PROTOTYPE MODEL MAKER OB point of care ultrasound was performed. See imaging tab for details. Maura Ren LPN documented in this encounter [facility] 01-27-2024 Note HNO ID: [id number] Author: OLGA ZAPATA MA Service: ? Author Type: Tie Cutter Type: Progress Notes Filed: 01/27/2024 15:25 Note Text: Left voicemail for patient to call back to complete the initial ob screening questions. Olga Zapata MA [facility] 01-27-2024 Note HNO ID: [id number] Author: DEBO ALICEA APRN.PROTOTYPE MODEL MAKER Service: ? Author Type: Nurse Practitioner Type: Progress Notes Filed: 01/27/2024 15:25 Note Text: [place] offered: Patient declines. INITIAL OB ASSESSMENT HPI: Tish is a 23 year old White Female here to establish Obstetrical Care. Patient's last menstrual period was 11/29/2023 (exact date). from OB Dating Form. was planned Complaints: No OB History T0 L0 SAB2 IAB0 Ectopic0 Multiple0 Live Births0 Previous history: Prior : No History of 4th degree laceration: Perineal Laceration, 3rd or 4th degree no History of shoulder dystocia: no History of Hypertensive disorders including pre-eclampsia or gestational hypertension: no, no History of gestational diabetes: Diabetes in no Patient's Risk Screening for delivery: Have you had a prior jay between 20w and 36w6d? No How many pregnancies have you had before? 3 Did you have a previous baby with a GBS Infection? No Please select all that apply for any prior : N/A MEDICAL/PSYCHOSOCIAL HISTORY: Severe bleeding with delivery no Thyroid Disease no Gestation hypertension: no Diabetes in no No results found for: ABORHD BMI 31.90 kg/(m2) Last Pap: 08/31/2022 History of abnormal pap: no Prior treatment for cervical dysplasia: none. History of STDs: N/A Partner History of STDs: None Did you have a partner with Herpes? No Tobacco use: No E-Cigarette/Vaping Use: No Caffeine use: Yes, one cup of coffee/day Drug use: No Alcohol use: No Multivitamin with Folic acid: Yes Would refuse blood transfusion if medically necessary: No Social Needs: How often does this describe you? I don't have enough money to pay my bills: Never Within the past 12 months, have you worried that your food would run out before you had money to buy more? Never In the past 12 months, has lack of reliable transportation kept you from going to medical appointments or work, or from getting things needed for daily living? Never In the past 12 months, have you had any concerns about having a place to live, or about the condition or quality of your housing? Never Would you like more information on any of the following (please check all that apply)? Not interested Social History: Do you have any history of depression, anxiety, PTSD, or other mood problems? Yes Do you have a history of abuse or trauma that may impact your experience? No Are you currently employed? Yes Depression/Anxiety Screening: denies symptoms of depression. OB Depression and Anxiety Screening- This Encounter (since 01/26/2024) Over the past 2 weeks have you felt down, depressed, or hopeless? Negative Over the past two weeks, have you felt little interest or pleasure in doing things?? Negative Feeling nervous, anxious or on edge 2-More than half the days Not being able to stop or control worrying 0-Not al all Anxiety Pre-Screening Total (If >/= 3 additional questions will be reviewed) 2 Genetic Screening: Partner present: Yes Patient verbalized knowledge of partner family health history: Yes Do you or your partner have any personal or family history of defects not previously discussed: No Do you have history of a complicated by anomaly, genetic condition, or demise: No ACOG Recommended Screening: Screening for early gestational diabetes testing: Criteria for early testing requires elevated BMI plus one other risk factor: BMI 31.90 kg/(m2) (risk factor if > than 25 or 23 in Americans) Additional risk factors: None She does not meet ACOG criteria for early gestational DM screening. Screening for low dose aspirin use for the prevention of pre-eclampsia: Low dose aspirin should be considered if the patient has one high or two moderate risk factors: High risk factors: None Moderate risk ractors: Nulliparity and Obesity (body mass index greater than 30) She does meet criteria for low dose ASA OB Risk Screening: Completed, no positive findings documented. Marital Status: Partner: Name: Marino Miller Age: 26 Occupation: [employer] Gender: Male PAST MEDICAL HISTORY Diagnosis Date Asthma PAST SURGICAL HISTORY Procedure Laterality Date DILATION AND CURETTAGE 03/10/2021 HYSTEROSCOPY, DIAGNOSTIC (SEPARATE 06/16/2021 symphion resectoscope used to resect retained POC's - AND Current Outpatient Medications Medication Sig Dispense Refill PNV no.95/ferrous fum/folic ac ( ORAL) Take by mouth. loratadine (CLARITIN ORAL) Take 1 tablet by mouth as needed (allergic to her cats). No current facility-administered medications for this visit. Allergies As of Date: 01/27/2024 (No Known Allergies) Fully Assessed 01/27/2024 Does patient have penicillin allergy: No REVIEW O (more content not included)... [facility] 01-27-2024 Instructions Debo Alicea APRN.PROTOTYPE MODEL MAKER - 01/27/2024 2:16 PM EDT Please select the following link to access the [facility] Your Guide to a Healthy . [email or web address] How SMOKING Affects Your and Your Baby During Smoking during affects you and your baby's health before, during and after your baby is born. The nicotine (the addictive substance in cigarettes), carbon monoxide and numerous other poisons you inhale from a cigarette are carried through your bloodstream and go directly to your baby. Smoking while will: Lower the amount of oxygen available to you and your growing baby Increase your baby's heart rate Increase the chances of miscarriage and stillbirth Increase the risk that your baby is born prematurely and/or born with low weight Increase your baby's risk of developing respiratory problems The more cigarettes you smoke per day, the greater your baby's chances of developing these and other health problems. There is no safe level of smoking for your baby's health. How does secondhand smoke affect me and my baby? Second-hand smoke (also called passive smoke or environmental tobacco smoke) is the combination of smoke from a burning cigarette and smoke exhaled by a smoker. The smoke that [place] off the end of a cigarette or cigar contains more harmful substances ( tar, carbon monoxide, nicotine and others) than the smoke inhaled by the smoker. If you are regularly exposed to second-hand smoke, you increase your and your baby's risk of developing lung cancer, heart disease, emphysema, allergies, asthma and other health problems. Babies exposed to second-hand smoke may also develop reduced lung capacity and are at higher risk for sudden syndrome (SIDS). What happens if I keep smoking after my baby is born? If you continue to smoke after your baby is born, you increase his or her chance of developing certain illnesses and problems, such as: Frequent colds Bronchitis and pneumonia Asthma Chronic coughs Ear infections High blood pressure Learning and behavior problems later in childhood Why should I quit smoking? Smoking is the leading cause of preventable in the [place] By quitting you can: Prolong your life Lower your risk of heart disease Lower your risk of developing lung, throat, mouth, pancreatic and bladder cancer Lower your risk of developing breathing problems such as chronic obstructive pulmonary disease (COPD), asthma and emphysema Lower your risk of developing allergies Raise your energy level Improve your appearance; your skin will wrinkle less and look better, and your fingers and teeth will not be yellow Improve your sense of smell and taste Feel healthier overall, with improved self-esteem Save a lot of money (the average smoker spends $740 a year for cigarettes!) How can I quit smoking? There is no one way to quit smoking that works for everyone, since each person has different smoking habits. Here are some tips: Hide your matches, lighters, and ashtrays. Take a deep breath and hold it for five to ten seconds whenever you get the urge to smoke. Designate your home a non-smoking area. Ask people who smoke not to smoke around you. Drink less caffeinated beverages; caffeine may stimulate your urge to smoke. Also avoid alcohol, as it also may increase your urge to smoke and can be harmful to your baby. Change your habits connected with smoking. If you smoked while driving or when feeling stressed, try other activities to replace smoking. Keep mints or gum (preferably sugarless) on hand for those times when you get the urge to smoke. Stay active to keep your mind off smoking and help relieve tension: take a walk, exercise, read a book or try a new a hobby. Look for support from others. Join a support group or smoking cessation program, such as the [facility] Smoking Cessation Program. For more information, please call . Do not go places where many people are smoking such as bars or clubs, and smoking sections of restaurants. Should I use a nicotine replacement to help me quit? Nicotine gum and patches release nicotine into the bloodstream of the smoker who is trying to quit. Although these products can reduce withdrawal symptoms and decrease cravings in smokers who are trying to quit, nicotine is quite toxic and potentially harmful to the fetus (as well as to the infant who is ). Therefore, these and any other products containing nicotine are not always ecommended for the woman who is trying to quit smoking. They may be prescribed in indivdual cases. How will I feel when I quit? The benefits of not smoking start within days of quitting. After you quit, you and your baby's heart beat will return to normal, and your baby will be less likely to develop breathing problems. You may have symptoms of withdrawal because your body is used to nicotine, the addictive substance in cigarettes. You may crave cigarettes, be irritable, feel very hungry, cough often, get headaches or have difficulty concentrating. The withdrawal symptoms are only temporary. They are strongest when you first quit but will go away within 10 to 14 days. When withdrawal symptoms occur, stay in control. Think about your reasons for quitting. Remind yourself that these are signs that your body is healing and getting used to being without cigarettes. Remember that withdrawal symptoms are easier to treat than the major diseases that smoking can cause. Even after the withdrawal is over, expect periodic urges to smoke. However, these cravings are generally short-lived and will go away whether you smoke or not. Don't Smoke! If you smoke again (called a relapse) do not lose hope. Seventy-five percent of those who quit relapse. Most smokers quit three times before they are successful. If you relapse, don't give up! Plan ahead and think about what you will do next time you get the urge to smoke. (This information is provided by the [facility] and is not intended to replace the medical advice of your doctor or health care provider. Please consult your health care provider for advice about a specific medical condition. For additional written health information, please call the Cancer Answer Line at [facility] [place] Saturday - Saturday 8-4:30 for assistance: [phone]. Or visit [email or web address] From [facility]'s Tobacco Cessation website: Our comprehensive smoking cessation program contains three main modules. These modules include the following: One-on-one weekly 30-minute counseling sessions with a respiratory therapist. Education about the various nicotine replacement therapies and medications and alternative methods used for cessation. Guidance and support; plus, we will contact your physician to obtain any required prescriptions for medications related to cessation. Insurance is accepted for this six-week program. Please check with your provider about whether your plan covers tobacco cessation programs. In the event your insurance provider does not cover your six-week smoking cessation program, we encourage you to contact us at your earliest convenience by calling . One of our friendly team members will be happy to help you with your financial plan. Contact [phone] for more information. [place] Tobacco Program Visit [email or web address]/en-[email or web address] / or call 0-308-HAVI-NOW How SMOKING Affects Your and Your Baby During Smoking during affects you and your baby's health before, during and after your baby is born. The nicotine (the addictive substance in cigarettes), carbon monoxide and numerous other poisons you inhale from a cigarette are carried through your bloodstream and go directly to your baby. Smoking while will: Lower the amount of oxygen available to you and your growing baby Increase your baby's heart rate Increase the chances of miscarriage and stillbirth Increase the risk that your baby is born prematurely and/or born with low weight Increase your baby's risk of developing respiratory problems The more cigarettes you smoke per day, the greater your baby's chances of developing these and other health problems. There is no safe level of smoking for your baby's health. How does secondhand smoke affect me and my baby? Second-hand smoke (also called passive smoke or environmental tobacco smoke) is the combination of smoke from a burning cigarette and smoke exhaled by a smoker. The smoke that middleton off the end of a cigarette or cigar contains more harmful substances ( tar, carbon monoxide, nicotine and others) than the smoke inhaled by the smoker. If you are regularly exposed to second-hand smoke, you increase your and your baby's risk of developing lung cancer, heart disease, emphysema, allergies, asthma and other health problems. Babies exposed to second-hand smoke may also develop reduced lung capacity and are at higher risk for sudden syndrome (SIDS). What happens if I keep smoking after my baby is born? If you continue to smoke after your baby is born, you increase his or her chance of developing certain illnesses and problems, such as: Frequent colds Bronchitis and pneumonia Asthma Chronic coughs Ear infections High blood pressure Learning and behavior problems later in childhood Why should I quit smoking? Smoking is the leading cause of preventable in the [place] By quitting you can: Prolong your life Lower your risk of heart disease Lower your risk of developing lung, throat, mouth, pancreatic and bladder cancer Lower your risk of developing breathing problems such as chronic obstructive pulmonary disease (COPD), asthma and emphysema Lower your risk of developing allergies Raise your energy level Improve your appearance; your skin will wrinkle less and look better, and your fingers and teeth will not be yellow Improve your sense of smell and taste Feel healthier overall, with improved self-esteem Save a lot of money (the average smoker spends $740 a year for cigarettes!) How can I quit smoking? There is no one way to quit smoking that works for everyone, since each person has different smoking habits. Here are some tips: Hide your matches, lighters, and ashtrays. Take a deep breath and hold it for five to ten seconds whenever you get the urge to smoke. Designate your home a non-smoking area. Ask people who smoke not to smoke around you. Drink less caffeinated beverages; caffeine may stimulate your urge to smoke. Also avoid alcohol, as it also may increase your urge to smoke and can be harmful to your baby. Change your habits connected with smoking. If you smoked while driving or when feeling stressed, try other activities to replace smoking. Keep mints or gum (preferably sugarless) on hand for those times when you get the urge to smoke. Stay active to keep your mind off smoking and help relieve tension: take a walk, exercise, read a book or try a new a hobby. Look for support from others. Join a support group or smoking cessation program, such as the [facility] Smoking Cessation Program. For more information, please call . Do not go places where many people are smoking such as bars or clubs, and smoking sections of restaurants. Should I use a nicotine replacement to help me quit? Nicotine gum and patches release nicotine into the bloodstream of the smoker who is trying to quit. Although these products can reduce withdrawal symptoms and decrease cravings in smokers who are trying to quit, nicotine is quite toxic and potentially harmful to the fetus (as well as to the infant who is ). Therefore, these and any other products containing nicotine are not always ecommended for the woman who is trying to quit smoking. They may be prescribed in indivdual cases. How will I feel when I quit? The benefits of not smoking start within days of quitting. After you quit, you and your baby's heart beat will return to normal, and your baby will be less likely to develop breathing problems. You may have symptoms of withdrawal because your body is used to nicotine, the addictive substance in cigarettes. You may crave cigarettes, be irritable, feel very hungry, cough often, get headaches or have difficulty concentrating. The withdrawal symptoms are only temporary. They are strongest when you first quit but will go away within 10 to 14 days. When withdrawal symptoms occur, stay in control. Think about your reasons for quitting. Remind yourself that these are signs that your body is healing and getting used to being without cigarettes. Remember that withdrawal symptoms are easier to treat than the major diseases that smoking can cause. Even after the withdrawal is over, expect periodic urges to smoke. However, these cravings are generally short-lived and will go away whether you smoke or not. Don't Smoke! If you smoke again (called a relapse) do not lose hope. Seventy-five percent of those who quit relapse. Most smokers quit three times before they are successful. If you relapse, don't give up! Plan ahead and think about what you will do next time you get the urge to smoke. (This information is provided by the [facility] and is not intended to replace the medical advice of your doctor or health care provider. Please consult your health care provider for advice about a specific medical condition. For additional written health information, please call the Cancer Answer Line at [facility] [place] Saturday - Saturday 8-4:30 for assistance: [phone]. Or visit [email or web address]/) MORNING SICKNESS IN by Skyla Fuentes M.D. for [employer] As you may already know, morning sickness can often be more appropriately called evening sickness or xjomj-jfxzxp-me-the-day sickness. While there are the keith few, most women (50-90%) experience some degree of nausea, some have vomiting, and a few develop a severe form of vomiting during called hyperemesis gravidarum. What causes the nausea and vomiting of ? We can't explain why some people feel fine and others are green for months. Even the same woman may feel vastly different in each . There is some relationship between nausea and the level of the hormone hCG. In twin pregnancies, and in other situations where the hCG is greater than expected, nausea and vomiting tend to be worse. In a destined for miscarriage, hCG levels tend to be low, and nausea is often less severe. This being said, a lack of nausea doesn't guarantee that the is destined for miscarriage. The fact that nausea and vomiting are often signs of a healthy can offer a silver lining in the dark cloud of miserable nausea. How long will the nausea last? Fortunately, for most women, nausea and vomiting are a first trimester event, peaking at week 9-10 and waning by week 14-16. When you are feeling bad the weeks can go by slowly but most moms do feel tremendously better by the middle of the . Whether morning sickness is a brief experience or lasts through most of the , there are treatments that can make the weeks or months more tolerable. What can you do about it? Diet: See what works for you. Try eating bland dry foods, and avoid fatty or spicy foods. It is okay to eat a less than perfectly balanced diet in the first trimester. Have your liquids separately from dry foods. Try sports drinks, water, clear juices, Adam-aid, or non-caffeinated tea. Avoid carbonated beverages that fill up your stomach. Try eating lots of little meals. If you tend to feel sick when you first wake up, leave crackers next to the bed for a quick snack before rising. Keeping healthy snacks with you all day to nibble when you feel queasy can sometimes even prevent nausea from starting. vitamins and nausea: Pre-mallory vitamins can sometimes worsen nausea in . While folate is necessary, especially early in the , it comes as a smaller pill that many people find more tolerable than the complete vitamin pill. Ask your practitioner if it is okay to temporarily replace vitamins and iron with just a folate pill if you find a significant worsening in the level of your nausea from the vitamins. Alternative therapies: Acupressure may be used to treat nausea in , and is not known to have any risks for the fetus. Wristbands (marketed for seasickness) that put pressure on an acupressure point at the wrist are often available at drugstores or travel stores. Brady root is used for nausea in many traditional cultures. Some women take fresh grated brady or brady tablets. It is possible that the pill form contains other ingredients or contaminants, so you may want to try fresh brady first. Medications: Emetrol is the only nausea medication approved for use in . It is available over the counter and is soothing to the stomach. A prescription medication called Bendectin was available in the -1979's and was shown to be safe in , but the company stopped marketing it in the [place] due to the costs of liability coverage. Bendectin contained 10 milligrams of vitamin B6 and 10 milligrams of Doxylamine. Two tablets were given at bedtime and a total of up to 4 tablets could be used in a 24-hour period. Interestingly, Unisom , which contains a higher dose (25 mg.) of the same medication, Doxylamine, is currently marketed as an zsoa-ycc-nupkqdf sleeping pill. Ask your practitioner if creating a vitamin B6/Doxylamine combination with cack-tcu-xclzwga medications would be safe for you. Prescription medications like Compazine and Phenergan can be used if the benefits outweigh possible risks, but these have not been clearly shown to be safe in . Zofran , an expensive anti-nausea medication often used to treat nausea from chemotherapy, can also be used. Can I throw up so much it harms the baby? The act of vomiting cannot hurt your fetus, which is protected inside the uterus. If you get dehydrated or develop a metabolic imbalance, this can be unhealthy. As long as you can keep down liquids, you and your baby will generally do all right. Eat when you feel able. If you are unable to keep anything down, or if you notice potential signs of dehydration such as lightheadedness, or concentrated and/or infrequent urination, call your practitioner. Some women need brief hospital admission for intravenous fluids and anti-nausea medications if their condition becomes severe. This severe form of nausea and vomiting is called Hyperemesis Gravidarum. As with many symptoms of , remind yourself that this, too, shall pass, and you'll have a wonderful baby to show for it! TREATMENT OPTIONS, SHORT VERSION: Frequent small meals Hydrate throughout day Sea-Bands wrist pressure point applicators Brady root (powdered, in capsules) 250mg four times a day Vitamin B6 25 mg tablet three times a day Also may be taken with half a tablet of Unisom three times a day (Doxylamine 12.5 mg) If severe (weight loss, dehydration), call us and come in for IV hydration and possible medication in the form of injections. Prescription medications such as Phenergan, Compazine, Reglan Here are some links for wonderful Providers here in the community and surrounding areas. Do not hesitate to contact their offices, many are offering virtual visits during this time. 1-614-9-DJVT7WEXP - [facility] Mental Health Hotline If you are in suicidal crisis, please call or text 2-575-438-TALK ( ) or visit the National Suicide Prevention Lifeline website. mchb.[facility].gov [facility] Behavioral Health Psychology, Psychiatry, Counseling Connect with therapist/ can do virtual visits [phone] Referral to the [facility] Women's Behavioral [facility] To schedule an appointment, please call the [place] for Behavioral Health Appointment Line: [phone] option 1 Counseling Center - [address] [place], [place] [id number] [address] [address] [facility] [address] [place] [address] [facility] [address] [place], [place] [id number] Nancy Zimmer MD [address] [place], [place] [id number] [facility] [address] [facility], [address] [place] [address] [facility] [address] [place] [address] [facility] Services [place] / Isabel [phone]/ [phone] Tomasz Rueda [address] [facility] [phone] [facility] Med[facility] Rachelle / Van [phone] Behavioral health services of [facility] [address] [place] [address]/ sylva and milton [phone] Teja Christine, PO, MARYSOL [facility] Workshops, telehealth and at home visits. [phone] [facility] counseling center 20 locations [place], [place], [place], [place], [place], [place], [place], [facility], [place], [place], [place], [place], [place], [place], [facility], [place], [place] ,[facility], [place], [place],[facility] [place], [place], [place], [facility], [place], [place] www.[facility] [phone] Psychotherapy resources outside of [facility] are listed below [facility] 10BestThings Psychotherapy Web: https://www.PrestoBox/ Support International Online Provider Directory https://FortaTrust/ [facility] https://UTOPY/ AVI Web Solutions Pvt. Ltd. for Behavioral Health and Wellness Web: https://Slanissue/ Go World! for Effective Living Web: https://Secure Command.Million Dollar EarthlivingWellcore / LifeStance Web: https://WinAd.MWM Media Workflow Management/location/ [facility]/[place]/ [facility] Web: https://www.Yaolan.compeak behavioral health services.o / [facility] Web: https://Aidin.org/ Recovery Resources Mental health and substance abuse help Web: https://www.OKKAMs.org & RESOURCES Support International Direct peer support and connection to professional resources Non-Emergency Helpline Phone: / Text: 352.547.9273 Web: https://www..net/ Online Provider Directory: https://FortaTrust/ Online Support Meetings: https://www..net/get-h elp/rez-hezkuk-bjgrkdv-meetings/ BERNARD Baby and Data Virtualization Consultant Services Web: https://www.Localsensor/ WeeWorld Expert information on medication use during and Text: 874.507.2704 Web: https://Limbo.Rockpack/ NATIONAL REGISTRY FOR PSYCHIATRIC MEDICATIONS Currently studying the safety of antidepressants, ADHD medications and atypical antipsychotics taken during TO PARTICIPATE CALL TOLL-FREE: Web: https://womenentalhealth.org/r esearch/pregnancyregistry/ Support Groups: [facility]- Follow on facebook Baby Bistro support group led by [facility] department Resilient Mamas - Support Group [facility].org The POEM support group [phone] Www.poemonline.org Follow on facebook - KARY aleman Online support meetings PSI https://www..net/get-h elp/cwg-gymxhr-kvffzsi-meetings/ [facility] mommy and me virtual support group 11:30-1pm Support for mothers and new babies and toddlers [place] childbirth education: Childbirth @cc.org or call [phone] CRISIS: CRISIS HOTLINE [phone], 911 or go to the nearest . [facility] [phone] / [facility] [phone] https://www.[facility].org Crisis text line text the word HOME to 234014 [facility] [address] [facility] [address] www.Triumfant.MWM Media Workflow Management Olga Marie clinical counseling [address] [address] www.Patient Education Systemshbritton.MWM Media Workflow Management [phone] Holding space psychotherapy Tarah Meneses CASH GRAIN FARMER RANCH HAND-S [address] [facility] www.Curiyo [phone]/ Reuben [phone] They all offer virtual. All work with trauma Support groups Online support meetings PSI https://www..net/get-h elp/yzz-mtguiq-aulmjag-meetings/ Here are the support groups they offer: Support of parents of 1 to 4 years old children POEM ( Outreach and Encouragement for Moms) offers free support for mothers experiencing depression, anxiety, and other mood and anxiety disorders. Masks are recommended but not required. No pre-registration required. Babies in arms welcome. meetings now take place on the and Saturday of each month Location: [facility] [address] [place] [address] Room 122 (library room) 7-8:00 p.m. When you enter the [facility] parking lot off of [address] the entrance door closest to our meeting room is on the front of the building toward the right. For those who are more comfortable with a virtual platform, POEM offers online support group options several days of the week. To register for an online group or to find out more about POEM, website at: https://aohio.org/get-help/genesee hospitalntgvh-pmicsb-tdxenw/poem-service s/ offer a confidential helpline: private Facebook group is called [facility] Here are the groups they offer: Traumatic childbirth resources: Http://pattch.org/ https://www.CIDCOcelesteNextreme Thermal SolutionspatriciaParaShoot.MWM Media Workflow Management/ documented in this encounter [facility] 01-27-2024 Note HNO ID: [id number] Author: MAURA REN LPN Service: ? Author Type: LICENSED NURSE Type: Progress Notes Filed: 01/27/2024 15:25 Note Text: OB point of care ultrasound was performed. See imaging tab for details. Maura Ren LPN [facility] 01-10-2024 Miscellaneous Notes Patient notified. Mulu Mcleod RN Quant increasing Give miscarriage and ectopic precautions Keep nob appointment 01/07/2024 HCG, Beta-Quantitative <5 mIU/mL 14,274 High 01/09/2024 HCG, Beta-Quantitative <5 mIU/mL 21,790 High Please review. Mulu Mcleod RN 01/07 HCG, Beta-Quantitative <5 mIU/mL 14,274 High Leave open for 01/09 hCG result Patient notified. Order faxed to [facility]. Please leave open for 01/07 and 01/09 hCG quants. Tari Toledo RN Order form to SW to sign. Will then fax and notify patient. Tari Toledo RN Ok for serial HCG quants Patient is . Lmp was 11/29/2023 and has new ob appointment on 01/27/2024. Patient has a h/o of 3 previous miscarriages and would like to have hcg quants drawn at in [place]. Patient is not having any vaginal bleeding or cramping currently. If ok, patient will need a lab order to faxed to outpatient lab in [place] documented in this encounter [facility] 12-11-2022 Miscellaneous Notes u/s read by DM now. Mulu Mcleod RN Patient had SIS on Thursday 12/07. Is on your schedule for read. Please let us know if there is a problem. Claudia Grace RN Dr. Johnson was assigned to read that on Saturday. Please follow up with SW about this read. SIS has not been read. documented in this encounter [facility] 12-07-2022 History of Presen t illness Narrative Tish John is a 22 year old here for SIS. Referred by: Jayoln Reid1 Breonna Funes [facility] [address] Chief Complaint: recurrent miscarriage Endometrial Biopsy: No Ultrasound: Yes Date 12/07/22 Results WNL Hormonal therapy: No. LMP: Patient's last menstrual period was 08/02/2022. Cycles: PERIOD REGULARITY: regular q 28-30 days Contraception: none HCG: negative UNIVERSAL PROTOCOL / SAFETY CHECKLIST Procedure to be Performed: SIS Sign In: A Moment of CARE was completed. Personnel directly involved with the procedure wore the appropriate PPE (Personal Protective Equipment). Patient/Surrogate Stated/Verified: PATIENT VERIFIED(optional for EMERGENT procedures): Patient name, Date of , Relevant allergies, and The intended procedure Time Out Communication: Intended patient and procedure match the source documents. Consent documented and matches the intended procedure. Sign Out: SIGN OUT (optional for EMERGENT procedures): No specimen collected. Martha Melo MD PROCEDURE: EXTERNAL GENITALIA: Normal in appearance without lesions VAGINA: Normal in appearance without lesions Speculum placed into the vagina with excellent visualization of the cervix. Anterior lip of cervix grasped with single toothed tenaculum. SIS catheter inserted into the uterus without difficulty. Speculum removed and 60mL sterile saline injected into the uterine cavity under ultrasound guidance. Procedure Summary: Patient tolerated procedure well. See ViewPoint for procedure results. Martha Melo MD documented in this encounter [facility] 09-11-2022 History of Presen t illness Narrative Tish John is a 22 year old female who presents for problem visit for f/u recurrent SABs. . HPI: 22-year-old female who has a history of 3 previous pregnancies. Her first was unplanned and was with a different partner. She had a miscarriage that was an embryonic and had medical for this. She then had a spontaneous miscarriage in 2020 and had a D&C. She has been actively attempting in the last couple months with the same partner from 2020. She had a positive hCG test, had a positive quant and then it rapidly decreased. She had a somewhat heavy menstrual flow. She denies any fevers or chills. She denies any heat or cold intolerance. OB History T0 L0 SAB2 IAB0 Ectopic0 Multiple0 Live Births0 Acquisition Manager History LMP: 08/02/2022, Having periods Age at Menarche: Age at First : Age at Menopause: Acquisition Manager History Comments: Sexual Activity: Yes; Male Contraception: No contraception data on record PAST MEDICAL HISTORY Diagnosis Date Asthma PAST SURGICAL HISTORY Procedure Laterality Date DILATION & CURETTAGE 03/10/2021 HYSTEROSCOPY, DIAGNOSTIC (SEPARATE 06/16/2021 symphion resectoscope used to resect retained POC's - & FAMILY HISTORY Problem Relation Age of Onset Heart Mother Heart Father No Known Problems Sister No Known Problems Sister No Known Problems Brother No Known Problems Brother No Known Problems Maternal Grandmother other (liver failure) Maternal Grandfather No Known Problems Paternal Grandmother Heart Paternal Grandfather Social History Tobacco Use Smoking status: Every Day Types: Cigarettes Smokeless tobacco: Never Vaping Use Vaping Use: Never used Substance Use Topics Alcohol use: Yes Comment: occasional Drug use: Not Currently Current Outpatient Medications Medication Sig PNV no.95/ferrous fum/folic ac ( ORAL) Take by mouth. loratadine (CLARITIN ORAL) Take by mouth. No current facility-administered medications for this visit. Allergies As of Date: 09/11/2022 (No Known Allergies) Fully Assessed 09/11/2022 Allergies and current medication updated:Yes EXAM: BP 114/66 Wt 157 lb 9.6 oz (71.5kg) LMP 08/02/2022 GENERAL: pleasant, female in no apparent distress ASSESSMENT AND PLAN: Recurrent spontaneous abortions. We discussed potential work-up for this. Patient had 2 and embryonic pregnancies. Thrombophilia would not be a cause of early miscarriages. Discussed with her that the most common explanation is unexplained, unfortunately. Recommend continue vitamin. No reason that she can attempt sooner rather than later and discussed with her there is not an associated risk of adverse outcome if she conceived sooner rather than later. Recommend continue vitamin. Discussed with her healthy lifestyle changes. No family history of genetic abnormalities. Labs ordered for work-up. Along with saline infusion ultrasound. Patient agrees with this plan. Call with positive test or follow-up after results. Medical Decision Making: Medical Decision Making Level: 1 - N/A Jaylon Ureña MD documented in this encounter [facility] 09-10-2022 Miscellaneous Notes Patient still has not been authorized for visit tomorrow. Referral was placed as annual. I have asked Sonia to place a new FC referral for f/u miscarriage. She will contact Keily Loredo to expediate 09/11/22 9:20 with KJ now on hold for patient once financially cleared. Mulu Mcleod RN Patient called back and needs to reschedule to a different day. Hold time on schedule deleted. She will call back if 09/[address] Ricketts works instead. Mulu Mcleod RN Patient notified. Appointment time on hold because patient needs referral. Dr. Ricketts 09/11 @ 2:50 PM PSS- Please place referral to follow up with KJ for miscarriage. Thank you. Left message to call office. Claudia Grace RN Please notify pt of negative HCG quant To schedule follow up appointment to discuss SAB Please review hcg quant result in GENO's absence. hCG Quantitative, Blood (mIU/mL) Date Value 09/05/2022 2.5 09/03/2022 11.6 Mulu Mcleod RN Leave open for 09/05/22 hcg quant result. Mulu Mcleod RN ordered Patient to have HCG done today. Can you please file in GENO's absence. Thank you. Tari Toledo RN Patient notified. Please file pending HCG lab order. hCG Quantitative, Blood (mIU/mL) Date Value 09/03/2022 11.6 Please leave phone note open for 09/05 HCG and have provider workday consultant review. ----- Message from Naz Kern APRN.CNM sent at 09/04/2022 10:03 AM EDT ----- Repeat serum quant 2 days after last draw. Please follow up with workday consultant provider with second result. Thank you, Naz Kern APRN.CNM documented in this encounter [facility] 09-03-2022 Miscellaneous Notes Patient notified. Mulu Mcleod RN Serum quant and type and screen. Will follow up after results. Thank you, Naz Kern APRN.CNM LMP 08/02 Approximately 4w4d Took two positive test last week. Patient started bleeding last night. Heavier flow. Needed to change her pad last night and again this morning. Pads have not been saturated. States she feels like she passes more blood on the toilet. Denies blood clots or what looks to be tissue. Cramping is a 3 out of 10. Patient has a history of missed AB. Last one in May. Transferred care from . Would you like patient to have HCG levels done? Tari Toledo RN documented in this encounter [facility] 08-24-2022 History of Presen t illness Narrative Tish is a 22 year old who presents for an annual gynecologic exam. Menses: cycles every 28-30 days and 4-6 days of flow. Contraception: none HPV vaccine: No Last Pap: never OB History T0 L0 SAB2 IAB0 Ectopic0 Multiple0 Live Births0 Acquisition Manager History LMP: 08/02/2022, Having periods Age at Menarche: Age at First : Age at Menopause: Acquisition Manager History Comments: Sexual Activity: Yes; Male Contraception: No contraception data on record PAST MEDICAL HISTORY Diagnosis Date Asthma PAST SURGICAL HISTORY Procedure Laterality Date DILATION & CURETTAGE 03/10/2021 HYSTEROSCOPY, DIAGNOSTIC (SEPARATE 06/16/2021 symphion resectoscope used to resect retained POC's - & FAMILY HISTORY Problem Relation Age of Onset Heart Mother Heart Father No Known Problems Sister No Known Problems Sister No Known Problems Brother No Known Problems Brother No Known Problems Maternal Grandmother other (liver failure) Maternal Grandfather No Known Problems Paternal Grandmother Heart Paternal Grandfather SOCIAL HISTORY Social History Tobacco Use Smoking status: Every Day Types: Cigarettes Smokeless tobacco: Never Vaping Use Vaping Use: Never used Substance Use Topics Alcohol use: Yes Comment: occasional Drug use: Not Currently REVIEW OF SYSTEMS Abdomen: No abdominal pain, nausea, vomiting, diarrhea, or constipation. No bloating, early satiety, indigestion, or increased flatulence. Bladder: No dysuria, gross hematuria, urinary frequency, urinary urgency, or incontinence. Breast: No breast lumps, nipple d/c, overlying skin changes, redness or skin retraction. Allergies and current medication updated:Yes EXAM: BP 98/68 Ht 5' 2.795 (1.60m) Wt 156 lb (70.8kg) LMP 08/02/2022 BMI 27.81 kg/(m^2). GENERAL: pleasant, female in no apparent distress BREAST: soft, non-tender, symmetric, no dominant mass, normal nipple-areolar complex, no lymphadenopathy, and no nipple discharge CHEST: Normal inspiratory effort ABDOMEN: soft, non-tender, and no masses PELVIC: external genitalia normal, normal Bartholin's glands, urethra, Murchison's glands, no vulvar lesions, no cervical lesions, good vaginal support, physiologic discharge present, normal appearing perineal body and perianal region BIMANUAL: uterus normal size, shape and consistency, no adnexal masses, and non-tender RECTOVAGINAL: deferred. NEURO: alert and oriented x3,exam grossly non-focal EXTREMITIES: normal ASSESSMENT/PLAN: 1) Health maintenance: Pap done with reflex HPV. Nutrition, exercise and routine health maintenance exams reviewed. HPV vaccine: discussed, not interested 2) Contraception: none. Advised on preconception folic acid. 3) STD screening: Accepted STD check for Gonorrhea and Chlamydia with trich. 4) Follow up one year or sooner as needed Imelda Ricketts MD documented in this encounter [facility] 06-16-2021 Note Post Operative Note: PreOp Diagnosis: retianed products of conception Post-Procedure Diagnosis: same Procedure: 1. Operative hysteroscopy for retained products of conception 2. 3. 4. 5. Surgeon: Dr. Wood Resident/Fellow/Other Co Founder And Cto: Luciana PGY 7 Anesthesia: general I.V. Fluids: 1.2 L Estimated Blood Loss (mL): 10 cc Specimen: yes. products of conception Complications: none Findings: Bilateral ostia visualized, fundus with retained products of conception visualized extending from left to right ostia. Operative Report Dictated: Dictation: not applicable - note contains Operative Report Operative Report: Procedure: Patient was taken back to the operating room where general anesthesia was administered without difficulty. She was prepped and draped in the usual sterile fashion with skye type stirrups. Attention was brought to the lower pelvis where a speculum was placed within the vaginal canal and the cervix was visualized. A single tooth tenaculum was placed on the anterior lip of the cervix. 15 cc of Vasopressin was injected paracervically to reduce intraoperative bleeding. The cervix was then serially dilated to accommodate the symphion hysteroscope. This was then inserted into the uterine cavity using normal saline as a distension medium. The above noted findings were visualized Using the symphion resection device the retained products of conception tissue was serially resected until satisfactorily removed. Excellent hemostasis was then noted. Hysteroscope was removed from the uterine cavity without complication or issue. Tenaculum and speculum were removed. Excellent hemostasis was noted. Patient tolerated the procedure well. Patient was wearing SCD compression stockings for the duration of the procedure. All counts were correct x 2. Doxycycline was given prior to the start of the procedure. Dr. Wood was present for the entire procedure. Eloina Chowdhury MD Reproductive Endocrinology & Infertility Fellow [facility] Attestation: Note Completion: I am a:Resident/Fellow Attending AttestationI was present for the entire procedure Electronic Signatures: Eloina Chowdhury ( (Fellow)) (Signed 16-Jun-2021 14:51) Authored: Post Operative Note, Note Completion Liliam Wood) (Signed 16-Jun-2021 19:36) Authored: Note Completion Co-Signer: Post Operative Note, Note Completion Last Updated: 16-Jun-2021 19:36 by Liliam Wood) [facility] 06-16-2021 Note History of Present I llness: /Lactating: Are You no Are You Currently Breastfeedingno History Present Illness: Reason for surgery: c/f AVM HPI: 21 yo presents for hysteroscopy with possible resection of AVM. Patient is s/p dilation and curettage in February 2021 for missed AB @ 6.5 wga now with persistent vaginal bleeding concerning for retained products of conception vs. concern for arteriovenous malformation on imaging. Labs 06/13/21 WBC 11.6, Hgb 13.0, HCT 39.0 Cr 0.67, HCG 16 (negative) UA notable for trace ketones and blood, otherwise unremarkable COVID neg T&S A POS CT ABD/PELVIS: Within the endometrial cavity there is heterogeneous hyperdense fluid which extends to the endocervical canal. There are serpiginous areas of high attenuation within the fundal endometrial cavity appear to arise from the myometrium. In addition there are ill-defined areas of high attenuation in the lower uterine segment as described above. This corresponds to finding on recent ultrasound. Given history of prior instrumentation ,these findings are highly concerning for vascular malformation with active contrast extravasation. Gynecological consultation is recommended. There is a small amount of free fluid in the pelvis which measures higher than simple fluid attenuation and may relate to hemorrhagic/proteinaceous content. TVUS: Echogenic masslike structure in the fundal endometrial canal measuring 3.2 x 2.2 x 2 cm. Hypervascularity within the uterine fundus, extending to the structure. Differential considerations include endometrial polyp (with a questionable vascular pedicle), submucosal fibroid less likely endometrial malignancy. Given the patient's history of prior D and C, a myometrial vascular malformation and endometrial hematoma should also be considered. Acquisition Manager follow-up is recommended and further imaging pelvic MRI and/or sonohysterogram may be considered. Unremarkable appearance of the ovaries. Small amount of simple nonspecific free pelvic fluid. PMHx: seasonal allergies - claritin daily, anxiety, depression PSHx: none GYNHx: no pap yet, menarche at age 10, cycles approximately 24 days with 5 days of moderate vaginal bleeding, uses condoms for contraception, no h/o STIs OBHx: , as above (SAB x2) SocHx: occasional alcohol use (socially 1x month), no drug use, smokes cigarettes daily FamHx: heart disease Allergies: Allergies: No Known Allergies: Home Medication Review: Home Medications Reviewed: yes Impression/Procedure: Impression and Planned Procedure: operative hysteroscopy ERAS (Enhanced Recovery After Surgery): ERAS Patient: yes CPM/PAT Utilization: no Immunonutrition Recovery Drink Utilization: no Carbohydrate Supplement Drink Utilization: no Review of Systems: Review of Systems: All Other Systems: All other systems reviewed and are negative Physical Exam by System: Constitutional: Well developed, awake/alert/oriented x3, no distress, alert and cooperative Eyes: PERRL, EOMI, clear sclera ENMT: MMM Head/Neck: NCAT Respiratory/Thorax: normal respiratory effort Cardiovascular: RRR Musculoskeletal: FROM all extremities Extremities: no LE edema or calf tenderness Neurological: grossly intact Psychological: appropriate mood and affect Skin: Warm and dry, no lesions, no rashes Consent: COVID-19 Consent: COVID-19 Risk ConsentSurgeon has reviewed adrian risks related to the risk of brent COVID-19 and if they contract COVID-19 what the risks are. Attestation: Note Completion: I am a: Resident/Fellow Attending AttestationI saw and evaluated the patient. I personally obtained the adrian and critical portions of the history and physical exam or was physically present for adrian and critical portions performed by the resident/fellow. I reviewed the resident/fellows documentation and discussed the patient with the resident/fellow. I agree with the resident/fellows medical decision making as documented in the note. I personally evaluated the patient [id number] Electronic Signatures: Alyson Mcfarland (Fellow)) (Signed 15-Jun-2021 14:10) Authored: History of Present Illness, Allergies, Home Medication Review, Impression/Procedure, ERAS, Review of Systems, Physical Exam, Consent, Note Completion Liliam Wood) (Signed 16-Jun-2021 19:31) Authored: Note Completion Co-Signer: History of Present Illness, Allergies, Home Medication Review, Impression/Procedure, ERAS, Review of Systems, Physical Exam, Consent, Note Completion Last Updated: 16-Jun-2021 19:31 by Liliam Wood) [facility] Evaluation note Psychological: appro priate mood and affectMusculoskeletal: Normal extremitiesNeurological: no gross focal deficitsGastrointestinal: soft, non tender non distendedCardiovascular: warm and well perfusedRespiratory/Thorax: Normal respiratory effort on room airHead/Neck: Neck suppleSkin: warm and dryConstitutional: Comfortable appearing, no distress [facility] Evaluation note Diagnosis Encounter for gynecological examination without abnormal finding- Primary Routine gynecological examination Encounter for screening for malignant neoplasm of cervix Screening for malignant neoplasm of the cervix Screen for STD (sexually transmitted disease) Screening examination for venereal disease [facility] Encounter for test, result positive- Primary examination or test, positive result [facility] Diagnosis Bleeding in early - Primary Unspecified hemorrhage in early , unspecified as to episode of care [facility] Diagnosis History of recurrent spontaneous , not currently - Primary Unspecified spontaneous without mention of complication Encounter for preconception consultation Other procreative management counseling and advice [facility] Diagnosis History of recurrent spontaneous , not currently Unspecified spontaneous without mention of complication [facility] Diagnosis Recurrent loss without current - Primary [facility] Diagnosis Encounter for supervision of other normal in first trimester- Primary 8 weeks gestation of state, incidental with uncertain dates in first trimester Nausea/vomiting in Unspecified vomiting of , unspecified as to episode of care History of anxiety Personal history of other mental disorder Recurrent loss Obesity affecting in first trimester, unspecified obesity type Current every day vaping [facility] Diagnosis with uncertain dates in first trimester- Primary [facility] Diagnosis Encounter for supervision of other normal in first trimester- Primary 12 weeks gestation of state, incidental Encounter for screening of mother Unspecified screening [facility] Diagnosis Encounter for (NT) nuchal translucency scan- Primary Other specified screening 12 weeks gestation of state, incidental [facility] Diagnosis Tension headache- Primary [facility] Diagnosis 16 weeks gestation of - Primary state, incidental Encounter for supervision of other normal in first trimester Migraine headaches Current every day vaping [facility] Diagnosis Supervision of high risk in second trimester- Primary Unspecified high-risk 20 weeks gestation of state, incidental Obesity affecting in second trimester, unspecified obesity type [facility] Diagnosis Encounter for anatomic survey- Primary Encounter for screening of mother Unspecified screening 20 weeks gestation of state, incidental Obesity affecting in second trimester, unspecified obesity type [facility] Diagnosis Supervision of high risk in second trimester- Primary Unspecified high-risk Obesity affecting in second trimester, unspecified obesity type 24 weeks gestation of state, incidental [facility] Diagnosis 26 weeks gestation of - Primary state, incidental Supervision of high risk in second trimester Unspecified high-risk Obesity affecting in second trimester, unspecified obesity type [facility] Diagnosis Supervision of high risk in second trimester- Primary Unspecified high-risk Obesity affecting in second trimester, unspecified obesity type 28 weeks gestation of state, incidental Need for vaccination Need for prophylactic vaccination and inoculation against unspecified single disease [facility] Diagnosis Supervision of high risk in third trimester- Primary Unspecified high-risk Obesity affecting in third trimester, unspecified obesity type 30 weeks gestation of state, incidental Nausea/vomiting in Unspecified vomiting of , unspecified as to episode of care Current every day vaping [facility] Diagnosis Supervision of high risk in third trimester- Primary Unspecified high-risk 32 weeks gestation of state, incidental Obesity affecting in third trimester, unspecified obesity type Current every day vaping History of anxiety Personal history of other mental disorder [facility] Diagnosis 34 weeks gestation of - Primary state, incidental Supervision of high risk in third trimester Unspecified high-risk Obesity affecting in third trimester, unspecified obesity type Current every day vaping History of anxiety Personal history of other mental disorder [facility] Diagnosis 36 weeks gestation of - Primary state, incidental Supervision of high risk in third trimester Unspecified high-risk Need for influenza vaccination Need for prophylactic vaccination and inoculation against influenza documented in this encounter [facility] note* Diagnosis Supervision of high risk in third trimester- Primary Unspecified high-risk 37 weeks gestation of state, incidental [facility] Diagnosis 38 weeks gestation of - Primary state, incidental Supervision of high risk in third trimester Unspecified high-risk [facility] Diagnosis Supervision of high risk in third trimester- Primary Unspecified high-risk Obesity affecting in third trimester, unspecified obesity type 39 weeks gestation of state, incidental [facility] Diagnosis Obesity affecting in third trimester, unspecified obesity type- Primary 40 weeks gestation of state, incidental Supervision of high risk in third trimester Unspecified high-risk [facility] Activity:activity as tolerated. May shower. May drive. Other activity instructions: Pelvic rest until you have had your operation. * Additional Orders:Additional Instructions: Take IBUprofen as needed for cramping. * Call Provider If:Breathing faster than normal. Fever of 100.4 F (38 C) or higher. Temperature is greater than 102 degrees. Chills. Urinating less than normal, over 1 day. Acting very sleepy and difficult to awaken. Vomiting (throwing up) and not able to eat or drink for 12 hours. Any new concerning symptoms. If you are having vaginal bleeding soaking through 1-2pads an hour for 2 consecutive hours, please call your Ob provider or go to the ED. If you have dizziness, lightheadedness, palpitations, please call your OB provider or go to the ED. * Follow Up Appointment 1:Physician/Dept/Service: Dr. Liliam Restrepo to Schedule in: 2-3 daysLocation[facility]: [phone]: Someone from Dr. Wood's office should call you to help coordinate follow up. If you do not hear from them, please call their office. * Gold Form - Other Clinicians:Nursing Instructions: Call your MANAGER GLOBAL COMMUNICATIONS care provider for fever/chills. Nausea/vomiting. Increased pain. Bright red heavy vaginal bleeding. Incisional redness/drainage/swelling. Severe constipation/diarrhea. Difficulty or burning with urination.Other Clinician Instructions:A few days after your discharge, one of our care coordinators will be calling you to see how thingshave been going at home. This phone call also gives you the opportunity to clarify any information on your discharge instructions or ask any questions that may have come up since leaving the hospital. [facility] Diagnostic Procedure Only (Routine) - Pending Review Specialty Diagnoses / Procedures Referred By Christian burger Referred To Contact [facility] Diagnoses History of recurrent spontaneous , not currently Procedures SONOHYSTEROGRAPHY (SIS) US WHI SALINE INFUS SONOHYSTEROGRAPHY W/COLOR DOPPLER Jaylon Ureña MD [address] [place] [address] [facility] [place] [address] Referral ID Status Reason Start Date Expiration Date Visits Requested Visits Authorized [id number] Pending Review Auto-Generat ed Referral 2 09/11/2023 1 1 [facility] for referral (narrative)* Diagnostic Procedure Only (Routine) - Authorized Specialty Diagnoses / Procedures Referred By Christian burger Referred To Contact [facility] Diagnoses Encounter for supervision of other normal in first trimester 8 weeks gestation of Procedures NUCHAL TRANSLUCENCY WHI US NUCHAL TRANSLUCENCY 1ST GESTATION Debo Alicea APRN.PROTOTYPE MODEL MAKER [address] [address] [facility] [address] [email or web address] [address] Referral ID Status Reason Start Date Expiration Date Visits Requested Visits Authorized [id number] Authorized Auto-Generat ed Referral 01/27/2024 01/26/2025 1 1 [facility] for referral (narrative)* Diagnostic Procedure Only (Routine) - Pending Review Specialty Diagnoses / Procedures Referred By Christian t Referred To Contact [facility] Diagnoses 12 weeks gestation of Encounter for screening of mother Encounter for supervision of other normal in first trimester Procedures OBSTETRIC ULTRASOUND WHI US PREG UTERUS AFTER 1ST TRIMEST GESTATION Jaylon Ureña MD [address] [place] [address] [facility] [address] [place] [address] Referral ID Status Reason Start Date Expiration Date Visits Requested Visits Authorized [id number] Pending Review Auto-Generat ed Referral 02/24/2024 02/23/2025 1 1 [facility] for visit Narrative* Diagnostic Procedure Only (Routine) - Closed Specialty Diagnoses / Procedures Referred By Christian burger Referred To Contact [facility] Diagnoses Recurrent loss sis Procedures HYSTEROSONOGRAPHY SALINE INFUS SONOHYSTEROGRAPHY W/COLOR DOPPLER Jaylon Ureña MD [address] [place] [address] [facility] [address] [place] [address] Referral ID Status Reason Start Date Expiration Date V isits Requested Visits Authorized [id number] Closed OON/Self Pay Override 11/18/2022 11/17/2023 1 1 [facility] Summary Purpose Family History No Family History Records FoundUnknown Family Member Name Dates Details Family history of cardiac di sorder: Mother, Father(V17.49, Z82.49) Status:Active Anxiety: Mother Status:Active Family history of depression : Mother(V17.0, Z81.8) Status:Active Unknown Family Member Name Dates Details Family history of depression : Mother(V17.0, Z81.8) Status:Active Anxiety: Mother Status:Active Family history of cardiac di sorder: Mother, Father(V17.49, Z82.49) Status:Active Unknown Family Member Name Dates Details Family history of cardiac di sorder: Mother, Father(V17.49, Z82.49) Status:Active Anxiety: Mother Status:Active Family history of depression : Mother(V17.0, Z81.8) Status:Active Advance Directives No Advanced Directives Records FoundNo Advanced Directives Records FoundNo Advanced Directives Records FoundNo Advanced Directives Records FoundNo Advanced Directives Records FoundNo Advanced Directives Records FoundNo Advanced Directives Records Found Medications Administered Section Administered Medications Medication Order MAR Action Action Date Dose Rate Site PPD (Mantoux) Given 09/02/2019 0.1 mL PPD (Mantoux) Intradermal Given 09/02/2019 Left Lower Fore arm Health Concerns Active Problems Noted Date Diagnosed Date [facility] Education - [facility] 01/27/2024 [place] - [place] 01/27/2024 Active Problems Noted Date Diagnosed Date [facility] - [facility] 01/27/2024 [place] - [place] 01/27/2024 Active Problems Noted Date Diagnosed Date [facility] - [facility] 01/27/2024 [place] - [place] 01/27/2024 Active Problems Noted Date Diagnosed Date [facility] - [facility] 01/27/2024 [place] - [place] 01/27/2024 Additional Source Comments INFORMATION SOURCE (unrecogn ized section and content) DATE CREATED AUTHOR 05/13/2018 [facility] DATE CREATED AUTHOR AUTHOR'S ORGANIZ ATION 03/26/2021 [facility] DATE CREATED AUTHOR AUTHOR'S ORGANIZ ATION 11/09/2021 [facility] DATE CREATED AUTHOR AUTHOR'S ORGANIZ ATION 02/07/2023 [facility] DATE CREATED AUTHOR AUTHOR'S ORGANIZ ATION 05/18/2023 [facility] DATE CREATED AUTHOR AUTHOR'S ORGANIZ ATION 09/05/2024 [facility] DATE CREATED AUTHOR AUTHOR'S ORGANIZ ATION 09/08/2024 [facility] <item><item> Privacy Markings (unrecogniz ed section and content) Section Author: Kathleen Morrow PROHIBITION ON REDISCLOSURE OF CONFIDENTIAL INFORMATION This notice accompanies a disclosure of information concerning a client made to you with the consent of such client. Section Author: Kathleen Morrow PROHIBITION ON REDISCLOSURE OF CONFIDENTIAL INFORMATION This notice accompanies a disclosure of information concerning a client made to you with the consent of such client. Source Comments (unrecognize d section and content) In the event this informatio n is protected by the Federal Confidentiality of Alcohol and Drug Abuse Patient Records regulations: The Federal rules restrict any use of the information to criminally investigate or prosecute any alcohol or drug abuse patient.[facility] the event this information is protected by the Federal Confidentiality of Alcohol and Drug Abuse Patient Records regulations: The Federal rules restrict any use of the information to criminally investigate or prosecute any alcohol or drug abuse patient.[facility] the event this information is protected by the Federal Confidentiality of Alcohol and Drug Abuse Patient Records regulations: The Federal rules restrict any use of the information to criminally investigate or prosecute any alcohol or drug abuse patient.[facility] the event this information is protected by the Federal Confidentiality of Alcohol and Drug Abuse Patient Records regulations: The Federal rules restrict any use of the information to criminally investigate or prosecute any alcohol or drug abuse patient.[facility] the event this information is protected by the Federal Confidentiality of Alcohol and Drug Abuse Patient Records regulations: The Federal rules restrict any use of the information to criminally investigate or prosecute any alcohol or drug abuse patient.[facility] the event this information is protected by the Federal Confidentiality of Alcohol and Drug Abuse Patient Records regulations: The Federal rules restrict any use of the information to criminally investigate or prosecute any alcohol or drug abuse patient.[facility] the event this information is protected by the Federal Confidentiality of Alcohol and Drug Abuse Patient Records regulations: The Federal rules restrict any use of the information to criminally investigate or prosecute any alcohol or drug abuse patient.[facility] the event this information is protected by the Federal Confidentiality of Alcohol and Drug Abuse Patient Records regulations: The Federal rules restrict any use of the information to criminally investigate or prosecute any alcohol or drug abuse patient.[facility] the event this information is protected by the Federal Confidentiality of Alcohol and Drug Abuse Patient Records regulations: The Federal rules restrict any use of the information to criminally investigate or prosecute any alcohol or drug abuse patient.[facility] the event this information is protected by the Federal Confidentiality of Alcohol and Drug Abuse Patient Records regulations: The Federal rules restrict any use of the information to criminally investigate or prosecute any alcohol or drug abuse patient.[facility] the event this information is protected by the Federal Confidentiality of Alcohol and Drug Abuse Patient Records regulations: The Federal rules restrict any use of the information to criminally investigate or prosecute any alcohol or drug abuse patient.[facility] the event this information is protected by the Federal Confidentiality of Alcohol and Drug Abuse Patient Records regulations: The Federal rules restrict any use of the information to criminally investigate or prosecute any alcohol or drug abuse patient.[facility] the event this information is protected by the Federal Confidentiality of Alcohol and Drug Abuse Patient Records regulations: The Federal rules restrict any use of the information to criminally investigate or prosecute any alcohol or drug abuse patient.[facility] the event this information is protected by the Federal Confidentiality of Alcohol and Drug Abuse Patient Records regulations: The Federal rules restrict any use of the information to criminally investigate or prosecute any alcohol or drug abuse patient.[facility] the event this information is protected by the Federal Confidentiality of Alcohol and Drug Abuse Patient Records regulations: The Federal rules restrict any use of the information to criminally investigate or prosecute any alcohol or drug abuse patient.[facility] Memorial[facility] the event this information is protected by the Federal Confidentiality of Alcohol and Drug Abuse Patient Records regulations: The Federal rules restrict any use of the information to criminally investigate or prosecute any alcohol or drug abuse patient.[facility] the event this information is protected by the Federal Confidentiality of Alcohol and Drug Abuse Patient Records regulations: The Federal rules restrict any use of the information to criminally investigate or prosecute any alcohol or drug abuse patient.[facility] the event this information is protected by the Federal Confidentiality of Alcohol and Drug Abuse Patient Records regulations: The Federal rules restrict any use of the information to criminally investigate or prosecute any alcohol or drug abuse patient.[facility] Memorial[facility] the event this information is protected by the Federal Confidentiality of Alcohol and Drug Abuse Patient Records regulations: The Federal rules restrict any use of the information to criminally investigate or prosecute any alcohol or drug abuse patient.[facility] the event this information is protected by the Federal Confidentiality of Alcohol and Drug Abuse Patient Records regulations: The Federal rules restrict any use of the information to criminally investigate or prosecute any alcohol or drug abuse patient.[facility] the event this information is protected by the Federal Confidentiality of Alcohol and Drug Abuse Patient Records regulations: The Federal rules restrict any use of the information to criminally investigate or prosecute any alcohol or drug abuse patient.[facility] the event this information is protected by the Federal Confidentiality of Alcohol and Drug Abuse Patient Records regulations: The Federal rules restrict any use of the information to criminally investigate or prosecute any alcohol or drug abuse patient.[facility] the event this information is protected by the Federal Confidentiality of Alcohol and Drug Abuse Patient Records regulations: The Federal rules restrict any use of the information to criminally investigate or prosecute any alcohol or drug abuse patient.[facility] MemorialIn the event this information is protected by the Federal Confidentiality of Alcohol and Drug Abuse Patient Records regulations: The Federal rules restrict any use of the information to criminally investigate or prosecute any alcohol or drug abuse patient.[facility] MemorialIn the event this information is protected by the Federal Confidentiality of Alcohol and Drug Abuse Patient Records regulations: The Federal rules restrict any use of the information to criminally investigate or prosecute any alcohol or drug abuse patient.[facility] MemorialIn the event this information is protected by the Federal Confidentiality of Alcohol and Drug Abuse Patient Records regulations: The Federal rules restrict any use of the information to criminally investigate or prosecute any alcohol or drug abuse patient.[facility] MemorialIn the event this information is protected by the Federal Confidentiality of Alcohol and Drug Abuse Patient Records regulations: The Federal rules restrict any use of the information to criminally investigate or prosecute any alcohol or drug abuse patient.[facility] MemorialIn the event this information is protected by the Federal Confidentiality of Alcohol and Drug Abuse Patient Records regulations: The Federal rules restrict any use of the information to criminally investigate or prosecute any alcohol or drug abuse patient.[facility] MemorialIn the event this information is protected by the Federal Confidentiality of Alcohol and Drug Abuse Patient Records regulations: The Federal rules restrict any use of the information to criminally investigate or prosecute any alcohol or drug abuse patient.[facility] MemorialIn the event this information is protected by the Federal Confidentiality of Alcohol and Drug Abuse Patient Records regulations: The Federal rules restrict any use of the information to criminally investigate or prosecute any alcohol or drug abuse patient.[facility] Reason for Visit (unrecogniz ed section and content) Reason Onset Date Comments Yearly Exam 08/24/2022 Specialty Diagnoses / Procedures Referred By Contac t Referred To Contact [facility] Diagnoses Women's annual routine gynecological examination ANNUAL Procedures WELLNESS EXAMS EST 18-39 YRS ANNUAL Imelda Ricketts MD [address] [place] [address] Imelda Ricketts MD [address] [place] [address] Referral ID Status Reason Start Date Expiration Date V isits Requested Visits Authorized [id number] Closed OON/Self Pay Override 08/10/2022 11/17/2022 1 1 Reason Comments Early OB Bleeding Reason Comments Results HCG Reason Comments Follow Up miscarriage Specialty Diagnoses / Procedures Referred By Contac t Referred To Contact [facility] Diagnoses Annual Procedures WELLNESS EXAMS EST 18-39 YRS Annual Imelda Ricketts MD [address] [place] [address] [employer] [address] [place] [address] Referral ID Status Reason Start Date Expiration Date V isits Requested Visits Authorized [id number] Closed OON/Self Pay Override 09/11/2022 11/17/2022 1 1 Reason Comments [employer] Ultrasound Specialty Diagnoses / Procedures Referred By Contac t Referred To Contact [facility] Diagnoses Recurrent loss SIS Procedures SALINE INFUS SONOHYSTEROGRAPHY W/COLOR DOPPLER SIS Martha Dickson MD [address] [place] [address] [employer] [address] [place] [address] Referral ID Status Reason Start Date Expiration Date V isits Requested Visits Authorized [id number] Closed OON/Self Pay Override 12/05/2022 11/17/2023 1 1 Reason Comments Care Reason Comments Initial OB Visit Reason Comments US Specialty Diagnoses / Procedures Referred By Contac t Referred To Contact [facility] Diagnoses Encounter for supervision of other normal in first trimester 8 weeks gestation of Procedures NUCHAL TRANSLUCENCY WHI US NUCHAL TRANSLUCENCY 1ST GESTATION Debo Alicea APRN.PROTOTYPE MODEL MAKER [address] [place] [address] [facility] [address] [place] [address] Referral ID Status Reason Start Date Expiration Date V isits Requested Visits Authorized [id number] Closed Auto-Generate d Referral 01/27/2024 01/26/2025 1 1 Reason Comments OB HOYOS Reason Onset Date Comments Care 03/23/2024 Reason Onset Date Comments Care 04/20/2024 Specialty Diagnoses / Procedures Referred By Contac t Referred To Contact [facility] Diagnoses 12 weeks gestation of Encounter for screening of mother Encounter for supervision of other normal in first trimester Procedures OBSTETRIC ULTRASOUND WHI US PREG UTERUS AFTER 1ST TRIMEST GESTATION Jaylon Ureña MD [address] [place] [address] [facility] [address] [place] [address] Referral ID Status Reason Start Date Expiration Date V isits Requested Visits Authorized [id number] Closed Auto-Generate d Referral 04/20/2024 11/17/2024 1 1 Reason Onset Date Comments Care 05/18/2024 Reason Comments Breast pump Reason Onset Date Comments Care 06/04/2024 Reason Onset Date Comments Care 06/15/2024 Reason Onset Date Comments Care 06/29/2024 Reason Onset Date Comments Care 07/13/2024 Reason Onset Date Comments Care 07/27/2024 Reason Onset Date Comments Care 08/10/2024 Immunizations 08/10/2024 Flu vaccination Reason Onset Date Comments Care 08/17/2024 Reason Onset Date Comments Population Health Navigation Outreach 08/21/2024 Ob.peds Reason Onset Date Comments Care 08/24/2024 Reason Onset Date Comments Care 08/31/2024 Reason Onset Date Comments Care 09/07/2024 FOR RECORDS PERTAINING TO PATIENTS WHO ARE OR HAVE BEEN ENROLLED IN A CHEMICAL DEPENDENCY/SUBSTANCEABUSE PROGRAM, SOME INFORMATION MAY BE OMITTED. This clinical summary was aggregated from multiple sources. Caution should be exercised in using it in the provision of clinical care. This summary normalizes information from multiple sources, and as a consequence, information in this document may materially change the coding, format and clinical context of patient data. In addition, data may be omitted in some cases. CLINICAL DECISIONS SHOULD BE BASED ON THE PRIMARY CLINICAL RECORDS. [facility] [employer] provides no warranty or guarantee of the accuracy or completeness of information in this document.
--- OUTSIDE RECORDS SUMMARY | 2024-09-11 07:15 | XMS RPT_ITS | CCD ---
Author Organization [facility] Care Team Providers Care Heavy Media Operator Name Role Phone COLEMAN, FARA L Unavailable [...] Provider Unavailabl e HAURY, DEBO Referring Unavailable MOINKA JOEL Attending Unavailable ADELITA, JAYLON L Attending [...] Attending Unavailable NAZ KERN Attending Unavailable SHAYYWELL, ABIILO Attending Unavailable Allergies Allergy Classification Reported Allergen(s) Allergy Type Date of Onset Reaction(s) Facility (1 source) ALLERGIES NOT ON FILE; Translations: [ALLERGIES NOT ON FILE] Propensity to adverse reactions (disorder) [facility] Medications Current Medications Medication Drug Class(es) Dates Sig (Normalized) Sig (Original) [id number] 200 actuat albuterol 0.09 mg/actuat metered dose [...] 4 Glucose Ql (U) Negative Neg mg/dL [facility] Interpretation and review of laboratory results Normal [facility] Protein.monoclonal (U) [Mass/Vol] Negative Neg mg/dL [facility] URINE OB DIP B/Oon 4 Glucose Ql (U) Negative Neg mg/dL [facility] Interpretation and review of laboratory results Normal [facility] Protein.monoclonal (U) [Mass/Vol] Negative Neg mg/dL [facility] URINE OB DIP B/OOrdered By: Yen Richards on 08-17-2024 Glucose Ql (U) Negative Neg mg/dL [facility] Interpretation and review of laboratory results Normal [facility] Protein.monoclonal (U) [Mass/Vol] Negative Neg mg/dL [facility] ROUTINE, GROUP B ST REP PCRon 08-10-2024 ROUTINE, GROUP B STREP PCR GROUP B STREP PCR: Positive for Group B Streptococcus by PCR. Abnormal [facility] Comment on above: Performed By: #### G BPCR ####[facility] LABCLIA [id number] [facility] [place] [address] [place] CBC W Auto Differential pane l (Bld)on 06-15-2024 Basophils (Bld) [#/Vol] 0.04 10*3/uL Normal <0.11 [facility] Comment on above: Order Comment: Speci men Type: BLOOD SPECIMENOrdering Facility: [facility] Address: [address] [place] [address] Performed By: #### 5 7021-8 ####[facility] [id number] [place] [address] [place] Basophils/100 WBC (Bld) 0.4 % Normal [facility] Comment on above: Order Comment: Speci men Type: BLOOD SPECIMENOrdering Facility: [facility] Address: [address] [place] [address] Performed By: #### 5 7021-8 ####[facility] [id number] [place] [address] [place] Differential cell count method Nom (Bld) Auto Normal [facility] Comment on above: Order Comment: Speci men Type: BLOOD SPECIMENOrdering Facility: [facility] Address: [address] [place] [address] Performed By: #### 5 7021-8 ####[facility] [id number] [place] [address] [place] Eosinophils (Bld) [#/Vol] 0.13 10*3/uL Normal <0.46 [facility] Comment on above: Order Comment: Speci men Type: BLOOD SPECIMENOrdering Facility: [facility] Address: [address] [place] [address] Performed By: #### 5 7021-8 ####[facility] MADDYPeterNCLIA [id number] [place] [address] [place] Eosinophils/100 WBC (Bld) 1.5 % Normal [facility] Comment on above: Order Comment: Speci men Type: BLOOD SPECIMENOrdering Facility: [facility] Address: [address] [place] [address] Performed By: #### 5 7021-8 ####[facility] [id number] [place] [address] [place] Erythrocyte distribution width (RBC) [Ratio] 13.0 % Normal 11.5-15.0 [facility] Comment on above: Order Comment: Speci men Type: BLOOD SPECIMENOrdering Facility: [facility] Address: [address] [place] [address] Performed By: #### 5 7021-8 ####[facility]CL[facility] [id number] [place] [address] [place] Hematocrit (Bld) [Volume fraction] 32.1 % Low 36.0-46.0 [facility] Comment on above: Order Comment: Speci men Type: BLOOD SPECIMENOrdering Facility: [facility] Address: [address] [place] [address] Performed By: #### 5 7021-8 ####[facility]CL[facility] [id number] [place] [address] [place] Hemoglobin (Bld) [Mass/Vol] 11.0 g/dL Low 11.5-15.5 [facility] Comment on above: Order Comment: Speci men Type: BLOOD SPECIMENOrdering Facility: [facility] Address: [address] [place] [address] Performed By: #### 5 7021-8 ####[facility]CL[facility] [id number] [place] [address] [place] Immature granulocytes (Bld) [#/Vol] 0.06 10*3/uL Normal <0.10 [facility] Comment on above: Order Comment: Speci men Type: BLOOD SPECIMENOrdering Facility: [facility] Address: [address] [place] [address] Performed By: #### 5 7021-8 ####[facility] [id number] [place] [address] [place] Immature granulocytes/100 WBC (Bld) 0.7 % Normal [facility] Comment on above: Order Comment: Speci men Type: BLOOD SPECIMENOrdering Facility: [facility] Address: [address] [place] [address] Performed By: #### 5 7021-8 ####[facility] [id number] [place] [address] [place] Lymphocytes (Bld) [#/Vol] 1.42 10*3/uL Normal 1.00-4.00 [facility] Comment on above: Order Comment: Speci men Type: BLOOD SPECIMENOrdering Facility: [facility] Address: [address] [place] [address] Performed By: #### 5 7021-8 ####[facility] [id number] [place] [address] [place] Lymphocytes/100 WBC (Bld) 16.0 % Normal [facility] Comment on above: Order Comment: Speci men Type: BLOOD SPECIMENOrdering Facility: [facility] Address: [address] [place] [address] Performed By: #### 5 7021-8 ####[facility] [id number] [place] [address] [place] MCH (RBC) [Entitic mass] 31.9 pg Normal 26.0-34.0 [facility] Comment on above: Order Comment: Speci men Type: BLOOD SPECIMENOrdering Facility: [facility] Address: [address] [place] [address] Performed By: #### 5 7021-8 ####[facility]LAND[facility]AD[facility] [id number] [place] [address] [place] MCHC (RBC) [Mass/Vol] 34.3 g/dL Normal 30.5-36.0 [facility] Comment on above: Order Comment: Speci men Type: BLOOD SPECIMENOrdering Facility: [facility] Address: [address] [place] [address] Performed By: #### 5 7021-8 ####[facility] [id number] [place] [address] [place] MCV (RBC) [Entitic vol] 93.0 fL Normal 80.0-100.0 [facility] Comment on above: Order Comment: Speci men Type: BLOOD SPECIMENOrdering Facility: [facility] Address: [address] [place] [address] Performed By: #### 5 7021-8 ####[facility] [id number] [place] [address] [place] Monocytes (Bld) [#/Vol] 0.53 10*3/uL Normal <0.87 [facility] Comment on above: Order Comment: Speci men Type: BLOOD SPECIMENOrdering Facility: [facility] Address: [address] [place] [address] Performed By: #### 5 7021-8 ####[facility] [id number] [address] [place] Monocytes/100 WBC (Bld) 6.0 % Normal [facility] Comment on above: Order Comment: Speci men Type: BLOOD SPECIMENOrdering Facility: [facility] Address: [address] [place], [place] [address] Performed By: #### 5 7021-8 ####[facility] MILLTOWNCLIA [id number] [place] [address] [place] Neutrophils (Bld) [#/Vol] 6.72 10*3/uL Normal 1.45-7.50 [facility] Comment on above: Order Comment: Speci men Type: BLOOD SPECIMENOrdering Facility: [facility] Address: [address] [place] [address] Performed By: #### 5 7021-8 ####[facility] HOSPITALWNCLIA [id number] [place] [address] [place] Neutrophils/100 WBC (Bld) 75.4 % Normal [facility] Comment on above: Order Comment: Speci men Type: BLOOD SPECIMENOrdering Facility: [facility] Address: [address] [place] [address] Performed By: #### 5 7021-8 ####[facility] CENTERLIA [id number] [place] [address] [place] Nucleated RBC (Bld) [#/Vol] 10*3/uL Normal <0.01 [facility] Comment on above: Order Comment: Speci men Type: BLOOD SPECIMENOrdering Facility: [facility] Address: [address] [place] [address] Performed By: #### 5 7021-8 ####[facility] MILLWNCLIA [id number] [place] [address] [place] Nucleated RBC/100 WBC (Bld) [Ratio] 0.0 /100 WBC Normal [facility] Comment on above: Order Comment: Speci men Type: BLOOD SPECIMENOrdering Facility: [facility] Address: [address] [place] [address] Performed By: #### 5 7021-8 ####[facility] MILLCATHEYS VALLEYNCLIA [id number] [place] [address] [place] Platelet mean volume (Bld) [Entitic vol] 10.1 fL Normal 9.0-12.7 [facility] Comment on above: Order Comment: Speci men Type: BLOOD SPECIMENOrdering Facility: [facility] Address: [address] [place] [address] Performed By: #### 5 7021-8 ####[facility] ORLANDOELIEZERMIHIR [id number] [place] [address] [place] Platelets (Bld) [#/Vol] 236 10*3/uL Normal 150-400 [facility] Comment on above: Order Comment: Speci men Type: BLOOD SPECIMENOrdering Facility: [facility] Address: [address] [place] [address] Performed By: #### 5 7021-8 ####[facility]ONCLIA [id number] [place] [address] [place] RBC (Bld) [#/Vol] 3.45 10*6/uL Low 3.90-5.20 [facility] Comment on above: Order Comment: Speci men Type: BLOOD SPECIMENOrdering Facility: [facility] Address: [address] [place] [address] Performed By: #### 5 7021-8 ####[facility]ONCLIA [id number] [place] [address] [place] WBC (Bld) [#/Vol] 8.90 10*3/uL Normal 3.70-11.00 [facility] Comment on above: Order Comment: Speci men Type: BLOOD SPECIMENOrdering Facility: [facility] Address: [address] [place] [address] Performed By: #### 5 7021-8 ####[facility]ONCLIA [id number] [place] [address] [place] GESTATIONAL GLUCOSE SCREEN, 1-HOUR, 50 GRAM, NON-FASTINGon 06-15-2024 Glucose [Mass/Vol] 130 mg/dL Normal 74-134 [facility] Comment on above: Order Comment: Speci men Type: BLOOD SPECIMENOrdering Facility: [facility] Address: [address] [place] [address] Result Comment: [facility] Congress of Obstetricians and Gynecologists (Jameson/Germán) guidelines state a gestational diabetes mellitus positive screen is made, in women not previously diagnosed with overt diabetes, when the 1 hr plasma glucose level is equal to or above 140 mg/dL. [facility] [employer] [facility] [place] recommends a 135 mg/dL cutoff. Performed By: #### G LTGST ####[facility] [id number] [place] [address] [place] Reagin and Treponema pallidu m IgG and IgM [Interp]on 06-15-2024 T. pallidum IgG+IgM IA Ql (S) Non-Reactive Normal Nonreactive [facility] Comment on above: Order Comment: Speci men Type: BLOOD SPECIMENOrdering Facility: [facility] Address: [address] [place] [address] Performed By: #### 7 3752-8 ####[facility] LABCLIA [id number] [place] [id number] [place] Reagin+T pallidum IgG+IgM Se rPl-Impon 06-15-2024 Reagin and Treponema pallidum IgG and IgM [Interp] Cannot exclude recent Treponemal infection if specimen collected within 7-10 days after appearance of suspect lesions or 2-3 weeks after an exposure. Clinical correlation is required. Normal [facility] Comment on above: Order Comment: Speci men Type: BLOOD SPECIMENOrdering Facility: [facility] Address: [address] [place], [place] [address] Performed By: #### 7 3752-8 ####[facility] LABCLIA [id number] [place] [address] [place] CNPNon 06-01-2024 CNPN Telephone (OBGYWM) ----- TISH MILLER ([id number]) 2000 F Date Time Provider Department 06/01/24 IMELDA RICKETTS OBGYWM During your visit today, we recorded the following information about you: Azalia Melgar, SHELL 06/01/2024 9:57 AM Signed Breast pump received from [employer]. Given to to sign. Azalia Melgar RN Tari Toledo RN 06/02/2024 3:04 PM Signed Faxed Allergies As of Date: 06/01/2024 (No Known Allergies) Date Reviewed: 04/20/2024 Reviewed by: Debo Alicea APRN.FORGING OPERATOR - Fully Assessed Reason for Visit: Breast [...] Status:Closed by TARI TOLEDO on 06/02/24 Normal [facility] Examination level ultrasound on 04-20-2024 Indication anatomy [...] 13 oz EFW by: Hadlock (HC-AC-FL) Extended Bpm Developer 6.4 mm CM 4.8 mm 41% Nicolaides [...] normal LVOT view: normal 3-vessel view: normal 1-ktswtm-zvcckos view: normal Heart / Thorax Situs: situs [...] Read By: Skylar Raza M.D. MATERNAL MEDICINE [facility] Radiology Study observation (narrative) [facility] CBC panel Auto (Bld)on 03-23 Erythrocyte distribution width (RBC) [Ratio] 12.3 % Normal 11.5-15.0 [facility] Comment on above: Order Comment: Speci men Type: BLOOD SPECIMENOrdering Facility: [facility] Address: [address] [place] [address] Performed By: #### 5 8410-2 ####[facility] ORLANDONCLI [id number] [place] [address] [place] Hematocrit (Bld) [Volume fraction] 35.2 % Low 36.0-46.0 [facility] Comment on above: Order Comment: Speci men Type: BLOOD SPECIMENOrdering Facility: [facility] Address: [address] [place] [address] Performed By: #### 5 8410-2 ####[facility]ONC[facility] [id number] [place] [address] [place] Hemoglobin (Bld) [Mass/Vol] 12.1 g/dL Normal 11.5-15.5 [facility] Comment on above: Order Comment: Speci men Type: BLOOD SPECIMENOrdering Facility: [facility] Address: [address] [place] [address] Performed By: #### 5 8410-2 ####[facility] ORLANDONCLIA [id number] [place] [address] [place] MCH (RBC) [Entitic mass] 31.1 pg Normal 26.0-34.0 [facility] Comment on above: Order Comment: Speci men Type: BLOOD SPECIMENOrdering Facility: [facility] Address: [address] [place] [address] Performed By: #### 5 8410-2 ####[facility]ONCLIA [id number] [place] [address] [place] MCHC (RBC) [Mass/Vol] 34.4 g/dL Normal 30.5-36.0 [facility] Comment on above: Order Comment: Speci men Type: BLOOD SPECIMENOrdering Facility: [facility] Address: [address] [place] [address] Performed By: #### 5 8410-2 ####[facility] [place] [id number] [address] MCV (RBC) [Entitic vol] 90.5 fL Normal 80.0-100.0 [facility] Comment on above: Order Comment: Speci men Type: BLOOD SPECIMENOrdering Facility: [facility] Address: [address] [place] [address] Performed By: #### 5 8410-2 ####[facility] OR[facility]OELIEZERAshwini [id number] [place] [address] [place] Nucleated RBC (Bld) [#/Vol] 10*3/uL Normal <0.01 [facility] Comment on above: Order Comment: Speci men Type: BLOOD SPECIMENOrdering Facility: [facility] Address: [address] [place] [address] Performed By: #### 5 8410-2 ####[facility] ORLANDONCGEMMAA [id number] [place] [address] [place] Platelet mean volume (Bld) [Entitic vol] 10.1 fL Normal 9.0-12.7 [facility] Comment on above: Order Comment: Speci men Type: BLOOD SPECIMENOrdering Facility: [facility] Address: [address] [place] [address] Performed By: #### 5 8410-2 ####[facility]ONCLIA [id number] [place] [address] [place] Platelets (Bld) [#/Vol] 244 10*3/uL Normal 150-400 [facility] Comment on above: Order Comment: Speci men Type: BLOOD SPECIMENOrdering Facility: [facility] Address: [address] [place] [address] Performed By: #### 5 8410-2 ####[facility] OR[facility]ONCA [id number] [place] [address] [place] RBC (Bld) [#/Vol] 3.89 10*6/uL Low 3.90-5.20 [facility] Comment on above: Order Comment: Speci men Type: BLOOD SPECIMENOrdering Facility: [facility] Address: [address] [place] [address] Performed By: #### 5 8410-2 ####[facility] [id number] [place] [address] [place] WBC (Bld) [#/Vol] 7.50 10*3/uL Normal 3.70-11.00 [facility] Comment on above: Order Comment: Speci men Type: BLOOD SPECIMENOrdering Facility: [facility] Address: [address] [place] [address] Performed By: #### 5 8410-2 ####[facility] [id number] [place] [address] [place] HBV surface Ag Ser Qlon - HBV surface Ag Ql (S) Negative Normal Negative [facility] Comment on above: Order Comment: Speci men Type: BLOOD SPECIMENOrdering Facility: [facility] Address: [address] [place] [address] Performed By: #### 7 3752-8, 5195-3, 05892-4 ####[facility] LABCLIA [id number] [place] [address] [place] HCV Ab Ser Qlon 03-23-2024 HCV Ab Ql (S) Negative Normal Negative [facility] Comment on above: Order Comment: Speci men Type: BLOOD SPECIMENOrdering Facility: [facility] Address: [address] [place] [address] Result Comment: The result suggests no evidence of active infection with Hepatitis C virus. Should recent infection be suspected, repeat testing may be considered 4-6 weeks after this draw. Performed By: #### 1 6128-1 ####[facility] LABCLIA [id number] [place] [address] [place] HIV 1+2 Ab IA Qlon 4 HIV 1 and 2 Ab IA.rapid Nom (S/P/Bld) Normal [facility] Comment on above: Order Comment: Speci men Type: BLOOD SPECIMENOrdering Facility: [facility] Address: [address] [place] [address] Result Comment: Test not indicated. Performed By: #### 7 3752-8, 5195-3, 56638-7 ####[facility] LABIA [id number] [address] OF [place] HIV 1+2 Ab+HIV1 p24 Ag IA Ql Non-Reactive Normal Nonreactive [facility] Comment on above: Order Comment: Speci men Type: BLOOD SPECIMENOrdering Facility: [facility] Address: [address] [place] [address] Performed By: #### 7 3752-8, 5195-3, 75691-4 ####[facility] LABIA [id number] [address] [place] HIV immunoassay testing algorithm interpretation (S/P/Bld) [Interp] Normal [facility] Comment on above: Order Comment: Speci men Type: BLOOD SPECIMENOrdering Facility: [facility] Address: [address] [place] [address] Result Comment: No e vidence of HIV-1 or HIV-2 infection. Should recent infection be suspected, repeat testing may be considered 2-3 weeks after this draw. [place] Rev. Code 3701.243(E): This information has been [...] diagnoses. Performed By: #### 7 3752-8, 5195-3, 05715-6 ####[facility] LABCLIA [id number] [address] OF [facility] HbA1c (Bld)on 03-23-2024 Average glucose Estimated from glycated hemoglobin (Bld) [Mass/Vol] 91 mg/dL Normal [facility] Comment on above: Order Comment: Speci men Type: BLOOD SPECIMENOrdering Facility: [facility] Address: [address] [place] [address] Result Comment: eAG: (Estimated average glucose) is a calculated value from HgbA1c and is claim representative of the average blood glucose level in the last 2-3 month period. Performed By: #### 5 5454-3 ####[facility] LABIA [id number] [address] STATES OF [facility] HbA1c (Bld) [Mass fraction] 4.8 % Normal 4.3-5.6 [facility] Comment on above: Order Comment: Speci [facility] Type: BLOOD SPECIMENOrdering Facility: [facility] Address: [address] [place] [address] Result Comment: [place] Diabetes Association guidelines indicate that patients with HgbA1c in the range 5.7-6.4% are at increased risk for development of diabetes, and intervention by lifestyle modification may be beneficial. HgbA1c greater or equal to 6.5% is considered diagnostic of diabetes. Performed By: #### 5 5454-3 ####[facility] LABIA [id number] [address] [place] IGG ANTIBODYon 03-23 RUBELLA IGG AB, QUAL Positive Normal Positive [facility] Comment on above: Order Comment: Speci men Type: BLOOD SPECIMENOrdering Facility: [facility] Address: [address] [place] [address] Result Comment: The result suggests recent or past exposure to Rubella virus or history of Rubella vaccination. Positive result may also be seen due to presence of passively-transferred antibodies. Please correlate with patient's history. Performed By: #### R UBIGG ####[facility] LABCLIA [id number] [place] [address] [place] Reagin and Treponema pallidu m IgG and IgM [Interp]on 03-23-2024 T. pallidum IgG+IgM IA Ql (S) Non-Reactive Normal Nonreactive [facility] Comment on above: Order Comment: Speci men Type: BLOOD SPECIMENOrdering Facility: [facility] Address: [address] [place] [address] Performed By: #### 7 3752-8, 5195-3, 05565-3 ####[facility] LABCLIA [id number] [place] [address] [place] Reagin+T pallidum IgG+IgM Se rPl-Impon 03-23-2024 Reagin and Treponema pallidum IgG and IgM [Interp] Cannot exclude recent Treponemal infection if specimen collected within 7-10 days after appearance of suspect lesions or 2-3 weeks after an exposure. Clinical correlation is required. Normal [facility] Comment on above: Order Comment: Speci men Type: BLOOD SPECIMENOrdering Facility: [facility] Address: [address] [place] [address] Performed By: #### 7 3752-8, 5195-3, 78584-6 ####[facility] LABCLIA [id number] [place] [address] [place] SEQUENTIAL SCN SECOND TRIMon 03-23-2024 AFP [Mass/Vol] 45.4 ng/mL Normal [facility] Comment on above: Order Comment: Speci men Type: BLOOD SPECIMENOrdering Facility: [facility] Address: [address] [place] [address] Performed By: #### S EQ2 ####[facility] LABCLIA [id number] [place] [address] AFP adjusted [MoM] 1.47 Normal [facility] Comment on above: Order Comment: Speci men Type: BLOOD SPECIMENOrdering Facility: [facility] Address: [address] [place] [address] Performed By: #### S EQ2 ####[facility] LABCLIA [id number] [place] [address] [age] delivery [age] Normal [facility] Comment on above: Order Comment: Speci men Type: BLOOD SPECIMENOrdering Facility: [facility] Address: [address] [place] [address] Performed By: #### S EQ2 ####[facility] LABCLIA [id number] [place] [address] Collection date (Specimen) Date: Normal [facility] Comment on above: Order Comment: Speci men Type: BLOOD SPECIMENOrdering Facility: [facility] Address: [address] [place] [address] Result Comment: 04/2024 Performed By: #### S EQ2 ####[facility] LABCLIA [id number] [place] [address] E3.unconjugated [Mass/Vol] 0.98 ng/mL Normal [facility] Comment on above: Order Comment: Speci men Type: BLOOD SPECIMENOrdering Facility: [facility] Address: [address] [place] [address] Performed By: #### S EQ2 ####[facility] LABCLIA [id number] [place] [address] E3.unconjugated adjusted [MoM] 0.95 Normal [facility] Comment on above: Order Comment: Speci men Type: BLOOD SPECIMENOrdering Facility: [facility] Address: [address] [place] [address] Performed By: #### S EQ2 ####[facility] LABCLIA [id number] [place] [address] Herlong Rump length US 63.4 mm Normal [facility] Comment on above: Order Comment: Speci men Type: BLOOD SPECIMENOrdering Facility: [facility] Address: [address] [place] [address] Performed By: #### S EQ2 ####[facility] LABCLIA [id number] [place] [address] Nuchal fold [Multiple of the median] Thickness US 1.39 Normal [facility] Comment on above: Order Comment: Speci men Type: BLOOD SPECIMENOrdering Facility: [facility] Address: [address] [place] [address] Performed By: #### S EQ2 ####[facility] LABCLIA [id number] [place] [address] Nuchal fold Thickness US 2.0 mm Normal [facility] Comment on above: Order Comment: Speci men Type: BLOOD SPECIMENOrdering Facility: [facility] Address: [address] [place] [address] Performed By: #### S EQ2 ####[facility] LABCLIA [id number] [place] [address] First and Second trimester integrated maternal screen [Interp] Comment Normal [facility] Comment on above: Order Comment: Speci men Type: BLOOD SPECIMENOrdering Facility: [facility] Address: [address] [place] [address] Result Comment: Scre en Negative for Open Spina Bifida. Comment Screen Negative for Down syndrome Comment Screen Negative for Trisomy 18 Performed By: #### S EQ2 ####[facility] LABCLIA [id number] [place] [address] FIRST TRIMESTER SAMPLE Comment Normal [facility] Comment on above: Order Comment: Speci men Type: BLOOD SPECIMENOrdering Facility: [facility] Address: [address] [place] [address] Performed By: #### S EQ2 ####[facility] LABCLIA [id number] [place] [address] Gestational age 16.6 weeks Normal [facility] Comment on above: Order Comment: Speci men Type: BLOOD SPECIMENOrdering Facility: [facility] Address: [address] [place] [address] Performed By: #### S EQ2 ####[facility] LABCLIA [id number] [place] [address] HCG adjusted [MoM] 1.03 Normal [facility] Comment on above: Order Comment: Speci men Type: BLOOD SPECIMENOrdering Facility: [facility] Address: [address] [place] [address] Performed By: #### S EQ2 ####[facility] LABCLIA [id number] [place] [address] HCG Qn 31.1 IU/mL Normal [facility] Comment on above: Order Comment: Speci men Type: BLOOD SPECIMENOrdering Facility: [facility] Address: [address] [place] [address] Performed By: #### S EQ2 ####[facility] LABCLIA [id number] [place] [address] Inhibin A [Mass/Vol] 152.6 pg/mL Normal [facility] Comment on above: Order Comment: Speci men Type: BLOOD SPECIMENOrdering Facility: [facility] Address: [address] [place] [address] Performed By: #### S EQ2 ####[facility] LABCLIA [id number] [place] [address] Inhibin A adjusted [MoM] 1.09 Normal [facility] Comment on above: Order Comment: Speci men Type: BLOOD SPECIMENOrdering Facility: [facility] Address: [address] [place] [address] Performed By: #### S EQ2 ####[facility] LABCLIA [id number] [place] [address] Insulin dependent diabetes mellitus Ql No Normal [facility] Comment on above: Order Comment: Speci men Type: BLOOD SPECIMENOrdering Facility: [facility] Address: [address] [place] [address] Performed By: #### S EQ2 ####[facility] LABCLIA [id number] [place] [address] Laboratory comment Frantz (Report) Comment Normal [facility] Comment on above: Order Comment: Speci men Type: BLOOD SPECIMENOrdering Facility: [facility] Address: [address] [place] [address] Result Comment: The [employer] recommends that all women be counseled regarding the differences between screening and invasive diagnostic testing. Performed By: #### S EQ2 ####[facility] LABCLIA [id number] [place] [address] Mother's race Normal [facility] Comment on above: Order Comment: Speci men Type: BLOOD SPECIMENOrdering Facility: [facility] Address: [address] [place] [address] Performed By: #### S EQ2 ####[facility] LABCLIA [id number] [place] [address] Neural tube defect risk Qn (fetus) Screening Risk: Normal [facility] Comment on above: Order Comment: Speci men Type: BLOOD SPECIMENOrdering Facility: [facility] Address: [address] [place] [address] Result Comment: 1 in 3100 Performed By: #### S EQ2 ####[facility] LABCLIA [id number] [place] [address] NOTE: Comment Normal [facility] Comment on above: Order Comment: Speci men Type: BLOOD SPECIMENOrdering Facility: [facility] Address: [address] [place] [address] Result Comment: Pauline diaz verify all clinical data used in this risk assessment and call [phone] with any corrections. Candi Arnold, Ph.D., [facility] Director References: Available upon request Open Spina Bifida (OSB) MoM Cutoffs Jay 2.5 Black 2.8 IDD 2.0 Twins 4.5 Risk Cutoffs Down Syndrome (DS) cutoff 1:270 Trisomy 18 (T18) cutoff 1:100 For further inquiries contact [employer] Customer Service at [phone]. This test was developed and its performance characteristics determined by [facility]. It has not been cleared or approved by the Food and Drug Administration. Performed By: #### S EQ2 ####[facility] LABCLIA [id number] [place] [address] Number of fetuses by US 1 Normal [facility] Comment on above: Order Comment: Speci men Type: BLOOD SPECIMENOrdering Facility: [facility] Address: [address] [place] [address] Performed By: #### S EQ2 ####[facility] LABCLIA [id number] [place] [address] associated plasma protein A [Mass/Vol] 814.7 ng/mL Normal [facility] Comment on above: Order Comment: Speci men Type: BLOOD SPECIMENOrdering Facility: [facility] Address: [address] [place] [address] Performed By: #### S EQ2 ####[facility] LABCLIA [id number] [place] [address] associated plasma protein A adjusted [MoM] 0.95 Normal [facility] Comment on above: Order Comment: Speci men Type: BLOOD SPECIMENOrdering Facility: [facility] Address: [address] [place] [address] Performed By: #### S EQ2 ####[facility] LABCLIA [id number] [place] [address] RESULTS Report Normal [facility] Comment on above: Order Comment: Speci men Type: BLOOD SPECIMENOrdering Facility: [facility] Address: [address] [place] [address] Performed By: #### S EQ2 ####[facility] LABCLIA [id number] [place] [address] SECOND TRIMESTER SAMPLE Comment Normal [facility] Comment on above: Order Comment: Speci men Type: BLOOD SPECIMENOrdering Facility: [facility] Address: [address] [place] [address] Performed By: #### S EQ2 ####[facility] LABCLIA [id number] [place] [address] Special Officer Automat [Identifier] [id number] Normal [facility] Comment on above: Order Comment: Speci men Type: BLOOD SPECIMENOrdering Facility: [facility] Address: [address] [place] [address] Performed By: #### S EQ2 ####[facility] LABCLIA [id number] [place] [address] Trisomy 18 risk Based on maternal age Qn (fetus) Age Risk: Normal [facility] Comment on above: Order Comment: Speci men Type: BLOOD SPECIMENOrdering Facility: [facility] Address: [address] [place] [address] Result Comment: in [phone] Performed By: #### S EQ2 ####[facility] LABCLIA [id number] [place] [address] Trisomy 18 risk Qn (fetus) Screening Risk: Normal [facility] Comment on above: Order Comment: Speci men Type: BLOOD SPECIMENOrdering Facility: [facility] Address: [address] [place] [address] Result Comment: <1 [place] [id number] Performed By: #### S EQ2 ####[facility] LABCLIA [id number] [place] [address] Trisomy 21 risk Based on maternal age Qn (fetus) Age Risk: Normal [facility] Comment on above: Order Comment: Speci men Type: BLOOD SPECIMENOrdering Facility: [facility] Address: [address] [place] [address] Result Comment: 1 in 1037 Performed By: #### S EQ2 ####[facility] LABCLIA [id number] [place] [address] Trisomy 21 risk Qn (fetus) Screening Risk: Normal [facility] Comment on above: Order Comment: Speci men Type: BLOOD SPECIMENOrdering Facility: [facility] Address: [address] [place] [address] Result Comment: <1 [place] [id number] Performed By: #### S EQ2 ####[facility] LABCLIA [id number] [place] [address] Ultrasound date Date: Normal [facility] Comment on above: Order Comment: Speci men Type: BLOOD SPECIMENOrdering Facility: [facility] Address: [address] [place] [address] Result Comment: 06/2024 Performed By: #### S EQ2 ####[facility] LABCLIA [id number] [place] [address] TYPE + SCREEN PRENATALon ABO A Normal [facility] Comment on above: Order Comment: Speci men Type: BLOOD SPECIMEN [facility] Address: [address] [place] [address] Performed By: #### T SPN #### [facility] CLIA [id number] [address] [place] [address] [place] HISTORICAL AB SCR STATUS Negative Normal [facility] Comment on above: Order Comment: Speci men Type: BLOOD SPECIMEN [facility] Address: [address] [place] [address] Performed By: #### T SPN #### [facility] CLIA [id number] [address] [place] [address] [place] Rh Nom (Bld) Positive Normal [facility] Comment on above: Order Comment: Speci men Type: BLOOD SPECIMEN [facility] Address: [address] [place] [address] Performed By: #### T SPN #### [facility] CLIA [id number] [address] [place] [address] [place] TYPE AND SCREEN EXPIRATION 03/26/2024 23:59 Normal [facility] Comment on above: Order Comment: Speci men Type: BLOOD SPECIMEN [facility] Address: [address] [place] [address] Performed By: #### T SPN #### [facility] CLIA [id number] [place] [id number] [facility] Allan 03-19-2024 CNPN Telephone (OBGYWM) ----- TISH MILLER ([id number]) 2000 F Date Time Provider Department 03/19/24 [...] reglan to the pharmacy for the headache Mluu Mcleod RN 03/19/2024 1:50 PM Signed Patient [...] Status:Closed by MULU MCLEOD on 03/19/24 Normal [facility] CARRIER SCREEN, STANDARDon 0 02-24-2024 CARRIER SCREEN RESULTS View results in Scanned Documents link when available. Normal [facility] Comment on above: Order Comment: Speci men Type: BLOOD SPECIMENOrdering Facility: [facility] Address: [address] [place] [address] Performed By: #### C RRSCN ####[facility] [id number] [place] [address] nuchal translucency me asured by USon 02-24-2024 [facility] HGB ELECTROPHORESIS FOR EVAL (LAB ORDER)on 02-24-2024 Hemoglobin A (Bld) [Mass fraction] 97.2 % Normal 96.2-98.0 [facility] Comment on above: Order Comment: Speci men Type: BLOOD SPECIMENOrdering Facility: [facility] Address: [address] [place] [address] Performed By: #### H GBELEV ####[facility] LABCLIA [id number] [place] [address] [place] Hemoglobin A2 (Bld) [Mass fraction] 2.8 % Normal 2.0-3.1 [facility] Comment on above: Order Comment: Speci men Type: BLOOD SPECIMENOrdering Facility: [facility] Address: [address] [place] [address] Performed By: #### H GBELEV ####[facility] LABIA [id number] [place] [address] [place] Hemoglobin Unsp Elph (Bld) [Mass fraction] No abnormal hemoglobin identified. Normal No abnormal hemoglobin identified. [facility] Comment on above: Order Comment: Speci men Type: BLOOD SPECIMENOrdering Facility: [facility] Address: [address] [place] [address] Performed By: #### H GBELEV ####[facility] [id number] [place] [address] [place] RBC PARAMETERS FOR HB IDon 0 02-24-2024 Erythrocyte distribution width (RBC) [Ratio] 12.6 % Normal 11.5-15.0 [facility] Comment on above: Order Comment: Speci men Type: BLOOD SPECIMENOrdering Facility: [facility] Address: [address] [place] [address] Performed By: #### L [id number] ####[facility] LABIA [id number] [place] [address] [place] Hematocrit (Bld) [Volume fraction] 36.7 % Normal 36.0-46.0 [facility] Comment on above: Order Comment: Speci men Type: BLOOD SPECIMENOrdering Facility: [facility] Address: [address] [place] [address] Performed By: #### L [id number] ####[facility] LABIA [id number] [place] [address] [place] Hemoglobin (Bld) [Mass/Vol] 12.6 g/dL Normal 11.5-15.5 [facility] Comment on above: Order Comment: Speci men Type: BLOOD SPECIMENOrdering Facility: [facility] Address: [address] [place] [address] Performed By: #### L [id number] ####[facility] LABCLIA [id number] [place] [address] [place] MCH (RBC) [Entitic mass] 31.5 pg Normal 26.0-34.0 [facility] Comment on above: Order Comment: Speci men Type: BLOOD SPECIMENOrdering Facility: [facility] Address: [address] [place] [address] Performed By: #### L [id number] ####[facility] LABCLIA [id number] [place] [address] [place] MCHC (RBC) [Mass/Vol] 34.3 g/dL Normal 30.5-36.0 [facility] Comment on above: Order Comment: Speci men Type: BLOOD SPECIMENOrdering Facility: [facility] Address: [address] [place] [address] Performed By: #### L [id number] ####[facility] LABCLIA [id number] [place] [address] [place] MCV (RBC) [Entitic vol] 91.8 fL Normal 80.0-100.0 [facility] Comment on above: Order Comment: Speci men Type: BLOOD SPECIMENOrdering Facility: [facility] Address: [address] [place] [address] Performed By: #### L [id number] ####[facility] LABCLIA [id number] [place] [address] [place] RBC (Bld) [#/Vol] 4.00 10*6/uL Normal 3.90-5.20 [facility] Comment on above: Order Comment: Speci men Type: BLOOD SPECIMENOrdering Facility: [facility] Address: [address] [place] [address] Performed By: #### L [id number] ####[facility] LABCLIA [id number] [place] [address], [place] [address] [place] SEQUENTIAL SCN FIRST TRIMEST Luan 02-24-[birth year]24 [age] delivery [age] yr Normal [facility] Comment on above: Order Comment: Speci men Type: BLOOD SPECIMENOrdering Facility: [facility] Address: [address] [place] [address] Performed By: #### S EQ1 ####[facility] LABCLIA [id number] [place] [address] Herlong Rump length US 63.4 mm Normal [facility] Comment on above: Order Comment: Speci men Type: BLOOD SPECIMENOrdering Facility: [facility] Address: [address] [place] [address] Performed By: #### S EQ1 ####[facility] LABCLIA [id number] [place] [address] Nuchal fold [Multiple of the median] Thickness US 1.39 Normal [facility] Comment on above: Order Comment: Speci men Type: BLOOD SPECIMENOrdering Facility: [facility] Address: [address] [place] [address] Performed By: #### S EQ1 ####[facility] LABCLIA [id number] [place] [address] Nuchal fold Thickness US 2.0 mm Normal [facility] Comment on above: Order Comment: Speci men Type: BLOOD SPECIMENOrdering Facility: [facility] Address: [address] [place] [address] Performed By: #### S EQ1 ####[facility] LABCLIA [id number] [place] [address] First and Second trimester integrated maternal screen [Interp] Comment Normal [facility] Comment on above: Order Comment: Speci men Type: BLOOD SPECIMENOrdering Facility: [facility] Address: [address] [place] [address] Result Comment: The risk for Down syndrome is less than the 1:45 cutoff. Comment The risk for trisomy 18 is less than the 1:100 cutoff. Performed By: #### S EQ1 ####[facility] LABCLIA [id number] [place] [address] Gestational age 12.6 weeks Normal [facility] Comment on above: Order Comment: Speci men Type: BLOOD SPECIMENOrdering Facility: [facility] Address: [address] [place] [address] Performed By: #### S EQ1 ####[facility] LABCLIA [id number] [place] [address] HCG adjusted [MoM] 0.81 Normal [facility] Comment on above: Order Comment: Speci men Type: BLOOD SPECIMENOrdering Facility: [facility] Address: [address] [place] [address] Performed By: #### S EQ1 ####[facility] LABCLIA [id number] [place] [address] HCG Qn 67.4 IU/mL Normal [facility] Comment on above: Order Comment: Speci men Type: BLOOD SPECIMENOrdering Facility: [facility] Address: [address] [place] [address] Performed By: #### S EQ1 ####[facility] LABCLIA [id number] [place] [address] Laboratory comment Frantz (Report) Comment Normal [facility] Comment on above: Order Comment: Speci men Type: BLOOD SPECIMENOrdering Facility: [facility] Address: [address] [place] [address] Result Comment: Pauline daiz submit a second trimester sample between 15.0 - 21.9 weeks gestation to complete risk assessment for Down syndrome, trisomy 18 and open spina bifida. The [employer] [employer] recommends that all women be counseled regarding the differences between screening and invasive diagnostic testing. Performed By: #### S EQ1 ####[facility] LABCLIA [id number] [place] [address] Mother's race Normal [facility] Comment on above: Order Comment: Speci men Type: BLOOD SPECIMENOrdering Facility: [facility] Address: [address] [place] [address] Performed By: #### S EQ1 ####[facility] LABCLIA [id number] [place] [address] NOTE: Comment Normal [facility] Comment on above: Order Comment: Speci men Type: BLOOD SPECIMENOrdering Facility: [facility] Address: [address] [place] [address] Result Comment: Pauline diaz verify all clinical data used in this risk assessment and call [phone] with any corrections. Candi Arnold, Ph.D., [facility] Director References: Available upon request Open Spina Bifida (OSB) MoM Cutoffs Jay 2.5 Black 2.8 IDD 2.0 Twins 4.5 Risk Cutoffs Down Syndrome (DS) cutoff 1:270 Trisomy 18 (T18) cutoff 1:100 For further inquiries contact [employer] Customer Service at [phone]. This test was developed and its performance characteristics determined by [employer]. It has not been cleared or approved by the Food and Drug Administration. Performed By: #### S EQ1 ####[facility] LABCLIA [id number] [place] [address] Number of fetuses by US 1 Normal [facility] Comment on above: Order Comment: Speci men Type: BLOOD SPECIMENOrdering Facility: [facility] Address: [address] [place] [address] Performed By: #### S EQ1 ####[facility] LABCLIA [id number] [place] [address] associated plasma protein A [Mass/Vol] 814.7 ng/mL Normal [facility] Comment on above: Order Comment: Speci men Type: BLOOD SPECIMENOrdering Facility: [facility] Address: [address] [place] [address] Performed By: #### S EQ1 ####[facility] LABCLIA [id number] [place] [address] associated plasma protein A adjusted [MoM] 0.95 Normal [facility] Comment on above: Order Comment: Speci men Type: BLOOD SPECIMENOrdering Facility: [facility] Address: [address] [place] [address] Performed By: #### S EQ1 ####[facility] LABCLIA [id number] [place] [address] RESULTS Report Normal [facility] Comment on above: Order Comment: Speci men Type: BLOOD SPECIMENOrdering Facility: [facility] Address: [address] [place] [address] Performed By: #### S EQ1 ####[facility] LABCLIA [id number] [place] [address] Special Officer Automat [Identifier] [id number] Normal [facility] Comment on above: Order Comment: Speci men Type: BLOOD SPECIMENOrdering Facility: [facility] Address: [address] [place] [address] Performed By: #### S EQ1 ####[facility] LABCLIA [id number] [place] [address] SUBMIT PART 2 SAMPLE USING Date: Normal [facility] Comment on above: Order Comment: Speci men Type: BLOOD SPECIMENOrdering Facility: [facility] Address: [address] [place] [address] Result Comment: Sequ ential 2 Test Code [id number] Based on gest age provided, draw sample after: 03/12/2024 Performed By: #### S EQ1 ####[facility] LABCLIA [id number] [place] [address] Trisomy 18 risk Based on maternal age Qn (fetus) Age Risk: Normal [facility] Comment on above: Order Comment: Speci men Type: BLOOD SPECIMENOrdering Facility: [facility] Address: [address] [place] [address] Result Comment: [phone] Performed By: #### S EQ1 ####[facility] LABCLIA [id number] [place] [address] Trisomy 18 risk Qn (fetus) Screening Risk: Normal [facility] Comment on above: Order Comment: Speci men Type: BLOOD SPECIMENOrdering Facility: [facility] Address: [address] [place] [address] Result Comment: <1 [place] [id number] Performed By: #### S EQ1 ####[facility]CLIA [id number] [place] [address] Trisomy 21 risk Based on maternal age Qn (fetus) Age Risk: Normal [facility] Comment on above: Order Comment: Speci men Type: BLOOD SPECIMENOrdering Facility: [facility] Address: [address] [place] [address] Result Comment: 1 in 1037 Performed By: #### S EQ1 ####[facility] LABCLIA [id number] [place] [id number] Trisomy 21 risk Qn (fetus) Screening Risk: Normal [facility] Comment on above: Order Comment: Speci men Type: BLOOD SPECIMENOrdering Facility: [facility] Address: [address] [place] [address] Result Comment: 1 in 7199 Performed By: #### S EQ1 ####[facility]CLIA [id number] [place] [address] Ultrasound date Date: Normal [facility] Comment on above: Order Comment: Speci men Type: BLOOD SPECIMENOrdering Facility: [facility] Address: [address] [place] [address] Result Comment: 06/2024 Performed By: #### S EQ1 ####[facility]CLIA [id number] [place] [address] Bacteria Ur Culton 4 Bacteria identified Cx Nom (U) CULTURE, URINE: No growth (<1,000 CFU/ml) Normal [facility] Comment on above: Performed By: #### 6 30-4 ####[facility] LABCLIA [id number] [place] [address] [place] C. trachomatis+N. gonorrhoea e DNA CATA+probe Ql (Unsp spec)on 01-27-2024 C. trachomatis rRNA CATA+probe Ql (Unsp spec) Negative Normal Negative for Chlamydia trachomatis by amplificaton [facility] Comment on above: Order Comment: Speci men Type: SWABOrdering Facility: [facility] Address: [address] [place] [address] Performed By: #### 3 6902-5 ####[facility] LABCLIA [id number] [place] [address] [place] N. gonorrhoeae rRNA CATA+probe Ql (Unsp spec) Negative Normal Negative for Neisseria gonorrhoeae by amplification [facility] Comment on above: Order Comment: Speci men Type: SWABOrdering Facility: [facility] Address: [address] [place] [address] Performed By: #### 3 6902-5 ####[facility] LABCLIA [id number] [place] [address] [place] No Panel Informationon 01-26 [facility] Choriogonadotropin.beta subu niton 01-09-2024 [place] [address] m[IU]/mL High <5 [facility] Comment on above: Order Comment: Total HCG measurement is performed using the Sejal Howe Access Immunoassay which detects intact HCG and free beta HCG subunit. This test is not indicated for use as a tumor marker. HCG testing is performed using a different test methodology at [facility]. Direct result comparison should only be made [...] By: #### 2 1198-7 #### ARNULFO CHRISTENSEN ([id number]) [facility] ([facility]) [address] [place], [place] [id number] Choriogonadotropin.beta khurramu ritulouann 01-07-2024 [place] [address] m[IU]/mL High <5 [facility] Comment on above: Order Comment: Total HCG measurement is performed using the Sejal Howe Access Immunoassay which detects intact HCG and free beta HCG subunit. This test is not indicated for use as a tumor marker. HCG testing is performed using a different test methodology at [facility] other [facility]. Direct result comparison should only be made [...] By: #### 2 1198-7 #### ARREDONDO FERMIN ([id number]) [facility] ([facility]) [facility] [place] [address] Allan 01-06-2024 KEISHAN Telephone (OBGYWM) ----- TISH MILLER ([id number]) 2000 F Date Time Provider Department 01/06/24 ABILIO JOHNSON OBERICWKyle During your visit today, we recorded the following information about you: Sophia Perez LPN 01/06/2024 10:32 AM Addendum Patient is . Lmp was 11/29/2023 and has new ob appointment on 01/27/2024. Patient has a h/o of 3 previous miscarriages and would like to have hcg quants drawn at in [place]. Patient is not having any vaginal bleeding or cramping currently. If ok, patient will need a lab order to faxed to outpatient lab in [place] Abilio Johnson MD 01/06/2024 11:39 AM Signed Ok for serial HCG quants Tari Toledo RN 01/06/2024 11:53 AM Signed Order form to to sign. Will then fax and notify patient. SHLEL Robles Jennifer, RN 01/06/2024 5:03 PM Signed Patient notified. Order faxed to [facility]. Please leave open for 01/07 and 01/09 [...] Status:Closed by MULU MCLEOD on 01/10/24 Normal [facility] T-SPOT TBon 05-17-2023 NIL[NEG]CONTROL SPOT COUNT Passed Normal [facility] Comment on above: Performed By: #### T SPOT #### [facility] [address] [place] [address] PANEL A SPOT COUNT 1 Normal [facility] Comment on above: Performed By: #### T SPOT #### [facility] [address] [place] [address] PANEL B SPOT COUNT 2 Normal [facility] Comment on above: Performed By: #### T SPOT #### [facility] [address] [place] [address] POS CONTROL SPOT COUNT Passed Normal [facility] Comment on above: Performed By: #### T SPOT #### [facility] [address] [place] [address] T-SPOT.TB INTERP Negative Normal Normal Valu e: Negative [facility] Comment on above: Result Comment: A ne [...] #### T SPOT #### [facility] [address] [place] [address] CHEST 2 VIEW PA AND LATon CHEST 2 VIEW PA AND LAT STUDY: Chest Radiographs; 11/01/2022 11:29PM INDICATION: Chest pain, unspecified. COMPARISON: None available ACCESSION NUMBER(S): [id number] ORDERING CLINICIAN: CANDY VILLA MD TECHNIQUE: Frontal and lateral chest. FINDINGS: CARDIOMEDIASTINAL SILHOUETTE: Cardiomediastinal silhouette is normal in size and configuration. LUNGS: Lungs are clear. ABDOMEN: No remarkable upper abdominal findings. BONES: No acute osseous changes. IMPRESSION: No acute thoracic findings. Signed by Liliam Torres II, MD Electronically signed by: LILIAM TORRES MD, PHD [facility] Covid 19 Resultson 2 SARS-CoV-2 (COVID-19) RNA [...] You may also be contacted by the [facility] to see if any of your close [...] or Naproxen (Aleve) can also be used. Fxon-ykz-kmkdqgl cough and cold medicines can be used according to the instructions on the package. Some ccoc-ucp-ryfmbzl medicines also contain acetaminophen. Make sure you [...] water are not available, use alcohol-based hand heavy duty custodian. Avoid touching your eyes, nose, and mouth [...] 24 reggie (more content not included)... Normal [facility] INFLUENZA A/B, COVID 2019 PC R,SYMPTOMATICon 11-02-2022 INFLUENZA A, PCR Not detected Normal Not Detected [facility] Comment on above: Result Comment: Resp iratory virus testing is performed routinely by PCR for Influenza A/B and RSV. Not Detected results do not preclude Influenza A/B or RSV infections since the adequacy of sample collection or low viral burden may impact the clinical sensitivity of this test method. Performed By: #### C OINP #### [place] [address] INFLUENZA B, PCR Not detected Normal Not Detected [facility] Comment on above: Result Comment: Resp iratory virus testing is performed routinely by PCR for Influenza A/B and RSV. Not Detected results do not preclude Influenza A/B or RSV infections since the adequacy of sample collection or low viral burden may impact the clinical sensitivity of this test method. Performed By: #### C OINP #### [place] [address] SARS-CoV-2 (COVID-19) RNA CATA+probe Ql (Unsp spec) Not detected Normal Not Detected [facility] Comment on above: Result Comment: . This test has received FDA Emergency Use Authorization (EUA) and has been verified by [facility]. This test is only authorized for the duration of time that circumstances exist to justify the authorization of the emergency use of in vitro diagnostic tests for the detection of SARS-CoV-2 virus and/or diagnosis of COVID-19 infection under section 564(b)(1) of the Act, 21 U.S.C. 360bbb-3(b)(1), unless the authorization is terminated or revoked sooner. [facility] is certified under CLIA-88 as qualified to perform high complexity testing. Testing is performed in the [facility] laboratory located at [address] [place] [address]. SARS-CoV-2/Flu/RSV Multiplex Test: Fact sheet for providers: https://www.fda.gov/media/818407/download Fact sheet for patients: https://www.fda.gov/media/486595/download Performed By: #### C OINP #### [place] [address] Lab Specimen Source Nasal, Nasopharyngeal Normal [facility] Comment on above: Performed By: #### C OINP #### [place] [address] Provider Note - ED v3on 10-18 Provider [...] Authorization (EUA) and has been verified by [facility]. This test is only authorized for the duration of time that circum Radiology Results: Impression: No acute thoracic findings. Signed by Liliam Torres II, MD Xray Chest 2 View PA + Lateral [Nov 01 2022 11:33PM] [facility] MDM/ED COURSE: 22-year-old female presenting with [...] care and (more content not included)... Normal [facility] Triage - EDon 11-02-2022 Triage - [...] past 30 days PAIN Pain Scale Used: SKYLA Pain Rating (0-10): 6 = Moderate Past Medical History: Past Medical History Reviewedyes Electronic Signatures: Nu Alcocer (SHELL) (Signed 01-Nov-2022 23:02) Authored: Quick Triage, Risk Screens, Pain, Travel History, Chart Review, Scores, Past Medical History Last Updated: 01-Nov-2022 23:02 by Nu Alcocer (RN) Normal [facility] RUBELLA IGG ABon 09-12-2022 Rubella IgG, Qual Positive Positive [facility] TSH BLDon 09-11-2022 TSH Qn 2.520 m[IU]/L 0.270 - 4.200 mIU/L [facility] HCG QUANTITATIVEon HCG.beta subunit Qn 2.5 m[IU]/mL <5.0 mIU/mL [facility] Homegoing Instructionson Homegoing Instructions Additional Instructions: Handouts Given: Topic 1ANESTHESIA HOME GOING INSTRUCTIONS Topic 2SURGICAL SITE INFECTION INSTRUCTIONS Topic 3SURGEON INSTRUCTIONS Topic 4MEDICATION EDUCATION Topic 5ESTRACE INSTRUCTIONS Electronic Signatures: Arias Chau (RN) (Signed 16-Jun-2021 15:27) Authored: Additional Instructions Last Updated: 16-Jun-2021 15:27 by Arias Chau (RN) Normal [facility] No Panel Informationon 06-16 [facility] [...] Visi (more content not included)... Normal [facility] Patient Profile - Preop v2on 06-16-2021 Patient Profile - Preop v2 Profile: Initial Info: How to be AddressedShayna(1) Spoken Language PreferredEnglish (1) Stated Reason for AdmissionOPERATIVE HYSTEROSCOPY Primary Contact Name and NumberMARINO [phone] Patient Belongingspatient educated regarding responsibility for personal items Medications Brought to Hospital[facility] Health: Weight in kg72.9 kilogram(s) Weight in yfj089.7 pound(s) Weight Methodactual (measured) Scale Typestanding Height [...] instruction; written material Cultural Considerationsnone Developmental Considerationsnone Adventist Considerationsnone Other learner availableno [place] RiskPatient location auto qualifies him/her for HIGH RISK. Are there any cultural, spiritual, protestant practices/values/needs that are important for us to [...] > 30 days 16-Jun-2021 02:07 Normal [facility] Preop Checkliston 06-16-2021 Preop Checklist Preop Checklist: Preop Checklist: Arrival [id number] Arrival Time11:50 Procedure Typeoperative hysteroscopy, arteriovenous malformation resection NPO [id number] 00:00 ID Band Onyes Allergy Bandno known [...] 11:58 by Misa Sotelo (JAQUELINE) Normal [facility] Coronavirus 2019 RNA by PCR, Screening Asymptomticon [...] make patient management decisions.Fact sheet for providers: https://www.fda.gov/media/964779/downloadFact sheet for patients: https://www.fda.gov/media/068464/downloadThis test has received FDA Emergency Use Authorization (EUA) and has been verified by [facility] ([facility]). This test is only authorized for the duration of time that circumstances exist to justify the authorization of the emergency use of in vitro diagnostic tests for the detection of SARS-CoV-2 virus and/or diagnosis of COVID-19 infection under section 564(b)(1) of the Act, 21 U.S.C. 360bbb-3(b)(1), unless the authorization is terminated or revoked sooner. [facility] is certified under CLIA-88 as qualified to perform high complexity testing. Testing is performed in the [facility] laboratories located at [address] [place] [address]. CT Abdomen and Pelvis with I V Contraston 06-08-2021 CT Abdomen and Pelvis W contrast IV Normal [facility] Work Phone: [phone] Complete Blood Count + Diffe rentialon 06-08-2021 Basophils/100 WBC (Bld) 0.7 % 0.0 - 2.0 [facility] Work Phone: [phone] Erythrocyte distribution width (RBC) [Ratio] 12.5 % See Below [facility] Work Phone: [phone] Comment on above: Reference Range: 11. 5 - 14.5 Hematocrit (Bld) [Volume fraction] 39.0 % See Below [facility] Work Phone: [phone] Comment on above: Reference Range: 36. 0 - 46.0 Hemoglobin (Bld) [Mass/Vol] 13.0 g/dL See Below [facility] Work Phone: [phone] Comment on above: Reference Range: 12. 0 - 16.0 Lymphocytes/100 WBC (Bld) 20.6 % See Below [facility] Work Phone: [phone] Comment on above: Reference Range: 13. 0 - 44.0 MCHC (RBC) [Mass/Vol] 33.4 g/dL See Below [facility] Work Phone: [phone] Comment on above: Reference Range: 32. 0 - 36.0 MCV (RBC) [Entitic vol] 97 fL 80 - 100 [facility] Work Phone: [phone] Monocytes/100 WBC (Bld) 4.9 % 2.0 - 10.0 [facility] Work Phone: [phone] Neutrophils/100 WBC (Bld) 72.8 % See Below [facility] Work Phone: [phone] Comment on above: Reference Range: 40. 0 - 80.0 Platelets (Bld) [#/Vol] 287 10*3/uL 150 - 450 [facility] Work Phone: [phone] RBC (Bld) [#/Vol] 4.03 {x10E12/L} See Below [facility] Work Phone: [phone] Comment on above: Reference Range: 4.0 0 - 5.20 WBC (Bld) [#/Vol] 11.6 10*3/uL above high threshold 4.4 - 11.3 [facility] Work Phone: [phone] Complete Blood Count + Differential 1.0 % 0.0 - 6.0 [facility] Work Phone: [phone] Complete Blood Count + Differential 0.10 {x10E9/L} See Below [facility] Work Phone: [phone] Comment on above: Reference Range: 0.0 0 - 0.10 Reference Range: 0.0 0 - 0.70 Complete Blood Count + Differential 0.60 {x10E9/L} See Below [facility] Work Phone: [phone] Comment on above: Reference Range: 0.1 0 - 1.00 Complete Blood Count + Differential 2.40 {x10E9/L} See Below [facility] Work Phone: [phone] Comment on above: Reference Range: 1.2 0 [...] Authorization (EUA) and has been verified by [facility]. This test is only authorized for the duration of time that circumstances exist to justify the authorization of the emergency use of in vitro diagnostic tests for the detection of SARS-CoV-2 virus and/or diagnosis of COVID-19 infection under section 564(b)(1) of the Act, 21 U.S.C. 360bbb-3(b)(1), unless the authorization is terminated or revoked sooner. [facility] is certified under CLIA-88 as qualified to perform high complexity testing. Testing is performed in the [facility] laboratory located at [address] [place] [address].SARS-CoV-2/Flu/RSV Multiplex Test: Fact sheet for providers: https://www.fda.gov/media/825332/downloadFact sheet for patients: https://www.fda.gov/media/760915/download HCG, Beta Quantitativeon HCG.beta subunit Qn 16 [...] performed using a different test methodology at [facility] than other [facility]. Direct result comparison should only be made within the same method. REF VALUESNON FEMALE <5MALES <5 HCG, Serum - Qualitativeon 0 06-08-2021 HCG ( test) Ql Negative Negative [facility] Work Phone: Laboratory - Blood bankon ABO group Nom (Bld) A [facility] Work Phone: [phone] Blood group antibody screen Ql Negative [facility] Work Phone: [phone] Rh immune globulin screen (Bld) [Interp] Positive [facility] Work Phone: [phone] Laboratory - Chemistry and C hemistry - challengeon 06-08-2021 Anion gap [Moles/Vol] 11 mmol/L 10 - 20 [facility] Work Phone: [phone] Calcium [Mass/Vol] 9.3 mg/dL 8.6 - 10.3 [facility] YN-[facility]i [facility] 320 Work Phone: [phone] Chloride [Moles/Vol] 106 mmol/L 98 - 107 [facility] Work Phone: [phone] CO2 [Moles/Vol] 24 mmol/L 21 - 32 [facility] Work Phone: [phone] Creatinine [Mass/Vol] 0.67 mg/dL See Below [facility] Work Phone: [phone] Comment on above: Reference Range: 0.5 0 - 1.05 Glucose [Mass/Vol] 89 mg/dL 74 - 99 [facility] YN[facility] Work Phone: [phone] Potassium [Moles/Vol] 3.4 mmol/L below low threshold 3.5 - 5.3 [facility] Work Phone: [phone] Sodium [Moles/Vol] 138 mmol/L 136 - 145 [facility] YN[facility] Work Phone: [phone] Urea nitrogen [Mass/Vol] 7 mg/dL 6 - 23 [facility] Work Phone: [phone] No Panel Informationon 06-08 Normal [facility] Work Phone: [phone] >60 >60 [facility] Work Phone: [phone] Comment on above: CALCULATIONS OF VANESA MATED GFR ARE PERFORMED USING THE MDRD STUDY EQUATION FOR THE IDMS-TRACEABLE CREATININE METHODS. CLIN CHEM 2007;53:766-72 Urinalysison 06-08-2021 Color (U) Straw See Below [facility] Work Phone: [phone] Comment on above: Reference Range: STR AW,YELLOW Glucose Ql (U) Negative NEGATIVE [facility] Work Phone: [phone] Ketones Ql (U) 5(TRACE) Abnormal NEGATIVE [facility] Work Phone: [phone] Leukocyte esterase Test strip Ql (U) Negative NEGATIVE [facility] Work Phone: [phone] pH (U) 5.0 [pH] 5.0 - 8.0 [facility] Work Phone: [phone] Protein (U) [Mass/Vol] Negative NEGATIVE [facility] Work Phone: [phone] RBC (U) [#/Vol] MODERATE(2+) Abnormal NEGATIVE [facility] N[facility] Work Phone: [phone] Specific gravity (U) [Rel density] 1.011 1 See Below [facility] Work Phone: [phone] Comment on above: Reference Range: 1.0 05 - 1.035 Urinalysis Negative NEGATIVE [facility] Work Phone: [phone] Urinalysis <2.0 0.0 - 1.9 [facility] Work Phone: [phone] Urinalysis CLEAR CLEAR [facility] Work Phone: [phone] Urinalysis, Microscopicon Urinalysis, Microscopic 1 {/HPF} [facility] Work Phone: [phone] Urinalysis, Microscopic 20 {/HPF} Abnormal 0-5 [facility] [...] HCG measurement is performed using the Sejal Reclip.It Access Immunoassay which detects intact HCG and free beta HCG subunit. This test is not indicated for use as a tumor marker. HCG testing is performed using a different test methodology at [facility] other [facility]. Direct result comparison should only be made within the same method. REF VALUESNON FEMALE <5MALES <5 HCG, Beta Quantitativeon HCG.beta subunit Qn 193 m[IU]/mL Abnormal [address] Work Phone: Comment on above: Low-level [...] HCG measurement is performed using the Sejal Howe Access Immunoassay which detects intact HCG and free beta HCG subunit. This test is not indicated for use as a tumor marker. HCG testing is performed using a different test methodology at [facility] than other [facility]. Direct result comparison should only be made within the same method. REF VALUESNON FEMALE <5MALES <5 HCG, Beta Quantitativeon HCG.beta subunit Qn 234 m[IU]/mL Abnormal [facility] Work Phone: Comment on above: Low-level positive [...] HCG measurement is performed using the Sejal Reclip.It Access Immunoassay which detects intact HCG and free beta HCG subunit. This test is not indicated for use as a tumor marker. HCG testing is performed using a different test methodology at [facility] than other [facility]. Direct result comparison should only be made within the same method. REF VALUESNON FEMALE <5MALES <5 EYE 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 - Post Opon 1 EYE 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 - Post Op Diagnoses/Problems Assessed Postoperative follow-up [...] TABS Vitals Vital Signs Recorded: 24Mar2021 02:26PM Pjqingaxatm68.7 F Xjonwclk352 Mlhnpmewf80 Height5 ft 2 in Qzjjyi03.6 kg BMI Otctnfbhyx96.27 BSA Calculated1.74 Tobacco Usea) Yes Patient encouraged to stop using tobacco productsYes Results/Data Surgical Rprawljmf76Ayr3108 12:12PLiliam Strong NameResultFlagReference Case Surgical Pathology(Report) Name JOCELYNESAMUELTISH Pathologist: AYE HYDE MD Date of Procedure: 03/09/2021 Date Received: 03/09/2021 Date Reported 03/10/2021 Submitting Physician: LILIAM BRANTLEY MD Location: [facility] Other External # FINAL DIAGNOSIS A. [...] measuring 5.0 x 2.5 x 1.0 cm. Fagot Heater Helper sections are submitted in 3 cassettes. [facility] Summary of Cassettes: Specimen Label Site A 1 possible villous tissue 2 non-villous tissue 3 additional villous and non-villous tissue [facility]/03/09/2021 [facility] Department of Pathology [address] [place] [address] Signatures Electronically signed by : Liliam Brantley MD; Mar 24 2021 2:36PM EST (Author) Normal [facility] [employer] EYE 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 - Office Visiton 02-16 EYE 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 - Office Visit Diagnoses/Problems Assessed Blighted ovum (631.8) (O02.0) Orders Complete Blood Count; Status:Active; Requested for:[id number]; HCG, Beta Quantitative; Status:Active; Requested for:[id number]; Provider Impressions 1. Missed miscarriage 2. Blighted [...] any vaginal bleeding. She is interested in [employer]. History of Present IllnessPatient presents for follow-up [...] TABS Vitals Vital Signs Recorded: 06Mar2021 11:23AM Krqpyayhmuj77.1 F Veclzpwr445 Eovidrzxs12 Height5 ft 2 in Bjlpwg57.3 kg BMI Klrazycpim70.75 BSA Calculated1.73 Physical Exam PHYSICAL EXAMINATION: Well-developed, [...] fluid in the cul-de-sac. Results/Data HCG, Beta Bmuksrjeyyca01Hpn7378 02:10PMLiliam Brantley Test NameResultFlagReference HCG, Beta Havcvinbzvwz241640 mIU/mLA Low-level positive HCG results can be [...] Total HCG measurement is performed using the [employer] Access Immunoassay which detects intact HCG and free beta HCG subunit. This test is not indicated for use as a tumor marker. HCG testing is performed using a different test methodology at [facility] than other [facility]. Direct result comparison should only be made within the same method. REF VALUES NON FEMALE <5 MALES <5 HCG, Beta Xxysakbllwvn89Mgq2277 03:45PMLiliam Brantley Test NameResultFlagReference HCG, Beta Bhhjyqjuwjxw355064 mIU/mLA Low-level positive HCG results can be seen in early , in janene- or post-menopausal females due to normal pituitary HCG production, or with analytic interference. Repeat testing in 48-72 hours can aid in assessing for as results should double in this time period. FSH measurement (more content not included)... Normal [facility] Office Visit Presurgicalon 0 03-06-2021 Office Visit Presurgical Diagnoses/Problems Assessed Blighted ovum (631.8) (O02.0) Orders Blighted ovum Complete Blood Count; Status:Active; Requested for:[id number]; HCG, Beta Quantitative; Status:Active; Requested for:[id number]; Provider Impressions 1. Missed miscarriage 2. Blighted [...] any vaginal bleeding. She is interested in [employer]. History of Present IllnessPatient presents for follow-up [...] TABS Vitals Vital Signs Recorded: 06Mar2021 11:23AM Zftwyllexau55.1 F Jasqqawa669 Tmuagmgth70 Height5 ft 2 in Covnof26.3 kg BMI Evptkneksp03.75 BSA Calculated1.73 Physical Exam PHYSICAL EXAMINATION: Well-developed, [...] fluid in the cul-de-sac. Results/Data HCG, Beta Qzcjinukoyyh09Ise7642 02:10PMLiliam Brantley Test NameResultFlagReference HCG, Beta Rclmkshgfiuc134989 mIU/mLA Low-level positive HCG results can be [...] performed using a different test methodology at [facility]. Direct result comparison should only be made within the same method. REF VALUES NON FEMALE <5 MALES <5 HCG, Beta Xpzwefwucppa15Gqg6995 03:45PMLiliam Brantley Test NameResultFlagReference HCG, Beta Vujausuihfgp868921 mIU/mLA Low-level positive HCG results can be seen in early , in janene- or post-menopausal females due to normal pituitary HCG production, or with analytic interference. Repeat testing in 48-72 hours can aid in assessing for as results should double in this time period. (more content not included)... Normal [facility] EYE 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 - Office Visiton 02-16 EYE 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 - Office Visit Diagnoses/Problems Assessed Blighted ovum [...] TABS Vitals Vital Signs Recorded: 27Feb2021 02:13PM Urfwpfiqqay54.8 F Zwnnfyhz720 Zqfpkjlbz33 Height5 ft 2 in Xoflef12.7 kg BMI Qsavaeigmw05.91 BSA Calculated1.73 Physical Exam General: No acute distress Eye: Intraocular movements are intact HEENT: Normocephalic Respiratory: Respirations are nonlabored Gastrointestinal: Nondistended Musculoskeletal: Normal range of motion Neurologic: Alert and oriented x3 Psychiatric: Cooperative, appropriate mood and affect. Results/Data HCG, Beta Fvatfekxblxs50Fdu1056 02:10PMLiliam Brantley Test NameResultFlagReference HCG, Beta Ravfayyellfr981292 mIU/mLA Low-level positive HCG results can be [...] Total HCG measurement is performed using the SuperSport Access Immunoassay which detects intact HCG and free beta HCG subunit. This test is not indicated for use as a tumor marker. HCG testing is performed using a different test methodology at [facility]. Direct result comparison should only be made within the same method. REF VALUES NON FEMALE <5 MALES <5 HCG, Beta Lwwipgtyouwd60Scj1112 03:45PMLiliam Brantley Test NameResultFlagReference HCG, Beta Tbfhouvbqlzm021524 mIU/mLA Low-level positive HCG results can be [...] Total HCG measurement is performed using the SuperSport Access Immunoassay which detects intact HCG and free beta HCG subunit. This test is not indicated for use as a tumor marker. HCG testing is performed using a different test methodology at [facility]. Direct result comparison should only be made within the same method. REF VALUES NON FEMALE <5 MALES <5 Blood Typing (ABO + Rho D)08Feb2021 09:30AMALiliam zelaya Test NameResultFlagReference ABOA RH TYPEPOS Signatures Electronically signed by : Liliam Brantley MD; Feb 27 2021 2:28PM EST (Author) Normal [facility] EYE 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 - Office Visiton 03-2 EYE 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 - Office Visit Diagnoses/Problems Assessed Blighted ovum (631.8) (O02.0) Orders HCG, Beta Quantitative; Status:Active; Requested for:[id number]; Provider Impressions 1. Missed miscarriage 2. Blighted [...] TABS Vitals Vital Signs Recorded: 13Feb2021 02:05PM Rylzhgdhpva62 F Eydqozmq562 Zvnqyckqo73 Height5 ft 2 in Ocohnh54.4 kg BMI Hafveagamm36.79 BSA Calculated1.73 Physical Exam PHYSICAL EXAMINATION: Well-developed, [...] fluid in the cul-de-sac. Results/Data HCG, Beta Lvdbyxwglibf60Rwj7443 03:45PMLiliam Brantley Test NameResultFlagReference HCG, Beta Ykyoyjgswhqf033724 mIU/mLA Low-level positive HCG results can be [...] performed using a different test methodology at [facility]. Direct result comparison should only be made within the same method. REF VALUES NON FEMALE <5 MALES <5 HCG, Beta Nlacyhpkkywe45Elu0448 09:30AMAllLiliam mcgovern Test NameResultFlagReference HCG, Beta Rotnefcyrwxy404646 mIU/mLA Low-level positive HCG results can be [...] detects intac (more content not included)... Normal [facility] EYE 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 - Office Visiton 01-17 EYE 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 - Office Visit Diagnoses/Problems Assessed Amenorrhea (626.0) (N91.2) Orders Blood Typing (ABO + Rho D); Status:Active; Requested for:08Feb2021; HCG, Beta Quantitative; Status:Active; Requested for:[id number]; HCG, Beta Quantitative; Status:Active; Requested for:10Feb2021; Provider [...] TABS Vitals Vital Signs Recorded: 08Feb2021 09:03AM Uwnihqajxcs62.7 F Bhxtcgzz023 Ipjygnmmj77 Height5 ft 2 in Lqrwtd78.1 kg BMI Ppsdaisorh36.07 BSA Calculated1.73 Tobacco Usea) Yes Patient encouraged to stop using tobacco productsYes [id number] Physical Exam PHYSICAL EXAMINATION: Well-developed, well nourished, [...] fluid in the cul-de-sac. Results/Data HCG, Beta Irfcudkianaj95Gbl3248 01:15PMAllLiliam mcgovern Test NameResultFlagReference HCG, Beta Nwecyjknijze13710 mIU/mLA Low-level positive HCG results can be [...] Total HCG measurement is performed using the [employer] Access Immunoassay which detects intact HCG and free beta HCG subunit. This test is not indicated for use as a tumor marker. HCG testing is performed using a different test methodology at [facility]. Direct result comparison should only be made within the same method. REF VALUES NON FEMALE <5 MALES <5 HCG, Beta Nsijdnxzevwh46Aci6478 03:35PMSergioshaniqua Liliam Test NameResultFlagReference HCG, Beta Yjtzhyfinesa43165 mIU/mLA Low-level positive HCG results can be [...] HCG measurement is performed using the [employer] Access Immunoassay which detects intact HCG and free beta HCG subunit. This nate (more content not included)... Normal [facility] EYE 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 - Office Visiton 03- EYE 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 - Office Visit Diagnoses/Problems Assessed Abnormal chromosomal [...] TABS Vitals Vital Signs Recorded: 25Jan2021 03:07PM Woyynaotntw89.6 F Petwrfqm144 Ksfxlearp79 Height5 ft 2 in Jfatpp247 lb 3.04 oz BMI Iuwnogwotm02.75 BSA Calculated1.73 [id number] Physical Exam PHYSICAL EXAMINATION: Well-developed, well nourished, [...] in the cul-de-sac. Results/Data IO HCG, Urine Susg89Hkf9531 03:04PMLiliam Brantley MEDLINE LOT: [id number] EXP: 07/18/2022 Test NameResultFlagReference IO Urine hCGPositive Signatures Electronically signed by : Liliam Brantley MD; Jan 25 2021 3:26PM EST (Author) Normal [facility] Progress Noteon 08-24-2017 Route Service Representative Authentication Interface Message Text Patient ID: Tish [...] source Temporal, weight 65.4 kg, last menstrual snjjhq2608/12/2017. Normal [facility] Progress Noteon 08-20-2017 Route Service Representative Authentication Interface Message Text Patient ID: Tish [...] anxiety and asthma. She is unaccompanied. Nolanguage last puller was used.AnxietyOnset: GradualCharacterized by: Anxiety and Panic [...] weight 67.6 kg, last menstrualperiod 08/12/2017. Normal [facility] Progress Noteon 07-16-2017 Route Service Representative Authentication Interface Message Text Patient ID: Tish [...] Use with spacer.- Spacer/Aero-Holding Chambers (OPTICHAMBER ADVANTAGE) [facility]; Use withinhaled medication as instructed.Anxiety state- [...] Check 17 Year. She is unaccompanied. Nolanguage last puller was used.17 YEAR WELL CHILDEducation:She Is in [...] an std: None, reports had testing at [facility]. Suicidality:She has depression and has anxiety.MenstruationLast Menstrual period: LMP from [facility]'s last menstrual period was 07/16/2017..Menstruation: regular [...] weight 64.2kg, last menstrual period 07/16/2017. Normal [facility] Vital Signs Date Time Vital Sign Value Performing Clinician Facility 09-07-2024 11:00-0400 Body mass index (BMI) [Ratio] 39.62 kg/m2 Abilio Johnson MD Work Phone: [facility] 09-07-2024 11:00-0400 Body weight 98.25 kg Abilio Johnson MD Work Phone: [facility] 09-07-2024 11:00-0400 Diastolic blood pressure 80 mm[Hg] Abilio Johnson MD Work Phone: [facility] 09-07-2024 11:00-0400 Systolic blood pressure 120 mm[Hg] Abilio Johnson MD Work Phone: [facility] 08-31-2024 10:00-0400 Body mass index (BMI) [Ratio] 38.78 kg/m2 Jaylon Ureña MD Work Phone: [facility] 08-31-2024 10:00-0400 Body weight 96.16 kg Jaylon Ureña MD Work Phone: [facility] 08-31-2024 10:00-0400 Diastolic blood pressure 68 mm[Hg] Jaylon Ureña MD Work Phone: [facility] 08-31-2024 10:00-0400 Systolic blood pressure 118 mm[Hg] Jaylon Ureña MD Work Phone: [facility] 08-24-2024 10:08-0400 Body mass index (BMI) [Ratio] 38.78 kg/m2 Tari Boggs MD Work Phone: [facility] 08-24-2024 10:08-0400 Body weight 96.16 kg Tari Boggs MD Work Phone: [facility] 08-24-2024 10:08-0400 Diastolic blood pressure 76 mm[Hg] Tari Boggs MD Work Phone: [facility] 08-24-2024 10:08-0400 Systolic blood pressure 120 mm[Hg] Tari Boggs MD Work Phone: [facility] 08-17-2024 15:16-0400 Body mass index (BMI) [Ratio] 38.78 kg/m2 Abilio Johnson MD Work Phone: [facility] 08-17-2024 15:16-0400 Body weight 96.16 kg Abilio Johnson MD Work Phone: [facility] 08-17-2024 15:16-0400 Diastolic blood pressure 78 mm[Hg] Abilio Johnson MD Work Phone: [facility] 08-17-2024 15:16-0400 Systolic blood pressure 110 mm[Hg] Abilio Johnson MD Work Phone: [facility] 08-10-2024 11:19-0400 Body mass index (BMI) [Ratio] 38.04 kg/m2 Jaylon Ureña MD Work Phone: [facility] 08-10-2024 11:19-0400 Body weight 94.35 kg Jaylon Ureña MD Work Phone: [facility] 08-10-2024 11:19-0400 Diastolic blood pressure 72 mm[Hg] Jaylon Ureña MD Work Phone: [facility] 08-10-2024 11:19-0400 Systolic blood pressure 108 mm[Hg] Jaylon Ureña MD Work Phone: [facility] 07-27-2024 11:05-0400 Body mass index (BMI) [Ratio] 38.34 kg/m2 Monikaautumn Joel AUTOMOBILE MECHANIC SUPERVISOR.CNM Work Phone: [facility] 07-27-2024 11:05-0400 Body weight 95.07 kg Monika Plotrosetta AUTOMOBILE MECHANIC SUPERVISOR.CNM Work Phone: [facility] 07-27-2024 11:05-0400 Diastolic blood pressure 64 mm[Hg] Monika Plotrosetta AUTOMOBILE MECHANIC SUPERVISOR.CNM Work Phone: [facility] 07-27-2024 11:05-0400 Systolic blood pressure 118 mm[Hg] Monika Plotrosetta AUTOMOBILE MECHANIC SUPERVISOR.CNM Work Phone: [facility] 07-13-2024 11:03-0400 Body mass index (BMI) [Ratio] 37.49 kg/m2 Naz Kern AUTOMOBILE MECHANIC SUPERVISOR.CNM Work Phone: [facility] 07-13-2024 11:03-0400 Body weight 92.99 kg Naz Kern AUTOMOBILE MECHANIC SUPERVISOR.CNM Work Phone: [facility] 07-13-2024 11:03-0400 Diastolic blood pressure 64 mm[Hg] Naz Kern AUTOMOBILE MECHANIC SUPERVISOR.CNM Work Phone: [facility] 07-13-2024 11:03-0400 Systolic blood pressure 112 mm[Hg] Naz Kern AUTOMOBILE MECHANIC SUPERVISOR.CNM Work Phone: [facility] 06-29-2024 11:19-0400 Body mass index (BMI) [Ratio] 37.13 kg/m2 Monika Joel AUTOMOBILE MECHANIC SUPERVISOR.CNM Work Phone: [facility] 06-29-2024 11:19-0400 Body weight 92.08 kg Monika Joel AUTOMOBILE MECHANIC SUPERVISOR.CNM Work Phone: [facility] 06-29-2024 11:19-0400 Diastolic blood pressure 62 mm[Hg] Monika Joel AUTOMOBILE MECHANIC SUPERVISOR.CNM Work Phone: [facility] 06-29-2024 11:19-0400 Systolic blood pressure 120 mm[Hg] Monika Joel AUTOMOBILE MECHANIC SUPERVISOR.CNM Work Phone: [facility] 06-15-2024 10:29-0400 Body mass index (BMI) [Ratio] 36.4 kg/m2 Tari Boggs MD Work Phone: [facility] 06-15-2024 10:29-0400 Body weight 90.27 kg Tari Boggs MD Work Phone: [facility] 06-15-2024 10:29-0400 Diastolic blood pressure 66 mm[Hg] Tari Boggs MD Work Phone: [facility] 06-15-2024 10:29-0400 Systolic blood pressure 110 mm[Hg] Tari Boggs MD Work Phone: [facility] 06-04-2024 11:11-0400 Body mass index (BMI) [Ratio] 36.54 kg/m2 Abilio Johnson MD Work Phone: [facility] 06-04-2024 11:11-0400 Body weight 90.63 kg Abilio Johnson MD Work Phone: [facility] 06-04-2024 11:11-0400 Diastolic blood pressure 70 mm[Hg] Abilio Johnson MD Work Phone: [facility] 06-04-2024 11:11-0400 Systolic blood pressure 110 mm[Hg] Abilio Johnson MD Work Phone: [facility] 05-18-2024 10:15-0400 Body mass index (BMI) [Ratio] 35.81 kg/m2 Mingo Tate MD Work Phone: [facility] 05-18-2024 10:15-0400 Body weight 88.81 kg Mingo Tate MD Work Phone: [facility] 05-18-2024 10:15-0400 Diastolic blood pressure 58 mm[Hg] Mingo Tate MD Work Phone: [facility] 05-18-2024 10:15-0400 Systolic blood pressure 124 mm[Hg] Mingo Tate MD Work Phone: [facility] 04-20-2024 13:56-0400 Body mass index (BMI) [Ratio] 34.75 kg/m2 Debo Alicea AUTOMOBILE MECHANIC SUPERVISOR.FORGING OPERATOR Work Phone: [facility] 04-20-2024 13:56-0400 Body weight 86.18 kg Debo Hoyosstephanie AUTOMOBILE MECHANIC SUPERVISOR.FORGING OPERATOR Work Phone: [facility] 04-20-2024 13:56-0400 Diastolic blood pressure 62 mm[Hg] Deboisak Hoyosstephanie AUTOMOBILE MECHANIC SUPERVISOR.FORGING OPERATOR Work Phone: [facility] 04-20-2024 13:56-0400 Systolic blood pressure 110 mm[Hg] Debo Alicea AUTOMOBILE MECHANIC SUPERVISOR.FORGING OPERATOR Work Phone: [facility] 03-23-2024 10:53-0400 Body weight 78.9264 kg DEBO HOYOSSTEPHANIE [facility] Comment on above: Order Comment: Specimen Type: BLOOD SPEC IMENOrdering Facility: [facility] Address: [address] [place] [address] Performed By: #### S EQ2 ####[email or web address] LABCLIA [id number] [place] [address] 03-23-2024 10:32-0400 Body mass index (BMI) [Ratio] 33.25 kg/m2 Abilio Johnson MD Work Phone: [facility] 03-23-2024 10:32-0400 Body weight 82.46 kg Abilio Johnson MD Work Phone: [facility] 03-23-2024 10:32-0400 Diastolic blood pressure 68 mm[Hg] Abilio Johnson MD Work Phone: [facility] 03-23-2024 10:32-0400 Systolic blood pressure 110 mm[Hg] Abilio Johnson MD Work Phone: [facility] 02-24-2024 16:18-0400 Body weight 78.9264 kg DEBO ALICEA [facility] Comment on above: Order Comment: Specimen Type: BLOOD SPEC IMENOrdering Facility: [facility] Address: [address] [place], [place] [address] [address] Performed By: #### S EQ1 ####[employer] LABCLIA [id number] [place] [address] 02-24-2024 15:50-0400 Body weight 79.83 kg Jaylon Ureña MD Work Phone: [facility] 02-24-2024 15:50-0400 Diastolic blood pressure 62 mm[Hg] Jaylon Ureña MD Work Phone: [facility] 02-24-2024 15:50-0400 Systolic blood pressure 114 mm[Hg] Jaylon Ureña MD Work Phone: [facility] 01-27-2024 14:25-0400 Body height 157.5 cm Debo Alicea AUTOMOBILE MECHANIC SUPERVISOR.FORGING OPERATOR Work Phone: [facility] 01-27-2024 14:25-0400 Body weight 79.11 kg Debo Deanne AUTOMOBILE MECHANIC SUPERVISOR.FORGING OPERATOR Work Phone: [facility] 01-27-2024 14:25-0400 Diastolic blood pressure 58 mm[Hg] Debo Haury AUTOMOBILE MECHANIC SUPERVISOR.FORGING OPERATOR Work Phone: [facility] 01-27-2024 14:25-0400 Systolic blood pressure 116 mm[Hg] Debo Haury AUTOMOBILE MECHANIC SUPERVISOR.FORGING OPERATOR Work Phone: [facility] 11-02-2022 02:17-0500 Diastolic blood pressure 68 mm[Hg] No Pcp Required [facility] 11-02-2022 02:17-0500 Heart rate 74 /min No Pcp Required [facility] 11-02-2022 02:17-0500 Respiratory rate 16 /min No Pcp Required [facility] 11-02-2022 02:17-0500 SaO2% (BldA) [Mass fraction] 100 % No Pcp Required [facility] 11-02-2022 02:17-0500 Systolic blood pressure 137 mm[Hg] No Pcp Required [facility] 09-11-2022 09:03-0400 Body weight 71.49 kg Jaylon Ureña MD Work Phone: [facility] 09-11-2022 09:03-0400 Diastolic blood pressure 66 mm[Hg] Jaylon Ureña MD Work Phone: [facility] 09-11-2022 09:03-0400 Systolic blood pressure 114 mm[Hg] Jaylon Ureña MD Work Phone: [facility] 08-24-2022 15:31-0400 Body height 159.5 cm Imelda Ricketts MD Work Phone: [facility] 08-24-2022 15:31-0400 Body weight 70.76 kg Imelda Ricketts MD Work Phone: [facility] 08-24-2022 15:31-0400 Diastolic blood pressure 68 mm[Hg] Imelda Ricketts MD Work Phone: [facility] 08-24-2022 15:31-0400 Systolic blood pressure 98 mm[Hg] Imelda Ricketts MD Work Phone: [facility] 06-09-2021 17:27-0400 Body temperature 97.16 [degF] No Pcp Required [facility] 06-09-2021 17:27-0400 Diastolic blood pressure 64 mm[Hg] No Pcp Required [facility] 06-09-2021 17:27-0400 Heart rate 54 /min No Pcp Required [facility] 06-09-2021 17:27-0400 Respiratory rate 18 /min No Pcp Required [facility] 06-09-2021 17:27-0400 SaO2% (BldA) [Mass fraction] 99 % No Pcp Required [facility] 06-09-2021 17:27-0400 Systolic blood pressure 99 mm[Hg] No Pcp Required [facility] 06-09-2021 05:08-0400 Body height 157.4 cm No Pcp Required [facility] 06-09-2021 05:080400 Body weight 72 kg No Pcp Required [facility] Encounters Encounter Date Encounter Type Care Provider [...] Start: 08-31-2024 End: 08-31-2024 ambulatory JAYLON UREÑA Facility:[facility] Start: 08-31-2024 End: 08-31-2024 Patient encounter procedure Jaylon Ureña MD Work Phone: OB/Gynecology Comment on above: Supervision of high risk in third trimester (Primary Dx); Obesity affecting in third trimester, unspecified obesity type; 39 weeks gestation of Start: 08-24-2024 End: 08-24-2024 ambulatory TARI BOGGS Facility:[facility] Start: 08-24-2024 End: 08-24-2024 Patient encounter procedure Tari Boggs MD Work Phone: OB/Gynecology Comment on above: 38 weeks gestation o f (Primary Dx); Supervision of high risk in third trimester Start: 08-21-2024 End: 08-21-2024 [facility] Start: 08-21-2024 End: 08-21-2024 Patient encounter [facility] Comment on above: Population Health Na vigation Outreach (Ob.peds/) Start: 08-17-2024 End: 08-17-2024 ambulatory ABILIO JOHNSON Facility:[facility] Start: 08-17-2024 End: 08-17-2024 Patient encounter procedure Abilio Johnosn MD Work Phone: OB/Gynecology Comment on above: Supervision of high risk in third trimester (Primary Dx); 37 weeks gestation of Start: 08-10-2024 End: 08-10-2024 ambulatory JAYLON UREÑA Facility:[facility] Start: 08-10-2024 End: 08-10-2024 Patient encounter procedure Jaylon Ureña MD Work Phone: OB/Gynecology Comment on above: 36 weeks gestation o f (Primary Dx); Supervision of high risk in third trimester; Need for influenza vaccination Start: 07-27-2024 End: 07-27-2024 ambulatory [facility] Facility:[facility] Start: 07-27-2024 End: 07-27-2024 Patient encounter procedure Monika Joel AUTOMOBILE MECHANIC SUPERVISOR.CNM Work Phone: OB/Gynecology Comment on above: 34 weeks gestation o f (Primary Dx); Supervision of high risk in third trimester; Obesity affecting in third trimester, unspecified obesity type; Current every day vaping; History of anxiety Start: 07-13-2024 End: 07-13-2024 ambulatory NAZ KERN Facility:[facility] Start: 07-13-2024 End: 07-13-2024 Patient encounter procedure Naz Kern APRN.CNM Work Phone: OB/Gynecology Comment on above: Supervision of high risk in third trimester (Primary Dx); 32 weeks gestation of ; Obesity affecting in third trimester, unspecified obesity type; Current every day vaping; History of anxiety Start: 06-29-2024 End: 06-29-2024 [facility] Start: 06-29-2024 End: 06-29-2024 Patient encounter procedure Monika Joel AUTOMOBILE MECHANIC SUPERVISOR.CNM Work Phone: OB/Gynecology Comment on above: Supervision of high risk in third trimester (Primary Dx); Obesity affecting in third trimester, unspecified obesity type; 30 weeks gestation of ; Nausea/vomiting in ; Current every day vaping Start: 06-15-2024 End: 06-15-2024 ambulatory MINGO TATE Facility:[facility] Start: 06-15-2024 End: 06-15-2024 Patient encounter procedure Tari Boggs MD Work Phone: OB/Gynecology Comment on above: Supervision of high risk in second trimester (Primary Dx); Obesity affecting in second trimester, unspecified obesity type; 28 weeks gestation of ; Need for vaccination Start: 06-04-2024 End: 06-04-2024 ambulatory ABILIO JOHNSON Facility:[facility] Start: 06-04-2024 End: 06-04-2024 Patient encounter procedure Abilio Johnson MD Work Phone: OB/Gynecology Comment on above: 26 weeks gestation o f (Primary Dx); Supervision of high risk in second trimester; Obesity affecting in second trimester, unspecified obesity type Start: 06-01-2024 Telephone encounter Imelda rudolph MD Work Phone: OB/Gynecology Comment on above: Breast pump Start: 05-18-2024 End: 05-18-2024 ambulatory MINGO TATE Facility:[facility] Start: 05-18-2024 End: 05-18-2024 Patient encounter procedure Mingo Tate MD Work Phone: OB/Gynecology Comment on above: Supervision of high risk in second trimester (Primary Dx); Obesity affecting in second trimester, unspecified obesity type; 24 weeks gestation of Start: 04-20-2024 End: 04-20-2024 ambulatory DEBO ALICEA Facility:[facility] Start: 04-20-2024 End: 04-20-2024 Patient encounter procedure Debo Alicea APRN.FORGING OPERATOR Work Phone: OB/Gynecology Comment on above: Supervision of high risk in second trimester (Primary Dx); 20 weeks gestation of ; Obesity affecting in second trimester, unspecified obesity type Encounter for anatomic survey (Primary Dx); Encounter for screening of mother; 20 weeks gestation of ; Obesity affecting in second trimester, unspecified obesity type Start: 03-23-2024 End: 03-23-2024 ambulatory DEBO ALICEA Facility:[facility] Start: 03-23-2024 End: 03-23-2024 Patient encounter procedure Abilio Johnson MD Work Phone: OB/Gynecology Comment on above: 16 weeks gestation o f (Primary Dx); Encounter for supervision of other normal in first trimester; Migraine headaches; Current every day vaping Start: 03-19-2024 Telephone encounter Tari acuna MD Work Phone: OB/Gynecology Comment on above: OB HOYOS Start: 02-24-2024 End: 02-24-2024 ambulatory JAYLON UREÑA Facility:[facility] Start: 02-24-2024 End: 02-24-2024 Patient encounter procedure Jaylon Ureña MD Work Phone: OB/Gynecology Comment on above: Encounter for superv ision of other normal in first trimester (Primary Dx); 12 weeks gestation of ; Encounter for screening of mother Encounter for (NT) n uchal translucency scan (Primary Dx); 12 weeks gestation of Start: 01-27-2024 End: 01-27-2024 Patient encounter procedure Debo Alicea APRN.FORGING OPERATOR Work Phone: OB/Gynecology Comment on above: with uncer tain dates in first trimester (Primary Dx) Start: 01-27-2024 End: 01-27-2024 ambulatory DEBO ALICEA Facility:[facility] Start: 01-27-2024 End: 01-27-2024 ambulatory DEBO ALICEA Facility:[facility] Start: 01-27-2024 End: 01-27-2024 Patient encounter procedure Debo Alicea APRN.FORGING OPERATOR Work Phone: OB/Gynecology Comment on above: Encounter for superv ision of other normal in first trimester (Primary Dx); 8 weeks gestation of ; with uncertain dates in first trimester; Nausea/vomiting in ; History of anxiety; Recurrent loss; Obesity affecting in first trimester, unspecified obesity type; Current every day vaping Start: 01-09-2024 End: 01-09-2024 [facility] Start: 01-07-2024 End: 01-07-2024 [facility] Start: 01-06-2024 Telephone encounter Abilio garber MD Work Phone: OB/Gynecology Comment on above: Care Start: 12-10-2022 ambulatory Jaylon fuentes MD Work Phone: OB/Gynecology Comment on above: SIS results Start: 12-07-2022 End: 12-07-2022 ambulatory Martha Dueñas MD Work Phone: OB/Gynecology Start: 12-07-2022 End: 12-07-2022 Patient encounter procedure Martha Dueñas MD Work Phone: [facility] Comment on above: Recurrent loss without current (Primary Dx) Start: 11-02-2022 End: 11-02-2022 Emergency department patient visit Candy Villa [facility] Emergency 07 Start: 09-11-2022 End: 09-11-2022 Patient encounter procedure Jaylon Ureña MD Work Phone: OB/Gynecology Comment on above: History of recurrent spontaneous , 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); Encounter for preconception consultation Start: 09-04-2022 Telephone encounter Naz Co sta AUTOMOBILE MECHANIC SUPERVISOR.CNM Work Phone: OB/Gynecology Comment on above: Results (HCG) Start: 09-03-2022 Telephone encounter Naz Co sta AUTOMOBILE MECHANIC SUPERVISOR.CNM Work Phone: OB/Gynecology Comment on above: Early [...] 05-23-2021 Patient encounter procedure No PCP None [id number] Work Phone: Start: 05-10-2021 AUDIT No PCP None [address] Work Phone: Start: 08-24-2017 End: 08-24-2017 Ambulatory [facility] Start: 08-20-2017 End: 08-20-2017 Ambulatory [facility] Start: 07-16-2017 End: 07-16-2017 Ambulatory [facility] Patient encounter status No PCP None MG- [...] Speci men Type: BLOOD SPECIMEN Ordering Facility: [facility] Address: [address] [place] [address] Performed By: #### T SPN #### [facility] CLIA [id number] [address] [place] [address] [place] [address] [place] Start: 02-24-2024 Us nuchal translucency 1st gestation Debo Alicea APRN.CNP Work Phone: Start: 01-27-2024 Us uterus l imited fetuses Debo Alicea LETICIA.FORGING OPERATOR Work Phone: Start: 01-09-2024 HUMAN CHORIONIC GONADOTROPIN, SERUM QUANTITATIVE Start: 01-07-2024 HUMAN CHORIONIC GONADOTROPIN, SERUM QUANTITATIVE Start: 11-02-2022 End: 11-02-2022 EKG impression Candy Villa No history of surgery No PCP None Plan of Treatment Date Care Activity Detail Author Start: 06-15-2034 Urine microalbumin profile DTaP,Tdap,Td Vaccine (8 - Td or Tdap) [facility] Start: 08-31-2025 Covid-19 Vaccine () Covid-19 Vaccine () [facility] Comment on above: Postponed from 07/19/2024 (Declined at t his time) Start: 08-24-2025 PAP TESTING PAP TESTING [facility] Start: 08-24-2025 Screening for malignant neoplasm of cervix [facility] Start: 09-07-2024 End: 09-07-2024 Patient encounter procedure 09/07/2024 10:50 AM EDT Routine Office Visit OB/Gynecology [address] [place] [address] Abilio Johnson MD [address] [place] [address] OB OB/Gynecology Comment on above: OB Start: 08-31-2024 End: 08-31-2024 Patient encounter procedure 08/31/2024 10:10 AM EDT Routine Office Visit OB/Gynecology [address] [place] [address] Jaylon Ureña MD [address] [place] [address] OB OB/Gynecology Comment on above: OB Start: 08-24-2024 End: 08-24-2024 Patient encounter procedure 08/24/2024 10:20 AM EDT Routine Office Visit OB/Gynecology [address] [place] [address] Tari Boggs MD [address] [place] [address] OB OB/Gynecology Comment on above: OB Start: 08-17-2024 End: 08-17-2024 Patient encounter procedure 08/17/2024 3:10 PM EDT Routine Office Visit OB/Gynecology [address] [place] [address] Abilio Johnson MD [address] [place] [address] OB Routine OB/Gynecology Comment on above: OB Routine Start: 08-10-2024 End: 08-10-2024 Patient encounter procedure 08/10/2024 11:10 AM EDT Routine Office Visit OB/Gynecology [address] [place] [address] Jaylon Ureña MD [address] [place] [address] [facility] OB/Gynecology Comment on above: SUZIE Start: 07-27-2024 End: 07-27-2024 Patient encounter procedure 07/27/2024 11:15 AM EDT Routine Office Visit OB/Gynecology [address] [place] [address] Monika Joel APRN.[facility] [address] [place] [address] 2 week follow up OB/Gynecology Comment on above: 2 week follow up Start: 07-19-2024 Covid-19 Vaccine () Covid-19 Vaccine ( season) [facility] Start: 07-19-2024 Covid-19 Vaccine ( season) Covid-19 Vaccine () [facility] Start: 07-19-2024 Influenza vaccination [facility] Start: 07-19-2024 RSV Vaccine (1 - Risk 1-dose series) RSV Vaccine (1 - Risk 1-dose series) [facility] Start: 07-13-2024 End: 07-13-2024 Patient encounter procedure 07/13/2024 11:15 AM EDT Routine Office Visit OB/Gynecology [address] [place] [address] Naz Kern APRN.CNM [address] [place] [address] OB OB/Gynecology Comment on above: OB Start: 06-29-2024 End: 06-29-2024 Patient encounter procedure 06/29/2024 11:15 AM EDT Routine Office Visit OB/Gynecology [address] [place] [address] Monika Joel APRN.CNM [address] [place] [address] OB OB/Gynecology Comment on above: OB Start: 06-15-2024 End: 06-15-2024 Patient encounter procedure 06/15/2024 10:30 AM EDT Routine Office Visit OB/Gynecology [address] [place] [address] Tari Boggs MD [address] [place] [address] OB OB/Gynecology Comment on above: OB Start: 05-27-2024 End: 08-26-2024 CBC W Auto Differential panel - Blood COMPLETE BLOOD COUNT AND DIFFERENTIAL Lab Routine Supervision of high risk in second trimester Obesity affecting in second trimester, unspecified obesity type 24 weeks gestation of Expected: 05/27/2024, Expires: 08/26/2024 [facility] Comment on above: Expected: 05/27/2024, Expires: Start: 05-27-2024 End: 08-26-2024 GESTATIONAL GLUCOSE SCREEN, 1-HOUR, 50 GRAM, NON-FASTING GESTATIONAL GLUCOSE SCREEN, 1-HOUR, 50 GRAM, NON-FASTING Lab Routine Supervision of high risk in second trimester Obesity affecting in second trimester, unspecified obesity type 24 weeks gestation of Expected: 05/27/2024, Expires: 08/26/2024 [facility] Work Phone: Comment on above: Expected: 05/27/2024, Expires: Start: 05-27-2024 End: 08-26-2024 SYPHILIS TOTAL W/REFLEX SYPHILIS TOTAL W/REFLEX Lab Routine Supervision of high risk in second trimester Obesity affecting in second trimester, unspecified obesity type 24 weeks gestation of Expected: 05/27/2024, Expires: 08/26/2024 [facility] Comment on above: Expected: 05/27/2024, Expires: Start: 05-18-2024 End: 05-18-2024 Patient encounter procedure 05/18/2024 10:30 AM EDT Routine Office Visit OB/Gynecology [address] [place] [address] Mingo Tate MD [address] [place] [address] OB OB/Gynecology Comment on above: OB Start: 04-20-2024 End: 04-20-2024 Patient encounter procedure OB/Gynecology Comment on above: Anatomy OB Start: 03-23-2024 End: 06-22-2024 SEQUENTIAL SCN SECOND TRIM [facility] Work Phone: Comment on above: Expected: 03/23/2024, Expires: 4 Start: 03-23-2024 End: 03-23-2024 Patient encounter procedure 03/23/2024 10:40 AM EDT Routine Office Visit OB/Gynecology [address] [place] [id number] Abilio Johnson MD [address] [place] [address] OB OB/Gynecology Comment on above: OB Start: 02-24-2024 End: 05-25-2024 CARRIER SCREEN, STANDARD [facility] Work Phone: Comment on above: Expected: 02/24/2024, Expires: 4 Start: 02-24-2024 End: 05-25-2024 HEMOGLOBIN EVALUATION CASCADE [facility] Work Phone: Comment on above: Expected: 02/24/2024, Expires: 4 Start: 02-24-2024 End: 02-23-2025 OBSTETRIC ULTRASOUND WHI OBSTETRIC ULTRASOUND WHI Anc Imaging Routine 12 weeks gestation of Encounter for screening of mother Encounter for supervision of other normal in first trimester Expected: 02/24/2024, Expires: 02/23/2025 [facility] Work Phone: Comment on above: Expected: 02/24/2024, Expires: 5 Start: 02-24-2024 End: 05-25-2024 SEQUENTIAL SCN FIRST TRIMESTER [facility] Work Phone: Comment on above: Expected: 02/24/2024, Expires: 4 Start: 01-27-2024 End: 04-27-2024 CBC panel - Blood by Automated count CBC Lab Routine Encounter for supervision of other normal in first trimester 8 weeks gestation of Expected: 01/27/2024, Expires: 04/27/2024 [facility] Work Phone: Comment on above: Expected: 01/27/2024, Expires: 4 Start: 01-27-2024 End: 04-27-2024 Hemoglobin A1c in Blood HGB A1C Lab Routine Encounter for supervision of other normal in first trimester 8 weeks gestation of Expected: 01/27/2024, Expires: 04/27/2024 [facility] Work Phone: Comment on above: Expected: 01/27/2024, Expires: 4 Start: 01-27-2024 End: 04-27-2024 Hepatitis B virus surface Ag [Presence] in Serum HEP B SURF AG SCRN Lab Routine Encounter for supervision of other normal in first trimester 8 weeks gestation of Expected: 01/27/2024, Expires: 04/27/2024 [facility] Work Phone: Comment on above: Expected: 01/27/2024, Expires: 4 Start: 01-27-2024 End: 04-27-2024 Hepatitis C virus Ab [Presence] in Serum HEPATITIS C ANTIBODY IA WITH CONFIRMATION Lab Routine Encounter for supervision of other normal in first trimester 8 weeks gestation of Expected: 01/27/2024, Expires: 04/27/2024 [facility] Work Phone: Comment on above: Expected: 01/27/2024, Expires: 4 Start: 01-27-2024 End: 04-27-2024 HIV 1+2 Ab [Presence] in Serum or Plasma by Immunoassay HIV 1 2 COMBO(AG/AB),WITH REFLEX TO DIFFERENTIATION Lab Routine Encounter for supervision of other normal in first trimester 8 weeks gestation of Expected: 01/27/2024, Expires: 04/27/2024 [facility] Work Phone: Comment on above: Expected: 01/27/2024, Expires: 4 Start: 01-27-2024 End: 01-26-2025 NUCHAL TRANSLUCENCY WHI NUCHAL TRANSLUCENCY WHI Anc Imaging Routine Encounter for supervision of other normal in first trimester 8 weeks gestation of Expected: 01/27/2024, Expires: 01/26/2025 [facility] Work Phone: Comment on above: Expected: 01/27/2024, Expires: 5 Start: 01-27-2024 End: 04-27-2024 RUBELLA IGG AB RUBELLA IGG AB Lab Routine Encounter for supervision of other normal in first trimester 8 weeks gestation of Expected: 01/27/2024, Expires: 04/27/2024 [facility] Work Phone: Comment on above: Expected: 01/27/2024, Expires: 4 Start: 01-27-2024 End: 04-27-2024 SYPHILIS TOTAL W/REFLEX SYPHILIS TOTAL W/REFLEX Lab Routine Encounter for supervision of other normal in first trimester 8 weeks gestation of Expected: 01/27/2024, Expires: 04/27/2024 [facility] Work Phone: Comment on above: Expected: 01/27/2024, Expires: 4 Start: 01-27-2024 End: 04-27-2024 TYPE + SCREEN TYPE + SCREEN Blood Bank Routine Encounter for supervision of other normal in first trimester 8 weeks gestation of Expected: 01/27/2024, Expires: 04/27/2024 [facility] Work Phone: Comment on above: Expected: 01/27/2024, Expires: 4 Start: 11-18-2023 Behavioral Health Screening Behavioral Health Screening [facility] Start: 11-18-2023 Depression Assessment Depression Assessment [facility] Start: 08-24-2023 CHLAMYDIA SCREENING (18-24) CHLAMYDIA SCREENING (18-24) [facility] Start: 08-24-2023 GC (GONORRHEA) SCREENING (18-24) GC (GONORRHEA) SCREENING (18-24) [facility] Start: 07-19-2023 Covid-19 Vaccine (2022- season) Covid-19 Vaccine ( season) [facility] Start: 07-19-2023 Influenza [facility] Start: 11-18-2022 DEPRESSION ASSESSMENT DEPRESSION ASSESSMENT [facility] Start: 09-11-2022 End: 11-11-2022 CHROM WILFREDO PERIPH [facility] Work Phone: Comment on above: Expected: 09/11/2022, Expires: 2 Start: 09-11-2022 End: 09-11-2023 SONOHYSTEROGRAPHY (SIS) US WHI SONOHYSTEROGRAPHY (SIS) US WHI Anc Imaging Routine History of recurrent spontaneous , not currently Expected: 09/11/2022, Expires: 09/11/2023 [facility] Work Phone: Comment on above: Expected: 09/11/2022, Expires: 3 Start: 09-03-2022 End: 11-03-2022 Choriogonadotropin.beta subunit [Units/volume] in Serum or Plasma [facility] Work Phone: Comment on above: Expected: 09/03/2022, Expires: 2 Start: 09-03-2022 End: 11-03-2022 TYPE + SCREEN [facility] Work Phone: Comment on above: Expected: 09/03/2022, Expires: 2 Start: 07-19-2022 Influenza vaccination INFLUENZA (#1) [facility] Start: 03-26-2022 Patient encounter procedure [facility] Start: 11-18-2021 DEPRESSION ASSESSMENT DEPRESSION ASSESSMENT [facility] Start: 06-16-2021 SURGMUSCOGEE, Provider: Liliam Wood, Status: Pen, Time: 11:30 AM SURGMUSCOGEE, Provider: Liliam Wood, Status: Pen, Time: 11:30 AM [id number] Work Phone: Start: 06-09-2021 End: 06-10-2022 [facility] [place] Start: 05-23-2021 NEWPROB, Provider: Liliam Brantley, Status: Pen, Time: 2:00 PM NEWPROB, Provider: Liliam Brantley, Status: Pen, Time: 2:[address] Work Phone: Start: 03-09-2021 H/O: surgery Status post dilation and curettage Date: 09-Mar-2021 Comments: suction D&C [facility] [place] Comment on above: suction D&C Start: 10-06-2020 Urine microalbumin profile [facility] Start: 2020 PAP TESTING PAP TESTING [facility] Start: 2018 Urine microalbumin profile DTAP,TDAP,TD (1 - Tdap) [facility] Start: 2017 Anxiety Screening Anxiety Screening [facility] Start: 2017 CHLAMYDIA SCREENING (18-24) CHLAMYDIA SCREENING (18-24) [facility] Start: 2017 Depression Screening Depression Screening [facility] Start: 2017 GC (GONORRHEA) SCREENING (18-24) GC (GONORRHEA) SCREENING (18-24) [facility] Start: 2017 HEPATITIS C SCREENING HEPATITIS C SCREENING [facility] Start: 2017 Hepatitis C screening Hepatitis C Screening [facility] Start: 2017 HIV SCREENING HIV SCREENING [facility] Start: 2017 HIV screening HIV Screening [facility] Start: 2015 Meningococcal B Vaccine: Consider Based On Risk (1 of 2 - Patient Seeks Protection) Meningococcal B Vaccine: Consider Based On Risk (1 of 2 - Patient Seeks Protection) [facility] Start: 2013 PEDS TO ADULT TRANSITION ANNUAL ASSESSMENT PEDS TO ADULT TRANSITION ANNUAL ASSESSMENT [facility] Start: 2011 PEDS TO ADULT TRANSITION INITIAL DISCUSSION PEDS TO ADULT TRANSITION INITIAL DISCUSSION [facility] Start: 2010 HPV VACCINE (1 - 2-dose series) HPV VACCINE (1 - 2-dose series) [facility] Start: 2009 MENINGOCOCCAL B: Consider based on risk (1 of 2 - Risk Bexsero 2-dose series) MENINGOCOCCAL B: Consider based on risk (1 of 2 - Risk Bexsero 2-dose series) [facility] Start: 2005 PNEUMOCOCCAL (1 - PCV) PNEUMOCOCCAL (1 - PCV) [facility] Start: 2005 Pneumococcal vaccination Pneumococcal Vaccine (1 of 2 - PCV) [facility] Start: 1999 COVID-19 VACCINE (#1) COVID-19 VACCINE (#1) [facility] Start: 1999 HEPATITIS B (1 of 3 - 3-dose series) HEPATITIS B (1 of 3 - 3-dose series) [facility] Bacteria identified in Urine by Culture URINE CULTURE Microbiology Routine Encounter for supervision of other normal in first trimester 8 weeks gestation of 01/27/2024 3:50 PM EDT [facility] Work Phone: Chlamydia trachomatis+Neisseria gonorrhoeae DNA [Presence] in Unspecified specimen by CATA with probe detection GC/CHLAMYDIA DNA DET Lab Routine Screen for STD (sexually transmitted disease) 08/24/2022 4:10 PM EDT [facility] Work Phone: Chlamydia trachomatis+Neisseria gonorrhoeae DNA [Presence] in Unspecified specimen by CATA with probe detection GONORRHEA/CHLAMYDIA NAAT Lab Routine Encounter for supervision of other normal in first trimester 8 weeks gestation of 01/27/2024 3:50 PM EDT [facility] Work Phone: PAP FLUID CERVICAL SCREENING PAP FLUID CERVICAL SCREENING Lab Routine Encounter for screening for malignant neoplasm of cervix 08/24/2022 4:10 PM EDT [facility] Work Phone: ROUTINE, GR OUP B STREP PCR ROUTINE, GROUP B STREP PCR Microbiology Routine 36 weeks gestation of 08/10/2024 11:45 AM EDT [facility] T VAGINALIS AMPLIFICATION T VAGI NALIS AMPLIFICATION Lab Routine Screen for STD (sexually transmitted disease) 08/24/2022 4:10 PM EDT [facility] Work Phone: URINE OB DIP B/O URINE OB DIP B/ O Lab Routine 36 weeks gestation of Supervision of high risk in third trimester Ordered: 08/10/2024 [facility] Work Phone: Comment on above: Ordered: 08/10/2024 [facility] Immunizations Immunization Date Immunization Notes Care Provider Fa [facility] 08-10-2024 influenza, seasonal, injectable, preservative free Jaylon Ureña MD Work Phone: [facility] 06-15-2024 tetanus toxoid, redu asia diphtheria toxoid, and acellular pertussis vaccine, adsorbed Tari Boggs MD Work Phone: [facility] 09-02-2019 tuberculin skin test ; purified protein derivative solution, intradermal Naz Kern APRN.CNM Work Phone: [facility] 07-10-2016 hepatitis A vaccine, pediatric/adolescent dosage, 2 dose schedule Naz Kern APRN.CNM Work Phone: [facility] Work Phone: 07-10-2016 meningococcal polysaccharide (groups A, C, Y and W-135) diphtheria toxoid conjugate vaccine (MCV4P) Naz Kern APRN.CNM Work Phone: [facility] Work Phone: 05-04-2013 human papilloma viru s vaccine, quadrivalent Naz Kern APRN.CNM Work Phone: [facility] Work Phone: 12-07-2010 human papilloma viru s vaccine, quadrivalent Naz Kern APRN.CNM Work Phone: [facility] Work Phone: 10-06-2010 hepatitis A vaccine, pediatric/adolescent dosage, 2 dose schedule Naz Kern APRN.CNM Work Phone: [facility] Work Phone: 10-06-2010 human papilloma viru s vaccine, quadrivalent Naz Kern APRN.CNM Work Phone: [facility] Work Phone: 10-06-2010 influenza virus vacc ine, live, attenuated, for intranasal use Naz Kern APRN.CNM Work Phone: [facility] Work Phone: 10-06-2010 meningococcal polysaccharide (groups A, C, Y and W-135) diphtheria toxoid conjugate vaccine (MCV4P) Naz Kern APRN.CNM Work Phone: [facility] Work Phone: 10-06-2010 tetanus toxoid, redu asia diphtheria toxoid, and acellular pertussis vaccine, adsorbed Naz Kern APRN.CNM Work Phone: [facility] Work Phone: 10-06-2010 varicella virus vaccine Melissa Kern APRN.CNM Work Phone: [facility] Work Phone: 10-06-2010 influenza virus vacc ine, unspecified formulation Abilio Johnson MD Work Phone: [facility] 03-16-2004 diphtheria, tetanus toxoids and acellular pertussis vaccine, unspecified formulation Naz Kern APRN.CNM Work Phone: [facility] Work Phone: 03-16-2004 measles, mumps and rubella virus vaccine Nazmark Kern APRN.CNM Work Phone: [facility] Work Phone: 03-16-2004 poliovirus vaccine, inactivated Naz Kern APRN.CNM Work Phone: [facility] Work Phone: 08-30-2000 diphtheria, tetanus toxoids and acellular pertussis vaccine, unspecified formulation Naz Kern APRN.CNM Work Phone: [facility] Work Phone: 08-30-2000 haemophilus influenz ae type b conjugate and Hepatitis B vaccine Naz Kern APRN.CNM Work Phone: [facility] Work Phone: 08-30-2000 measles, mumps and rubella virus vaccine Naz Kern APRN.CNM Work Phone: [facility] Work Phone: 08-30-2000 pneumococcal conjuga te vaccine, 7 valent Naz Kern APRN.CNM Work Phone: [facility] Work Phone: 08-30-2000 poliovirus vaccine, unspecified formulation Naz Kern APRN.CNM Work Phone: [facility] Work Phone: 08-30-2000 varicella virus vaccine Melissa Kern APRN.CNM Work Phone: [facility] Work Phone: 1999 diphtheria, tetanus toxoids and acellular pertussis vaccine, unspecified formulation Naz Kern APRN.CNM Work Phone: [facility] Work Phone: 1999 diphtheria, tetanus toxoids and acellular pertussis vaccine, unspecified formulation Naz Kern APRN.CNM Work Phone: [facility] Work Phone: 1999 haemophilus influenz ae type b conjugate and Hepatitis B vaccine Naz Erlin KELLY.CNM Work Phone: [facility] Work Phone: 1999 poliovirus vaccine, unspecified formulation Nazmark Kern APRN.CNM Work Phone: [facility] Work Phone: 1999 diphtheria, tetanus toxoids and acellular pertussis vaccine, unspecified formulation Naz Kern APRN.CNM Work Phone: [facility] Work Phone: 1999 haemophilus influenz ae type b conjugate and Hepatitis B vaccine Naz Erlin RUSSELLN.CNM Work Phone: [facility] Work Phone: 1999 poliovirus vaccine, unspecified formulation Nazmark Kern APRN.CNM Work Phone: [facility] Work Phone: Payers Date Payer Category Payer Unknown [id number] 2021 Unknown 2021 Unknown [id number] 1999 Unknown [id number] 1999 Unknown [id number] 1999 Unknown [id number] Unknown [id number] Social History Date Type Detail Facility Start: 09-11-2022 End: 01-27-2024 Occasional alcohol use Occasional alcohol use [facility] [address] Work Phone: Tobacco smoking consumption unknown [facility] Start: 08-24-2022 Tobacco smoking stat us IAIS Smokes tobacco daily [facility] End: 01-16-2023 History of tobacco use Cigarette Smoker [facility] Start: 08-24-2022 End: 07-13-2024 Tobacco use and exposure Smokeless tobacco non-user [facility] Start: 08-24-2022 End: 09-07-2024 Alcohol intake Current drinker of alcohol (finding) [facility] Start: 07-27-2021 History SDOH Alcohol Comment occasional [facility] Start: 2000 Sex Assigned At Female C [facility] Start: 08-14-2022 End: 09-11-2022 Exposure to SARS-CoV-2 (event) Not sure [facility] Start: 09-11-2022 End: 01-27-2024 Tobacco use panel [facility] National Score (1-10 0), lower number is lower risk 79 [facility] Start: 07-27-2021 Gender identity Identifies as female gender (finding) [facility] Start: 07-27-2021 Sexual orientation Heterosexual (fin ding) [facility] Start: 01-27-2024 End: 07-13-2024 Tobacco smoking status NHIS Ex-smoker [facility] End: 01-16-2023 History of tobacco use Current smoker [facility] Start: 12-13-2023 [facility] Goals Date Patient Goal Desired Activity /State Personal health goal Functional Status Date Assessment Result Facility Functional observable [facility] Mental Status Date Assessment Result Facility 06-09-2021 Cognitive functions 0213:13 [facility] Clinical Notes 06-16-2021 to 09-07-2024 Quick Notes [...] with more than 50% of the total xbvj-pj-qiof time of the visit in counseling / coordination of care. [facility] 09-07-2024 Miscellaneous Notes SW- pt doing well. No ctx, vb, lof. Good FM PE: Gen- NAD, well appearing Abd- Soft, gravid, NT See flowsheet A/p 40 wk gestation - Discussed r/b/a IOL and consent signed. Patient desires to proceed with ~41 week induction of labor. Scheduled for cytoteangela echavarria 09/10/24 7 PM Abilio Johnson DO I spent 20 minutes in the visit, with more than 50% of the total nuyi-cj-zlld time of the visit in counseling / coordination of care. documented in this encounter [facility] 09-07-2024 Instructions Abbi Allen MA - 09/07/2024 10:48 AM EDT SEQUENTIAL SCREENINGS The [facility] offers sequential screenings for women who are [...] It will require an appointment with our agricultural engineering technicians. This is not an ultrasound performed by [...] the above symptoms, contact our office at [phone] and ask to speak with a nurse. After hours, you can call doctors registry at [phone] OR call [facility] at [phone] and ask to have the doctor butadiene converter helper paged. If you consider this an emergency, dial 6--8 or go to your nearest emergency department. NEED HELP? Are you dealing with a violent or abusive relationship? Are you a victim of rape or sexual assult? Call [facility] ([place]) 24 hour Crisis Hotline: 383.677.2449 or 741-962-0764. MANUAL Your Guide to a Healthy manual is now on-line. Visit [email or web address] [email or web address] to download your free copy documented in this encounter [facility] 08-31-2024 Progress note Formatting of t his [...] discussed with the Patient or Patient's Authorized Fagot Heater Helper. As applicable, any other physician, advance practice provider, medical student, or other health professional student that will be observing or involved in the sensitive examination for educational or training purposes was discussed with the Patient or Authorized Fagot Heater Helper. The Patient or Authorized Fagot Heater Helper has agreed to proceed with the sensitive examination. (Sensitive examination includes inspection and/or palpation of the breasts, pelvis, prostate and anorectal regions) Jaylon Ureña M.D. [facility] 08-31-2024 Miscellaneous Notes RR- VB No. LOF [...] discussed with the Patient or Patient's Authorized Fagot Heater Helper. As applicable, any other physician, advance practice provider, medical student, or other health professional student that will be observing or involved in the sensitive examination for educational or training purposes was discussed with the Patient or Authorized Fagot Heater Helper. The Patient or Authorized Fagot Heater Helper has agreed to proceed with the sensitive examination. (Sensitive examination includes inspection and/or palpation of the breasts, pelvis, prostate and anorectal regions) Jaylon Ureña M.D. documented in this encounter [facility] 08-31-2024 Instructions Mini Ashley MA - 08/31/2024 9:59 AM EDT SEQUENTIAL SCREENINGS The [facility] offers sequential screenings for women who are [...] It will require an appointment with our agricultural engineering technicians. This is not an ultrasound performed by [...] the above symptoms, contact our office at [phone] and ask to speak with a nurse. After hours, you can call [facility] at [phone] OR call [facility] at [phone] and ask to have the doctor butadiene converter helper paged. If you consider this an emergency, dial 9--4 or go to your nearest emergency department. NEED HELP? Are you dealing with a violent or abusive relationship? Are you a victim of rape or sexual assult? Call [facility] ([place]) 24 hour Crisis Hotline: 537.565.6316 or 793-931-9952. MANUAL Your Guide to a Healthy manual is now on-line. Visit [email or web address] [email or web address] to download your free copy documented in this encounter [facility] 08-24-2024 Progress note Formatting of t his [...] URINE OB DIP B/O Tari Boggs MD [facility] 08-24-2024 Miscellaneous Notes S: Tish Miller is [...] Tari Boggs MD documented in this encounter [facility] 08-24-2024 Instructions Abbi Allen MA - 08/24/2024 10:06 AM EDT SEQUENTIAL SCREENINGS The [facility] offers sequential screenings for women who are [...] It will require an appointment with our agricultural engineering technicians. This is not an ultrasound performed by [...] the above symptoms, contact our office at [phone] and ask to speak with a nurse. After hours, you can call doctors registry at [phone] OR call [facility] at [phone] and ask to have the doctor butadiene converter helper paged. If you consider this an emergency, dial 3--3 or go to your nearest emergency department. NEED HELP? Are you dealing with a violent or abusive relationship? Are you a victim of rape or sexual assult? Call [facility] ([place]) 24 hour Crisis Hotline: 604.520.3420 or 058-292-5513. MANUAL Your Guide to a Healthy manual is now on-line. Visit [email or web address] [email or web address] to download your free copy documented in this encounter [facility] 08-24-2024 Note HNO ID: [id number] Author: TOMASZ CLAYTON, ? Service: ? Author Type: Patient Cigar Sorter Type: Progress Notes Filed: 08/24/2024 07:36 Note Text: POPULATION HEALTH NAVIGATION OUTREACH Action/FYI Patient responded via my chart added forester aide Morena Reason for Outreach Medicaid OB/Peds Care Gaps due: N/A Patient Contacted: Spoke to patient/parent/or legal guardian Patient identified by name and : Yes Medicaid OB/Peds actions taken: /Wood Turner added Navigation Signature: Tomasz Clayton Population Health Navigator August 24, 2024 7:35 AM [facility] 08-21-2024 Note HNO ID: [id number] Author: TOMASZ CLAYTON, ? Service: ? Author Type: Patient Cigar Sorter Type: Progress Notes Filed: 08/21/2024 08:21 Note Text: POPULATION HEALTH NAVIGATION OUTREACH Action/FYI Left message to add forester aide to OB provider field, verify/est pcp My chart sent Reason for Outreach Medicaid OB/Peds Care Gaps due: N/A Patient Contacted: Unable or unnecessary to reach patient: Unable to leave message Left message [place] Painthart message sent Navigation Signature: Tomasz Clayton Population Health Navigator August 21, 2024 8:20 AM [facility] 08-21-2024 History of Presen t illness Narrative POPULATION HEALTH NAVIGATION OUTREACH Action/FYI Left message to add forester aide to OB provider field, verify/est pcp My chart sent Reason for Outreach Medicaid OB/Peds Care Gaps due: N/A Patient Contacted: Unable or unnecessary to reach patient: Unable to leave message Left message MyChart message sent Navigation Signature: Tomasz Clayton Population Health Navigator August 21, 2024 8:20 AM documented in this encounter [facility] 08-21-2024 Note Patient Outreach (NE TNAV) TISH MILLER ([id number]) 2000 F Date Time Provider Department 08/21/24 TOMASZ CLAYTON During your visit today, we recorded the following information about you: Tomasz Clayton 08/21/2024 8:21 AM Signed POPULATION HEALTH NAVIGATION OUTREACH Action/FYI Left message to add forester aide to OB provider field, verify/est pcp My chart sent Reason for Outreach Medicaid OB/Peds Care Gaps due: N/A Patient Contacted: Unable or unnecessary to reach patient: Unable to leave message Left message MyChart message sent Navigation Signature: Tomasz Clayton [facility] Health Navigator August 21, 2024 8:20 AM Tomasz Clayton 08/24/2024 7:36 AM Signed POPULATION HEALTH NAVIGATION OUTREACH Action/FYI Patient responded via my chart added forester aide Morena Reason for Outreach Medicaid OB/Peds Care Gaps due: N/A Patient Contacted: Spoke to patient/parent/or legal guardian Patient identified by name and : Yes Medicaid OB/Peds actions taken: /Wood Turner added Navigation Signature: Tomasz Clayton [facility] Health Navigator August 24, 2024 7:35 AM [...] Encounter Status:Closed by TOMASZ CLAYTON on 08/21/24 [facility] 08-20-2024 Progress note Formatting of t his note might be different from the original. SW- pt doing well. No ctx, vb, lof. Good FM PE: Gen- NAD, well appearing Abd- Soft, gravid, NT See flowsheet A/p 37 wk gestation - GBS positive - Weekly visits Abilio Johnson DO [facility] Work Phone: 08-20-2024 Miscellaneous Notes SW- pt doing well. No ctx, vb, lof. Good FM PE: Gen- NAD, well appearing Abd- Soft, gravid, NT See flowsheet A/p 37 wk gestation - GBS positive - Weekly visits Abilio Johnson DO documented in this encounter [facility] 08-17-2024 Sophia Maguire LPN - 08/17/2024 3:13 PM EDT SEQUENTIAL SCREENINGS The [facility] offers sequential screenings for women who are [...] It will require an appointment with our agricultural engineering technicians. This is not an ultrasound performed by [...] the above symptoms, contact our office at [phone] and ask to speak with a nurse. After hours, you can call [facility] at [phone] OR call [facility] at [phone] and ask to have the doctor butadiene converter helper paged. If you consider this an emergency, dial 9-9-8 or go to your nearest emergency department. NEED HELP? Are you dealing with a violent or abusive relationship? Are you a victim of rape or sexual assult? Call [facility] ([place]) 24 hour Crisis Hotline: 752.734.7504 or 402-820-1810. MANUAL Your Guide to a Healthy manual is now on-line. Visit [email or web address] to download your free copy documented in this encounter [facility] 08-10-2024 Progress note Formatting of t his [...] discussed with the Patient or Patient's Authorized Fagot Heater Helper. As applicable, any other physician, advance practice provider, medical student, or other health professional student that will be observing or involved in the sensitive examination for educational or training purposes was discussed with the Patient or Authorized Fagot Heater Helper. The Patient or Authorized Fagot Heater Helper has agreed to proceed with the sensitive examination. (Sensitive examination includes inspection and/or palpation of the breasts, pelvis, prostate and anorectal regions) Jaylon Ureña M.D. [facility] 08-10-2024 Miscellaneous Notes RR- VB No. LOF [...] discussed with the Patient or Patient's Authorized Fagot Heater Helper. As applicable, any other physician, advance practice provider, medical student, or other health professional student that will be observing or involved in the sensitive examination for educational or training purposes was discussed with the Patient or Authorized Fagot Heater Helper. The Patient or Authorized Fagot Heater Helper has agreed to proceed with the sensitive examination. (Sensitive examination includes inspection and/or palpation of the breasts, pelvis, prostate and anorectal regions) Jaylon Ureña M.D. documented in this encounter [facility] 08-10-2024 Instructions Mini Ashley MA - 08/10/2024 11:20 AM EDT SEQUENTIAL SCREENINGS The [facility] offers sequential screenings for women who are [...] It will require an appointment with our agricultural engineering technicians. This is not an ultrasound performed by [...] the above symptoms, contact our office at [phone] and ask to speak with a nurse. After hours, you can call doctors registry at [phone] OR call [facility] at [phone] and ask to have the doctor butadiene converter helper paged. If you consider this an emergency, dial 7--5 or go to your nearest emergency department. NEED HELP? Are you dealing with a violent or abusive relationship? Are you a victim of rape or sexual assult? Call [facility] ([place]) 24 hour Crisis Hotline: 563.246.6266 or 446-902-5165. MANUAL Your Guide to a Healthy manual is now on-line. Visit [email or web address] to download your free copy documented in this encounter [facility] 07-27-2024 Progress note Formatting of t his [...] for SUZIE with GBS Monika Joel APRN.CNM [facility] 07-27-2024 Miscellaneous Notes S: Tish Miller is [...] Monika Joel APRN.CNM documented in this encounter [facility] 07-27-2024 Instructions Yen Richards LPN - 07/27/2024 11:02 AM EDT SEQUENTIAL SCREENINGS The [facility] offers sequential screenings for women who are [...] It will require an appointment with our agricultural engineering technicians. This is not an ultrasound performed by [...] the above symptoms, contact our office at [phone] and ask to speak with a nurse. After hours, you can call doctors registry at [phone] OR call [facility] at [phone] and ask to have the doctor butadiene converter helper paged. If you consider this an emergency, dial 6-3-8 or go to your nearest emergency department. NEED HELP? Are you dealing with a violent or abusive relationship? Are you a victim of rape or sexual assult? Call [facility] ([place]) 24 hour Crisis Hotline: 384.270.2799 or 856-886-7438. MANUAL Your Guide to a Healthy manual is now on-line. Visit [email or web address] [email or web address] to download your free copy documented in this encounter [facility] 07-13-2024 Progress note Formatting of t his [...] -RTO in 2 weeks Naz Kern APRN.CNM [facility] 07-13-2024 Miscellaneous Notes GENO-S: Tish Miller is [...] Naz Kern APRN.CNM documented in this encounter [facility] 07-13-2024 Instructions Naz Kern APRN.CNM - 07/13/2024 [...] the above symptoms, contact our office at [phone] and ask to speak with a nurse. After hours, you can call doctors registry at [phone] OR call [facility] at [phone] and ask to have the doctor butadiene converter helper paged. If you consider this an emergency, dial 9-1-1 or go to your nearest emergency department. NEED HELP? Are you dealing with a violent or abusive relationship? Are you a victim of rape or sexual assult? Call [facility] 24 hour Crisis Hotline: 856.794.9960 or 582-572-8988. MANUAL Your Guide to a Healthy manual is now on-line. Visit [email or web address] to download your free copy documented in this encounter [facility] 06-29-2024 Progress note Formatting of t his [...] - RTO 2 weeks Monika Joel APRN.CNM [facility] 06-29-2024 Miscellaneous Notes S: Tish Miller is [...] Monika Joel APRN.CNM documented in this encounter [facility] 06-29-2024 Instructions Sophia Perez LPN - 06/29/2024 11:22 AM EDT SEQUENTIAL SCREENINGS The [facility] offers sequential screenings for women who are [...] It will require an appointment with our agricultural engineering technicians. This is not an ultrasound performed by [...] the above symptoms, contact our office at [phone] and ask to speak with a nurse. After hours, you can call doctors registry at [phone] OR call [facility] at [phone] and ask to have the doctor butadiene converter helper paged. If you consider this an emergency, dial 9--4 or go to your nearest emergency department. NEED HELP? Are you dealing with a violent or abusive relationship? Are you a victim of rape or sexual assult? Call [facility] ([place]) 24 hour Crisis Hotline: 928.418.5583 or 993-725-8278. MANUAL Your Guide to a Healthy manual is now on-line. Visit [email or web address] to download your free copy documented in this encounter [facility] 06-15-2024 Progress note Formatting of t his [...] Gravid, nontender Declines LARC TDAP today Discussed forester aide. ASSESSMENT/PLAN: 1. Supervision of high risk in second trimester - ICD9: V23.9, ICD10: O09.92 (primary diagnosis) 2. Obesity affecting in second trimester, unspecified obesity type - ICD9: 649.13, ICD10: O99.212 3. 28 weeks gestation of - ICD9: V22.2, ICD10: Z3A.28 PTL precautions 4. Need for vaccination - ICD9: V05.9, ICD10: Z23 TDAP today Tari Boggs MD [facility] 06-15-2024 Miscellaneous Notes S: Tish Miller is [...] Gravid, nontender Declines LARC TDAP today Discussed forester aide. ASSESSMENT/PLAN: 1. Supervision of high risk in second trimester - ICD9: V23.9, ICD10: O09.92 (primary diagnosis) 2. Obesity affecting in second trimester, unspecified obesity type - ICD9: 649.13, ICD10: O99.212 3. 28 weeks gestation of - ICD9: V22.2, ICD10: Z3A.28 PTL precautions 4. Need for vaccination - ICD9: V05.9, ICD10: Z23 TDAP today Tari Boggs MD documented in this encounter [facility] 06-15-2024 Note HNO ID: [id number] Author: DAWIT DOAN MA Service: ? Author Type: Lacing String Cutter Type: Progress Notes Filed: 06/15/2024 10:45 [...] severely ill: Yes Patient denies history of Guillain-Talala Syndrome (a severe paralytic illness): Yes Tdap Adacel injection was given without incident. See immunizations for details of immunizations administered today. VIS sheet provided: Yes Provider Ambrose was present in office at time of injection. Dawit Doan MA [facility] 06-15-2024 History of Presen t illness Narrative [...] severely ill: Yes Patient denies history of Guillain-Talala Syndrome (a severe paralytic illness): Yes Tdap Adacel injection was given without incident. See immunizations for details of immunizations administered today. VIS sheet provided: Yes Provider Ambrose was present in office at time of injection. Dawit Doan MA documented in this encounter [facility] 06-15-2024 Instructions Dawit Doan MA - 06/15/2024 10:28 AM EDT SEQUENTIAL SCREENINGS The [facility] offers sequential screenings for women who are [...] It will require an appointment with our agricultural engineering technicians. This is not an ultrasound performed by [...] the above symptoms, contact our office at [phone] and ask to speak with a nurse. After hours, you can call doctors registry at [phone] OR call [facility] at [phone] and ask to have the doctor butadiene converter helper paged. If you consider this an emergency, dial 9-1-8 or go to your nearest emergency department. NEED HELP? Are you dealing with a violent or abusive relationship? Are you a victim of rape or sexual assult? Call [facility] ([place]) 24 hour Crisis Hotline: 304.270.6114 or 110-179-9114. MANUAL Your Guide to a Healthy manual is now on-line. Visit [email or web address] to download your free copy documented in this encounter [facility] 06-04-2024 Progress note Formatting of t his [...] - Keep scheduled visit Abilio Johnson DO [facility] 06-04-2024 Miscellaneous Notes SW- Add on visit [...] Abilio Johnson DO documented in this encounter [facility] 06-04-2024 Instructions Abbi Allen MA - 06/04/2024 11:09 AM EDT SEQUENTIAL SCREENINGS The [facility] offers sequential screenings for women who are [...] It will require an appointment with our agricultural engineering technicians. This is not an ultrasound performed by [...] the above symptoms, contact our office at [phone] and ask to speak with a nurse. After hours, you can call doctors registry at [phone] OR call [facility] at [phone] and ask to have the doctor butadiene converter helper paged. If you consider this an emergency, dial 3-9- or go to your nearest emergency department. NEED HELP? Are you dealing with a violent or abusive relationship? Are you a victim of rape or sexual assult? Call [facility] ([place] 24 hour Crisis Hotline: 947.680.1597 or 897-425-8005. MANUAL Your Guide to a Healthy manual is now on-line. Visit [email or web address] [email or web address] to download your free copy documented in this encounter [facility] 06-02-2024 Telephone encounter Note Faxed [facility] 06-02-2024 Miscellaneous Notes Faxed Breast pump received from [facility]. Given to KJ to sign. Azalia Melgar RN documented in this encounter [facility] 06-01-2024 Telephone encounter Note Breast pump received from [facility]. Given to KJ to sign. Azalia Melgar RN [facility] 05-18-2024 Progress note Formatting of t his note might be different from the original. Pt is a G4, p1, ab3 presenting at 24w3d w/o complaints. Denies bleeding or lof, rare use of inhaler ~2 x/mo. Reports ++FM Labs at next visit. RTO 4 weeks Mingo Tate MD [facility] Work Phone: 05-18-2024 Miscellaneous Notes Pt is a G4, p1, ab3 presenting at 24w3d w/o complaints. Denies bleeding or lof, rare use of inhaler ~2 x/mo. Reports ++FM Labs at next visit. RTO 4 weeks Mingo Tate MD documented in this encounter [facility] 05-18-2024 Maura Sanches LPN - 05/18/2024 10:14 AM EDT SEQUENTIAL SCREENINGS The [facility] offers sequential screenings for women who are [...] It will require an appointment with our agricultural engineering technicians. This is not an ultrasound performed by [...] the above symptoms, contact our office at [phone] and ask to speak with a nurse. After hours, you can call doctors registry at [phone] OR call [facility] at [phone] and ask to have the doctor butadiene converter helper paged. If you consider this an emergency, dial 0--9 or go to your nearest emergency department. NEED HELP? Are you dealing with a violent or abusive relationship? Are you a victim of rape or sexual assult? Call [facility] ([place]) 24 hour Crisis Hotline: 826.527.8202 or 195-369-4822. MANUAL Your Guide to a Healthy manual is now on-line. Visit [facility].org/HealthyPregn ancyGuide to download your free copy documented in this encounter [facility] 04-20-2024 Progress note Formatting of t his note might be different from the original. Anatomy ultrasound reviewed. No abnormalities identified. Follow up as clinically indicated. Please place copy in ob chart. Jaylon Ureña MD [facility] 04-20-2024 Miscellaneous Notes Anatomy ultrasound reviewed. No abnormalities identified. Follow up as clinically indicated. Please place copy in ob chart. Jaylon Ureña MD documented in this encounter [facility] 04-20-2024 Instructions Dawit Doan MA - 04/20/2024 1:09 PM EDT SEQUENTIAL SCREENINGS The [facility] offers sequential screenings for women who are [...] It will require an appointment with our agricultural engineering technicians. This is not an ultrasound performed by [...] the above symptoms, contact our office at [phone] and ask to speak with a nurse. After hours, you can call doctors registry at [phone] OR call [facility] at [phone] and ask to have the doctor butadiene converter helper paged. If you consider this an emergency, dial 2-2-1 or go to your nearest emergency department. NEED HELP? Are you dealing with a violent or abusive relationship? Are you a victim of rape or sexual assult? Call [facility] ([facility] 24 hour Crisis Hotline: 274.375.4760 or 907-954-6394. MANUAL Your Guide to a Healthy manual is now on-line. Visit [facility].org/HealthyPregn ancyGuide to download your free copy documented in this encounter [facility] 04-20-2024 Progress note Formatting of t his [...] or sooner as needed. Debo Alicea APRN.KEISHA [facility] 04-20-2024 Miscellaneous Notes EH - S: Tish [...] Debo Alicea APRN.KEISHA documented in this encounter [facility] 03-23-2024 Progress note Formatting of t his [...] US and visit after Abilio Johnson DO [facility] 03-23-2024 Miscellaneous Notes SW- Migraine headaches. No pain, vb, lof. PE: Gen- NAD, well appearing Abd- Soft, gravid, NT Ext- No edema See flowsheet A/p 16 wk gestation - Magnesium daily for HOYOS's - NOB labs and sequential screen today - Cont baby ASA - Quit vaping! - RTO anatomy US and visit after Abilio Johnson DO documented in this encounter [facility] 03-23-2024 Instructions Abbi Allen MA - 03/23/2024 10:30 AM EDT SEQUENTIAL SCREENINGS The [facility] offers sequential screenings for women who are [...] It will require an appointment with our agricultural engineering technicians. This is not an ultrasound performed by [...] the above symptoms, contact our office at [phone] and ask to speak with a nurse. After hours, you can call doctors registry at [phone] OR call [facility] at [phone] and ask to have the doctor butadiene converter helper paged. If you consider this an emergency, dial 9--1 or go to your nearest emergency department. NEED HELP? Are you dealing with a violent or abusive relationship? Are you a victim of rape or sexual assult? Call [facility] ([place]) 24 hour Crisis Hotline: 821.801.4314 or 325-016-4678. MANUAL Your Guide to a Healthy manual is now on-line. Visit [facility].org/HealthyPregn ancyGuide to download your free copy documented in this encounter [facility] 03-19-2024 Telephone encounter Note Patient notified. Mulu Mcleod RN [facility] 03-19-2024 Miscellaneous Notes Patient notified. Mulu Mcleod [...] Tari Toledo RN documented in this encounter [facility] 03-19-2024 Telephone encounter Note Try taking benadryl for both the nausea and headache. I will also send reglan to the pharmacy for the headache [facility] 03-19-2024 Telephone encounter Note 15w6d Patient called [...] this morning. Please advise. Tari Toledo RN [facility] 02-24-2024 Miscellaneous Notes RR- VB No. LOF [...] Jaylon Ureña M.D. documented in this encounter [facility] 01-27-2024 Note HNO ID: [id number] Author: DEBO ALICEA APRN.CNP Service: ? Author Type: Nurse Practitioner Type: Progress Notes Filed: 01/27/2024 15:04 Note Text: OB point of care ultrasound was performed. See imaging tab for details. Debo Alicea APRN.CNP [facility] 01-27-2024 History of Presen t illness Narrative OB point of care ultrasound was performed. See imaging tab for details. Debo Alicea APRN.CNP documented in this encounter [facility] 01-27-2024 History of Presen t illness Narrative Left voicemail for patient to call back to complete the initial ob screening questions. Olga Zapata MA Supervisor Floor Assembly offered: Patient declines. INITIAL OB ASSESSMENT HPI: [...] Partner: Name: Marino Miller Age: 26 Occupation: ipvive Gender: Male PAST MEDICAL HISTORY Diagnosis Date [...] Your guide to a health and the Quartz Orientator. Discussed aneuploidy screening, nuchal translucency/first trimester early [...] hemoglobin electrophoresis. Patient: Declines Reviewed midwifery and director of environmental services services that are available. 2) Patient offered [...] Consent [ ] Contraception - [ ] Wood Turner Third trimester (36-40 weeks): [ ] GBS [...] for nuchal and OB visit. Debo Alicea APRN.FORGING OPERATOR OB point of care ultrasound was performed. See imaging tab for details. Maura Ren LPN documented in this encounter [facility] 01-27-2024 Note HNO ID: [id number] Author: OLGA ZAPATA MA Service: ? Author Type: Lacing String Cutter Type: Progress Notes Filed: 01/27/2024 15:25 Note Text: Left voicemail for patient to call back to complete the initial ob screening questions. Olga Zapata MA [facility] 01-27-2024 Note HNO ID: [id number] Author: DEBO ALICEA APRN.FORGING OPERATOR Service: ? Author Type: Nurse Practitioner Type: Progress Notes Filed: 01/27/2024 15:25 Note Text: Supervisor Floor Assembly offered: Patient declines. INITIAL OB ASSESSMENT HPI: [...] Partner: Name: Marino Miller Age: 26 Occupation: ipvive Gender: Male PAST MEDICAL HISTORY Diagnosis Date [...] No REVIEW O (more content not included)... [facility] 01-27-2024 Instructions Debo Alicea APRN.FORGING OPERATOR - 01/27/2024 2:16 PM EDT Please select the following link to access the [facility] Your Guide to a Healthy . [email or web address]/healthypregnancyguid [...] smoke. (This information is provided by the [facility] and is not intended to replace the medical advice of your doctor or health care provider. Please consult your health care provider for advice about a specific medical condition. For additional written health information, please call the Cancer Answer Line at [facility] [place] Saturday - Saturday 8-4:30 for assistance: [phone]. Or visit www.[facility].org/health/) From [facility]'s Tobacco Cessation website: Our comprehensive smoking cessation [...] help you with your financial plan. Contact 112-044-2296 for more information. [place] Tobacco Program Visit https://[place].quitlogix.org/en-US / or call 2-482-VBZM-NOW How SMOKING Affects Your and Your Baby [...] smoke. (This information is provided by the [facility] and is not intended to replace the medical advice of your doctor or health care provider. Please consult your health care provider for advice about a specific medical condition. For additional written health information, please call the Cancer Answer Line at [facility] [place] Saturday - Saturday 8-4:30 for assistance: [phone]. Or visit www.[facility].org/health/) MORNING SICKNESS IN by Skyla Fuentes M.D. for SmartCare system As you may already know, morning sickness can often be more appropriately called evening sickness or wurht-heaiub-im-the-day sickness. While there are the keith few, [...] medication, Doxylamine, is currently marketed as an jtrv-bfr-pfbcsuc sleeping pill. Ask your practitioner if creating a vitamin B6/Doxylamine combination with xkwy-nsk-flzmfsh medications would be safe for you. Prescription [...] are offering virtual visits during this time. 7-474-8-BISI6RJCU - [facility] Mental Health Hotline If you are in suicidal crisis, please call or text 2-650-260-TALK ( ) or visit the National Suicide Prevention Lifeline website. mchb.[facility].gov [facility] Behavioral Health Psychology, Psychiatry, Counseling Connect with therapist/ can do virtual visits [phone] Referral to the [facility] for [facility]'s Behavioral [facility] To schedule an appointment, please call the [place] for Behavioral Health Appointment Line: [phone] option 1 Counseling Center - [address] [place], [place] [id number] [address] [address] [facility] [address] [place] [address] [facility] [address] [place], [place] [id number] Nancy Zimmer MD [address] [place], [place] [id number] [facility] [address] [facility], [address] [place] [address] [facility] [address] [place] [address] [facility] [place] / Isabel [phone]/ [phone] Tomasz Rueda [address] [facility] [phone] Aves of Counseling and Mediation Rachelle / Van [phone] [facility] [address] [place] [address]/ [place] and [place] [phone] Teja Christine, PO, MARYSOL [facility] Workshops, telehealth and at home visits. [phone] [facility] counseling center 20 locations [place], [place], [place], [place], [place], [place], [place], [facility], [place], [place], [place], [place], [place], [place], [facility], [place], [place] ,[facility], [place], [place],[facility], south [place], [place], [facility], [place], [place] www.[facility] [phone] Psychotherapy resources outside of [facility] are listed below [facility] Saavn Psychotherapy Web: https://www.Xencor/ Support International Online Provider Directory https://Celly/ [facility] https://Frontera Films/ Ilex Consumer Products Group for Behavioral Health and Wellness Web: https://MeetCast/ Sp[employer] for Effective Living Web: https://Pop Up Archive.ZiplooplivingETF.com / LifeStance Web: https://aTyr Pharma.CloudFactory/location/ [facility]/[place]/ [facility] Web: https://www.Sabik [facility].o / [facility] Web: https://PolyInnovations.org/ Recovery Resources Mental health and substance abuse help Web: https://www.Svbtles.org & RESOURCES Support International Direct peer support and connection to professional resources Non-Emergency Helpline Phone: / Text: [phone] Web: https://www..net/ Online Provider Directory: https://Celly/ Online Support Meetings: https://www..net/get-h elp/els-soxsfq-cdguqdk-meetings/ BERNARD Baby and Core Cleaner Services Web: https://www.Pixspan/ Groupspeak Expert information on medication use during and Text: [phone] Web: https://[place].Moki.tv/ NATIONAL REGISTRY FOR PSYCHIATRIC MEDICATIONS Currently studying the safety of antidepressants, ADHD medications and atypical antipsychotics taken during TO PARTICIPATE CALL TOLL-FREE: Web: https://womenentalhealth.org/r esearch/pregnancyregistry/ Support Groups: [facility]- Follow on facebook Baby Bistro support group led by [facility] department Resilient Mamas - Support Group [facility].org The POEM support group [phone] Www.poemonline.org Follow on facebook - KARY aleman Online support meetings PSI https://www..net/get-h elp/sjf-fzvyhl-sujjqtq-meetings/ [facility] mommy and me virtual support group 11:30-1pm Support for mothers and new babies and toddlers Bandon childbirth education: Childbirth @cc.org or call [phone] CRISIS: CRISIS HOTLINE [phone], 911 or go to the nearest . [facility] [phone] / [facility] [phone] https://www.[facility].org Crisis text line text the word HOME to [phone] [facility] [address] [facility] [address] www.Thermedical.CloudFactory Olga Marie clinical counseling [address] [address] www.BISONhbritton.CloudFactory [phone] Holding space psychotherapy Tarah Meneses GASOLINE TRUCK OPERATOR TEAR DOWN MATCHER-S [address] [facility] www.Science Behind Sweat [phone]/ Reuben [phone] They all offer virtual. All work with trauma Support groups Online support meetings PSI https://www..net/get-h elp/cix-vslzzm-fjbtifa-meetings/ Here are the support groups they offer: Support of parents of 1 to 4 years old children POEM ( Outreach and Encouragement for Moms) offers free support for mothers experiencing depression, anxiety, and other mood and anxiety disorders. Masks are recommended but not required. No pre-registration required. Babies in arms welcome. meetings now take place on the and Saturday of each month Location: [facility] [address] [place] [address] Room 122 (library room) 7-8:00 p.m. When you enter the [facility] parking lot off of [address] the entrance door closest to our meeting room is on the front of the building toward the right. For those who are more comfortable with a virtual platform, POEM offers online support group options several days of the week. To register for an online group or to find out more about POEM, website at: https://[place].org/get-help/ellis hospitalhwyzp-vmgcnv-sndkkv/poem-service s/ offer a confidential helpline: private Facebook group is called [facility] Here are the groups they offer: Traumatic childbirth resources: Http://pattch.org/ https://www.EvolvacelesteIntuitive User InterfacespatriciaAFCV Holdings.CloudFactory/ documented in this encounter [facility] 01-27-2024 Note HNO ID: [id number] Author: MAURA REN LPN Service: ? Author Type: LICENSED NURSE Type: Progress Notes Filed: 01/27/2024 15:25 Note Text: OB point of care ultrasound was performed. See imaging tab for details. Maura Ren LPN [facility] 01-10-2024 Miscellaneous Notes Patient notified. Mulu Mcleod RN Quant increasing Give miscarriage and ectopic precautions Keep nob appointment 01/07/2024 HCG, Beta-Quantitative <5 mIU/mL 14,274 High 01/09/2024 HCG, Beta-Quantitative <5 mIU/mL 21,790 High Please review. Mulu Mcleod RN 01/07 HCG, Beta-Quantitative <5 mIU/mL 14,274 High Leave open for 01/09 hCG result Patient notified. [facility] fax[facility]. Please leave open for 01/07 and 01/09 hCG quants. Tari Toledo RN Order form to SW to sign. Will then fax and notify patient. Tari Toledo RN Ok for serial HCG quants Patient is . Lmp was 11/29/2023 and has new ob appointment on 01/27/2024. Patient has a h/o of 3 previous miscarriages and would like to have hcg quants drawn at in [place]. Patient is not having any vaginal bleeding or cramping currently. If ok, patient will need a lab order to faxed to outpatient lab in [place] documented in this encounter [facility] 12-11-2022 Miscellaneous Notes u/s read by DM now. Mulu Mcleod RN Patient had SIS on Thursday 12/07. Is on your schedule for read. Please let us know if there is a problem. Claudia Grace RN Dr. Johnson was assigned to read that on Saturday. Please follow up with SW about this read. SIS has not been read. documented in this encounter [facility] 12-07-2022 History of Presen t illness Narrative Tish John is a 22 year old here for SIS. Referred by: Jaylon Reid1 Breonna Funes [facility] [address] Chief Complaint: recurrent miscarriage Endometrial Biopsy: No [...] Martha Melo MD documented in this encounter [facility] 09-11-2022 History of Presen t illness Narrative [...] L0 SAB2 IAB0 Ectopic0 Multiple0 Live Births0 Dietary Services Manager History LMP: 08/02/2022, Having periods Age at Menarche: Age at First : Age at Menopause: Dietary Services Manager History Comments: Sexual Activity: Yes; Male [...] Jaylon Ureña MD documented in this encounter [facility] 09-10-2022 Miscellaneous Notes Patient still has not [...] open for 09/05 HCG and have provider butadiene converter helper review. ----- Message from Naz Kern APRN.CNM sent at 09/04/2022 10:03 AM EDT ----- Repeat serum quant 2 days after last draw. Please follow up with butadiene converter helper provider with second result. Thank you, Naz Kern APRN.CNM documented in this encounter [facility] 09-03-2022 Miscellaneous Notes Patient notified. Mulu Mcleod [...] Tari Toledo RN documented in this encounter [facility] 08-24-2022 History of Presen t illness Narrative Tish is a 22 year old who presents for an annual gynecologic exam. Menses: cycles every 28-30 days and 4-6 days of flow. Contraception: none HPV vaccine: No Last Pap: never OB History T0 L0 SAB2 IAB0 Ectopic0 Multiple0 Live Births0 Dietary Services Manager History LMP: 08/02/2022, Having periods Age at Menarche: Age at First : Age at Menopause: Dietary Services Manager History Comments: Sexual Activity: Yes; Male [...] external genitalia normal, normal Bartholin's glands, urethra, [place]'s glands, no vulvar lesions, no cervical lesions, [...] Imelda Ricketts MD documented in this encounter [facility] 06-16-2021 Note Post Operative Note: PreOp Diagnosis: retianed products of conception Post-Procedure Diagnosis: same Procedure: 1. Operative hysteroscopy for retained products of conception 2. 3. 4. 5. Surgeon: Dr. Wood Resident/Fellow/Other Nurse First Aid: Luciana PGY 7 Anesthesia: general I.V. Fluids: [...] Updated: 16-Jun-2021 19:36 by Liliam Wood) [facility] 06-16-2021 Note History of Present I llness: [...] and endometrial hematoma should also be considered. Dietary Services Manager follow-up is recommended and further imaging [...] the note. I personally evaluated the patient [id number] Electronic Signatures: Alyson Mcfarland (Fellow)) (Signed 15-Jun-2021 14:10) Authored: History of Present Illness, Allergies, Home Medication Review, Impression/Procedure, ERAS, Review of Systems, Physical Exam, Consent, Note Completion Liliam Wood) (Signed 16-Jun-2021 19:31) Authored: Note Completion Co-Signer: History of Present Illness, Allergies, Home Medication Review, Impression/Procedure, ERAS, Review of Systems, Physical Exam, Consent, Note Completion Last Updated: 16-Jun-2021 19:31 by Liliam Wood) [facility] Evaluation note Psychological: appro priate mood and affectMusculoskeletal: Normal extremitiesNeurological: no gross focal deficitsGastrointestinal: soft, non tender non distendedCardiovascular: warm and well perfusedRespiratory/Thorax: Normal respiratory effort on room airHead/Neck: Neck suppleSkin: warm and dryConstitutional: Comfortable appearing, no distress [facility] [place] Evaluation note Diagnosis Encounter for gynecological examination without abnormal finding- Primary Routine gynecological examination Encounter for screening for malignant neoplasm of cervix Screening for malignant neoplasm of the cervix Screen for STD (sexually transmitted disease) Screening examination for venereal disease [facility] Diagnosis Encounter for test, result positive- Primary examination or test, positive result [facility] Diagnosis Bleeding in early - Primary Unspecified hemorrhage in early , unspecified as to episode of care [facility] Diagnosis History of recurrent spontaneous , not currently - Primary Unspecified spontaneous without mention of complication Encounter for preconception consultation Other procreative management counseling and advice [facility] History of recurrent spontaneous , not currently Unspecified spontaneous without mention of complication [facility] Recurrent loss without current - Primary [facility] Diagnosis Encounter for supervision of [...] every day vaping [facility] Diagnosis with uncertain dates in first trimester- Primary [facility] Diagnosis Encounter for supervision of other normal in first trimester- Primary 12 weeks gestation of state, incidental Encounter for screening of mother Unspecified screening [facility] Diagnosis Encounter for (NT) nuchal translucency scan- Primary Other specified screening 12 weeks gestation of state, incidental [facility] Diagnosis Tension headache- Primary [facility] [place] [facility]* Diagnosis 16 weeks gestation of - Primary state, incidental Encounter for supervision of other normal in first trimester Migraine headaches Current every day vaping [facility] [place] [facility]* Diagnosis Supervision of high risk in second trimester- Primary Unspecified high-risk 20 weeks gestation of state, incidental Obesity affecting in second trimester, unspecified obesity type [facility] [place] [facility]* Diagnosis Encounter for anatomic survey- Primary Encounter for screening of mother Unspecified screening 20 weeks gestation of state, incidental Obesity affecting in second trimester, unspecified obesity type [facility] [place] [facility]* Diagnosis Supervision of high risk in second trimester- Primary Unspecified high-risk Obesity affecting in second trimester, unspecified obesity type 24 weeks gestation of state, incidental [facility] [place] [facility]* Diagnosis 26 weeks gestation of - Primary state, incidental Supervision of high risk in second trimester Unspecified high-risk Obesity affecting in second trimester, unspecified obesity type [facility] [place] [facility]* Diagnosis Supervision of high risk in second trimester- Primary Unspecified high-risk Obesity affecting in second trimester, unspecified obesity type 28 weeks gestation of state, incidental Need for vaccination Need for prophylactic vaccination and inoculation against unspecified single disease [facility] [place] [facility] Diagnosis Supervision of high risk in third trimester- Primary Unspecified high-risk Obesity affecting in third trimester, unspecified obesity type 30 weeks gestation of state, incidental Nausea/vomiting in Unspecified vomiting of , unspecified as to episode of care Current every day vaping documented [facility] [place] [facility]* Diagnosis Supervision of high risk in third trimester- Primary Unspecified high-risk 32 weeks gestation of state, incidental Obesity affecting in third trimester, unspecified obesity type Current every day vaping History of anxiety Personal history of other mental disorder documented [facility] [place] [facility]* Diagnosis 34 weeks gestation of - Primary state, incidental Supervision of high risk in third trimester Unspecified high-risk Obesity affecting in third trimester, unspecified obesity type Current every day vaping History of anxiety Personal history of other mental disorder [facility] [place] [facility]* Diagnosis 36 weeks gestation of - Primary state, incidental Supervision of high risk in third trimester Unspecified high-risk Need for influenza vaccination Need for prophylactic vaccination and inoculation against influenza documented in this encounter [facility] note* Diagnosis Supervision of high risk in third trimester- Primary Unspecified high-risk 37 weeks gestation of state, incidental [facility] [place] [facility]* Diagnosis 38 weeks gestation of - Primary state, incidental Supervision of high risk in third trimester Unspecified high-risk documented [facility] [place] [facility]* Diagnosis Supervision of high risk in third trimester- Primary Unspecified high-risk Obesity affecting in third trimester, unspecified obesity type 39 weeks gestation of state, incidental [facility] [place] [facility]* Diagnosis Obesity affecting in third trimester, unspecified obesity type- Primary 40 weeks gestation of state, incidental Supervision of high risk in third trimester Unspecified high-risk [facility] Activity:activity as tolerated. May [...] Dr. Liliam Restrepo to Schedule in: 2-3 daysLocation:[facility]: [phone]: Someone from Dr. Wood's office should call you to help coordinate follow up. If you do not hear from them, please call their office. * Gold Form - Other Clinicians:Nursing Instructions: Call your [facility] care provider for fever/chills. Nausea/vomiting. Increased pain. [...] have come up since leaving the hospital[facility] Diagnostic Procedure Only (Routine) - Pending Review Specialty Diagnoses / Procedures Referred By Christian burger Referred To Contact [facility] Diagnoses History of recurrent spontaneous , not currently Procedures SONOHYSTEROGRAPHY (SIS) US WHI SALINE INFUS SONOHYSTEROGRAPHY W/COLOR DOPPLER Jaylon Ureña MD [address] [place] [address] [facility] [address] [place] [address] Referral ID Status Reason Start Date Expiration Date Visits Requested Visits Authorized [id number] Pending Review Auto-Generat ed Referral 2 09/11/2023 1 1 [facility] for referral (narrative)* Diagnostic Procedure Only (Routine) - Authorized Specialty Diagnoses / Procedures Referred By Christian burger Referred To Contact [facility] Diagnoses Encounter for supervision of other normal in first trimester 8 weeks gestation of Procedures NUCHAL TRANSLUCENCY WHI US NUCHAL TRANSLUCENCY 1ST GESTATION Debo Alicea APRN.FORGING OPERATOR [address] [address] [facility] [address] [place] [address] Referral ID Status Reason Start Date Expiration Date Visits Requested Visits Authorized [id number] Authorized Auto-Generat ed Referral 01/27/2024 01/26/[address] [facility] for referral (narrative)* Diagnostic Procedure Only (Routine) - Pending Review Specialty Diagnoses / Procedures Referred By Christian t Referred To Contact [facility] Diagnoses 12 weeks gestation of Encounter for screening of mother Encounter for supervision of other normal in first trimester Procedures OBSTETRIC ULTRASOUND WHI US PREG UTERUS AFTER 1ST TRIMEST GESTATION Jaylon Ureña MD [address] [place] [address] [facility] [address] [place] [address] Referral ID Status Reason Start Date Expiration Date Visits Requested Visits Authorized [id number] Pending Review Auto-Generat ed Referral 02/24/2024 02/23/[address] [facility] for visit Narrative* Diagnostic Procedure Only (Routine) - Closed Specialty Diagnoses / Procedures Referred By Christian burger Referred To Contact [facility] Diagnoses Recurrent loss sis Procedures HYSTEROSONOGRAPHY SALINE INFUS SONOHYSTEROGRAPHY W/COLOR DOPPLER Jaylon Ureña MD [address] [place] [address] [facility] [address] [place] [address] Referral ID Status Reason Start Date Expiration Date V isits Requested Visits Authorized [id number] Closed OON/Self Pay Override 11/18/2022 11/17/2023 1 1 [facility] Summary Purpose Family History No Family History [...] Date Diagnosed Date [facility] - [facility] 01/27/2024 [place] - [place] 01/27/2024 Active Problems Noted Date Diagnosed Date [facility] - [facility] 01/27/2024 [place] - [place] 01/27/2024 Active Problems Noted Date Diagnosed Date [facility] - [facility] 01/27/2024 [place] - [place] 01/27/2024 Active Problems Noted Date Diagnosed Date [facility] - [facility] 01/27/2024 [place] - [place] 01/27/2024 Additional Source Comments INFORMATION SOURCE (unrecogn ized section and content) DATE CREATED AUTHOR 05/13/2018 [facility] DATE CREATED AUTHOR AUTHOR'S ORGANIZ ATION 03/26/2021 [facility] DATE CREATED AUTHOR AUTHOR'S ORGANIZ ATION 11/09/2021 [facility] DATE CREATED AUTHOR AUTHOR'S ORGANIZ ATION 02/07/2023 [facility] DATE CREATED AUTHOR AUTHOR'S ORGANIZ ATION 05/18/2023 [facility] DATE CREATED AUTHOR AUTHOR'S ORGANIZ ATION 09/05/[address] [facility] DATE CREATED AUTHOR AUTHOR'S ORGANIZ ATION 09/08/2024 [facility] <item><item> Privacy Markings (unrecogniz ed section and [...] or prosecute any alcohol or drug abuse patient.[facility] the event this information is protected by the Federal Confidentiality of Alcohol and Drug Abuse Patient Records regulations: The Federal rules restrict any use of the information to criminally investigate or prosecute any alcohol or drug abuse patient.[facility] the event this information is protected by the Federal Confidentiality of Alcohol and Drug Abuse Patient Records regulations: The Federal rules restrict any use of the information to criminally investigate or prosecute any alcohol or drug abuse patient.[facility] the event this information is protected by the Federal Confidentiality of Alcohol and Drug Abuse Patient Records regulations: The Federal rules restrict any use of the information to criminally investigate or prosecute any alcohol or drug abuse patient.[facility] the event this information is protected by the Federal Confidentiality of Alcohol and Drug Abuse Patient Records regulations: The Federal rules restrict any use of the information to criminally investigate or prosecute any alcohol or drug abuse patient.[facility] the event this information is protected by the Federal Confidentiality of Alcohol and Drug Abuse Patient Records regulations: The Federal rules restrict any use of the information to criminally investigate or prosecute any alcohol or drug abuse patient.[facility] the event this information is protected by the Federal Confidentiality of Alcohol and Drug Abuse Patient Records regulations: The Federal rules restrict any use of the information to criminally investigate or prosecute any alcohol or drug abuse patient.[facility] the event this information is protected by the Federal Confidentiality of Alcohol and Drug Abuse Patient Records regulations: The Federal rules restrict any use of the information to criminally investigate or prosecute any alcohol or drug abuse patient.[facility] the event this information is protected by the Federal Confidentiality of Alcohol and Drug Abuse Patient Records regulations: The Federal rules restrict any use of the information to criminally investigate or prosecute any alcohol or drug abuse patient.[facility] Hospital[facility] the event this information is protected by the Federal Confidentiality of Alcohol and Drug Abuse Patient Records regulations: The Federal rules restrict any use of the information to criminally investigate or prosecute any alcohol or drug abuse patient.[facility] the event this information is protected by the Federal Confidentiality of Alcohol and Drug Abuse Patient Records regulations: The Federal rules restrict any use of the information to criminally investigate or prosecute any alcohol or drug abuse patient.[facility] Hospital[facility] the event this information is protected by the Federal Confidentiality of Alcohol and Drug Abuse Patient Records regulations: The Federal rules restrict any use of the information to criminally investigate or prosecute any alcohol or drug abuse patient.[facility] Hospital[facility] the event this information is protected by the Federal Confidentiality of Alcohol and Drug Abuse Patient Records regulations: The Federal rules restrict any use of the information to criminally investigate or prosecute any alcohol or drug abuse patient.[facility] the event this information is protected by the Federal Confidentiality of Alcohol and Drug Abuse Patient Records regulations: The Federal rules restrict any use of the information to criminally investigate or prosecute any alcohol or drug abuse patient.[facility] Hospital[facility] the event this information is protected by the Federal Confidentiality of Alcohol and Drug Abuse Patient Records regulations: The Federal rules restrict any use of the information to criminally investigate or prosecute any alcohol or drug abuse patient.[facility] the event this information is protected by the Federal Confidentiality of Alcohol and Drug Abuse Patient Records regulations: The Federal rules restrict any use of the information to criminally investigate or prosecute any alcohol or drug abuse patient.[facility] the event this information is protected by the Federal Confidentiality of Alcohol and Drug Abuse Patient Records regulations: The Federal rules restrict any use of the information to criminally investigate or prosecute any alcohol or drug abuse patient.[facility] the event this information is protected by the Federal Confidentiality of Alcohol and Drug Abuse Patient Records regulations: The Federal rules restrict any use of the information to criminally investigate or prosecute any alcohol or drug abuse patient.[facility] the event this information is protected by the Federal Confidentiality of Alcohol and Drug Abuse Patient Records regulations: The Federal rules restrict any use of the information to criminally investigate or prosecute any alcohol or drug abuse patient.[facility] HospitalIn the event this information is protected by the Federal Confidentiality of Alcohol and Drug Abuse Patient Records regulations: The Federal rules restrict any use of the information to criminally investigate or prosecute any alcohol or drug abuse patient.[facility] Hospital[facility] the event this information is protected by the Federal Confidentiality of Alcohol and Drug Abuse Patient Records regulations: The Federal rules restrict any use of the information to criminally investigate or prosecute any alcohol or drug abuse patient.[facility] Hospital[facility] the event this information is protected by the Federal Confidentiality of Alcohol and Drug Abuse Patient Records regulations: The Federal rules restrict any use of the information to criminally investigate or prosecute any alcohol or drug abuse patient.[facility] the event this information is protected by the Federal Confidentiality of Alcohol and Drug Abuse Patient Records regulations: The Federal rules restrict any use of the information to criminally investigate or prosecute any alcohol or drug abuse patient.[facility] the event this information is protected by the Federal Confidentiality of Alcohol and Drug Abuse Patient Records regulations: The Federal rules restrict any use of the information to criminally investigate or prosecute any alcohol or drug abuse patient.[facility] HospitalIn the event this information is protected by the Federal Confidentiality of Alcohol and Drug Abuse Patient Records regulations: The Federal rules restrict any use of the information to criminally investigate or prosecute any alcohol or drug abuse patient.[facility] the event this information is protected by the Federal Confidentiality of Alcohol and Drug Abuse Patient Records regulations: The Federal rules restrict any use of the information to criminally investigate or prosecute any alcohol or drug abuse patient.[facility] the event this information is protected by the Federal Confidentiality of Alcohol and Drug Abuse Patient Records regulations: The Federal rules restrict any use of the information to criminally investigate or prosecute any alcohol or drug abuse patient.[facility] the event this information is protected by the Federal Confidentiality of Alcohol and Drug Abuse Patient Records regulations: The Federal rules restrict any use of the information to criminally investigate or prosecute any alcohol or drug abuse patient.[facility] the event this information is protected by the Federal Confidentiality of Alcohol and Drug Abuse Patient Records regulations: The Federal rules restrict any use of the information to criminally investigate or prosecute any alcohol or drug abuse patient.[facility] Hospital[facility] the event this information is protected by the Federal Confidentiality of Alcohol and Drug Abuse Patient Records regulations: The Federal rules restrict any use of the information to criminally investigate or prosecute any alcohol or drug abuse patient.[facility] Reason for Visit (unrecogniz ed section and content) Reason Onset Date Comments Yearly Exam 08/24/2022 Specialty Diagnoses / Procedures Referred By Contac t Referred To Contact [facility] Diagnoses Women's annual routine gynecological examination ANNUAL Procedures WELLNESS EXAMS EST 18-39 YRS ANNUAL Imelda Ricketts MD [address] [place] [address] Imelda Ricketts MD [address] [place] [address] Referral ID Status Reason Start Date Expiration Date V isits Requested Visits Authorized [id number] Closed OON/Self Pay Override 08/10/2022 11/17/2022 1 1 Reason Comments Early OB Bleeding Reason Comments Results HCG Reason Comments Follow Up miscarriage Specialty Diagnoses / Procedures Referred By Contac t 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 Diagnoses Annual Procedures WELLNESS EXAMS EST 18-39 YRS Annual Imelda Ricketts MD [address] [place] [address] [employer] [address] [place] [address] Referral ID Status Reason Start Date Expiration Date V isits Requested Visits Authorized [id number] Closed OON/Self Pay Override 09/11/2022 11/17/2022 1 1 Reason Comments [facility] H[facility]ENER Ultrasound Specialty Diagnoses / Procedures Referred By Contac t 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 Diagnoses Recurrent loss SIS Procedures SALINE INFUS SONOHYSTEROGRAPHY W/COLOR DOPPLER SIS Martha Dickson MD [address] [place] [address] [employer] [address] [place] [address] Referral ID Status Reason Start Date Expiration Date V isits Requested Visits Authorized [id number] Closed OON/Self Pay Override 12/05/2022 11/17/2023 1 1 Reason Comments Care Reason Comments Initial OB Visit Reason Comments US Specialty Diagnoses / Procedures Referred By Contac t Referred To Contact [facility] Diagnoses Encounter for supervision of other normal in first trimester 8 weeks gestation of Procedures NUCHAL TRANSLUCENCY WHI US NUCHAL TRANSLUCENCY 1ST GESTATION Debo Alicea APRN.FORGING OPERATOR [address] [place] [address] [facility] [address] [place] [address] Referral ID Status Reason Start Date Expiration Date V isits Requested Visits Authorized [id number] Closed Auto-Generate d Referral 01/27/2024 01/26/2025 1 1 Reason Comments OB HOYOS Reason Onset Date Comments Care 03/23/2024 Reason Onset Date Comments Care 04/20/2024 Specialty Diagnoses / Procedures Referred By Contac t Referred To Contact [facility] Diagnoses 12 weeks gestation of Encounter for screening of mother Encounter for supervision of other normal in first trimester Procedures OBSTETRIC ULTRASOUND WHI US PREG UTERUS AFTER 1ST TRIMEST GESTATION Jaylon Ureña MD [address] [place] [place] [address] [facility] [address] [place] [address] Referral ID Status Reason Start Date Expiration Date V isits Requested Visits Authorized [id number] Closed Auto-Generate d Referral 04/20/2024 11/17/2024 1 [...] BE BASED ON THE PRIMARY CLINICAL RECORDS. [facility] [employer] provides no warranty or guarantee of the accuracy or completeness of information in this document.
--- NOTE | 2024-09-11 07:20 | HP.PCM.OB_ITS ---
HPI - General General Date of Admission: 09/11/24 HPI Narrative [place], is a 24 F G4 Po who presents for scheduled induction of labor for postdates. Maternal Data Information MIKE Calculator Estimated Delivery Date Method Current WG Current Estimate 09/04/24 Manual 41w 0d Final MIKE: 09/04/24 [facility] Medical History (Updated 09/11/24 @ 19:27 by Monika Joel CNM) Anxiety Home Medications ?Medication ?Instructions ?Recorded ?Last Taken ?Type PNV 153-FA 400 mcg-om3 35 mg-dha 2 tab PO DAILY 09/11/24 09/11/24 06:00 History 25 mg-epa 5 mg-fish oil chew 2 tabs tablet ( Gummies) aspirin 81 mg chewable tablet 162 mg PO DAILY BP in 09/11/24 09/11/24 06:00 History 162 mg loratadine 10 mg tablet (Claritin) 10 mg PO DAILY allelrgies 09/11/24 09/11/24 06:00 History 10 mg Allergy/AdvReac Type Severity Reaction Status Date / Time No Known Allergies Allergy Verified 09/11/24 15:04 Surgical History (Updated 09/11/24 @ 15:43 by Maricruz Bernard) History of gynecologic surgery Social History Smoking Status: Former smoker History Elective abortions Hx Para 0 Spontaneous abortions Hx # Term Pregnancies Ectopic pregnancies Hx # Pregnancies Multiple births # of living children NST FHR Rate Baby A Baseline: 140 Variability:: Moderate Accelerations:: 15 x 15 Decelerations:: None NST Reactive:: Yes ROS Eyes Eyes: Denies blurry vision, change in vision or spots in vision ENT HEENT: Denies dizziness or headache(s) Cardiovascular Cardiovascular: Denies abdominal pain, chest pain or dyspnea Respiratory/Chest Respiratory/Chest: Denies cough, dyspnea, shortness of breath at rest or shortness of breath with exertion Gastrointestinal Gastrointestinal: Denies abdominal pain, diarrhea or vomiting Genitourinary Genitourinary: Denies change in urinary stream, difficulty urinating or dysuria Musculoskeletal Musculoskeletal: Reports none Integumentary Integumentary: Denies rash Neurologic Neurologic: Denies dizziness, headache(s), memory loss or weakness Psychiatric Psychiatric: Reports none Physical Exam Const alert, oriented x3 and no apparent distress General Appearance: cooperative Orientation / Consciousness: awake Exam Limitations: no limitations HEENT normocephalic Head and Scalp: normal to inspection Eyes General Eye: normal appearance of both eyes Neck full ROM and no lymphadenopathy Lymph Lymphatic: no lymphadenopathy noted Chest inspection of chest normal Resp normal respiratory effort, normal air movement and clear to auscultation bilaterally Effort and Inspection: able to speak in complete sentences and symmetric chest movement Cardio regular rate and regular rhythm GI normal to inspection, nondistended, normoactive bowel sounds Back/Spine normal ROM Extremity full ROM and no calf tenderness Skin no rashes or lesions noted General Skin Exam: no breakdown Neuro oriented x3 and CN's II-XII intact bilaterally Psych mental status grossly normal and thought process normal Labs Labs Labs: Blood Type A POSITIVE Antibody Screen NEGATIVE Hct 32.0 % (37-47) L Hgb 10.4 g/dL (12.0-15.0) L Syphilis Total Ab Non-reactive Assessment & Plan (1) Encounter for induction of labor: (2) Post-dates : (3) 41 weeks gestation of : (4) Positive GBS test: (5) Engages in vaping: (6) Asthma: (7) Obesity affecting : PLAN: Plan Admit to L&D Routine labs GBS positive- Start PCN 5 million units IV x 1 now and continue PCN 3 million units IV every 4 hours CE closed/thick / high Cytotec 25 mcg PO x 1 now and continue every 4 hours x 6 doses total Anticipate placement of miller bulb catheter Epidural when indicated Dr. Dueñas aware of admission and plan of care
[2024-09-11 15:10] LABS: Absolute Neutrophil Count 5.7 X10^3/uL (2.0-7.7); Basophil# 0.04 X10^3/uL; Basophil% 0.5 % (0-1); Eosinophil# 0.06 X10^3/uL; Eosinophils% 0.8 % (0-5); Hemoglobin 10.4 g/dL (12.0-15.0); Lymphocyte % 18.8 % (19-41); Mean Corp Hgb Conc 32.5 g/dL (32-36); Mean Corpuscular Hgb 29.6 pg (27.0-32.0); Mean Corpuscular Volume 91.2 fL (81-99); Mean Platelet Vol. 9.7 fl (6.2-12.0); Monocyte# 0.68 X10^3/uL; Monocyte% 8.5 % (0-10); NRBC Flagged by Analyzer 0 % (0-5); Neutrophil # 5.68 X10^3/uL (2.7-7.7); Neutrophil % 70.9 % (47-70); Platelet Count 266 K/mm3 (150-450); RBC Distribution Width CV 13.6 % (11.6-14.6); RBC Distribution Width SD 45.3 fl (35.1-43.9); Red Blood Count 3.51 M/mm3 (4.2-5.4)
[2024-09-11] MEDS: miSOPROStol 25 MCG TABLET PO ×2 (15:44→19:59)
[2024-09-11 15:59] LABS: Syphilis Antibodies Non-reactive
--- NOTE | 2024-09-11 20:17 | PN.OBGYN_ITS ---
Subjective Subjective Patient seen at bedside. Denies any pain. Denies feeling any contractions at this time. Objective Data Objective Data Vital Signs: Vital Signs Temp Pulse Resp BP Pulse Ox 97.6 F L 86 17 112/73 98 09/11/24 19:24 09/11/24 19:24 09/11/24 19:24 09/11/24 19:24 09/11/24 19:24 Weight: 215 lb 13.321 oz Body Mass Index (BMI) 39.4 Lab / Micro Data 09/11/24 14:55 Labs: Laboratory Results - last 24 hr 09/11/24 14:55: WBC 8.0, RBC 3.51 L, Hgb 10.4 L, Hct 32.0 L, MCV 91.2, MCH 29.6, MCHC 32.5, RDW Std Deviation 45.3 H, RDW Coeff of Jensen 13.6, Plt Count 266, MPV 9.7, Immature Gran % (Auto) 0.500, Neut % (Auto) 70.9 H, Lymph % (Auto) 18.8 L, Schley % (Auto) 8.5, Eos % (Auto) 0.8, Baso % (Auto) 0.5, Absolute Neuts (auto) 5.7, Absolute Lymphs (auto) 1.50, Nucleated RBC % 0, Syphilis Total Ab Non- reactive, Blood Type A POSITIVE, Antibody Screen NEGATIVE Assessment & Plan (1) Anxiety: (2) Obesity affecting : (3) Positive GBS test: (4) Engages in vaping: (5) Asthma: (6) 41 weeks gestation of : (7) Post-dates : (8) Encounter for induction of labor: PLAN: Plan CE /-2 Bassett bulb placed without incident and filled with 30 cc N/S without incident Cytotec 25 mcg PO #2 given at this time NST reactive Continue present plan of care
[2024-09-11] MEDS: fentaNYL 100 MCG/2 ML Ampul IV (21:33)
[2024-09-11] MEDS: 0.9% Saline Lock 10 ML Syringe IV (21:34)
[2024-09-12] VITALS (91 sets, daily range): BP systolic 86–135; BP diastolic 49–93; PULSE 59–138; RESP 14–18; TEMP 36.1–37.3; O2SAT 82–100
[2024-09-12] MEDS: Penicillin G Pot 5,000,000 UNITS in 0.9% Normal Saline (100mL MB+) 100 ML 150 UNITS IV (00:24)
[2024-09-12] MEDS: Lactated Ringers 1,000 ML 50 ML IV ×2 (00:24→05:40)
[2024-09-12] MEDS: Oxytocin 15 Units/NS 250ml 15 UNITS/250 ML IV.SOLN 2 UNITS IV (00:24)
[2024-09-12] MEDS: fentaNYL-bupivacaine (epidural) 100 ML BAG EPIDURAL ×3 (02:42→13:13)
[2024-09-12] MEDS: Lactated Ringers 1,000 ML 999 ML IV (02:54)
[2024-09-12] MEDS: Penicillin G 3,000,000 Units 50 ML 100 UNITS IV ×3 (04:22→13:08)
[2024-09-12] MEDS: Ondansetron 4 MG/2 ML Vial IV ×2 (06:24→15:19)
[2024-09-12] MEDS: 0.9% Saline Lock 10 ML Syringe IV (06:24)
--- NOTE | 2024-09-12 06:27 | NURSING ---
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
--- NOTE | 2024-09-12 08:01 | PN.OBGYN_ITS ---
Subjective Subjective Patient seen at bedside. Comfortable with epidural. Denies pain. Objective Data Objective Data Vital Signs: Vital Signs Temp Pulse Resp BP Pulse Ox 97.6 F L 79 14 117/59 L 99 09/12/24 07:48 09/12/24 07:48 09/12/24 07:48 09/12/24 07:46 09/12/24 07:48 Weight: 215 lb 13.321 oz Body Mass Index (BMI) 39.4 Intake & Output: Intake and Output for Last 24 Hours 09/10/24 09/11/24 09/12/24 23:59 23:59 23:59 Intake Total 2199.37 / 2199.37 Output Total 350 / 350 Balance 1849.37 / 1849.37 Lab / Micro Data 09/11/24 14:55 Labs: Laboratory Results - last 24 hr 09/11/24 14:55: WBC 8.0, RBC 3.51 L, Hgb 10.4 L, Hct 32.0 L, MCV 91.2, MCH 29.6, MCHC 32.5, RDW Std Deviation 45.3 H, RDW Coeff of Jensen 13.6, Plt Count 266, MPV 9.7, Immature Gran % (Auto) 0.500, Neut % (Auto) 70.9 H, Lymph % (Auto) 18.8 L, [place] % (Auto) 8.5, Eos % (Auto) 0.8, Baso % (Auto) 0.5, Absolute Neuts (auto) 5.7, Absolute Lymphs (auto) 1.50, Nucleated RBC % 0, Syphilis Total Ab Non- reactive, Blood Type A POSITIVE, Antibody Screen NEGATIVE Assessment & Plan (1) Anxiety: (2) Obesity affecting : (3) Positive GBS test: (4) Engages in vaping: (5) Asthma: (6) 41 weeks gestation of : (7) Post-dates : (8) Encounter for induction of labor: PLAN: Plan AROM small amount of bloody fluid IUPC and FSE placed without difficulty Pitocin 2 mu / min - turned off during the night for decelerations from maternal hypotension Currently Cat. 1 tracing Continue current plan of care
--- NOTE | 2024-09-12 09:42 | PN.OBGYN_ITS ---
Subjective Subjective Patient seen at bedside. Comfortable with epidural. Resting quietly. Objective Data Objective Data Vital Signs: Vital Signs Temp Pulse Resp BP Pulse Ox 97.8 F 72 16 121/56 H 99 09/12/24 09:23 09/12/24 09:23 09/12/24 09:23 09/12/24 09:23 09/12/24 09:23 Weight: 215 lb 13.321 oz Body Mass Index (BMI) 39.4 Intake & Output: Intake and Output for Last 24 Hours 09/10/24 09/11/24 09/12/24 23:59 23:59 23:59 Intake Total 2210.60 / 2210.60 Output Total 350 / 350 Balance 1860.60 / 1860.60 Lab / Micro Data 09/11/24 14:55 Labs: Laboratory Results - last 24 hr 09/11/24 14:55: WBC 8.0, RBC 3.51 L, Hgb 10.4 L, Hct 32.0 L, MCV 91.2, MCH 29.6, MCHC 32.5, RDW Std Deviation 45.3 H, RDW Coeff of Jensen 13.6, Plt Count 266, MPV 9.7, Immature Gran % (Auto) 0.500, Neut % (Auto) 70.9 H, Lymph % (Auto) 18.8 L, [place] % (Auto) 8.5, Eos % (Auto) 0.8, Baso % (Auto) 0.5, Absolute Neuts (auto) 5.7, Absolute Lymphs (auto) 1.50, Nucleated RBC % 0, Syphilis Total Ab Non- reactive, Blood Type A POSITIVE, Antibody Screen NEGATIVE Assessment & Plan (1) Encounter for induction of labor: (2) Post-dates : (3) 41 weeks gestation of : (4) Asthma: (5) Engages in vaping: (6) Positive GBS test: (7) Obesity affecting : (8) Anxiety: PLAN: Plan Pitocin 4 mu/min - Continue to increase Currently cat. 1 tracing- cat. 2 at times with variables Anticipate
[2024-09-12] MEDS: Lactated Ringers 1,000 ML 200 ML IV (11:18)
[2024-09-12] MEDS: Amnioinfusion- 0.9% NS 1,000 ML IV.SOLN. 1000 ML INTRA-UTER (14:29)
[2024-09-12] MEDS: Oxytocin 10 UNITS/ML Vial IM (16:25)
--- NOTE | 2024-09-12 16:58 | EX.PCM.OBVAG ---
Assessment & Plan (1) (spontaneous vaginal delivery): (2) Laceration, obstetrical, second degree: (3) Anxiety: (4) Obesity affecting : (5) Asthma: Maternal Data Information MIKE Calculator Estimated Delivery Date Method Current WG Current Estimate 09/04/24 Manual 41w 1d Doctor Who Attended Delivery: Jami Gill Vaginal Delivery Maternal Presentation Maternal Presentation: Medically Indicated Induction Maternal Presentation: Scheduled induction of labor for postdates. Type of Induction: Pitocin, Bassett Bulb, Amniotomy and Cytotec Medical Reason for Induction: Post term Vaginal Delivery Information Procedure Performed: Spontaneous Vaginal Delivery Surgeon/Practitioner: Monika Joel Date of Procedure: 09/12/24 Pre-Procedure Diagnosis: Term gestation, induction of labor Post-Procedure Diagnosis: , Live male infant Type of anesthesia: Epidural Estimated Blood Loss: 350 Time of Delivery: 16:21 Findings Description of procedure: Patient progressed to complete dilation. Provided bedside support to patient while pushing. Meconium fluid noted while pushing. Assistant Head Cashier and RT to room for delivery. With good maternal effort, head delivered followed by anterior shoulder and remainder of body without any force, delay, or traction. Vigorous male was delivered atraumatically and placed on maternal abdomen. Pitocin IV started for active management of the third stage of labor. 3 vessel cord clamped and cut after delay and placed immediately skin to skin with patient. Placenta delivered spontaneously and intact. A second degree laceration was repaired in usual fashion using 3-0 Vicryl Rapid. Hemostasis obtained. Vaginal sweep performed. Fundus is firm 2 below U and bleeding is hemostatic. Sponge and sharps counts correct. Patient and bonding well at this time. Dr. Dueñas notified of delivery. Routine post orders placed. Presentation: Vertex Amniotic Membrane Rupture Type: Artificial Amniotic Fluid Description: Clear and Other (meconium fluid during pushing and terminal meconium) Placental Delivery Description: Spontaneous Placenta Disposition: [facility] Specimen collected: No Cord Vessel Description: 3 Vessels Cord Entanglement: None Nuchal Cord Compression: Without compression A Gender: Male (1 minute): 8 (5 minute): 9 Delayed Cord Clamping: Yes Systems Analysis Manager hand sewer shoes: No Post Vaginal Deli Medications given after delivery: IV Pitocin Episiotomy Description: None Laceration: 2nd degree Complication Complications: No
[2024-09-12] MEDS: Benzocaine/Lanolin/Aloe Vera 85 GM Spray 1 SPRAY TOPICAL (18:36)
[2024-09-12] MEDS: Acetaminophen 500 MG Tablet 1000 MG PO (19:44)
[2024-09-13 00:20] VITALS: BP 115/62; PULSE 98; RESP 18; TEMP 36.3; O2SAT 98
[2024-09-13] MEDS: Naproxen 500 MG Tablet PO ×2 (00:38→10:34)
[2024-09-13] MEDS: Acetaminophen 500 MG Tablet 1000 MG PO (04:15)
[2024-09-13 04:24] VITALS: BP 116/76; PULSE 85; RESP 16; TEMP 36.3; O2SAT 98
--- NOTE | 2024-09-13 05:06 | NURSING ---
Reviewed and agreed with Eda NURSE AIDE charting.
[2024-09-13 07:55] VITALS: BP 94/51; PULSE 78; RESP 16; TEMP 36.2; O2SAT 98
--- NOTE | 2024-09-13 08:05 | PCM.DC.SUM ---
Providers Date of Admission: 09/11/24 Primary Care Physician: No Primary Care Phys Reason For Visit: LABOR AND DELIVERY Diagnosis Discharge Diagnosis (1) Asthma: Status: Acute Code(s): J45.909 - Unspecified asthma, uncomplicated (2) Engages in vaping: Status: Acute Code(s): Z72.89 - Other problems related to lifestyle (3) Laceration, obstetrical, second degree: Status: Acute Code(s): O70.1 - Second degree perineal laceration during delivery (4) (spontaneous vaginal delivery): Status: Acute Code(s): O80 - Encounter for full-term uncomplicated delivery Plan PPD 1 Routine care Pumping support/ supplementation with formula D/c home with follow up in office Medications at Discharge Home Medications PNV 153-FA 400 mcg-om3 35 mg-dha 25 mg-epa 5 mg-fish oil chew tablet ( Gummies) 2 tab PO DAILY 09/11/24 loratadine 10 mg tablet (Claritin) 10 mg PO DAILY allelrgies 09/11/24 acetaminophen 500 mg tablet 1,000 mg (2 x 500 mg) PO Q6H PRN PRN Pain 1-10 Or Fever #0 tabs 09/13/24 naproxen 500 mg tablet 500 mg PO Q8H PRN PRN Pain Score 1-10 #0 tabs 09/13/24 Hospital Course Operations None Procedures None Summary of Care Provided Minutes Spent on Discharge: 15 Hospital Course: Patient had vaginal delivery. Hospital course was uneventful. Physical Exam Narrative Patient seen at bedside. Denies pain. Ambulating and voiding without difficulty. Lochia decreased. Desires discharge home today. Const alert and oriented x3 General Appearance: Negative for in distress HEENT normocephalic Eyes General Eye: normal appearance of both eyes Neck General: normal visual inspection Chest Chest: symmetrical chest wall rise Resp normal respiratory effort and normal air movement Effort and Inspection: symmetric chest movement; Negative for tachypneic Auscultation: clear to auscultation bilaterally Cardio regular rate and regular rhythm Peripheral Pulses: pulses 2+ throughout GI normal to inspection, nondistended, normoactive bowel sounds Narrative: Ice to perineum OB / External & Speculum: vaginal bleeding and other Lochia decreasing Uterus Palpation: uterus fundus firm (Below U) Extremity normal to inspection, full ROM and normal capillary refill Skin no rashes or lesions noted Neuro oriented x3, CN's II-XII intact bilaterally and gait normal Psych mental status grossly normal, thought process normal and activity/motor behavior normal Weight / BMI Weight Weight: 215 lb 13.321 oz Body Mass Index (BMI) 39.4 ABG / Lab / Microbiology Data 09/11/24 14:55 D/C Instructions Discharge Diet: No restrictions Discharge Activity: Return to Normal Activity, No Restrictions, May Drive, May Shower and May Take a Tub Bath (Warm water only. No bath salts, soaps, bubbles) May resume sexual activity in: 6-8 weeks Weight Bearing Status: Weight bearing as tolerated Call your doctor if you observe: Fever of 101 or Higher, Inability to urinate, Using more than 1 pad per hour, Shortness of breath, Dizziness, Chest pain, Calf discomfort and Uncontrolled pain Please Follow Up With: [facility] Leno BARNES When: 2 weeks in office or virtual Meaningful Use Info Meaningful Use Meaningful Use Diagnoses (Choose all that apply): None applicable Ischemic Stroke Statin Dosing Therapy Reference: STATIN DOSE THERAPY REFERENCE: * Patients > 75 years receive moderate or high dose statin therapy. * Patients 75 years or YOUNGER should receive HIGH intensity statin dose unless contraindicated. You will be required to document reason for non-treatment if statin daily dose does not meet guidelines. HIGH DOSE STATIN THERAPY DAILY Atorvastatin > than or = to 40 mg Rosuvastatin > than or = to 20 mg Amlodipine + Atorvastatin > than or = to 2.5/40 mg Ezetimibe + Simvastatin 10/80 mg Simvastatin 80mg Discharge Plan Admission Admit Date/Time: 09/11/24 13:36 Primary Reason for Your Visit: Labor and Delivery Attending Provider: Monika Joel Primary Care Provider: Care Physician,No Primary Discharge Orders/Prescriptions Prescriptions: New acetaminophen 500 mg Tablet 1,000 mg PO Q6H PRN PRN (Reason: Pain 1-10 Or Fever) Qty: 0 0RF naproxen 500 mg Tablet 500 mg PO Q8H PRN PRN (Reason: Pain Score 1-10) Qty: 0 0RF Continued Gummies 400 mcg-35 mg- 25 mg-5 mg tablet,chewable 2 tab PO DAILY loratadine [Claritin] 10 mg tablet 10 mg PO DAILY Discontinued aspirin 81 mg tablet,chewable 162 mg PO DAILY Referrals / Follow Up: Care Physician,No Primary [Primary Care Provider] -
[2024-09-13 12:00] VITALS: BP 119/58; PULSE 105; RESP 16; TEMP 37.2
--- NOTE | 2024-09-13 12:50 | CASEMGMT ---
Social Work Assessment Labor and Delivery Unit Patient Address: [address] [place] [address] Phone [phone] Date of Referral: 09/12/2024 Time of Referral: 07:09 Referred By: Monika Joel Date of Intervention: ?09/13/2024 Time of Intervention: 12:48 Reason for Referral: Mental Health History obtained from: Medical records, mother of baby (MOB) and father of baby (FOB).? Household composition: MOB (Tish, age 25), FOB (Marino, age 27), ?s paternal great-grandmother (PGGM) and son (Lacho, born 09/12/2024). Patient's parent/guardian status: MOB and FOB have been together for 11 years and for 2.? Both are actively involved and will be providing care for baby. MOB denied any concerns with domestic violence and described a positive and supportive relationship with her Medical History: ? 1, Para now 1. MOB received routine care through [facility] beginning at 8 weeks and 3 days. Apgars: 8 and 9, Weight: 3850 g, Generator Assembler: Dr. Alyssa Wooten through [facility] in [place]. ? Educational Status: MOB and FOB denied any issues or concerns with reading or writing. MOB and FOB both earned their High School Diploma. Financial Status: MOB and FOB reported their income is sufficient to meet the needs of their family at this time. 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 PRETTY is currently employed full-time in [employer]. Supplies: MOB and FOB reported they have all the supplies they need for baby at this time including but not limited to: Car seat, bassinet, pack-n-play, crib, diapers, bottles, breast pump and clothing. Childcare/Caregiver(s): Both MOB and FOB will provide care for during the times they are home and while at work, ?s maternal grandmother (MGM), maternal aunt and PGGM will be providing childcare to . Transportation:? MOB and FOB reported they are both licensed drivers and have a reliable vehicle to take baby to and from all medical appointments. No transportation issues identified. Programs/Agencies Involved: MOB and FOB denied any current programs or agencies involved at this time and denied any interest in getting connected to outside agencies. Children Services/Legal Issues:? Denied. Behavioral Health Issues: ??Mental Health History: ?MOB has a history of anxiety and panic attacks and used to take prescribed medication however reported her anxiety is currently being managed and MOB denied having any panic attacks for the past 8 years. ?Substance Use History:?? MOB and FOB denied any history or current drug or alcohol abuse. ???Family History: MOB reported MGM is a recovering alcoholic and drug addict and has been sober for 13 years.? MGM has a history of abusing prescription drugs and heroin. ?s maternal grandfather (MGF) also used to abuse prescription drugs and has been clean for 5 years. ?FOB reported ?s paternal grandfather (PGF) is an alcoholic. ?MOB and FOB denied any family history of mental health. ??Drug Screens: ?None obtained at the time of this admission. ? Family/Social Stressors: ?MOB and FOB denied any current family or social stressors. Support Systems: Ample.? MOB and FOB identified their biggest supports as each other, ?s MGM, maternal aunt and PGGM. Other family members and friends are also a support. Depression/Shaken Baby/Safe Sleeping: community mental health worker provided verbal and written education on PPD, Safe Sleeping and Shaken Baby.? Parents verbalized an understanding. ??? ASSESSMENT:? MOB and FOB provided consent to social work visit. Upon arrival, MOB was lying in the hospital bed and the FOB was close by on a couch holding . community mental health worker observed positive interaction between MOB and FOB as well as positive interaction between FOB and since the FOB was holding during the visit. DONNA and FOB appeared to be attached and bonded to and FOB referred to as ?beautiful?. Both MOB and FOB were verbally engaged throughout the visit and denied any current needs or concerns. At the end of the visit, manager social media requested to speak with the MOB alone which both MOB and FOB were agreeable to. MOB reported feeling safe in her current environment, denied any domestic violence, drug or alcohol abuse or unmanaged mental health concerns. MOB denied any safety concerns or additional needs at this time. Safe Plan of Care for infant related to substance use: N/A; not needed. ? PLAN:? Baby to be discharged home when ready.? community mental health worker also provided written information on depression, depression resources and Help Me Grow as additional resources offered by manager social media which MOB and FOB accepted. No other services requested or indicated. Tari Mora, SAT TUTOR, CLERICAL DENTIST ASSISTANT
--- NOTE | 2024-09-18 10:51 | NURSING ---
F/up phone call attempted-- no ans, LVM
== END 2024-09-13 17:40 | disposition home or self-care (01) | DRG 807 ==
LOC: WPOUT 13:46 → WP 13:47
PROVIDERS: Admitting Provider Advanced Practice Midwife; Referring Provider Advanced Practice Midwife; Visit Provider Advanced Practice Midwife
DX: O48.0 Post-term pregnancy (principal); Z37.0 Single live birth; F17.290 Nicotine dependence, other tobacco product, uncomplicated; O99.214 Obesity complicating childbirth; O99.334 Smoking (tobacco) complicating childbirth; O99.820 Streptococcus B carrier state complicating pregnancy; O70.1 Second degree perineal laceration during delivery; O77.0 Labor and delivery complicated by meconium in amniotic fluid; Z3A.41 41 weeks gestation of pregnancy
CPT/HCPCS: 59025; 59050; 85025; 86780; 86850; 86900; 86901; 99221; J7030; J7120; A4216; G0378; J2405